=== PATIENT | male | born 1950 | race Caucasian/White ===

== ENCOUNTER → 2016-09-19 | Outpatient (CLI) | payer OTHER ==
[~2016-09-19] MED LIST: AMLO2.5T PO; CEPH500C PO; CRAN1CAP15 PO; DOCU-94 PO; TYLOTC500 PO
[2016-09-19 13:16] LABS: BASO % 0.7 %; BASO ABS # 0.07 K/uL (0-0.2); COMPLETE YES; EOS % 6.1 %; HEMATOCRIT 42.1 % (42-52); IG% 0.2 %; LYMPH % 17.1 %; LYMPH ABS # 1.73 K/uL (1.2-3.4); MEAN CELL VOLUME 88.4 fL (80-100); MEAN CORPUSCULAR HEMOGLOBIN 29.4 pg (25-34); MEAN CORPUSCULAR HGB CONC 33.3 g/dl (32-36); MEAN PLATELET VOLUME 11.2 fL (7.4-10.4); MONO % 6.5 %; NEUT % 69.4 %; PLATELET COUNT 221 K/uL (130-400); RED BLOOD COUNT 4.76 M/uL (4.7-6.1)
[2016-09-19 13:36] LABS: ALT/SGPT 27 U/L (12-78); AST/SGOT 18 U/L (15-37); BLOOD UREA NITROGEN 19 mg/dl (7-18); BUN/CREATININE RATIO 20.8 (10-20); CALCIUM 8.1 mg/dl (8.5-10.1); CARBON DIOXIDE 25 mmol/L (21-32); CHLORIDE 109 mmol/L (98-107); CREATININE 0.92 mg/dl (0.60-1.40); GLUCOSE 96 mg/dl (70-99); SODIUM 142 mmol/L (136-145)
[2016-09-19 13:39] LABS: ALKALINE PHOSPHATASE 84 U/L (45-117); CHOLESTEROL 152 mg/dl (0-200); CHOLESTEROL/HDL RATIO 4.3; HDL CHOLESTEROL 35 mg/dl; TRIGLYCERIDES 107 mg/dl (0-150); VERY LOW DENSITY LIPOPROT CALC 21 mg/dl
== END | disposition home or self-care (01) ==
LOC: C.LABSPEC 12:31
PROVIDERS: ATTEND Internal Medicine
DX: I10 Essential (primary) hypertension (principal); E78.5 Hyperlipidemia, unspecified; N39.0 Urinary tract infection, site not specified

== ENCOUNTER → 2017-09-29 | Outpatient (CLI) | payer OTHER ==
[~2017-09-29] MED LIST changes: -CEPH500C PO
== END | disposition home or self-care (01) ==
LOC: C.LABSPEC 12:36
PROVIDERS: ATTEND Internal Medicine
DX: R35.0 Frequency of micturition (principal)

== ENCOUNTER → 2017-10-08 | Outpatient (CLI) | payer OTHER ==
[2017-10-08 15:25] LABS: BASO % 0.5 %; BASO ABS # 0.06 K/uL (0-0.2); EOS % 3.4 %; EOS ABS # 0.39 K/uL (0-0.5); HEMATOCRIT 42.8 % (42-52); IG# 0.04 K/uL (0.00-0.02); LYMPH % 14.7 %; MEAN CELL VOLUME 89.4 fL (80-100); MEAN CORPUSCULAR HEMOGLOBIN 29.2 pg (25-34); MEAN CORPUSCULAR HGB CONC 32.7 g/dl (32-36); MEAN PLATELET VOLUME 10.5 fL (7.4-10.4); MONO % 5.5 %; MONO ABS # 0.64 K/uL (0.11-0.59); NEUT % 75.6 %; NEUT ABS # 8.76 K/uL (1.4-6.5); PLATELET COUNT 257 K/uL (130-400); RED CELL DISTRIBUTION WIDTH CV 13.7 % (11.5-14.5); RED CELL DISTRIBUTION WIDTH SD 44.8 fL (36.4-46.3); WHITE BLOOD COUNT 11.59 K/uL (4.8-10.8)
[2017-10-08 15:34] LABS: ALBUMIN 3.2 gm/dl (3.4-5.0); ALT/SGPT 36 U/L (12-78); AST/SGOT 26 U/L (15-37); BLOOD UREA NITROGEN 16 mg/dl (7-18); CALCIUM 8.5 mg/dl (8.5-10.1); CARBON DIOXIDE 23 mmol/L (21-32); CREATININE 0.85 mg/dl (0.60-1.40); GLUCOSE 131 mg/dl (70-99); POTASSIUM 3.7 mmol/L (3.5-5.1); SODIUM 138 mmol/L (136-145)
[2017-10-08 15:36] LABS: ALKALINE PHOSPHATASE 93 U/L (45-117); TOTAL PROTEIN 7.1 gm/dl (6.4-8.2)
== END | disposition home or self-care (01) ==
LOC: C.LABSPEC 14:47
PROVIDERS: ATTEND Internal Medicine
DX: I10 Essential (primary) hypertension (principal); G82.50 Quadriplegia, unspecified; Z87.440 Personal history of urinary (tract) infections

== ENCOUNTER 2017-10-14 12:18 | Emergency (ER) | payer OTHER ==
[~2017-10-14] VITALS: Ht 177.8 cm; Wt 86.0 kg
[2017-10-14 12:40] VITALS: TEMP 36.7; Ht 177.8 cm; Wt 86.0 kg
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
[2017-10-14] MEDS ORDERED: SODIUM CHLORIDE 0.9% 1000ML 1,000 ML IV STA ×2 (13:03→16:39)
[2017-10-14] MEDS ORDERED: LRS10 PO (13:05)
[2017-10-14] MEDS ORDERED: OPTIRAY 320 IV PRN (13:30)
[2017-10-14 14:04] LABS: BASO ABS # 0.12 K/uL (0-0.2); EOS % 5.1 %; EOS ABS # 0.63 K/uL (0-0.5); HEMATOCRIT 41.8 % (42-52); HEMOGLOBIN 13.6 g/dL (14.0-18.0); IG# 0.03 K/uL (0.00-0.02); LYMPH % 9.7 %; MEAN CELL VOLUME 89.7 fL (80-100); MEAN CORPUSCULAR HEMOGLOBIN 29.2 pg (25-34); MEAN CORPUSCULAR HGB CONC 32.5 g/dl (32-36); MEAN PLATELET VOLUME 10.6 fL (7.4-10.4); MONO % 5.6 %; MONO ABS # 0.69 K/uL (0.11-0.59); NEUT % 78.4 %; NEUT ABS # 9.73 K/uL (1.4-6.5); PLATELET COUNT 251 K/uL (130-400); RED CELL DISTRIBUTION WIDTH CV 14.1 % (11.5-14.5); RED CELL DISTRIBUTION WIDTH SD 46.4 fL (36.4-46.3)
[2017-10-14 14:15] LABS: INR 0.9 (0.9-1.1); PTT PATIENT 36.6 SECONDS (21.0-31.0)
[2017-10-14 14:26] LABS: ALBUMIN 3.2 gm/dl (3.4-5.0); CALCIUM 8.5 mg/dl (8.5-10.1); CREATININE 0.83 mg/dl (0.60-1.40); POTASSIUM 3.9 mmol/L (3.5-5.1)
[2017-10-14 14:28] LABS: TOTAL PROTEIN 7.6 gm/dl (6.4-8.2)
--- NOTE | 2017-10-14 15:25 | DIAGNOSTIC IMAGING REPORT ---
CT ABD/PELVIS IV CONTRAST ONLY CLINICAL HISTORY: hematuria after fall COMPARISON STUDY: Noncontrast study dated 01/19/2011 TECHNIQUE: Following the IV administration of 120 mL of Optiray-320, CT scan of the abdomen and pelvis was performed from the lung bases to the proximal femurs. Images are reviewed in the axial, sagittal, and coronal planes. IV contrast was administered without complication. A dose lowering technique was utilized adhering to the principles of ALARA. CT DOSE: 951.15 mGycm FINDINGS: Lower chest: The heart is mildly enlarged. Atheromatous changes are present within the descending thoracic aorta with a possible penetrating ulcer. Liver: There is a subtle 17 millimeter hypodensity with thin the right hepatic lobe inferiorly Gallbladder: Contracted Spleen: Normal in size and attenuation. Pancreas: Unremarkable. Adrenal glands: Unremarkable. Kidneys: Both kidneys enhance on a normal fashion. There are right renal cysts. An upper pole 12 mm cyst demonstrates a single septation. There is a 15 mm lower pole renal cyst. There is an 11 mm lower pole right renal cyst. There are multiple left renal parapelvic cysts. Bowel: There are no transition zones to indicate bowel obstruction. There is no evidence of acute diverticulitis. There are no extraluminal gas collections. Peritoneum: There is no intraperitoneal free air or abdominal ascites. There is subtle hazy increased density of the central mesentery, unchanged the preceding study. Vasculature: There is a 4.5 cm suprarenal abdominal aortic aneurysm. There is a 3.5 cm infrarenal abdominal aortic aneurysm. Adenopathy: There are borderline enlarged iliac and inguinal lymph nodes similar to the preceding study. Pelvic viscera: There are prostatic calcifications present. There is an indwelling Amos catheter. There is marked bladder wall thickening with persistent perivesical stranding. Skeletal structures: There is an old sacral deformity. No acute fractures are evident. IMPRESSION: 1. No evidence of acute intra-abdominal or pelvic injury. 2. Extensive atheromatous changes within the abdominal aorta. There is a suprarenal and infrarenal abdominal aortic aneurysm. In addition there is a possible penetrating ulcer involving the distal thoracic aorta 3. Marked bladder wall thickening with persistent perivesical stranding 4. Stable borderline enlarged iliac and inguinal lymph nodes Electronically signed by: Damion David M.D. 10/14/2017 3:24 PM Dictated Date/Time: 10/14/2017 3:14 PM
[2017-10-14 18:09] VITALS: BP 147/95; PULSE 96; O2SAT 95
[2017-10-14 18:25] LABS: INFLUENZA B ANTIGEN Neg for Influ B (NEG)
--- NOTE | 2017-10-16 13:57 | Pharmacy Progress Note ---
ED Pharmacist Culture FollowUp Date of Service: Oct 16, 2017. Preliminary urine culture (drawn from cath specimen) is growing ps aeruginosa 50 ,000 CFU and a second gram negative viktoria yet to be ID'd Of note, the patient presented with hematuria following a fall The first urine specimen was collected from his guido that was present on arrival and had > 30 epis, and was likely contaminated. This urine cx is from that same specimen. A repeat urine sample was obtained for UA after the guido was changed. This second UA was negative (no LE, no nitrates, no bacteria, 1-5 WBC). Reviewed case with Dr Simon who saw this patient when he initially presented. He felt the first specimen was contaminated due to a colonized catheter. Hematuria was explainable secondary to fall. He felt no abx therapy required.
== END 2017-10-14 18:35 | disposition home or self-care (01) ==
LOC: C.EDB 12:19
DX: R31.9 Hematuria, unspecified (principal); I71.4 Abdominal aortic aneurysm, without rupture; T83.098A Other mechanical complication of other urinary catheter, initial encounter; Y84.6 Urinary catheterization as the cause of abnormal reaction of the patient, or of later complication, without mention of misadventure at the time of the procedure; G82.20 Paraplegia, unspecified; I10 Essential (primary) hypertension; F17.200 Nicotine dependence, unspecified, uncomplicated; Z91.81 History of falling; Z83.3 Family history of diabetes mellitus; Z82.49 Family history of ischemic heart disease and other diseases of the circulatory system; Z84.1 Family history of disorders of kidney and ureter; Z82.0 Family history of epilepsy and other diseases of the nervous system; Z79.899 Other long term (current) drug therapy

== ENCOUNTER 2019-10-22 14:10 | Inpatient (IN) ==
[2019-10-22] MEDS ORDERED: AZITHROMYCIN 250 MG TAB PO STA (14:29)
[2019-10-22] MEDS ORDERED: cefTRIAXone SODIUM 1,000 MG/50 ML BAG IV STA (14:29)
[2019-10-22] MEDS ORDERED: ALBUT/IPRATROP 3MG/0.5MG NEB 3 ML VIAL NEB STA (14:29)
[2019-10-22] MEDS ORDERED: SODIUM CHLORIDE 0.9% 500 ML IV SCH (14:30)
[2019-10-22] MEDS ORDERED: ONDANSETRON INJ 2 MG/ML 2 ML VIAL IV STA ×2 (14:39→17:21)
--- NOTE | 2019-10-22 14:56 | XRay Report ---
XR chest 1V portable CLINICAL HISTORY: weakness COMPARISON STUDY: Chest radiograph July 22, 2018. FINDINGS: Anterior cervical spine fusion is incidentally noted. Cardiomegaly and mediastinal fullness is unchanged. There is no evidence for pulmonary edema or pneumonia. No pneumothorax or pleural effu tete is present. IMPRESSION: 1. No acute findings. 2. No change in appearance of the chest. Stable cardiomegaly. ACT 112: Negative or not required by law. Electronically signed by: Shailesh Medellin M.D. 10/22/2019 2:55 PM
[2019-10-22 15:00] LABS: Basophils # (auto) 0.03 K/uL (0-0.2); Basophils % (auto) 0.3 %; Eosinophils # (auto) 0.02 K/uL (0-0.5); Eosinophils % (auto) 0.2 %; Hematocrit (blood only) 41.8 % (42-52); Hemoglobin 13.6 g/dL (14.0-18.0); Immature Granulocytes # (auto) 0.03 K/uL (0.00-0.02); Immature Granulocytes % (auto) 0.3 %; Lymphocytes # (auto) 0.36 K/uL (1.2-3.4); Lymphocytes % (auto) 3.2 %; Mean Corpuscular Hemoglobin 29.4 pg (25-34); Mean Corpuscular Hgb Conc 32.5 g/dL (32-36); Mean Corpuscular Volume 90.3 fL (80-100); Mean Platelet Volume 10.9 fL (7.4-10.4); Monocytes # (auto) 0.85 K/uL (0.11-0.59); Monocytes % (auto) 7.5 %; Neutrophils # (auto) 10.02 K/uL (1.4-6.5); Neutrophils % (auto) 88.5 %; Platelet Count 148 K/uL (130-400); RDW Coefficient of Variation 14.5 % (11.5-14.5); RDW Standard Deviation 47.7 fL (36.4-46.3); Red Blood Count 4.63 M/uL (4.7-6.1); White Blood Count 11.31 K/uL (4.8-10.8)
[2019-10-22 15:19] LABS: Albumin Level 3.5 gm/dl (3.4-5.0); BUN Creatinine Ratio 21.9 (10-20); Calcium 8.4 mg/dl (8.5-10.1); Creatinine Clr Calc Pharmacy 70.3 ml/min; Est GFR (Non-African American) 66.5; Potassium 4.1 mmol/L (3.5-5.1)
[2019-10-22 15:33] LABS: Influenza B virus by PCR Neg for Influ B (Neg)
[2019-10-22 15:36] LABS: Albumin Globulin Ratio 0.9 (0.9-2); Bilirubin,Total 1.3 mg/dl (0.2-1); Globulin 4.1 gm/dl (2.5-4.0); Total Protein 7.6 gm/dl (6.4-8.2); Troponin I 0.373 ng/ml (0-0.045)
[2019-10-22] MEDS ORDERED: OSELTAMIVIR PHOSPHATE 75 MG CAP PO STA (15:53)
--- NOTE | 2019-10-22 16:53 | Electrocardiogram Report ---
Test Reason : Blood Pressure : / mmHG Vent. Rate : 087 BPM Atrial Rate : 087 BPM P-R Int : 208 ms QRS Dur : 088 ms QT Int : 376 ms P-R-T Axes : 054 -52 062 degrees QTc Int : 452 ms Poor data quality, interpretation may be adversely affected Sinus rhythm with Premature atrial complexes Left axis deviation Inferior infarct (cited on or before 16-JUN-2015) Possible Anterior infarct , age undetermined Abnormal ECG When compared with ECG of 22-JUL-2018 10:08, Premature atrial complexes are now Present Confirmed by Noble Ceballos ([id number]) on 10/22/2019 4:53:12 PM Referred By: Shashi Henao Confirmed By:Noble Ceballos
--- NOTE | 2019-10-22 17:19 | History & Physical Report ---
Date of Service October 22, 2019 Assessment & Plan (1) Influenza: Tamiflu 75mg BID total 10 doses Droplet precautions Not septic however given quadriplegia, COPD, significant dehydration, troponin elevation we will admit him to PCU. (2) COPD exacerbation: Suspected COPD given wheezing with tobacco history Dumarco, Solu-medrol 125mg IV now. 40mg IV BID, then prednisone order after that. Recommend PFTs in 6 weeks once well. Consider at least a rescue inhaler on discharge. (3) Pneumonia: Possible. Although procalcitonin/CXR negative he has positive right sided crackles on auscultation. He is a high risk of bacterial pneumonia regardless with COPD and quadriplegia and will trend procalcitonin which may guide stopping antibiotics if felt not to be necessary (although also using to cover possible cellulitis in addition). Certainly influenza is the primary cause of his acute deterioration. (4) Cellulitis of leg, right: Possible diagnosis although may just be venous insufficiency. Either was will be covered by ceftriaxone as above. Continue to monitor. Discussed with his sister over the phone who feels his legs are usually the same as each other and his right is certainly more erythematous currently. (5) Elevated troponin: Suspected demand-ischemia related to tachycardia. However given significant elevation and chest pain yesterday will give ASA 324mg likely some underlying CAD and not on ASA at home. (6) Quadriplegia: (7) Indwelling Guido catheter present: Change guido cath. He reports this is due for a change. (8) Psoriasis: Betamethasone cream BID PRN (9) Hypertension: Continue amlodipine 5mg PO daily (10) DVT prophylaxis: Lovenox 40mg SQ daily (11) Discharge planning issues: Wheelchair bound. PT/OT discharge planning. Previous rehab at [facility]. History of Present Illness Chief Complaint: Fever, chills, shortness of breath Primary Care Provider: Shashi Henao MD Stephen Moon is an 79 year old male with longstanding quadriplegia (since 1963) who presents to the ER with 2 day history of fever, chills, nasal congestion, productive cough, diarrhea (started yesterday), chest pain (tightness, lasted for few minutes, last night, associated with shortness of breath and coughing). He went to his PCP office today and was advised to go to the ER. He had his flu vaccination this year. No recent antibiotics and or travel. He has a longstanding smoking history but it is intermittent. Last cigarette was 2 weeks ago. He denies history inhaler use, COPD or asthma. Allergies Allergy/AdvReac Type Severity Reaction Status Date / Time adhesive Allergy Mild Irritated Verified 10/22/19 15:40 skin Cipro Allergy Unknown affected Verified 10/14/17 13:04 blood counts (THROMBOCYTOPENIA) ciprofloxacin Allergy Unknown affected Verified 10/22/19 15:40 blood counts (THROMBOCYTOPENIA) heparin AdvReac Intermediate POSSIBLE Verified 10/22/19 15:40 CAUSE OF THROMBOCYTOPENIIA 04/22, LABS PENDING Home Medications Home Medications Medication Instructions Recorded Confirmed Type amlodipine 5 mg PO QAM 07/20/18 10/22/19 History cranberry 400 mg PO QAM 07/20/18 10/22/19 History docusate sodium 100 mg PO QAM 07/20/18 10/22/19 History acetaminophen [Tylenol Extra 500 mg PO Q6H PRN 10/22/19 10/22/19 History Strength] Past Med/Surg History Medical History (Updated 10/23/19 @ 01:18 by Anand England MD) Cholecystitis, chronic Hiatal hernia History of quadriplegia WHEELCHAIR BOUND-S/P TRAUMA 1963 Hx of abdominal aortic aneurysm There is a 4.5 cm suprarenal abdominal aortic aneurysm. There is a 3.5 cm infrarenal abdominal aortic aneurysm. (09/2017 CT of abdomen) Hx of gann 2007-LOWER EXTREMITIES Hx of decubitus ulcer SURGERY TO DEBRIDE-1963 Hypertension Indwelling Guido catheter present Kidney stones Osteoarthritis Paralysis LEVEL C 5-UNABLE TO MOVE FINGERS Spinal stenosis (Acute) Surgical History H/O cervical spine surgery (Acute) H/O skin graft 1963 - decubitus 2010 - gann History of back surgery CERVICAL BONE FUSION-2010 (ACDF 04/07/2012 - Glidescope #4 EZ intubation) S/P debridement DECUBITUS 1963 Family History Grandmother Family history of diabetes mellitus Mother Family history of diabetes mellitus Brother Family history of diabetes mellitus Social History Preferred Language: Malay Communication Ability: Effective Speech Writer Required: No Beliefs That Will Affect Care: None Current Living Situation: Alone Other Information That Helps Us Care for You: No Feels Safe at Home: Yes Safety Concerns: Feels Safe At This Time Smoking Status: Current every day smoker Tobacco Type: cigarettes ; Cigarettes Per Day: 2 ; Second Hand Exposure: No ; Hx Alcohol Use: Yes Alcohol type: beer and wine Hx Substance Use: No Review of Systems Review of Systems: All systems reviewed & are unremarkable except as noted in HPI & below Physical Exam Constitutional: well developed and + acute distress (respiratory); + not well nourished Eyes: PERRL, conjunctivae normal, anicteric sclerae ENMT: Ears: no external ear abnormality Nose: no external nose abnormality Mouth: + dry oral mucous membranes Neck: trachea midline, no thyromegaly Respiratory: + respiratory distress, + labored breathing, + retractions, + uses accessory muscles and + cough (wet sounding) Auscultation: + crackles (right base), + rhonchi and + wheezes (expiratory throughout) Cardiovascular: Rate/Rhythm: regular rate and regular rhythm Heart Sounds: no murmur Vessels: no JVD Extremities: normal capillary refill and + pedal edema (2+ to knees b/l); no calf tenderness Gastrointestinal (Abdomen): Inspection/Auscultation: abdomen normal to inspection and normal bowel sounds; abdomen not distended Percussion/Palpation: abdomen soft; abdomen nontender, no guarding and abdomen not rigid Musculoskeletal: Quadriplegia with no movement of lower extremities and very limit movement of upper extremities Skin: Bilateral lower extremity edema with small wound on right lower extremity. Mild erythema on right lower cali approximately 20x5cm concerning for cellulitis vs. venous insufficiency Neurologic: awake; + does not move all extremities (limited movement of RUE only) and not confused Psychiatric: A+Ox3, euthymic affect Genitourinary: no CVA tenderness Results & Data Vital Signs (Past 12 Hours) Vital Signs Temp Pulse Pulse Resp BP BP Pulse Ox 10/22/19 17:02 37.5 C 103 H 22 114/69 94 10/22/19 16:02 115 H 18 103/69 97 10/22/19 16:00 123 H 20 97 10/22/19 15:46 95 10/22/19 15:45 113 H 19 114/72 88 L 10/22/19 15:31 108 H 22 120/69 93 10/22/19 15:30 119 H 21 93 10/22/19 15:18 109 H 29 H 139/65 93 10/22/19 15:05 101 H 98 10/22/19 15:03 37.4 C 88 30 H 94 10/22/19 15:01 87 20 130/95 99 10/22/19 14:59 85 18 92 10/22/19 14:58 88 36 H 148/99 H 99 10/22/19 14:55 91 10/22/19 14:15 37.2 C 90 20 130/77 91 Diagnostic Findings XR chest 1V portable IMPRESSION: 1. No acute findings. 2. No change in appearance of the chest. Stable cardiomegaly. ECG Indication: chest pain Rate (beats per minute): 87 Rhythm: normal sinus Findings: + PAC; no acute ischemic change Comparison ECG Date: from (07/22/2018) Change: no significant change Code Status & VTE Plan Code Status Full VTE Prophylaxis Plan VTE Prophylaxis will be ordered: Yes PG Care Time/CCT Total # of Minutes Spent Total Time Spent with Patient: Total time spent is greater than 50% in coordination of care (as documented) at patient's floor/unit and/or counseling patient: Coding Level of Care Code 45827 Initial Inpt Care Lvl 3 Diagnoses Influenza J11.1 COPD exacerbation J44.1 Pneumonia J18.9 Laterality: unspecified laterality Lung location: unspecified part of lung Pneumonia type: due to unspecified organism Cellulitis of leg, right L03.115 Elevated troponin R79.89 Quadriplegia G82.50 Indwelling Guido catheter present Z96.0 Psoriasis L40.9 Hypertension I10 Hypertension type: essential hypertension DVT prophylaxis Z29.9 Discharge planning issues Z02.9 (1) Pneumonia Laterality: unspecified laterality Lung location: unspecified part of lung Pneumonia type: due to unspecified organism Qualified Code(s): J18.9 - Pneumonia, unspecified organism (2) Hypertension Hypertension type: essential hypertension Qualified Code(s): I10 - Essential (primary) hypertension
[2019-10-22] MEDS ORDERED: ACETAMINOPHEN 325 MG TAB PO STA (17:21)
[2019-10-22] MEDS ORDERED: LACTATED RINGER'S 1,000 ML IV ONE ×3 (17:33→22:38)
[2019-10-22] MEDS ORDERED: ASPIRIN CHEW 324 MG PO STA (17:37)
[2019-10-22] MEDS ORDERED: methylPREDNISolone 125 MG/2 ML VIAL IV STA (17:44)
--- NOTE | 2019-10-22 19:33 | Emergency Department Note ---
Entered by Brandy Hernandez acting as a scribe for Shaquille Martins MD History of Present Illness General Chief complaint: Congestion Stated complaint: CHEST CONGESTION Time Seen by Provider: 10/22/19 14:20 Source: patient History of Present Illness Onset (ago): day(s) 1 Location: chest Pain Consistency: + constant Maximum Pain Intensity: 5 Current Pain Intensity: 5 Relieved By: + none Exacerbated By: + none Associated symptoms: + chest pain, + cough, + shortness of breath and + other (congestion) Treatments prior to arrival: none The patient is a 69 year old white male who presents to the ED w/ CC of congestion beginning yesterday. The patient was referred from Dr. Ellis office. He complains of cough with dark sputum and congestion. The patient denies recent antibiotic use and travel. The patient notes that he smokes cigarettes intermittently. The patient feels short of breath, and complains of chest pain when coughing. He had diarrhea yesterday. The patient took Mucinex l ast night, which did not help his symptoms. He states that nothing seems to make his symptoms better or worse. He denies history of COPD or emphysema. Home Medications Home Medications Medication Instructions Recorded Confirmed Type amlodipine 5 mg PO QAM 07/20/18 10/22/19 History cranberry 400 mg PO QAM 07/20/18 10/22/19 History docusate sodium 100 mg PO QAM 07/20/18 10/22/19 History acetaminophen [Tylenol Extra 500 mg PO Q6H PRN 10/22/19 10/22/19 History Strength] Allergies Allergy/AdvReac Type Severity Reaction Status Date / Time adhesive Allergy Mild Irritated Verified 10/22/19 15:40 skin Cipro Allergy Unknown affected Verified 10/14/17 13:04 blood counts (THROMBOCYTOPENIA) ciprofloxacin Allergy Unknown affected Verified 10/22/19 15:40 blood counts (THROMBOCYTOPENIA) heparin AdvReac Intermediate POSSIBLE Verified 10/22/19 15:40 CAUSE OF THROMBOCYTOPENIIA 04/22, LABS PENDING Past Med/Surg History Medical History Hiatal hernia History of quadriplegia WHEELCHAIR BOUND-S/P TRAUMA 1964 Hx of abdominal aortic aneurysm There is a 4.5 cm suprarenal abdominal aortic aneurysm. There is a 3.5 cm infrarenal abdominal aortic aneurysm. (09/2017 CT of abdomen) Hx of gann 2007-LOWER EXTREMITIES Hx of decubitus ulcer SURGERY TO DEBRIDE-1963 Hypertension Indwelling Amos catheter present Kidney stones Osteoarthritis Paralysis LEVEL C 5-UNABLE TO MOVE FINGERS Spinal stenosis (Acute) Surgical History H/O cervical spine surgery (Acute) H/O skin graft 1963 - decubitus 2010 - gann History of back surgery CERVICAL BONE FUSION-2010 (ACDF 04/07/2012 - Glidescope #4 EZ intubation) S/P debridement DECUBITUS 1963 Family History Grandmother Family history of diabetes mellitus Mother Family history of diabetes mellitus Brother Family history of diabetes mellitus Social History Preferred Language: Palestinian Communication Ability: Effective 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 and A total of 10 systems reviewed and were otherwise negative Physical Exam Vital Signs Vital Signs - 24 hr 10/22/19 14:15 10/22/19 14:55 10/22/19 14:58 Temperature 37.2 C Temperature Source Oral Pulse Rate 90 88 Pulse Rate [Apical] Pulse Rate from SpO2 Sensor 86 Pulse Rhythm Respiratory Rate 20 36 H Respiratory Effort / Characteristics Non-Labored Spontaneous Respiratory Depth Normal Blood Pressure 130/77 148/99 H Blood Pressure [Left Arm] Blood Pressure Mean 94 122 Blood Pressure Mean [Left Arm] Blood Pressure Position Sitting Pulse Oximetry 91 91 99 Oxygen Delivery Method Room Air Room Air Nebulizer Oxygen Flow Rate 6 Sepsis Recent Fever Within 48 Hours No Sepsis Action Taken by Nursing No Action Required 10/22/19 14:59 10/22/19 15:01 10/22/19 15:03 Temperature 37.4 C Temperature Source Pulse Rate 87 88 Pulse Rate [Apical] 85 Pulse Rate from SpO2 Sensor 87 98 H Pulse Rhythm Respiratory Rate 18 20 30 H Respiratory Effort / Characteristics Spontaneous Short of Breath Respiratory Depth Blood Pressure 130/95 Blood Pressure [Left Arm] Blood Pressure Mean 104 Blood Pressure Mean [Left Arm] Blood Pressure Position Pulse Oximetry 92 99 94 Oxygen Delivery Method Room Air Nebulizer Room Air Oxygen Flow Rate 6 Sepsis Recent Fever Within 48 Hours Sepsis Action Taken by Nursing 10/22/19 15:05 10/22/19 15:18 10/22/19 15:30 Temperature Temperature Source Pulse Rate 101 H 109 H 119 H Pulse Rate [Apical] Pulse Rate from SpO2 Sensor 120 H 101 H Pulse Rhythm Regular Respiratory Rate 29 H 21 Respiratory Effort / Characteristics Respiratory Depth Blood Pressure 139/65 Blood Pressure [Left Arm] Blood Pressure Mean 91 Blood Pressure Mean [Left Arm] Blood Pressure Position Pulse Oximetry 98 93 93 Oxygen Delivery Method Nebulizer Room Air Room Air Oxygen Flow Rate 6 Sepsis Recent Fever Within 48 Hours Sepsis Action Taken by Nursing 10/22/19 15:31 10/22/19 15:45 10/22/19 15:46 Temperature Temperature Source Pulse Rate 108 H 113 H Pulse Rate [Apical] Pulse Rate from SpO2 Sensor 109 H 111 H Pulse Rhythm Respiratory Rate 22 19 Respiratory Effort / Characteristics Respiratory Depth Blood Pressure 120/69 114/72 Blood Pressure [Left Arm] Blood Pressure Mean 72 88 Blood Pressure Mean [Left Arm] Blood Pressure Position Pulse Oximetry 93 88 L 95 Oxygen Delivery Method Room Air Room Air Nasal Cannula Oxygen Flow Rate 2 Sepsis Recent Fever Within 48 Hours Sepsis Action Taken by Nursing 10/22/19 16:00 10/22/19 16:02 10/22/19 17:02 Temperature 37.5 C Temperature Source Oral Pulse Rate 123 H 115 H Pulse Rate [Apical] 103 H Pulse Rate from SpO2 Sensor 101 H 80 Pulse Rhythm Respiratory Rate 20 18 22 Respiratory Effort / Characteristics Respiratory Depth Blood Pressure 103/69 Blood Pressure [Left Arm] 114/69 Blood Pressure Mean 78 Blood Pressure Mean [Left Arm] 84 Blood Pressure Position Pulse Oximetry 97 97 94 Oxygen Delivery Method Nasal Cannula Nasal Cannula Nasal Cannula Oxygen Flow Rate 2 2 2 Sepsis Recent Fever Within 48 Hours Sepsis Action Taken by Nursing GENERAL: Appears older than stated age. Mildly ill in appearance. EYE EXAM: Normal conjunctiva. PERRL, no anisocoria and EOM's grossly intact w/o pain. OROPHARYNX: Dry mucous membranes. Grossly normal dentition. NECK: Supple, no nuchal rigidity, no adenopathy, non-tender. No signs of meningismus. LUNGS: Coarse breath sounds right chest. Scant wheezes throughout. Normal chest wall mechanics. HEART: NSR, no MRG. ABDOMEN: Abdomen soft, non-tender, no masses, no rebound or guarding. SKIN: No rashes and no bruising. UPPER EXTREMITIES: Upper extremities are grossly normal. LOWER EXTREMITIES: Amos bag in place, draining yellow urine. No pitting edema. No calf pain. NEURO EXAM: A&O x3, cranial nerves II-XII grossly intact, normal speech, moves all 4 extremities on command w/o issue. Course Course 1427: Past medical records reviewed. The patient was evaluated in room A12B. A complete history and physical exam was performed. Continuous Cardiac Monitoring: An order was placed for continuous cardiac monitoring. The monitor shows a rate of 87 with normal sinus rhythm. 1550: The patient had a positive Troponin and was positive for the flu. I discussed the possibility of staying in the hospital for further treatment. The patient was agreeable to this. He will be further evaluated by Dr. England. 1605: I rechecked on the patient updated him on further treatment. 1618: I spoke to Dr. England, who agreed to take over care of the patient. The patient is agreeable and will be further evaluated. Administered Medications Discontinued Medications Acetaminophen (Tylenol) 650 mg PO NOW STA Stop: 10/22/19 17:22 Last Admin: 10/22/19 17:35 Dose: 650 mg Documented by: [id number] Albuterol (Duoneb) 6 ml NEB NOW STA Stop: 10/22/19 14:30 Last Admin: 10/22/19 14:56 Dose: 6 ml Documented by: [id number] Aspirin (Aspirin) 324 mg PO NOW STA Stop: 10/22/19 17:38 Last Admin: 10/22/19 17:51 Dose: 324 mg Documented by: [id number] Azithromycin (Zithromax) 500 mg PO NOW STA Stop: 10/22/19 14:30 Last Admin: 10/22/19 15:17 Dose: 500 mg Documented by: [id number] Sodium Chloride (Nss) 500 mls @ 999 mls/hr IV .Q31M RAMÓN Stop: 10/22/19 15:00 Last Infusion: 10/22/19 15:47 Dose: 0 mls/hr Documented by: [id number] Admin: 10/22/19 15:16 Dose: 999 mls/hr Documented by: [id number] Ceftriaxone Sodium (Rocephin) 1,000 mg in 50 mls @ 100 mls/hr IV NOW STA Stop: 10/22/19 14:58 Last Infusion: 10/22/19 15:46 Dose: 0 mls/hr Documented by: [id number] Admin: 10/22/19 15:16 Dose: 100 mls/hr Documented by: [id number] Lactated Ringer's (Lr) 1,000 mls @ 999 mls/hr IV .Q1H1M ONE Stop: 10/22/19 18:33 Last Admin: 10/22/19 17:51 Dose: 999 mls/hr Documented by: [id number] Methylprednisolone (Solumedrol) 125 mg IV NOW STA Stop: 10/22/19 17:45 Last Admin: 10/22/19 17:52 Dose: 125 mg Documented by: [id number] Ondansetron HCl (Zofran) 4 mg IV NOW STA Stop: 10/22/19 14:40 Last Admin: 10/22/19 15:17 Dose: 4 mg Documented by: [id number] Ondansetron HCl (Zofran) 4 mg IV NOW STA Stop: 10/22/19 17:22 Last Admin: 10/22/19 17:35 Dose: 4 mg Documented by: [id number] Oseltamivir Phosphate (Tamiflu) 75 mg PO NOW STA; Protocol Stop: 10/22/19 15:54 Last Admin: 10/22/19 16:09 Dose: 75 mg Documented by: [id number] Medical Decision Making Differential Diagnosis Differential diagnosis includes: infections, reactive airway disease, pneumonia, pneumothorax, COPD, CHF, cardiac ischemia, pulmonary embolism, musculoskeletal, gastrointestinal, as well as others were entertained. Medical Records Attestation: I reviewed the patient's medical records. Home Medications Current Medication List: was personally reviewed by me Laboratory Data Attestation: I reviewed the patient's lab results. Result diagrams: 10/22/19 14:39 10/22/19 14:39 Lab Results 10/22/19 10/22/19 10/22/19 Range/Units 14:39 14:39 14:39 WBC 11.31 H (4.8-10.8) K/uL RBC 4.63 L (4.7-6.1) M/uL Hgb 13.6 L (14.0-18.0) g/dL Hct 41.8 L (42-52) % MCV 90.3 (80-100) fL MCH 29.4 (25-34) pg MCHC 32.5 (32-36) g/dL RDW Std Deviation 47.7 H (36.4-46.3) fL RDW Coeff of Refugio 14.5 (11.5-14.5) % Plt Count 148 (130-400) K/uL MPV 10.9 H (7.4-10.4) fL Immature Gran % (Auto) 0.3 % Neut % (Auto) 88.5 % Lymph % (Auto) 3.2 % Bartholomew % (Auto) 7.5 % Eos % (Auto) 0.2 % Baso % (Auto) 0.3 % Immature Gran # (Auto) 0.03 H (0.00-0.02) K/uL Neut # (Auto) 10.02 H (1.4-6.5) K/uL Lymph # (Auto) 0.36 L (1.2-3.4) K/uL Bartholomew # (Auto) 0.85 H (0.11-0.59) K/uL Eos # (Auto) 0.02 (0-0.5) K/uL Baso # (Auto) 0.03 (0-0.2) K/uL Sodium 136 (136-145) mmol/L Potassium 4.1 (3.5-5.1) mmol/L Chloride 106 (98-107) mmol/L Carbon Dioxide 23 (21-32) mmol/L Anion Gap 7.0 (3-11) BUN 24 H (7-18) mg/dl Creatinine 1.11 (0.6-1.4) mg/dl Est Cr Clr Drug Dosing 70.3 ml/min Est GFR ( Amer) 77.0 Est GFR (Non-Af Amer) 66.5 BUN/Creatinine Ratio 21.9 H (10-20) Glucose 133 H (70-99) mg/dl Lactate 1.6 (0.4-2.0) mmol/L Calcium 8.4 L (8.5-10.1) mg/dl Magnesium 2.0 (1.8-2.4) mg/dl Total Bilirubin 1.3 H (0.2-1) mg/dl AST 23 (15-37) U/L ALT 26 (12-78) U/L Alkaline Phosphatase 84 (45-117) U/L Troponin I 0.373 H* (0-0.045) ng/ml Total Protein 7.6 (6.4-8.2) gm/dl Albumin 3.5 (3.4-5.0) gm/dl Globulin 4.1 H (2.5-4.0) gm/dl Albumin/Globulin Ratio 0.9 (0.9-2) Influenza Type A (PCR) (Neg) Influenza Type B (PCR) (Neg) 10/22/19 Range/Units 14:56 WBC (4.8-10.8) K/uL RBC (4.7-6.1) M/uL Hgb (14.0-18.0) g/dL Hct (42-52) % MCV (80-100) fL MCH (25-34) pg MCHC (32-36) g/dL RDW Std Deviation (36.4-46.3) fL RDW Coeff of Refugio (11.5-14.5) % Plt Count (130-400) K/uL MPV (7.4-10.4) fL Immature Gran % (Auto) % Neut % (Auto) % Lymph % (Auto) % Bartholomew % (Auto) % Eos % (Auto) % Baso % (Auto) % Immature Gran # (Auto) (0.00-0.02) K/uL Neut # (Auto) (1.4-6.5) K/uL Lymph # (Auto) (1.2-3.4) K/uL Bartholomew # (Auto) (0.11-0.59) K/uL Eos # (Auto) (0-0.5) K/uL Baso # (Auto) (0-0.2) K/uL Sodium (136-145) mmol/L Potassium (3.5-5.1) mmol/L Chloride (98-107) mmol/L Carbon Dioxide (21-32) mmol/L Anion Gap (3-11) BUN (7-18) mg/dl Creatinine (0.6-1.4) mg/dl Est Cr Clr Drug Dosing ml/min Est GFR ( Amer) Est GFR (Non-Af Amer) BUN/Creatinine Ratio (10-20) Glucose (70-99) mg/dl Lactate (0.4-2.0) mmol/L Calcium (8.5-10.1) mg/dl Magnesium (1.8-2.4) mg/dl Total Bilirubin (0.2-1) mg/dl AST (15-37) U/L ALT (12-78) U/L Alkaline Phosphatase (45-117) U/L Troponin I (0-0.045) ng/ml Total Protein (6.4-8.2) gm/dl Albumin (3.4-5.0) gm/dl Globulin (2.5-4.0) gm/dl Albumin/Globulin Ratio (0.9-2) Influenza Type A (PCR) Pos for Influ A A* (Neg) Influenza Type B (PCR) Neg for Influ B (Neg) Imaging Data Radiologist's Impression: Radiology results as stated below per my review and the radiologist's interpretation: XR chest 1V portable CLINICAL HISTORY: weakness COMPARISON STUDY: Chest radiograph July 22, 2018. FINDINGS: Anterior cervical spine fusion is incidentally noted. Cardiomegaly and mediastinal fullness is unchanged. There is no evidence for pulmonary edema or pneumonia. No pneumothorax or pleural effusion is present. IMPRESSION: 1. No acute findings. 2. No change in appearance of the chest. Stable cardiomegaly. ACT 112: Negative or not required by law. Electronically signed by: Shailesh Medellin M.D. 10/22/2019 2:55 PM ECG Data Attestation: I personally reviewed and interpreted this ECG as follows: Indication: + chest pain Rate (beats per minute): 87 Rhythm: + sinus rhythm ECG Intervals/blocks: + Normal QRS ECG Roxton: + Left axis deviation ECG Findings: + Q waves (Anteriorly and inferiorly) Comparison ECG Date: from (07/24/18) Change: no significant change Blood Pressure Blood Pressure Findings: Normal blood pressure Blood Pressure Disposition: did not require urgent referral MDM Narrative The patient is a 69 year old white male who presents to the ED w/ CC of congestion beginning yesterday Patient was seen and evaluated the bedside. The patient was referred from his primary care doctor Earlene. The patient is complaining of some shortness of breath mild chest pain with coughing productive cough. The patient is a smoker. Patient denies any prior history of COPD or emphysema. Patient does have some coarse breath sounds greater in the right chest and does have some associated scant wheezes. Patient did have blood work completed along with blood cultures lactic chest x-ray and the patient was given duo nebs along with empiric antibiotics. I counseled patient on smoking cessation for 3 minutes. Treatment options discussed and resources provided. Patient was not receptive. The patient's does have positive flu and elevated troponin. The patient's EKG does not appear very change. I believe given the patient's shortness of breath infectious symptoms and flu are likely driving this as a demand ischemia. This will continue to be trended in house. The patient did have some very mild hypoxia and was started on nasal cannula. I did speak the on-call hospitalist agreed to further evaluate treat the patient. Patient was admitted to the medicine service. Impression & Plan Pneumonia, Influenza, Shortness of breath, Cough, Elevated troponin Discharge Plan Visit Data *Final* Discharge Date/Time: 10/22/19 18:02 Chief Complaint: Congestion Stated Complaint: CHEST CONGESTION ED Provider: Shaquille Martins Discharge Problem: Pneumonia, Influenza, Shortness of breath, Cough, Elevated troponin Patient Disposition: Admitted As Inpatient Discharge Instructions Interventions: ED Discharge Assessment Last Done: 10/22/19 18:02 Discharge Problem: Pneumonia Qualifiers: Pneumonia type: due to unspecified organism Laterality: unspecified laterality Lung location: unspecified part of lung Qualified Code(s): J18.9 - Pneumonia, unspecified organism The scribe's documentation has been prepared under my direction and personally reviewed by me in its entirety. I confirm that the note above accurately reflects all work, treatment, procedures, and medical decision making performed by me.
[2019-10-22] MEDS: ALBUT/IPRATROP 3MG/0.5MG NEB 3 ML VIAL NEB SCH ×2 (19:47→23:08)
[2019-10-22] MEDS: OSELTAMIVIR PHOSPHATE 75 MG CAP PO SCH (20:53)
[2019-10-22] MEDS ORDERED: METOPROLOL TARTRATE 1 MG/ML VIAL IV STA ×2 (21:38→23:26)
[2019-10-22] MEDS ORDERED: cefTRIAXone SODIUM 1,000 MG in DEXTROSE 5% 50 ML IV ONE (21:51)
[2019-10-22] MEDS ORDERED: ENOXAPARIN 100 MG/1ML SYR SQ SCH (22:00)
[2019-10-22] MEDS ORDERED: ENOXAPARIN 1 MG/KG SQ SCH (22:00)
--- NOTE | 2019-10-22 22:14 | XRay Report ---
SINGLE VIEW CHEST CLINICAL HISTORY: Dyspnea. FINDINGS: An AP, portable, upright chest radiograph is compared to study performed earlier the same d ay 10/22/2019. The examination is degraded by portable technique and patient rotation. The heart is enl arged noting atherosclerotic calcification of the thoracic aorta. The pulmonary vasculature is noncon gested. There is bibasilar scarring/atelectasis. No airspace consolidation or large pleural effusion is identified. No pneumothorax is seen. The skeletal structures are osteopenic. The bony thorax is gr ossly intact. Fusion hardware is noted in the lower cervical spine. IMPRESSION: Cardiomegaly with no active disease in the chest. ACT 112: Negative or not required by law. Electronically signed by: Wiliam Irizarry M.D. 10/22/2019 10:13 PM
[2019-10-22 22:46] LABS: Hematocrit (blood only) 39.8 % (42-52); Mean Corpuscular Hemoglobin 29.5 pg (25-34); Mean Corpuscular Volume 90.2 fL (80-100); Platelet Count 129 K/uL (130-400); RDW Coefficient of Variation 14.4 % (11.5-14.5); RDW Standard Deviation 47.7 fL (36.4-46.3); Red Blood Count 4.41 M/uL (4.7-6.1); White Blood Count 10.39 K/uL (4.8-10.8)
[2019-10-22 22:52] LABS: Mean Corpuscular Hgb Conc 32.7 g/dL (32-36)
[2019-10-22 23:04] LABS: BUN Creatinine Ratio 19.2 (10-20); Calcium 8.5 mg/dl (8.5-10.1); Creatinine Clr Calc Pharmacy 69.1 ml/min; Est GFR (African American) 75.4
[2019-10-22 23:07] LABS: Basophils # (auto) 0.01 K/uL (0-0.2); Basophils % (auto) 0.1 %; Immature Granulocytes # (auto) 0.03 K/uL (0.00-0.02); Immature Granulocytes % (auto) 0.3 %; Lymphocytes % (auto) 1.9 %; Neutrophils # (auto) 10.05 K/uL (1.4-6.5); Neutrophils % (auto) 96.7 %
[2019-10-22 23:15] LABS: Troponin I 0.452 ng/ml (0-0.045)
[2019-10-22] MEDS ORDERED: METOPROLOL TARTRATE 50 MG TAB PO STA (23:26)
[2019-10-23] MEDS ORDERED: PHARMACY GLYCEMIC MGMT CONSULT PRN (01:17)
[2019-10-23] MEDS ORDERED: BETAMETHASONE DIP AUG (DIPROLENE) 0.05% CR 15 GM TUBE EXT PRN (01:20)
[2019-10-23] MEDS ORDERED: ACETAMINOPHEN 325 MG TAB PO PRN (01:27)
[2019-10-23] MEDS ORDERED: DEXTROSE 50% 50 ML SYRINGE IV PRN (01:45)
[2019-10-23] MEDS ORDERED: GLUCOSE 10 TABS/TUBE PO PRN (01:45)
[2019-10-23] MEDS ORDERED: CARBOHYDRATES FOR HYPOGLYCEMIA PO PRN (01:45)
[2019-10-23] MEDS ORDERED: GLUCOSE 40% GEL 15 GM TUBE PO PRN (01:45)
[2019-10-23] MEDS ORDERED: GLUCAGON FOR INJ 1 MG VIAL SQ PRN (01:45)
[2019-10-23] MEDS ORDERED: LACTATED RINGER'S 1,000 ML IV SCH (02:00)
[2019-10-23] MEDS: INSULIN ASPART 100 UNITS/ML 3 ML PEN SC SCH ×5 (02:14→21:00)
[2019-10-23] MEDS: ALBUT/IPRATROP 3MG/0.5MG NEB 3 ML VIAL NEB SCH ×6 (02:30→23:06)
[2019-10-23] MEDS ORDERED: FUROSEMIDE 40 MG in SYRINGE 0 ML IV ONE (06:47)
--- NOTE | 2019-10-23 06:50 | Communication Note ---
Date of Service: October 23, 2019 Was called to patient's room around 6:30 am to check on worsening hypoxemic respiratory failure and worsening respiratory exam per nursing. Patient had already received two boluses of LR and was receiving LR @150 mls/hour. On exam patient has diffuse rales and is having orthopnea. We will hold fluid and give one time dose of 40 mg IV lasix.
[2019-10-23 07:05] LABS: Hematocrit (blood only) 40.2 % (42-52); Hemoglobin 13.5 g/dL (14.0-18.0); Immature Granulocytes # (auto) 0.02 K/uL (0.00-0.02); Immature Granulocytes % (auto) 0.2 %; Lymphocytes # (auto) 0.43 K/uL (1.2-3.4); Lymphocytes % (auto) 4.2 %; Mean Corpuscular Hgb Conc 33.6 g/dL (32-36); Mean Corpuscular Volume 89.3 fL (80-100); Mean Platelet Volume 10.4 fL (7.4-10.4); Monocytes # (auto) 0.25 K/uL (0.11-0.59); Monocytes % (auto) 2.4 %; Neutrophils # (auto) 9.59 K/uL (1.4-6.5); Neutrophils % (auto) 93.2 %; Platelet Count 142 K/uL (130-400); RDW Coefficient of Variation 14.4 % (11.5-14.5); RDW Standard Deviation 47.1 fL (36.4-46.3); White Blood Count 10.29 K/uL (4.8-10.8)
[2019-10-23 07:17] LABS: Estimated Average Glucose 105 mg/dl; Hemoglobin A1C 5.3 % (4.5-5.6)
[2019-10-23 07:35] LABS: BUN Creatinine Ratio 18.6 (10-20); Calcium 8.6 mg/dl (8.5-10.1); Creatinine Clr Calc Pharmacy 78.1 ml/min; Est GFR (African American) 89.5; Est GFR (Non-African American) 77.3; Potassium 4.2 mmol/L (3.5-5.1)
[2019-10-23 07:46] LABS: Thyroid Stimulating Hormone 0.422 uIu/ml (0.300-4.500)
[2019-10-23] MEDS ORDERED: METOPROLOL TARTRATE 1 MG/ML VIAL IV PRN (08:24)
[2019-10-23] MEDS ORDERED: NON-FORMULARY MEDICATION (Cranberry 400 MG) PO SCH (09:00)
[2019-10-23] MEDS ORDERED: methylPREDNISolone 40 MG in SYRINGE 0 ML IV SCH (09:00)
[2019-10-23] MEDS ORDERED: AMLODIPINE BESYLATE 5 MG TAB PO SCH (09:00)
[2019-10-23] MEDS ORDERED: AZITHROMYCIN 250 MG TAB PO SCH (09:00)
[2019-10-23] MEDS: LACTOBACILLUS ACIDOPHILUS (FLORANEX) TAB PO SCH ×3 (09:12→17:59)
[2019-10-23] MEDS: METOPROLOL TARTRATE 50 MG TAB PO SCH ×2 (09:12→19:37)
[2019-10-23] MEDS: OSELTAMIVIR PHOSPHATE 75 MG CAP PO SCH ×2 (09:15→19:40)
[2019-10-23] MEDS: guaiFENesin 600 MG TABCR PO SCH ×2 (09:15→19:36)
[2019-10-23] MEDS: DOCUSATE SODIUM 100 MG CAP PO SCH (09:16)
--- NOTE | 2019-10-23 10:12 | Electrocardiogram Report ---
Test Reason : Blood Pressure : / mmHG Vent. 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 lead placement vs. LVH Abnormal ECG When compared with ECG of 22-OCT-2019 14:52, Atrial fibrillation has replaced Sinus rhythm HR has increased 22 bpm Confirmed by Edenilson Valencia ([id number]) on 10/23/2019 10:12:39 AM Referred By: Shashi Henao Confirmed By:Edenilson Valencia
--- NOTE | 2019-10-23 11:01 | Pharmacy Report ---
Pharmacy Glycemic Short Note 2 - Date of Service October 23, 2019 - Glycemic Short BSG Results (Last 24 hours): 10/22/19 10/22/19 10/23/19 14:39 22:13 01:34 Glucose 133 H 226 H POC Glucose 216 H 10/23/19 10/23/19 06:36 07:17 Glucose 153 H POC Glucose 152 H OUTPATIENT ANTIDIABETIC REGIMEN: * n/a * A1c = 5.3% 10/23/19 ASSESSMENT: * Stephen is a 69 yr old who presented to the ED with fever, chills, and shortness of breath. He has been started on ceftriaxone, azithromycin, and tamiflu for influenza, COPD exacerbation, and possible pneumonia. * No known history of DM. Patient is likely hyperglycemic due to high dose IV steroids. He is currently ordered solu medrol 40 mg IV q12h. This will be transitioned to prednisone 40 mg daily on 10/24. * Fasting BSG = 152 mg/dL. Patients BSG improved from 216 mg/dL to 152 mg/dL with just 4 units of SQ Novolog. I will hold off on scheduling basal insulin. If fasting BSG trends upward, will start once daily NPH. * Continue Novolog CF/CR based on weight and stress of 2. PLAN FOR INPATIENT GLYCEMIC CONTROL: * Basal insulin * none * Bolus insulin * NovoLog per scale ACHS or Q6hrs while NPO * Goal Range: Low 110 mg/dL - High 140 mg/dL * Correction Factor: 20 mg/dL/unit * Nutritional / Prandial insulin per carb ratio of 1 unit per 8 grams CHO consumed PLAN FOR DISCHARGE: * A1c = 5.3% * No history of DM. A1c does not indicate prediabetes/diabetes. Anti-diabetic regimen not needed.
--- NOTE | 2019-10-23 11:17 | Hospitalist Progress Note ---
Date of Service October 23, 2019 Assessment & Plan (1) Atrial fibrillation with RVR: In the evening of 10/23, he went into afib with RVR, confirmed on EKG. No chest pain. Chads-Vasc of 2, making urgent anticoagulation not needed. - Echo pending - Rates controlled with his home oral metop along with some IV pushes at times. - Will discuss pros/cons of anticoagulation with him prior to starting any inpatient. (2) Influenza: Flu swab positive. - Tamiflu 75mg BID total 10 doses - Droplet precautions (3) COPD exacerbation: Suspected COPD given wheezing with tobacco history. - Continue DuoNebs - Taper steroids to oral today - Stop abx for lack of evidence of bacterial pneumonia. - Recommend PFTs in 6 weeks once well. Consider at least a rescue inhaler on discharge. (4) Cellulitis of leg, right: Possible diagnosis although may just be venous insufficiency. Either was will be covered by ceftriaxone as above. Continue to monitor. Discussed with his sister over the phone who feels his legs are usually the same as each other and his right is certainly more erythematous currently. (5) Hypertension: BP 160/110 today. - Continue beta-frederick - Restart home amlodipine 5mg PO daily - Monitor (6) Elevated troponin: Demand-ischemia related to tachycardia. No major jump to indicate acute coronary event. - Troponin stable at 0.45. - Will get one more, then stop trending. (7) Quadriplegia: Long-standing. Unknown cause. - PT/OT (8) Indwelling Amos catheter present: Amos cath ordered on admission. - No other inpatient needs (9) Psoriasis: Appears at baseline. - Betamethasone cream BID PRN (10) DVT prophylaxis: Lovenox 40mg SQ daily (11) Discharge planning issues: Wheelchair bound. PT/OT discharge planning. Previous rehab at [facility]. Subjective Feels well overall. Still coughing. Still somewhat shortness of breath. Reports no fevers/chills, chest pain, abdominal pain, nausea, or vomiting. Physical Exam Constitutional: WD/WN, vitals as above Eyes: EOM intact bilaterally; no conjunctival abnormality ENMT: external ear and nose normal, oropharynx normal Neck: trachea midline, no thyromegaly normal visual inspection Respiratory: normal respiratory effort, lungs clear to auscultation no respiratory distress Cardiovascular: Rate/Rhythm: + tachycardic and + irregularly irregular Heart Sounds: normal S1 and normal S2; no murmur Vessels: no JVD Gastrointestinal (Abdomen): Inspection/Auscultation: abdomen normal to inspection; abdomen not distended Musculoskeletal: no cyanosis or clubbing, extremities motor strength 5/5 Skin: no rashes, warm and dry Neurologic: moves all extremities and awake Psychiatric: Orientation: alert, oriented to person and cooperative Results & Data ([facility] [place]) Vital Signs (Past 12 Hours) Vital Signs Temp Pulse Pulse Resp BP BP BP 10/23/19 08:30 128 H 158/107 H 10/23/19 07:39 95 H 10/23/19 07:21 36.8 C 102 H 29 H 158/107 H 10/23/19 07:13 88 24 10/23/19 02:30 87 18 10/23/19 02:24 36.8 C 84 18 145/108 H 10/23/19 00:52 106 H 122/68 10/22/19 23:17 36.6 C 97 H 24 127/85 Pulse Ox 10/23/19 08:30 10/23/19 07:39 10/23/19 07:21 98 10/23/19 07:13 96 10/23/19 02:30 93 10/23/19 02:24 93 10/23/19 00:52 10/22/19 23:17 94 PG Care Time/CCT Total # of Minutes Spent Total Time Spent with Patient: Total time spent is greater than 50% in coordination of care (as documented) at patient's floor/unit and/or counseling patient: Coding Level of Care Code 98393 Subseq Hosp Care Lvl 3 Diagnoses Atrial fibrillation with RVR I48.91 Influenza J11.1 COPD exacerbation J44.1 Cellulitis of leg, right L03.115 Hypertension I10 Hypertension type: essential hypertension Elevated troponin R79.89 Quadriplegia G82.50 Indwelling Amos catheter present Z96.0 Psoriasis L40.9 DVT prophylaxis Z29.9 Discharge planning issues Z02.9 (1) Hypertension Hypertension type: essential hypertension Qualified Code(s): I10 - Essential (primary) hypertension
--- NOTE | 2019-10-23 11:20 | XCELERA ---
[id number] [id number]
[2019-10-23] MEDS ORDERED: cefTRIAXone SODIUM 2,000 MG in DEXTROSE 5% 50 ML IV SCH (15:00)
[2019-10-23] MEDS: ASPIRIN 81 MG ECTAB PO SCH (15:55)
--- NOTE | 2019-10-23 19:02 | Cardiology Consultation ---
Date of Consultation October 23, 2019 Assessment & Plan (1) Atrial fibrillation with RVR: (2) Elevated troponin: (3) Influenza: (4) Quadriplegia: Patient admitted with influenza, course complicated by chest discomfort last evening with development of atrial fibrillation and rising troponin. Since the duration of his wall motion abnormalities on echocardiogram are uncertain, it is possible that he had cardiac event last evening. However, in the absence of ST changes or any further chest discomfort, more likely explanation is that his infarcts/wall motion abnormalities are old (evidence on prior ECGs) and that supply/demand mismatch due to his acute influenza as well as new onset atrial fibrillation with rapid ventricular response are the cause of his enzyme rise. He is anticoagulated with full dose enoxaparin and his rate is reasonably controlled with oral and IV metoprolol (ventricular rate near 100 bpm is probably physiologically appropriate given his respiratory compromise). Recommend further ECGs and serial enzymes while remaining on telemetry. Will monitor his clinical course overnight and re-evaluate further in the morning, including recommendations for long-term anticoagulation & rate control. History of Present Illness Reason for Consultation: Elevated troponin Requesting Physician: Cassius Yu MD Attending Physician: Cassius Yu MD History of Present Illness 79-year-old man with longstanding quadriplegia (1965) who was admitted yesterday with fever, chills, productive cough, and dyspnea, nasal swab returned positive for influenza. He also noted some chest heaviness last evening which lasted several hours. Last evening he developed atrial fibrillation with mildly elevated ventricular response (109 bpm). Otherwise uneventful night, he has had no further chest pressure. He does note mild dyspnea and a persistent cough. No further fever or chills. Serial ECGs showed no new ST abnormalities but the troponin increased from initial 0.3 up to 1.0 overnight. Echocardiogram showed mildly reduced systolic function with wall motion abnormalities of uncertain duration (severe inferior hypokinesis, moderate septal hypokinesis, mild global hypokinesis). 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 Currently, monitor shows atrial fibrillation with ventricular rate just above 100 bpm. At the time of my evaluation, he was eating dinner and was comfortable at rest. Allergies Allergy/AdvReac Type Severity Reaction Status Date / Time adhesive Allergy Mild Irritated Verified 10/22/19 15:40 skin Cipro Allergy Unknown affected Verified 10/14/17 13:04 blood counts (THROMBOCYTOPENIA) ciprofloxacin Allergy Unknown affected Verified 10/22/19 15:40 blood counts (THROMBOCYTOPENIA) heparin AdvReac Intermediate POSSIBLE Verified 10/22/19 15:40 CAUSE OF THROMBOCYTOPENIIA 04/22, LABS PENDING Home Medications Home Medications Medication Instructions Recorded Confirmed Type amlodipine 5 mg PO QAM 07/20/18 10/22/19 History cranberry 400 mg PO QAM 07/20/18 10/22/19 History docusate sodium 100 mg PO QAM 07/20/18 10/22/19 History acetaminophen [Tylenol Extra 500 mg PO Q6H PRN 10/22/19 10/22/19 History Strength] Patient History Medical History Cholecystitis, chronic Hiatal hernia Hiccups (Resolved) History of quadriplegia WHEELCHAIR BOUND-S/P TRAUMA 1965 Hx of abdominal aortic aneurysm There is a 4.5 cm suprarenal abdominal aortic aneurysm. There is a 3.5 cm infrarenal abdominal aortic aneurysm. (09/2017 CT of abdomen) Hx of gann 2007-LOWER EXTREMITIES Hx of decubitus ulcer SURGERY TO DEBRIDE-1963 Hypertension Indwelling Amos catheter present Kidney stones Osteoarthritis Paralysis LEVEL C 5-UNABLE TO MOVE FINGERS Psoriasis (Inactive) Seborrheic keratosis (Inactive) Spinal stenosis (Acute) Surgical History H/O cervical spine surgery (Acute) H/O skin graft 1963 - decubitus 2010 - gann History of back surgery CERVICAL BONE FUSION-2010 (ACDF 04/07/2012 - Glidescope #4 EZ intubation) S/P debridement DECUBITUS 1963 Family History Family history of diabetes mellitus Grandmother Mother Brother Social History Preferred Language: Albanian Communication Ability: Effective Supervisor [employer] Required: No Beliefs That Will Affect Care: None Current Living Situation: Alone Other Information That Helps Us Care for You: No Feels Safe at Home: Yes Safety Concerns: Feels Safe At This Time Smoking Status: Current every day smoker Tobacco Type: cigarettes ; Cigarettes Per Day: 2 ; Second Hand Exposure: No ; Hx Alcohol Use: Yes Alcohol type: beer and wine Hx Substance Use: No Review of Systems Constitutional: + fever, + chills and + fatigue; no weight loss and no weight gain Eyes: no problem reported Ear, Nose, Mouth, Throat: + nasal discharge; no problem reported Respiratory: + cough and + dyspnea Cardiovascular: as per Subjective / HPI Gastrointestinal: + diarrhea/loose stools; no abdominal pain Musculoskeletal: no myalgia Integumentary: no rash and no new lesions Neurologic: no falls and no syncope Psychiatric: no problem reported Hematologic / Lymphatic: no easy bleeding and no easy bruising Physical Exam Physical Exam: Elderly white male in no acute distress. Skin: No unusual lesions or ecchymosis. HEENT: Unremarkable. Neck: Jugular venous pulse just above the clavicle at 90, no carotid bruits. Lungs: Coarse breath sounds with diffuse rhonchi and wheezing. No accessory muscle use, intercostal retraction, or abdominal paradox. Cardiac: Heart tones masked by lung sounds, irregular rhythm without obvious murmur or gallop. Abdomen: Benign. Extremities: Nontender without edema. Intact peripheral pulses. Neurologic: Near quadriplegic, has no significant hand function but can move both upper extremities and can slightly move his left lower extremity. Normal conversation and affect. Results & Data Laboratory Results 10/23/19 06:36 Creatinine 0.98 10/23/19 06:36 Plt Count 142 10/22/19 10/22/19 10/23/19 14:39 22:13 06:36 Hgb 13.5 L Troponin I 0.373 H* 0.452 H* 10/23/19 11:44 Hgb Troponin I 1.010 H* Diagnostic Findings ECG on admission showed sinus rhythm at 87 be p.m. with PVCs, and old inferior infarct, and poor R-wave progression. Compared with 07/22/2018 study, PACs now present, otherwise no significant change. Repeat ECG last evening showed atrial fibrillation with rapid ventricular response of 109 be p.m., no new ST segment changes. Echocardiogram today showed EF 45-50% with moderate septal hypokinesis, severe inferior wall hypokinesis, mild global hypokinesis. No significant valvular disease on technically limited Doppler. Chest x-ray showed cardiomegaly with no active disease in the chest. PG Care Time/CCT Total # of Minutes Spent Total Time Spent with Patient: Total time spent is greater than 50% in coordination of care (as documented) at patient's floor/unit and/or counseling patient: Coding Level of Care Code 86828 Inpt Consult Level 4 Diagnoses Atrial fibrillation with RVR I48.91 Elevated troponin R79.89 Influenza J11.1 Quadriplegia G82.50
[2019-10-23] MEDS: APIXABAN 5 MG TABLET PO SCH (19:38)
[2019-10-23] MEDS: ATORVASTATIN 40 MG TAB PO SCH (19:38)
[2019-10-24] MEDS: ALBUT/IPRATROP 3MG/0.5MG NEB 3 ML VIAL NEB SCH ×6 (03:04→22:24)
[2019-10-24 06:39] LABS: Hematocrit (blood only) 39.3 % (42-52); Hemoglobin 12.7 g/dL (14.0-18.0); Mean Corpuscular Hemoglobin 29.3 pg (25-34); Mean Corpuscular Hgb Conc 32.3 g/dL (32-36); Mean Corpuscular Volume 90.8 fL (80-100); Platelet Count 146 K/uL (130-400); RDW Coefficient of Variation 14.2 % (11.5-14.5); RDW Standard Deviation 47.3 fL (36.4-46.3); Red Blood Count 4.33 M/uL (4.7-6.1); White Blood Count 14.02 K/uL (4.8-10.8)
[2019-10-24 07:26] LABS: BUN Creatinine Ratio 28.5 (10-20); Calcium 8.4 mg/dl (8.5-10.1); Creatinine Clr Calc Pharmacy 76.7 ml/min; Est GFR (African American) 88.4; Est GFR (Non-African American) 76.3; Magnesium 2.1 mg/dl (1.8-2.4); Potassium 3.8 mmol/L (3.5-5.1)
[2019-10-24 07:38] LABS: Phosphorus 2.7 mg/dl (2.5-4.9); Troponin I 0.625 ng/ml (0-0.045)
[2019-10-24] MEDS: ASPIRIN 81 MG ECTAB PO SCH (08:17)
[2019-10-24] MEDS: guaiFENesin 600 MG TABCR PO SCH ×2 (08:18→20:33)
[2019-10-24] MEDS: DOCUSATE SODIUM 100 MG CAP PO SCH (08:18)
[2019-10-24] MEDS: APIXABAN 5 MG TABLET PO SCH (08:19)
[2019-10-24] MEDS: LACTOBACILLUS ACIDOPHILUS (FLORANEX) TAB PO SCH ×3 (08:19→16:13)
[2019-10-24] MEDS: METOPROLOL TARTRATE 50 MG TAB PO SCH ×2 (08:20→20:33)
[2019-10-24] MEDS: AMLODIPINE BESYLATE 5 MG TAB PO SCH (08:20)
[2019-10-24] MEDS: predniSONE 20 MG TAB PO SCH (08:20)
[2019-10-24] MEDS: OSELTAMIVIR PHOSPHATE 75 MG CAP PO SCH ×2 (08:21→20:34)
[2019-10-24] MEDS: INSULIN ASPART 100 UNITS/ML 3 ML PEN SC SCH ×4 (08:24→20:34)
--- NOTE | 2019-10-24 12:32 | Cardiology Progress Note ---
Date of Service October 24, 2019 Assessment & Plan (1) Atrial fibrillation with RVR: (2) Elevated troponin: (3) Influenza: (4) Quadriplegia: Patient admitted with influenza, course complicated by chest discomfort 2 days ago with development of atrial fibrillation and transient troponin el evation. Since the duration of his wall motion abnormalities on echocardiogram are uncertain, it is impossible to exclude a recent cardiac event. However, in the absence of ST changes or any further chest discomfort, more likely explanation is that his infarcts/wall motion abnormalities are old (evidence on prior ECGs) and that supply/demand mismatch due to his acute influenza as well as new onset atrial fibrillation with rapid ventricular response are the cause of his enzyme rise. In regards to his recent onset atrial fibrillation, he is anticoagulated with apixaban and his rate is now well controlled with oral and IV metoprolol (ventricular rate 90s range is physiologically appropriate given his respiratory compromise). At this point, would favor conservative management of his presumed coronary artery disease while his influenza is being treated. Agree with adding aspirin back to his regimen and continuing atorvastatin. Since his functional status is quite limited due to his quadriplegia, once his influenza is treated would assess for any anginal type symptoms that prevent him from performing transfers or other activities which represent his maximal physical exertion. In the absence of lifestyle limiting symptoms, continued conservative management of his presumed coronary artery disease seems warranted. Subjective Uneventful night, patient slept well. No PND. No ankle edema. No chest pain overnight. No dyspnea at rest. Troponins trending downward. Monitor showed sinus rhythm with no dysrhythmia. Physical Exam Physical Exam: No acute distress. Skin: No unusual lesions or ecchymosis. HEENT: Unremarkable. Neck: Jugular venous pulse just above the clavicle at 90, no carotid bruits. Lungs: Coarse breath sounds with diffuse rhonchi and wheezing. No accessory muscle use, intercostal retraction, or abdominal paradox. Cardiac: Heart tones masked by lung sounds, irregular rhythm without obvious murmur or gallop. Abdomen: Benign. Extremities: Nontender without edema. Intact peripheral pulses. Neurologic: Near quadriplegic, has no significant hand function but can move both upper extremities and can slightly move his left lower extremity. Normal conversation and affect. Results & Data Vital Signs (Past 12 Hours) Vital Signs Temp Pulse Resp BP Pulse Ox 10/24/19 11:58 93 10/24/19 11:29 98.1 F 93 H 19 124/91 95 10/24/19 11:01 83 22 93 10/24/19 07:23 97.9 F 87 21 135/90 98 10/24/19 07:07 86 22 95 10/24/19 03:36 98.1 F 91 H 20 149/105 H 95 10/24/19 03:05 85 18 94 Laboratory Results 10/23/19 10/23/19 10/24/19 11:44 19:59 06:10 Hgb 12.7 L Plt Count 146 Creatinine Troponin I 1.010 H* 0.742 H* 10/24/19 06:10 Hgb Plt Count Creatinine 0.99 Troponin I 0.625 H* PG Care Time/CCT Total # of Minutes Spent Total Time Spent with Patient: Total time spent is greater than 50% in coordination of care (as documented) at patient's floor/unit and/or counseling patient: Coding Level of Care Code 41713 Subseq Hosp Care Lvl 3 Diagnoses Atrial fibrillation with RVR I48.91 Elevated troponin R79.89 Influenza J11.1 Quadriplegia G82.50
--- NOTE | 2019-10-24 12:56 | Hospitalist Progress Note ---
Date of Service October 24, 2019 Assessment & Plan (1) Atrial fibrillation with RVR: In the evening of 10/23, he went into afib with RVR, confirmed on EKG. No chest pain. Chads-Vasc of 2, making urgent anticoagulation not needed. - Echo on 10/23 showed mildly reduced EF 45-50% with some regional wall motion issues. Likely had a prior silent WI. - Rates controlled with oral metop along with some IV pushes at times. - Will switch to metoprolol XL for his heart failure. - Started apixaban. Patient has some hemorrhoidal bleeding, but no other contraindication to anticoagulation. (2) Influenza: Flu swab positive. - Tamiflu 75mg BID total 10 doses - Droplet precautions (3) COPD exacerbation: Suspected COPD given wheezing with tobacco history. Very mild as he is breathing well now. - Continue DuoNebs - Continue steroids x 5 days. - Stop abx for lack of evidence of bacterial pneumonia. - Recommend PFTs in 6 weeks once well. Consider at least a rescue inhaler on discharge. (4) Cellulitis of leg, right: Possible diagnosis although may just be venous insufficiency. Admitting provider discussed with his sister over the phone who feels his legs are usually the same as each other and his right is certainly more erythematous currently. - For benefit of the doubt, will continue 7-day course of abx. It is substantially better today, so may be mild infection. (5) Hypertension: BP 125/90 today. - Continue beta-frederick & home amlodipine - Monitor (6) Elevated troponin: Demand-ischemia related to tachycardia. No major jump to indicate acute coronary event. - Troponin peaked at 1, then down - Cardiology consulted (7) Quadriplegia: Long-standing. Unknown cause. - PT/OT (8) Indwelling Amos catheter present: Aoms cath exchanged on admission. - No other inpatient needs (9) Psoriasis: Appears at baseline. - Betamethasone cream BID PRN (10) DVT prophylaxis: Lovenox 40mg SQ daily (11) Discharge planning issues: Would like to go home tomorrow if able. Subjective Doing well today. No major complaints. Still coughing, but less shortness of breath. Reports no fevers/chills, chest pain, shortness of breath, abdominal pain, nausea, or vomiting. Physical Exam Constitutional: WD/WN, vitals as above Eyes: EOM intact bilaterally; no conjunctival abnormality ENMT: external ear and nose normal, oropharynx normal Neck: trachea midline, no thyromegaly normal visual inspection Respiratory: normal respiratory effort, lungs clear to auscultation no respiratory distress Cardiovascular: Rate/Rhythm: + tachycardic and + irregularly irregular Heart Sounds: normal S1 and normal S2; no murmur Vessels: no JVD Gastrointestinal (Abdomen): Inspection/Auscultation: abdomen normal to inspection; abdomen not distended Musculoskeletal: no cyanosis or clubbing, extremities motor strength 5/5 Skin: no rashes, warm and dry Neurologic: moves all extremities and awake Psychiatric: Orientation: alert, oriented to person and cooperative Results & Data ([facility]) Vital Signs (Past 12 Hours) Vital Signs Temp Pulse Resp BP Pulse Ox 10/24/19 11:58 93 10/24/19 11:29 36.7 C 93 H 19 124/91 95 10/24/19 11:01 83 22 93 10/24/19 07:23 36.6 C 87 21 135/90 98 10/24/19 07:07 86 22 95 10/24/19 03:36 36.7 C 91 H 20 149/105 H 95 10/24/19 03:05 85 18 94 PG Care Time/CCT Total # of Minutes Spent Total Time Spent with Patient: Total time spent is greater than 50% in coordination of care (as documented) at patient's floor/unit and/or counseling patient: Coding Level of Care Code 09191 Subseq Hosp Care Lvl 3 Diagnoses Atrial fibrillation with RVR I48.91 Influenza J11.1 COPD exacerbation J44.1 Cellulitis of leg, right L03.115 Hypertension I10 Hypertension type: essential hypertension Elevated troponin R79.89 Quadriplegia G82.50 Indwelling Amos catheter present Z96.0 Psoriasis L40.9 DVT prophylaxis Z29.9 Discharge planning issues Z02.9 (1) Hypertension Hypertension type: essential hypertension Qualified Code(s): I10 - Essential (primary) hypertension
[2019-10-24] MEDS: cephALEXin 500 MG CAP PO SCH ×2 (16:12→20:33)
[2019-10-24] MEDS ORDERED: RIVAROXABAN 15 MG TAB PO SCH (18:00)
[2019-10-24] MEDS: ATORVASTATIN 40 MG TAB PO SCH (20:33)
[2019-10-25] MEDS: ALBUT/IPRATROP 3MG/0.5MG NEB 3 ML VIAL NEB SCH ×6 (03:04→22:59)
[2019-10-25 06:34] LABS: Hematocrit (blood only) 39.2 % (42-52); Hemoglobin 12.7 g/dL (14.0-18.0); Mean Corpuscular Hemoglobin 29.1 pg (25-34); Mean Corpuscular Hgb Conc 32.4 g/dL (32-36); Mean Corpuscular Volume 89.9 fL (80-100); Mean Platelet Volume 10.3 fL (7.4-10.4); Platelet Count 143 K/uL (130-400); RDW Standard Deviation 46.3 fL (36.4-46.3); Red Blood Count 4.36 M/uL (4.7-6.1); White Blood Count 10.36 K/uL (4.8-10.8)
[2019-10-25 07:05] LABS: BUN Creatinine Ratio 28.4 (10-20); Calcium 8.3 mg/dl (8.5-10.1); Creatinine Clr Calc Pharmacy 97.4 ml/min; Est GFR (African American) 105.3; Est GFR (Non-African American) 90.8; Magnesium 2.1 mg/dl (1.8-2.4); Potassium 3.8 mmol/L (3.5-5.1)
[2019-10-25] MEDS: OSELTAMIVIR PHOSPHATE 75 MG CAP PO SCH ×2 (08:06→20:07)
[2019-10-25] MEDS: predniSONE 20 MG TAB PO SCH (08:07)
[2019-10-25] MEDS: guaiFENesin 600 MG TABCR PO SCH ×2 (08:07→20:07)
[2019-10-25] MEDS: DOCUSATE SODIUM 100 MG CAP PO SCH ×2 (08:07→20:07)
[2019-10-25] MEDS: METOPROLOL SUCC 50MG EXT REL TAB PO SCH (08:08)
[2019-10-25] MEDS: LACTOBACILLUS ACIDOPHILUS (FLORANEX) TAB PO SCH ×3 (08:08→17:05)
[2019-10-25] MEDS: ASPIRIN 81 MG ECTAB PO SCH (08:08)
[2019-10-25] MEDS: AMLODIPINE BESYLATE 5 MG TAB PO SCH (08:08)
[2019-10-25] MEDS: cephALEXin 500 MG CAP PO SCH ×4 (08:09→20:07)
[2019-10-25] MEDS: INSULIN ASPART 100 UNITS/ML 3 ML PEN SC SCH ×4 (08:10→20:16)
[2019-10-25] MEDS: POLYETHYLENE (MIRALAX) 17 GM PACK PO SCH (12:38)
--- NOTE | 2019-10-25 16:23 | Cardiology Progress Note ---
Date of Service October 25, 2019 Assessment & Plan (1) Atrial fibrillation with RVR: (2) Elevated troponin: (3) Influenza: (4) Quadriplegia: Patient admitted on 10/22/2019 with influenza, course complicated by chest discomfort with first night of admission with development of atrial fibrillation and transient troponin elevation (troponin continued to drop as of yesterday). Since the duration of his wall motion abnormalities on echocardiogram are uncertain, it is impossible to exclude a recent cardiac event. However, in the absence of ST changes or any further chest discomfort, more likely explanation is that his infarcts/wall motion abnormalities are old (evidence on prior ECGs) and that supply/demand mismatch due to his acute influenza as well as new onset atrial fibrillation with rapid ventricular response are the cause of his enzyme rise. In regards to his recent onset atrial fibrillation, he is anticoagulated with apixaban and his rate is now well controlled with oral and IV metoprolol (ventricular rate 90s range is physiologically appropriate given his respiratory compromise). As previously noted, would favor conservative management of his presumed coronary artery disease while his influenza is being treated. Agree with adding aspirin back to his regimen and continuing atorvastatin. Since his functional status is quite limited due to his quadriplegia, once his influenza is treated would assess for any anginal type symptoms that prevent him from performing transfers or other activities which represent his maximal physical exertion. In the absence of lifestyle limiting symptoms, continued conservative management of his presumed coronary artery disease seems warranted. No new recommendations. Admission and Anticipated Discharge Date Admission Date: October 22, 2019 Subjective Uneventful night, patient slept well. His dyspnea is decreasing. No chest pain. Monitor shows atrial fibrillation with controlled ventricular response (90 bpm). Physical Exam Physical Exam: No acute distress. Skin: No unusual lesions or ecchymosis. HEENT: Unremarkable. Neck: Jugular venous pulse just above the clavicle at 90, no carotid bruits. Lungs: Coarse breath sounds with diffuse rhonchi and wheezing. No accessory muscle use, intercostal retraction, or abdominal paradox. Cardiac: Heart tones masked by lung sounds, irregular rhythm without obvious murmur or gallop. Abdomen: Benign. Extremities: Nontender without edema. Intact peripheral pulses. Neurologic: Near quadriplegic, has no significant hand function but can move both upper extremities and can slightly move his left lower extremity. Normal conversation and affect. Results & Data ([facility]) Vital Signs (Past 12 Hours) Vital Signs Temp Pulse Resp BP BP Pulse Ox 10/25/19 15:33 97.7 F 91 H 23 128/82 95 10/25/19 15:07 80 18 98 10/25/19 11:27 97.5 F L 89 18 135/88 94 10/25/19 11:12 86 20 94 10/25/19 07:20 79 20 94 10/25/19 07:07 97.9 F 85 20 151/109 H 94 Laboratory Results 10/23/19 10/24/19 19:59 06:10 Troponin I 0.742 H* 0.625 H* PG Care Time/CCT Total # of Minutes Spent Total Time Spent with Patient: Total time spent is greater than 50% in coordination of care (as documented) at patient's floor/unit and/or counseling patient: Coding Level of Care Code 85838 Subseq Hosp Care Lvl 3 Diagnoses Atrial fibrillation with RVR I48.91 Elevated troponin R79.89 Influenza J11.1 Quadriplegia G82.50
[2019-10-25] MEDS ORDERED: bisacodyL 10 MG SUPP PR PRN (17:06)
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
[2019-10-25] MEDS ORDERED: RIVAROXABAN 20 MG TAB PO SCH (18:00)
[2019-10-25] MEDS ORDERED: METOPROLOL TARTRATE 1 MG/ML VIAL IV PRN (18:08)
[2019-10-25] MEDS: ATORVASTATIN 40 MG TAB PO SCH (20:07)
[2019-10-26] MEDS: ALBUT/IPRATROP 3MG/0.5MG NEB 3 ML VIAL NEB SCH ×4 (02:17→15:18)
[2019-10-26 07:05] LABS: BUN Creatinine Ratio 23.2 (10-20); Calcium 8.4 mg/dl (8.5-10.1); Est GFR (African American) 101.1; Est GFR (Non-African American) 87.2; Magnesium 2.2 mg/dl (1.8-2.4); Potassium 4.1 mmol/L (3.5-5.1)
[2019-10-26] MEDS: ASPIRIN 81 MG ECTAB PO SCH (07:52)
[2019-10-26] MEDS: LACTOBACILLUS ACIDOPHILUS (FLORANEX) TAB PO SCH ×2 (07:52→12:08)
[2019-10-26] MEDS: cephALEXin 500 MG CAP PO SCH ×2 (07:52→12:08)
[2019-10-26] MEDS: DOCUSATE SODIUM 100 MG CAP PO SCH (07:52)
[2019-10-26] MEDS: POLYETHYLENE (MIRALAX) 17 GM PACK PO SCH (07:53)
[2019-10-26] MEDS: guaiFENesin 600 MG TABCR PO SCH (07:53)
[2019-10-26] MEDS: AMLODIPINE BESYLATE 5 MG TAB PO SCH (07:54)
[2019-10-26] MEDS: OSELTAMIVIR PHOSPHATE 75 MG CAP PO SCH (07:54)
[2019-10-26] MEDS: predniSONE 20 MG TAB PO SCH (07:54)
[2019-10-26] MEDS: METOPROLOL SUCC 50MG EXT REL TAB PO SCH (07:54)
[2019-10-26] MEDS: INSULIN ASPART 100 UNITS/ML 3 ML PEN SC SCH ×2 (07:56→12:09)
--- NOTE | 2019-10-26 10:14 | Cardiology Progress Note ---
Date of Service October 26, 2019 Assessment & Plan (1) Atrial fibrillation with RVR: (2) Bleeding hemorrhoids: (3) Elevated troponin: (4) Influenza: (5) Quadriplegia: Patient admitted on 10/22/2019 with influenza, course complicated by chest discomfort with first night of admission with development of atrial fibrillation and transient troponin elevation. He is clinically improving from a pulmonary standpoint and has no symptoms to suggest ongoing myocardial ischemia. Conservative management of his presumed coronary artery disease is warranted. Atrial fibrillation with good rate control on current dose of metoprolol. Anticoagulation will be an issue with his hemorrhoidal bleeding. Although aspirin is appropriate given his recent evidence of myocardial ischemia, may need to discontinue this for now (while continuing rivaroxaban for his atrial fibrillation). If he has further rectal bleeding, would consider initiating amiodarone 200 mg daily (with concurrent reduction and his metoprolol dose), with the intent of regaining rhythm control and the future and thereby allowing him to forego anticoagulation. Admission and Anticipated Discharge Date Admission Date: October 22, 2019 Anticipated date of discharge: 10/27/19 Subjective Patient feeling better each day. Less wheezing, no dyspnea at rest. No subjective palpitations, lightheadedness, presyncope, or syncope. He did have some hemorrhoidal bleeding this morning, he is concerned about anticoagulation with his history of recurrent hemorrhoidal bleeding. Monitor shows atrial fibrillation with ventricular rate 70-90 bpm. Physical Exam Physical Exam: No acute distress. Skin: No unusual lesions or ecchymosis. HEENT: Unremarkable. Neck: Jugular venous pulse just above the clavicle at 90, no carotid bruits. Lungs: Mildly decreased breath sounds with only occasional wheezing, good air flow. No accessory muscle use, intercostal retraction, or abdominal paradox. Cardiac: irregular rhythm without obvious murmur or gallop. Abdomen: Benign. Extremities: Nontender without edema. Intact peripheral pulses. Neurologic: Near quadriplegic. Normal conversation and affect. Results & Data ([facility]) Laboratory Results 10/25/19 06:18 Hgb 12.7 L PG Care Time/CCT Total # of Minutes Spent Total Time Spent with Patient: Total time spent is greater than 50% in coordination of care (as documented) at patient's floor/unit and/or counseling patient: Coding Level of Care Code 91534 Subseq Hosp Care Lvl 3 Diagnoses Atrial fibrillation with RVR I48.91 Bleeding hemorrhoids K64.9 Elevated troponin R79.89 Influenza J11.1 Quadriplegia G82.50
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
== END 2019-10-26 15:48 | disposition home or self-care (01) | DRG 193 ==
LOC: ED 14:10 → 2E 17:33 → SUATTDRO 17:33 → 2E 18:02

== ENCOUNTER 2021-11-26 09:40 | Inpatient (IN) ==
[2021-11-26] MEDS ORDERED: SODIUM CHLORIDE 0.9% 1000ML 1,000 ML IV SCH (10:15)
--- NOTE | 2021-11-26 10:25 | Emergency Department Note ---
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 Patient states that he has actually had this pain somewhat chronically for the past several months. States that it has acutely worsened over the past 2 days and he is also had some irritation from his hemorrhoids. He denies any diarrhea, denies any vomiting, denies any nausea. States the pain has been somewhat worse over the past 2 days in his lower abdomen. On arrival here to the ED the patient is noted to be hypotensive at 88/58, he is slightly tachycardic at 110, despite this on my initial assessment he is nontoxic-appearing, he is conversational and he is saturating well on room air on my initial assessment. He tells me that typically he does have a normal running blood pressure despite his quadriplegia. ROS: -GI: Lower abdominal pain, rectal bleeding *10 point review systems was conducted and is otherwise negative unless stated above *Outpatient medications and allergy history reviewed PE: General: Alert, NAD HEENT: Normocephalic, atraumatic Eyes: Extraocular eye movement is intact, no scleral erythema Pulmonary: Clear to auscultation bilaterally, no wheezing Cardio: Regular rate and rhythm GI: Abdomen is soft, nontender, rectal examination does not show any evidence of gross bleeding in the rectal vault, there are external hemorrhoids without any evidence of active bleeding : No suprapubic tenderness, Amos catheter in place with appropriate drainage MSK: No evidence of trauma or malformation of the extremities, no edema Skin: No evidence of rash Neuro: Alert, baseline quadriplegia Psychiatric: 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 On arrival here to the ED the patient is in no acute distress although his vital signs were concerning with hypotension at 88 systolic in addition to mild tachycardia. IV was established, lab work ob tained, patient is noted to have a hemoglobin of 5.7, no critical electrolyte abnormalities are noted, troponin is negative x1, EKG does not show any acute ischemic changes. CT imaging of the abdomen pelvis does not show any obvious evidence of any acute surgical abnormality, does show some increase in size of the patient's known abdominal aortic aneurysm. Patient was given IV fluids here in the ED, his blood pressure did immediately improved to greater than 100 systolic, tachycardia down trended within normal limits. He is noted to be on a factor X inhibitor for anticoagulation for history of A. fib, I did hold off on any reversal agents at this time as the patient does not have any gross bleeding per rectum here in the ED, he is hemodynamically stable following fluid resuscitation. He is noted to have occult positive stool without any evidence of gross bleeding on rectal exam. Pat ient was consented for packed red blood cell transfusion, 2 units were ordered, I discussed the above findings with the hospitalist service midlevel provider for [facility] Inderjit and the patient was admitted in stable condition for further care. COVID-19 testing is negative. Patient was in agreement to the above plan and he was admitted in stable condition. * CRITICAL CARE TIME: (50 ) minutes -Stabilization of lower GI bleed with hemoglobin less than 7.0 requiring packed red blood cell transfusion for stabilization of hypotension, time spent at the bedside, interpretation of diagnostic studies, discussion with other medical providers and arrangement of admission Diagnosis: 1. Anemia with hemoglobin less than 7.0 requiring packed red blood cell transfusion 2. Lower GI bleed 3. Hypotension 4. Abdominal pain Disposition: Admission Selvin Mahoney DO Emergency Medicine Past Med/Surg History Medical History (Updated 11/26/21 @ 14:52 by Selvin Mahoney DO) AAA (abdominal aortic aneurysm) Atrial fibrillation with RVR Cardiomyopathy Mild, EF 45 to 50% on October 2019 echocardiogram. Cholecystitis, chronic Elevated troponin Hiatal hernia Hiccups History of quadriplegia WHEELCHAIR BOUND-S/P TRAUMA 1963 Hx of gann 2007-LOWER EXTREMITIES Hx of decubitus ulcer SURGERY TO DEBRIDE-1963 Hypertension Indwelling Amos catheter present Kidney stones Osteoarthritis Paralysis LEVEL C 5-UNABLE TO MOVE FINGERS Psoriasis Seborrheic keratosis Spinal stenosis Surgical History H/O cervical spine surgery H/O skin graft 1963 - decubitus 2010 - gann History of back surgery CERVICAL BONE FUSION-2010 (ACDF 04/07/2012 - Glidescope #4 EZ intubation) S/P debridement DECUBITUS 1964 Family History Grandmother Family history of diabetes mellitus Mother Family history of diabetes mellitus Brother Family history of diabetes mellitus Social History Smoking Status: Never smoker Cigarettes Per Day: 2; Second Hand Exposure: No; Hx Alcohol Use: Yes Alcohol type: beer and wine Hx Substance Use: No Preferred Language: Turkish Communication Ability: Effective 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 Beliefs That Will Affect Care: None Current Living Situation: Alone Feels Safe at Home: Yes Assistive Devices: Glasses and Wheelchair Allergies Allergies Allergy/AdvReac Type Severity Reaction Status Date / Time adhesive Allergy Mild Irritated Verified 11/26/21 10:50 skin ciprofloxacin Allergy Unknown affected Verified 11/26/21 10:50 blood counts (THROMBOCYTOPENIA) heparin AdvReac Intermediate POSSIBLE Verified 11/26/21 10:50 CAUSE OF THROMBOCYTOPENIIA 04/22, LABS PENDING Home Meds Home Medications Medication Instructions Recorded Confirmed amlodipine 5 mg tablet 5 mg PO QAM 07/20/18 11/26/21 cranberry 400 mg capsule 400 mg PO QAM 07/20/18 11/26/21 acetaminophen 500 mg tablet 500 mg PO Q6H PRN 10/22/19 11/26/21 (Tylenol Extra Strength) furosemide 40 mg tablet 40 mg PO DAILY 03/07/20 11/26/21 Previous Rx's Medication Instructions Recorded rivaroxaban 15 mg tablet 15 mg PO DAILY #30 tab 03/13/21 Results & Data (ED) Vital Signs Vital Signs - 24 hr 11/26/21 09:50 11/26/21 10:46 11/26/21 11:00 Temperature 36.5 C Temperature Source Temporal Artery Scan Pulse Rate 110 H Pulse Rate [Right Finger] 86 Pulse Rhythm [Right Finger] Regular Pulse Strength [Right Finger] Normal Respiratory Rate 20 18 Respiratory Effort / Characteristics Non-Labored Spontaneous Non-Labored Respiratory Depth Normal Normal Respiratory Pattern Regular Blood Pressure 88/58 L Blood Pressure [Right Arm] 110/65 Blood Pressure Mean 68 Blood Pressure Mean [Right Arm] 80 Blood Pressure Position Sitting Blood Pressure Position [Right Arm] Lying Pulse Oximetry 99 94 99 Oxygen Delivery Method Room Air Room Air Room Air Sepsis Recent Fever Within 48 Hours No Sepsis New/Unexplained Change in Mental Status No Sepsis Action Taken by Nursing No Action Required 11/26/21 13:00 11/26/21 14:31 Temperature 36.8 C Temperature Source Oral Pulse Rate 98 H Pulse Rate [Right Finger] 96 H Pulse Rhythm [Right Finger] Pulse Strength [Right Finger] Normal Respiratory Rate 18 22 Respiratory Effort / Characteristics Non-Labored Respiratory Depth Normal Respiratory Pattern Regular Blood Pressure 112/74 Blood Pressure [Right Arm] 98/69 L Blood Pressure Mean Blood Pressure Mean [Right Arm] 78 Blood Pressure Position Blood Pressure Position [Right Arm] Lying Pulse Oximetry 96 99 Oxygen Delivery Method Room Air Room Air Sepsis Recent Fever Within 48 Hours Sepsis New/Unexplained Change in Mental Status Sepsis Action Taken by Nursing Laboratory Data Result diagrams: 11/26/21 10:30 11/26/21 10:30 Lab Results 11/26/21 11/26/21 11/26/21 Range/Units 10:30 10:30 10:30 WBC 10.67 (4.8-10.8) K/uL RBC 3.34 L (4.7-6.1) M/uL Hgb 5.7 L* (14.0-18.0) g/dL Hct 21.6 L (42-52) % MCV 64.7 L (80-100) fL MCH 17.1 L (25-34) pg MCHC 26.4 L (32-36) g/dL RDW Std Deviation 48.4 H (36.4-46.3) fL RDW Coeff of Refugio 20.5 H (11.5-14.5) % Plt Count 291 (130-400) K/uL Immature Gran % (Auto) 0.2 % Neut % (Auto) 82.4 % Lymph % (Auto) 6.7 % Meriwether % (Auto) 5.2 % Eos % (Auto) 4.8 % Baso % (Auto) 0.7 % Neut # (Auto) 8.79 H (1.4-6.5) K/uL Lymph # (Auto) 0.72 L (1.2-3.4) K/uL Meriwether # (Auto) 0.55 (0.11-0.59) K/uL Eos # (Auto) 0.51 H (0-0.5) K/uL Baso # (Auto) 0.08 (0-0.2) K/uL Immature Gran # (Auto) 0.02 (0.00-0.02) K/uL Polychromasia 1+ Hypochromasia Present Anisocytosis Present Microcytosis Present Ovalocytes 2+ PT 17.1 H (9.0-12.0) Seconds INR 1.6 H (0.9-1.1) APTT 58.6 H* (21.0-31.0) Seconds PTT Ratio 2.1 Sodium 144 (136-145) mmol/L Potassium 4.0 (3.5-5.1) mmol/L Chloride 112 H (98-107) mmol/L Carbon Dioxide 26 (21-32) mmol/L Anion Gap 6 (3-11) BUN 15 (6-23) mg/dl Creatinine 1.03 (0.6-1.4) mg/dl Est Cr Clr Drug Dosing Not Reportable Est GFR ( Amer) 83.1 ml/min Est GFR (Non-Af Amer) 71.7 ml/min BUN/Creatinine Ratio 14.6 (10-20) Glucose 114 H (70-99(Fasting)) mg/dl Lactate (0.4-2.0) mmol/L Calcium 8.5 (8.5-10.1) mg/dl Magnesium 2.1 (1.7-2.4) mg/dl Total Bilirubin 0.6 (0.2-1.0) mg/dl AST 13 (13-39) U/L ALT 9 (7-52) U/L Alkaline Phosphatase 83 (34-104) U/L Troponin I < 0.03 (0-0.04) ng/ml Total Protein 6.4 (6.0-8.3) gm/dl Albumin 3.5 (3.4-5.0) gm/dl Globulin 2.9 (2.5-4.0) gm/dl Albumin/Globulin Ratio 1.2 (0.9-2) Procalcitonin (0-0.5) ng/ml SARS-CoV-2, RNA, NAAT (NEGATIVE) Blood Type Antibody Screen Crossmatch 11/26/21 11/26/21 11/26/21 Range/Units 10:30 10:49 10:55 WBC (4.8-10.8) K/uL RBC (4.7-6.1) M/uL Hgb (14.0-18.0) g/dL Hct (42-52) % MCV (80-100) fL MCH (25-34) pg MCHC (32-36) g/dL RDW Std Deviation (36.4-46.3) fL RDW Coeff of Refugio (11.5-14.5) % Plt Count (130-400) K/uL Immature Gran % (Auto) % Neut % (Auto) % Lymph % (Auto) % Meriwether % (Auto) % Eos % (Auto) % Baso % (Auto) % Neut # (Auto) (1.4-6.5) K/uL Lymph # (Auto) (1.2-3.4) K/uL Meriwether # (Auto) (0.11-0.59) K/uL Eos # (Auto) (0-0.5) K/uL Baso # (Auto) (0-0.2) K/uL Immature Gran # (Auto) (0.00-0.02) K/uL Polychromasia Hypochromasia Anisocytosis Microcytosis Ovalocytes PT (9.0-12.0) Seconds INR (0.9-1.1) APTT (21.0-31.0) Seconds PTT Ratio Sodium (136-145) mmol/L Potassium (3.5-5.1) mmol/L Chloride (98-107) mmol/L Carbon Dioxide (21-32) mmol/L Anion Gap (3-11) BUN (6-23) mg/dl Creatinine (0.6-1.4) mg/dl Est Cr Clr Drug Dosing Est GFR ( Amer) ml/min Est GFR (Non-Af Amer) ml/min BUN/Creatinine Ratio (10-20) Glucose (70-99(Fasting)) mg/dl Lactate 0.9 (0.4-2.0) mmol/L Calcium (8.5-10.1) mg/dl Magnesium (1.7-2.4) mg/dl Total Bilirubin (0.2-1.0) mg/dl AST (13-39) U/L ALT (7-52) U/L Alkaline Phosphatase (34-104) U/L Troponin I (0-0.04) ng/ml Total Protein (6.0-8.3) gm/dl Albumin (3.4-5.0) gm/dl Globulin (2.5-4.0) gm/dl Albumin/Globulin Ratio (0.9-2) Procalcitonin < 0.05 (0-0.5) ng/ml SARS-CoV-2, RNA, NAAT (NEGATIVE) Blood Type A Positive Antibody Screen NEGATIVE Crossmatch See Detail 11/26/21 Range/Units 11:56 WBC (4.8-10.8) K/uL RBC (4.7-6.1) M/uL Hgb (14.0-18.0) g/dL Hct (42-52) % MCV (80-100) fL MCH (25-34) pg MCHC (32-36) g/dL RDW Std Deviation (36.4-46.3) fL RDW Coeff of Refugio (11.5-14.5) % Plt Count (130-400) K/uL Immature Gran % (Auto) % Neut % (Auto) % Lymph % (Auto) % Meriwether % (Auto) % Eos % (Auto) % Baso % (Auto) % Neut # (Auto) (1.4-6.5) K/uL Lymph # (Auto) (1.2-3.4) K/uL Meriwether # (Auto) (0.11-0.59) K/uL Eos # (Auto) (0-0.5) K/uL Baso # (Auto) (0-0.2) K/uL Immature Gran # (Auto) (0.00-0.02) K/uL Polychromasia Hypochromasia Anisocytosis Microcytosis Ovalocytes PT (9.0-12.0) Seconds INR (0.9-1.1) APTT (21.0-31.0) Seconds PTT Ratio Sodium (136-145) mmol/L Potassium (3.5-5.1) mmol/L Chloride (98-107) mmol/L Carbon Dioxide (21-32) mmol/L Anion Gap (3-11) BUN (6-23) mg/dl Creatinine (0.6-1.4) mg/dl Est Cr Clr Drug Dosing Est GFR ( Amer) ml/min Est GFR (Non-Af Amer) ml/min BUN/Creatinine Ratio (10-20) Glucose (70-99(Fasting)) mg/dl Lactate (0.4-2.0) mmol/L Calcium (8.5-10.1) mg/dl Magnesium (1.7-2.4) mg/dl Total Bilirubin (0.2-1.0) mg/dl AST (13-39) U/L ALT (7-52) U/L Alkaline Phosphatase (34-104) U/L Troponin I (0-0.04) ng/ml Total Protein (6.0-8.3) gm/dl Albumin (3.4-5.0) gm/dl Globulin (2.5-4.0) gm/dl Albumin/Globulin Ratio (0.9-2) Procalcitonin (0-0.5) ng/ml SARS-CoV-2, RNA, NAAT NEGATIVE (NEGATIVE) Blood Type Antibody Screen Crossmatch Administered Medications Discontinued Medications Sodium Chloride (Nss 1000ml) 1,000 mls @ 999 mls/hr IV .Q1H1M RAMÓN Stop: 11/26/21 11:15 Last Infusion: 11/26/21 11:42 Dose: 0 mls/hr Documented by: [id number] Admin: 11/26/21 10:38 Dose: 999 mls/hr Documented by: [id number] Ioversol (Optiray 320 100ml) 93 ml IV ONCE ONE Stop: 11/26/21 12:07 Last Admin: 11/26/21 12:08 Dose: 93 ml Documented by: [id number] Morphine Sulfate (Morphine Sulfate 2 Mg/Ml Carp) 2 mg IV NOW STA Stop: 11/26/21 12:46 Last Admin: 11/26/21 14:30 Dose: 2 mg Documented by: [id number] Ondansetron HCl (Ondansetron Inj 2 Mg/Ml 2 Ml Vial) 4 mg IV NOW STA Stop: 11/26/21 12:46 Last Admin: 11/26/21 14:30 Dose: 4 mg Documented by: [id number] Imaging Data Radiologist's Impression: Chest X-Ray 11/26/21 10:13 XR chest 1V portable HISTORY: 71 years-old Male SEPSIS acute sepsis COMPARISON: Chest radiograph 10/22/2019 TECHNIQUE: Portable AP view of the chest FINDINGS: Cardiac silhouette is enlarged. No pneumothorax, large pleural effusion or overt pulmonary edema. Mild subsegmental bibasilar densities redemonstrated. Small hiatal hernia suggested. Descending thoracic aortic tortuosity. Degenerative changes of the shoulders and spine. Cervical spinal fusion hardware. Probable enchondroma of the proximal right humerus is partially imaged. IMPRESSION: 1. Cardiomegaly without pulmonary edema. 2. Subsegmental bibasilar opacities suggest atelectasis. ACT 112: Negative or not required by law. The above report was generated using voice recognition software. It may contain grammatical, syntax or spelling errors. Electronically signed by: Sampson Medina M.D. 11/26/2021 10:34 AM Abdomen/Pelvis CT 11/26/21 10:23 CT OF THE ABDOMEN AND PELVIS WITH CONTRAST CLINICAL HISTORY: Lower abdominal pain. COMPARISON STUDY: CTA of the abdomen and pelvis June 08, 2020. TECHNIQUE: Following IV administration of 93 mL of Optiray, axial images of the abdomen and pelvis were obtained from the lung bases to the proximal femurs. Images were reviewed in the axial, sagittal, and coronal planes. IV contrast was administered without complication. Automated exposure control was utilized for the study. A dose lowering technique was utilized adhering to the principles of ALARA. CT DOSE: 617.25 mGy.cm FINDINGS: A few small solid noncalcified nodules within the lower lungs are unchanged since abdominal CT of June 08, 2020. These are likely benign. Cardiomegaly is noted. Dilatation of the distal descending thoracic aorta, measuring 4.1 cm, is similar to CTA of June 08, 2020. Note is again made of an abdominal aortic aneurysm which contains eccentric mural thrombus at the level of the renal arteries. This measures 5.9 x 5.8 cm and has increased in caliber since prior CTA of June 08, 2021 measures 5.5 x 5.2 cm. No evidence for rupture. Infrarenal abdominal aortic aneurysm measures 4.2 x 4 cm. This has slightly increased in caliber since prior exam when it measured 4 x 3.7 cm. There is extensive plaque. Amos balloon within the bladder is noted. Bladder wall thickening with adjacent stranding is unchanged. There is no hydronephrosis. Water attenuation bilateral renal lesions reflect cysts. Mild biliary ductal dilatation is likely related to cholecystectomy. There are no hepatic lesions. The spleen, adrenal glands and pancreas are unremarkable. No peripancreatic infiltration is present. 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 This favors sclerosing mesenteritis. There is no evidence for a bowel obstruction. The appendix is normal. Caliber and wall thickness of small and large bowel are normal. There are calcifications within the prostate. No acute fracture or suspicious lesion within visualized skeletal structures is noted. There is atrophy of the bilateral adductor musculature. Evidence for old avulsion injuries within the adductor muscles is again noted. This is unchanged. IMPRESSION: 1. No acute process within the abdomen or pelvis. 2. Moderate increase in caliber of the abdominal aortic aneurysm at the level of the renal arteries since CTA of June 08, 2020, now measuring 5.9 x 5.8 cm. No evidence for rupture. Nonemergent Vascular surgery consultation is recommended. Mild increase in caliber of the infrarenal abdominal aortic aneurys m. 3. No bowel obstruction. No bowel wall thickening. Normal appendix. 4. No change in bladder wall thickening with adjacent infiltration which is l ikely chronic. ACT 112: Negative or not required by law. Electronically signed by: Shailesh Medellin M.D. 11/26/2021 12:22 PM Discharge Plan Visit Data Chief Complaint: Abdominal Pain Stated Complaint: ABDOMINAL PAIN ED Provider: Selvin Mahoney Discharge Problem: Anemia Discharge Instructions Interventions: ED Discharge Assessment Last Done: 11/26/21 14:31 Forms Stand Alone Forms: [employer] Prescriptions Prescriptions: No Action rivaroxaban 15 mg tablet 15 mg PO DAILY Qty: 30 RF: 5 furosemide 40 mg tablet 40 mg PO DAILY RF: 0 acetaminophen [Tylenol Extra Strength] 500 mg Tablet 500 mg PO Q6H PRN (Reason: Pain) RF: 0 amlodipine 5 mg Tablet 5 mg PO QAM RF: 0 cranberry 400 mg Capsule 400 mg PO QAM RF: 0 Referrals Referrals: Shashi Henao MD [Primary Care Provider] - Discharge Problem: Anemia Qualifiers: Anemia type: unspecified type Qualified Code(s): D64.9 - Anemia, unspecified
[2021-11-26 10:46] LABS: Hematocrit (blood only) 21.6 % (42-52); Hemoglobin 5.7 g/dL (14.0-18.0); Mean Corpuscular Hemoglobin 17.1 pg (25-34); Mean Corpuscular Hgb Conc 26.4 g/dL (32-36); Mean Corpuscular Volume 64.7 fL (80-100); Platelet Count 291 K/uL (130-400); RDW Coefficient of Variation 20.5 % (11.5-14.5); RDW Standard Deviation 48.4 fL (36.4-46.3); Red Blood Count 3.34 M/uL (4.7-6.1); White Blood Count 10.67 K/uL (4.8-10.8)
[2021-11-26] MEDS ORDERED: SODIUM CHLORIDE 0.9% 250 ML IV PRN (10:47)
[2021-11-26 11:08] LABS: Troponin I < 0.03 ng/ml (0-0.04)
[2021-11-26 11:09] LABS: Anisocytosis Present; Basophils # (auto) 0.08 K/uL (0-0.2); Basophils % (auto) 0.7 %; Eosinophils # (auto) 0.51 K/uL (0-0.5); Eosinophils % (auto) 4.8 %; Hypochromasia Present; Immature Granulocytes # (auto) 0.02 K/uL (0.00-0.02); Immature Granulocytes % (auto) 0.2 %; Lymphocytes # (auto) 0.72 K/uL (1.2-3.4); Lymphocytes % (auto) 6.7 %; Microcytosis Present; Monocytes # (auto) 0.55 K/uL (0.11-0.59); Monocytes % (auto) 5.2 %; Neutrophils # (auto) 8.79 K/uL (1.4-6.5); Neutrophils % (auto) 82.4 %; Ovalocytes 2+; Polychromasia 1+
[2021-11-26 11:12] LABS: Alanine Aminotransferase 9 U/L (7-52); Albumin Globulin Ratio 1.2 (0.9-2); Albumin Level 3.5 gm/dl (3.4-5.0); Alkaline Phosphatase 83 U/L (34-104); Anion Gap 6 (3-11); Aspartate Aminotransferase 13 U/L (13-39); BUN Creatinine Ratio 14.6 (10-20); Bilirubin,Total 0.6 mg/dl (0.2-1.0); Blood Urea Nitrogen 15 mg/dl (6-23); Calcium 8.5 mg/dl (8.5-10.1); Carbon Dioxide 26 mmol/L (21-32); Chloride 112 mmol/L (98-107); Est GFR (African American) 83.1 ml/min; Est GFR (Non-African American) 71.7 ml/min; Globulin 2.9 gm/dl (2.5-4.0); Glucose 114 mg/dl (70-99(Fasting)); Magnesium 2.1 mg/dl (1.7-2.4); Sodium 144 mmol/L (136-145); Total Protein 6.4 gm/dl (6.0-8.3)
[2021-11-26 11:17] LABS: INR 1.6 (0.9-1.1); Partial Thromboplastin Ratio 2.1; Prothrombin Time 17.1 Seconds (9.0-12.0)
[2021-11-26 11:19] LABS: Partial Thromboplastin Time 58.6 Seconds (21.0-31.0)
--- NOTE | 2021-11-26 11:25 | Electrocardiogram Report ---
Test Reason : Blood Pressure : / mmHG Vent. Rate : 091 BPM Atrial Rate : 100 BPM P-R Int : 000 ms QRS Dur : 070 ms QT Int : 380 ms P-R-T Axes : 000 -28 009 degrees QTc Int : 468 ms Poor data quality, interpretation may be adversely affected Atrial fibrillation Inferior infarct (cited on or before 16-JUN-2015) Poor R wave progression, consider anterior OH vs. lead placement vs. LVH Abnormal ECG When compared with ECG of 22-OCT-2019 21:24, Criteria for Inferior infarct now present Confirmed by Vignesh Stratton ([id number]) on 11/26/2021 11:24:24 AM Referred By: Shashi Henao Confirmed By:Vignesh Stratton
--- NOTE | 2021-11-26 11:26 | XRay Report ---
XR chest 1V portable HISTORY: 71 years-old Male SEPSIS acute sepsis COMPARISON: Chest radiograph 10/22/2019 TECHNIQUE: Portable AP view of the chest FINDINGS: Cardiac silhouette is enlarged. No pneumothorax, large pleural effusion or overt pulmonary edema. Mil d subsegmental bibasilar densities redemonstrated. Small hiatal hernia suggested. Descending thoracic aortic tortuosity. Degenerative changes of the shoulders and spine. Cervical spinal fusion hardware. Probable enchondroma of the proximal right humerus is partially imaged. IMPRESSION: 1. Cardiomegaly without pulmonary edema. 2. Subsegmental bibasilar opacities suggest atelectasis. ACT 112: Negative or not required by law. The above report was generated using voice recognition software. It may contain grammatical, syntax o r spelling errors. Electronically signed by: Sampson Medina M.D. 11/26/2021 10:34 AM
[2021-11-26] MEDS ORDERED: OPTIRAY 320 100ml IV ONE (12:06)
--- NOTE | 2021-11-26 12:23 | CT Scan Report ---
CT OF THE ABDOMEN AND PELVIS WITH CONTRAST CLINICAL HISTORY: Lower abdominal pain. COMPARISON STUDY: CTA of the abdomen and pelvis June 08, 2020. TECHNIQUE: Following IV administration of 93 mL of Optiray, axial images of the abdomen and pelvis we re obtained from the lung bases to the proximal femurs. Images were reviewed in the axial, sagittal, and coronal planes. IV contrast was administered without complication. Automated exposure control wa s utilized for the study. A dose lowering technique was utilized adhering to the principles of ALARA . CT DOSE: 617.25 mGy.cm FINDINGS: A few small solid noncalcified nodules within the lower lungs are unchanged since abdominal CT of June 08, 2020. These are likely benign. Cardiomegaly is noted. Dilatation of the distal d escending thoracic aorta, measuring 4.1 cm, is similar to CTA of June 08, 2020. Note is again ma de of an abdominal aortic aneurysm which contains eccentric mural thrombus at the level of the renal arteries. This measures 5.9 x 5.8 cm and has increased in caliber since prior CTA of June 08 21 measures 5.5 x 5.2 cm. No evidence for rupture. Infrarenal abdominal aortic aneurysm measures 4.2 x 4 cm. This has slightly increased in caliber since prior exam when it measured 4 x 3.7 cm. There is extensive plaque. Amos balloon within the bladder is noted. Bladder wall thickening with adjacent s tranding is unchanged. There is no hydronephrosis. Water attenuation bilateral renal lesions reflect cysts. Mild biliary ductal dilatation is likely related to cholecystectomy. There are no hepatic lesi ons. The spleen, adrenal glands and pancreas are unremarkable. No peripancreatic infiltration is pres ent. 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 This favors sclerosing mesenteritis. There is no evidence for a bowel obstruction. The appendix is normal. Caliber and wall thickness of small and large bowel are normal. There are calcifications within the prostate. No acute fracture or suspicious lesion with in visualized skeletal structures is noted. There is atrophy of the bilateral adductor musculature. E vidence for old avulsion injuries within the adductor muscles is again noted. This is unchanged. IMPRESSION: 1. No acute process within the abdomen or pelvis. 2. Moderate increase in caliber of the abdominal aortic aneurysm at the level of the renal arteries s fausto CTA of June 08, 2020, now measuring 5.9 x 5.8 cm. No evidence for rupture. Nonemergent Vasc ular surgery consultation is recommended. Mild increase in caliber of the infrarenal abdominal aortic aneurysm. 3. No bowel obstruction. No bowel wall thickening. Normal appendix. 4. No change in bladder wall thickening with adjacent infiltration which is likely chronic. ACT 112: Negative or not required by law. Electronically signed by: Shailesh Medellin M.D. 11/26/2021 12:22 PM
[2021-11-26] MEDS ORDERED: ONDANSETRON INJ 2 MG/ML 2 ML VIAL IV STA (12:45)
[2021-11-26] MEDS ORDERED: MoRPHine SULFATE 2 MG/ML CARP IV STA (12:45)
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
[2021-11-26] MEDS ORDERED: PANTOprazole 40 MG in SYRINGE 0 ML IV ONE ×2 (13:30→17:00)
[2021-11-26] MEDS ORDERED: POLYETHYLENE (MIRALAX) 17 GM PACK PO PRN (14:59)
[2021-11-26] MEDS ORDERED: MoRPHine SULFATE 2 MG/ML CARP IV PRN (14:59)
[2021-11-26] MEDS ORDERED: ONDANSETRON INJ 2 MG/ML 2 ML VIAL IV PRN (14:59)
[2021-11-26] MEDS: PANTOprazole 40 MG in DEXTROSE 5% 100 ML IV SCH ×2 (17:06→21:15)
[2021-11-26] MEDS ORDERED: bisacodyL 5 MG TABEC PO ONE (17:08)
--- NOTE | 2021-11-26 17:22 | Billing Data ---
Date of Service November 26, 2021 Coding Level of Care Code 41102 Initial Inpt Care Lvl 3
[2021-11-26] MEDS: POLYETHYLENE (MIRALAX) 17 GM PACK PO SCH (18:20)
[2021-11-26 21:50] LABS: Hematocrit (blood only) 24.5 % (42-52); Hemoglobin 6.9 g/dL (14.0-18.0)
--- NOTE | 2021-11-26 22:34 | Consultation Report ---
GASTROENTEROLOGY CONSULTATION DATE OF SERVICE: 11/26/2021 RACE: . ATTENDING PHYSICIAN: Dr. Anand England. CONSULTING PHYSICIAN: Washington Castano DO. REASON FOR CONSULTATION: Lower GI bleed. HISTORY OF PRESENT ILLNESS: Stephen Moon is a 71-year-old male who presented to the Depa rtment of Emergency Medicine today with complaints of lower GI bleeding. He states that he has had o n and off bleeding per rectum for the past few months, which he attributes to hemorrhoids, though did state that he has had abdominal pain more frequently over the last few months as well. He states th at over the past 2 days, it acutely worsened and he noted more bright red blood per rectum, which pro mpted him to come to the Department of Emergency Medicine. Upon arrival, he was slightly hypotensive with a systolic blood pressure of 88 and slight tachycardia at 110. He did undergo laboratory studi es in the ER, was noted to have an H and H of 5.7 and 21.6. He did also have a CT scan of the abdome n and pelvis performed, which showed no acute process within the abdomen or pelvis. No evidence of b owel obstruction. There was a moderate increase in the caliber of an abdominal aortic aneurysm at th e level of the renal arteries and a nonemergent vascular surgery consult was recommended. The patien t was discussed with Lolly Reyes and the patient was subsequently admitted. The patient was receiv ing the first of 2 units of packed red blood cells upon my evaluation of the patient. He states that he is continuing to have lower abdominal pain in the mid abdomen. He does note bright red blood per rectum. He states that he has not had any reflux symptoms, hematemesis or melena. He states that nicole guevara is not on any NSAIDs. He does take Xarelto therapy for atrial fibrillation, but denies any NSAID u se. He denies any fevers, chills, nausea, or vomiting. He further denies any jaundice, acholic stoo ls, dark urine, or pruritus and has no further complaints. PAST MEDICAL HISTORY: Significant for chronic anemia, atrial fibrillation, abdominal aortic aneurysm , history of bleeding hemorrhoids, constipation, cardiomyopathy, COPD, quadriplegia, indwelling Amos catheter, osteoarthritis, history of decubitus ulcer, hiatal hernia. PAST SURGICAL HISTORY: Includes cervical spine surgery, skin graft, back surgery. ALLERGIES: ADHESIVES, CIPROFLOXACIN, HEPARIN. MEDICATIONS: At present, Norvasc 5 mg p.o. q.a.m., Lasix 40 mg p.o. daily, morphine 2 mg IV q.3 p.r. n., Zofran 4 mg IV q.6 p.r.n., MiraLax 17 g p.o. daily, Protonix drip at 8 mg per hour. SOCIAL HISTORY: He lives alone. Smokes occasional tobacco use. No alcohol or illicit drug use. FAMILY HISTORY: Negative for GI malignancy or inflammatory bowel disease. REVIEW OF SYSTEMS: Negative x12 systems review other than pertinent positives as in the HPI. PHYSICAL EXAMINATION: VITAL SIGNS: Temperature 36.5, pulse 97, respirations 14, blood pressure 111/66, pulse ox 96% on suellen m air. GENERAL: He is awake, cooperative, pleasant, in no acute distress. HEENT: Normocephalic, atraumatic. CHEST: Clear to auscultation bilaterally. CARDIOVASCULAR: Irregularly irregular. ABDOMEN: Soft, tender in the mid lower abdomen, nondistended. There are positive bowel sounds. The re is no appreciable hepatosplenomegaly. LABORATORY STUDIES AND RADIOGRAPHIC STUDIES: Reviewed in the HPI. IMPRESSION: A 71-year-old male with lower mid abdominal pain and acute blood loss anemia s econdary to hematochezia. PLAN: At the present time, I would recommend that the patient be on a clear liquid diet. I will giv e him a bowel prep tonight. I will continue on Protonix 40 mg IV b.i.d., though I do not believe the re is any need for a Protonix drip at this point. I would recommend that he undergo both an EGD and a colonoscopy tomorrow for further evaluation of the GI bleeding, although I do believe it is most li jacob lower GI in nature. I will follow his clinical course and make further recommendations as kelsey grossman. I would recommend that the patient be transfused as needed as per the primary team. Once again, thanks for allowing me to participate in the care of this patient. If you have any furth er questions, please do not hesitate in contacting me. Total time spent during the chart review, evaluation of the patient, medical decision making was 35 m inutes. Job ID: [id number]
[2021-11-27] MEDS: POLYETHYLENE (MIRALAX) 17 GM PACK PO SCH ×2 (00:06→14:06)
[2021-11-27 01:09] LABS: Hematocrit (blood only) 23.7 % (42-52); Hemoglobin 6.8 g/dL (14.0-18.0)
[2021-11-27] MEDS ORDERED: SODIUM CHLORIDE 0.9% 250 ML IV PRN (01:11)
[2021-11-27] MEDS: PANTOprazole 40 MG in DEXTROSE 5% 100 ML IV SCH ×2 (02:09→10:08)
--- NOTE | 2021-11-27 06:21 | Communication Note ---
Date of Service: November 27, 2021 Patient on admission with hemoglobin of 5.7. Had 2 units PRBCs ordered at that time. H&H 4 hours after infusion of 2 units resulted at 6.8. At this point 2 additional units PRBCs ordered. As of 5:03 AM second unit still infusing. Recommend rechecking H&H 4 hours after second unit completed.
[2021-11-27 09:52] LABS: Hematocrit (blood only) 32.3 % (42-52); Hemoglobin 9.6 g/dL (14.0-18.0); Mean Corpuscular Hemoglobin 21.6 pg (25-34); Mean Corpuscular Hgb Conc 29.7 g/dL (32-36); Mean Corpuscular Volume 72.7 fL (80-100); Mean Platelet Volume 9.7 fL (7.4-10.4); Platelet Count 246 K/uL (130-400); RDW Coefficient of Variation 25.7 % (11.5-14.5); RDW Standard Deviation 67.7 fL (36.4-46.3); Red Blood Count 4.44 M/uL (4.7-6.1); White Blood Count 9.24 K/uL (4.8-10.8)
--- NOTE | 2021-11-27 10:00 | History & Physical Bridge Note ---
Date of Service November 27, 2021 History & Physical Bridge Note I have examined the patient, reviewed the History & Physical and in the interval since the performance of the History & Physical I have noted the following changes of clinical significance: Patient reports no major events overnight. Did receive 4 units of PRBCs. I had ordered a stat H&H which returned with a hemoglobin of 9.6 and hematocrit of 32.3%. He denies any bleeding overnight but nursing is reporting current bright red rectal bleeding. Remains on a PPI ggt. Blood pressure and pulse rates are normal. PE: A&Ox3. Irregulary irregular. Lungs CTA bilaterally. Abdomen soft, normal bowel sounds. Tender LLQ and RLQ. A/P: Patient is a 71 y.o. male with a history of AAA, permanent A Fib and cardiomyopathy on chronic anticoagulation admitted with lower GIB and acute blood loss anemia. * NPO for now. * Proceed with EGD and colonoscopy by Dr. Castano. * Continue PPI ggt at 8 mg/hr. * Further recommendations will be made pending results of testing. Supervising Physician Co-Signing Physician Notes Agree with MEGAN Pollock as above Abd: Soft, NT, ND, +BS Continue current therapy Proceed with EGD and colonoscopy now
[2021-11-27 10:09] LABS: BUN Creatinine Ratio 12.6 (10-20); Calcium 8.2 mg/dl (8.5-10.1); Creatinine Clr Calc Pharmacy 78.1 ml/min; Est GFR (African American) 99.2 ml/min; Est GFR (Non-African American) 85.6 ml/min; Potassium 4.1 mmol/L (3.5-5.1)
[2021-11-27 10:22] LABS: Anisocytosis Present; Basophils # (auto) 0.08 K/uL (0-0.2); Basophils % (auto) 0.9 %; Eosinophils # (auto) 0.46 K/uL (0-0.5); Immature Granulocytes # (auto) 0.02 K/uL (0.00-0.02); Immature Granulocytes % (auto) 0.2 %; Lymphocytes # (auto) 0.61 K/uL (1.2-3.4); Lymphocytes % (auto) 6.6 %; Monocytes # (auto) 0.56 K/uL (0.11-0.59); Monocytes % (auto) 6.1 %; Neutrophils # (auto) 7.51 K/uL (1.4-6.5); Neutrophils % (auto) 81.2 %; Ovalocytes 1+; Schistocytes 1+
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
[2021-11-27] MEDS ORDERED: LIDOCAINE 2% 2 ML VIAL/AMP(20MG/ML) INFIL ONE (13:23)
[2021-11-27] MEDS ORDERED: PROPOFOL IV EMULSION 10 MG/ML 20 ML VIAL IV ONE ×2 (13:23→20:45)
--- NOTE | 2021-11-27 13:26 | GI REPORT ---
Patient Name: Stephen Moon Procedure Date: 11/27/2021 12:49 PM Date of : 1950 Admit Type: Inpatient Age: 71 Gender: Male Attending MD: Washington Castano DO Procedure: Upper GI endoscopy Providers: Washington Castano DO Referring MD: Shashi Sanchez, Cassius Yu Md Indications: Recent gastrointestinal bleeding Medicines: Monitored Anesthesia Care Complications: No immediate complications. Estimated Blood Loss: Estimated blood loss: none. Procedure: Pre-Anesthesia Assessment: - Prior to the procedure, a History and Physical was performed, and patient medications and allergies were reviewed. The patient's tolerance of previous anesthesia was also reviewed. The risks and benefits of the procedure and the sedation options and risks were discussed with the patient. All questions were answered, and informed consent was obtained. Prior Anticoagulants: The patient has taken Xarelto (rivaroxaban), last dose was 1 day prior to procedure. ASA Grade Assessment: III - A patient with severe systemic disease. After reviewing the risks and benefits, the patient was deemed in satisfactory condition to undergo the procedure. After obtaining informed consent, the endoscope was passed under direct vision. Throughout the procedure, the patient's blood pressure, pulse, and oxygen saturations were monitored continuously. The Endoscope was introduced through the mouth, and advanced to the second part of duodenum. The upper GI endoscopy was accomplished without difficulty. The patient tolerated the procedure well. Findings: The esophagus was normal. The stomach was normal. The examined duodenum was normal. Impression: - Normal esophagus. - Normal stomach. - Normal examined duodenum. - No specimens collected. Recommendation: - [facility] patient [facility] care. - Advance diet as tolerated. - Perform a colonoscopy today. Washington Castano DO 11/27/2021 1:26:08 PM This report has been signed electronically. Note Initiated On: 11/27/2021 12:49 PM Number of Addenda: 0 I attest to the content of the Intraoperative Record and orders documented therein, exceptions below {[id number]}
--- NOTE | 2021-11-27 13:29 | GI REPORT ---
Patient Name: Stephen Moon Procedure Date: 11/27/2021 12:51 PM Date of : 1950 Admit Type: Inpatient Age: 71 Gender: Male Attending MD: Washington Castano DO Procedure: Colonoscopy Providers: Washington Castano DO Referring MD: Shashi Sanchez, Cassius Yu Md Indications: Gastrointestinal bleeding Medicines: Monitored Anesthesia Care Complications: No immediate complications. Estimated Blood Loss: Estimated blood loss: none. Procedure: Pre-Anesthesia Assessment: - Prior to the procedure, a History and Physical was performed, and patient medications and allergies were reviewed. The patient's tolerance of previous anesthesia was also reviewed. The risks and benefits of the procedure and the sedation options and risks were discussed with the patient. All questions were answered, and informed consent was obtained. Prior Anticoagulants: The patient has taken Xarelto (rivaroxaban), last dose was 1 day prior to procedure. ASA Grade Assessment: III - A patient with severe systemic disease. After reviewing the risks and benefits, the patient was deemed in satisfactory condition to undergo the procedure. After I obtained informed consent, the scope was passed under direct vision. Throughout the procedure, the patient's blood pressure, pulse, and oxygen saturations were monitored continuously. The Colonoscope was introduced through the anus and advanced to the cecum, identified by appendiceal orifice and ileocecal valve. The colonoscopy was performed without difficulty. The patient tolerated the procedure well. The quality of the bowel preparation was good. The terminal ileum, ileocecal valve, appendiceal orifice, and rectum were photographed. Findings: Multiple small-mouthed diverticula were found in the sigmoid colon. Bleeding external and internal hemorrhoids were found during retroflexion and during perianal exam. The hemorrhoids were large. Impression: - Diverticulosis in the sigmoid colon. - Bleeding external and internal hemorrhoids. - No specimens collected. Recommendation: - Return patient to [facility] for [facility] care. - Refer to a surgeon today. - Advance diet as tolerated. Washington Castano DO 11/27/2021 1:28:46 PM This report has been signed electronically. Note Initiated On: 11/27/2021 12:51 PM Number of Addenda: 0 I attest to the content of the Intraoperative Record and orders documented therein, exceptions below {[id number]}
--- NOTE | 2021-11-27 13:37 | Anesthesiology Progress Note ---
Date of Service November 27, 2021 Anesthesia Post Procedure Vital Signs Vital Signs: Temp Pulse Pulse Resp BP BP Pulse Ox 11/27/21 13:27 94 H 12 96/62 L 95 11/27/21 11:57 98.1 F 91 H 18 128/75 94 11/27/21 09:52 77 11/27/21 06:57 97.7 F 83 24 139/90 90 11/27/21 06:27 97.7 F 89 21 120/79 96 11/27/21 05:57 97.7 F 83 19 112/65 97 11/27/21 05:27 97.9 F 84 18 119/77 93 11/27/21 05:16 98.1 F 100 H 17 125/86 92 11/27/21 05:00 98.1 F 93 H 16 136/81 95 11/27/21 04:56 97.7 F 86 19 129/83 95 11/27/21 04:38 97.8 F 85 17 117/71 92 11/27/21 03:52 97.8 F 85 17 117/71 92 11/27/21 03:35 97.3 F L 87 20 115/83 97 11/27/21 03:05 97.9 F 87 20 118/81 94 11/27/21 02:35 97.7 F 93 H 20 136/92 95 11/27/21 02:20 97.7 F 87 20 120/88 95 11/27/21 02:14 84 11/27/21 02:07 97.5 F L 81 20 116/90 95 11/27/21 01:48 97.5 F L 82 20 132/92 95 11/26/21 23:07 98.2 F 93 H 19 128/81 93 11/26/21 20:07 97.9 F 86 20 124/84 95 11/26/21 19:37 97.9 F 86 20 130/91 94 11/26/21 19:07 97.9 F 83 20 131/86 96 11/26/21 18:37 97.5 F L 86 20 109/73 95 11/26/21 18:22 97.7 F 88 19 128/79 96 11/26/21 18:19 97.9 F 87 20 129/70 97 11/26/21 18:06 98.1 F 85 19 109/74 96 11/26/21 17:58 98.1 F 88 19 115/78 96 11/26/21 17:28 109 H 11/26/21 16:55 97 H 14 111/66 96 11/26/21 16:25 85 14 97/66 L 96 11/26/21 16:10 109 H 14 100/42 L 96 11/26/21 16:09 97.7 F 87 14 93/61 L 96 11/26/21 15:46 98.2 F 100 H 14 117/72 96 11/26/21 15:00 97.9 F 93 H 19 124/80 96 11/26/21 14:31 98.2 F 98 H 22 112/74 99 Pain Intensity Bilateral Lower Abdomen: Pain Intensity: 8 Transfer of Care Handoff Completed per policy Notes Mental Status: alert / awake / arousable and participated in evaluation Patient Amnestic to Procedure: Yes Nausea / Vomiting: adequately controlled Pain: adequately controlled Airway Patency, RR, SpO2: stable & adequate BP & HR: stable & adequate Hydration State: stable & adequate Anesthetic Complications: no major complications apparent and Pt Satisfied with anesthetic care
[2021-11-27] MEDS: FUROSEMIDE 40 MG TAB PO SCH (14:16)
[2021-11-27] MEDS: amLODIPine BESYLATE 5 MG TAB PO SCH (14:16)
[2021-11-27] MEDS ORDERED: Nursing to Pharmacy Communication SCH (15:00)
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
[2021-11-27] MEDS ORDERED: ePHEDrine sulfate 50 MG/ML AMP IV PRN (17:08)
[2021-11-27] MEDS ORDERED: ATROPINE SULFATE 0.1 MG/ML 10ML SYR IV PRN (17:08)
[2021-11-27] MEDS ORDERED: fentaNYL citrate 100 MCG/2 ML VIAL IV PRN (17:08)
[2021-11-27] MEDS ORDERED: ONDANSETRON INJ 2 MG/ML 2 ML VIAL IV PRN (17:08)
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
[2021-11-27] MEDS ORDERED: MIDAZOLAM HCL 1 MG/ML 2ML VIAL ONE (20:45)
[2021-11-27] MEDS ORDERED: fentaNYL citrate 100 MCG/2 ML VIAL ONE (20:45)
[2021-11-27] MEDS ORDERED: LIDOCAINE 2% JELLY 5 ML TUBE ONE (20:50)
[2021-11-27] MEDS ORDERED: BUPIVACAINE 0.5 % 5 MG/1 ML MPF 30ML VIAL ONE (20:51)
[2021-11-27] MEDS ORDERED: EPINEPHrine INJ 1 MG/ML AMP ONE (20:51)
[2021-11-27] MEDS ORDERED: GELATIN SPONGE SZ 100 ONE (20:51)
[2021-11-27] MEDS ORDERED: BUPIVACAINE LIPOSOME 1.3% 266 MG/20 ML VIAL ONE (20:53)
[2021-11-27] MEDS ORDERED: ceFAZolin 330 MG/ML 1 GM VIAL ONE (21:13)
--- NOTE | 2021-11-27 21:56 | Operative Report ---
[facility] Post Operative Report Pre & Post Diagnosis Operation Date: 11/27/21 15:40 Pre-Op Diagnosis: (1) Bleeding hemorrhoids: Post-Op Diagnosis: (1) Bleeding hemorrhoids: Operation Date: 11/27/21 16:15 Pre-Op Diagnosis: ABDOMINAL PAIN, HGB 5.7 Post-Op Diagnosis: EGD Normal Hemorrhoids I identified the patient and participated in the time-out.: Yes Procedure Operation Date: 11/27/21 15:40 Actual Procedures p Hemorrhoidectomy(Not Applicable) - Chandrakant Alamo DO Operation Date: 11/27/21 16:15 Actual Procedures p Esophagogastroduodenoscopy - Washington Castano DO s Colonoscopy - Washington Castano, DO Surgeon Chandrakant Alamo DO Computer Meteorologist dung Kate Estimated Blood Loss 10 Findings Consistent with Post-Op Diagnosis Specimens hemorrhoid tissue Description of Procedure After informed consent was obtained the patient was taken to the operating room and placed in supine position. IV sedation was administered by anesthesia and titrated to effect. The patient was then placed in a high lithotomy position. Rectal exam was performed. There were multiple internal and external prolapsed hemorrhoids. The 3 largest were at 12:00 5:00 and 7:00. The one at 5:00 was actively bleeding. I began by using Exparel under the pedicle of the bleeding hemorrhoid. I then incised the anoderm and then used the LigaSure device to take down the pedicle. Once the hemorrhoid was removed it was sent to pathology. 2-0 chromic catgut was used in a running locked fashion to oversew the hemorrhoid pedicle. The second largest hemorrhoid was at the 12 o'clock position. Using similar technique I placed Exparel into the pedicle and then divided the endoderm using a Metzenbaum scissor. LigaSure device was used to take down the pedicle of the hemorrhoid again it was passed off to be sent to pathology. 2-0 chromic catgut was again used in a running locked fashion. There were no other active bleeding hemorrhoids. The hemorrhoid at 7 o'clock position was too close to the one at the 5 o'clock position to excise for risk of anal stricture. No other gross abnormalities were seen. The rectum was irrigated. The remainder of the Exparel was placed along the area of the excised hemorrhoids. Gelfoam with lidocaine jelly was advanced into the rectum. The patient was placed back into a supine position and awakened and transferred recovery in stable condition. My physician registered sales assistant was present for the entire case and was instrumental in exposure throughout my procedure. I attest to the content of the Intraoperative Record and any orders documented therein. Any exceptions are noted below.
--- NOTE | 2021-11-27 22:00 | Anesthesiology Progress Note ---
Date of Service November 27, 2021 Anesthesia Post Procedure Vital Signs Vital Signs: Temp Pulse Pulse Resp BP BP Pulse Ox 11/27/21 19:45 98.2 F 99 H 20 107/72 94 11/27/21 16:48 97.7 F 80 18 118/57 L 93 11/27/21 15:04 86 11/27/21 14:14 97.3 F L 92 H 22 121/73 95 11/27/21 13:57 87 16 108/69 94 11/27/21 13:42 86 16 102/66 94 11/27/21 13:27 94 H 12 96/62 L 95 11/27/21 11:57 98.1 F 91 H 18 128/75 94 11/27/21 09:52 77 11/27/21 06:57 97.7 F 83 24 139/90 90 11/27/21 06:27 97.7 F 89 21 120/79 96 11/27/21 05:57 97.7 F 83 19 112/65 97 11/27/21 05:27 97.9 F 84 18 119/77 93 11/27/21 05:16 98.1 F 100 H 17 125/86 92 11/27/21 05:00 98.1 F 93 H 16 136/81 95 11/27/21 04:56 97.7 F 86 19 129/83 95 11/27/21 04:38 97.8 F 85 17 117/71 92 11/27/21 03:52 97.8 F 85 17 117/71 92 11/27/21 03:35 97.3 F L 87 20 115/83 97 11/27/21 03:05 97.9 F 87 20 118/81 94 11/27/21 02:35 97.7 F 93 H 20 136/92 95 11/27/21 02:20 97.7 F 87 20 120/88 95 11/27/21 02:14 84 11/27/21 02:07 97.5 F L 81 20 116/90 95 11/27/21 01:48 97.5 F L 82 20 132/92 95 11/26/21 23:07 98.2 F 93 H 19 128/81 93 Pain Intensity Bilateral Lower Abdomen: Pain Intensity: 8 Transfer of Care Handoff Completed per policy Notes Mental Status: alert / awake / arousable and participated in evaluation Patient Amnestic to Procedure: Yes Nausea / Vomiting: adequately controlled Pain: adequately controlled Airway Patency, RR, SpO2: stable & adequate BP & HR: stable & adequate Hydration State: stable & adequate Anesthetic Complications: no major complications apparent and Pt Satisfied with anesthetic care
[2021-11-28 08:17] LABS: Hematocrit (blood only) 31.4 % (42-52); Hemoglobin 9.5 g/dL (14.0-18.0); Mean Corpuscular Hemoglobin 21.6 pg (25-34); Mean Corpuscular Hgb Conc 30.3 g/dL (32-36); Mean Corpuscular Volume 71.4 fL (80-100); Platelet Count 242 K/uL (130-400); RDW Coefficient of Variation 25.8 % (11.5-14.5); RDW Standard Deviation 65.9 fL (36.4-46.3)
[2021-11-28 08:43] LABS: BUN Creatinine Ratio 10.2 (10-20); Calcium 8.2 mg/dl (8.5-10.1); Creatinine Clr Calc Pharmacy 77.2 ml/min; Est GFR (African American) 98.8 ml/min; Est GFR (Non-African American) 85.2 ml/min; Magnesium 1.8 mg/dl (1.7-2.4); Potassium 3.6 mmol/L (3.5-5.1)
[2021-11-28] MEDS: POLYETHYLENE (MIRALAX) 17 GM PACK PO SCH (09:26)
[2021-11-28] MEDS: FUROSEMIDE 40 MG TAB PO SCH (09:26)
[2021-11-28] MEDS: amLODIPine BESYLATE 5 MG TAB PO SCH (09:26)
--- NOTE | 2021-11-28 10:04 | Surgery Progress Note ---
Date of Service November 28, 2021 Assessment & Plan (1) Bleeding hemorrhoids: Plan: POD#1 hemorrhoidectomy Hbg stable at 9.5, at this time no further rectal bleeding Rectal packing may be removed today if it has not fallen out already. Dressing changes as needed to prevent leakage on clothing...may use 4x4's, ABD pads, and mesh underwear as needed May advance diet as tolerates Would continue to hold blood thinner for now Recommend adequate hydration, stool softeners, sitz baths if able, fiber diet, pain control He may be pending transfer to tertiary center for enlarging AAA F/u with Dr. Alamo as outpt within 2 weeks or dipso from hospital Admission and Anticipated Discharge Date Admission Date: November 26, 2021 Subjective Patient has some discomfort post surgically, but it is manageable. Says dressing stay on overnight. No bloody BM's since OR. Says he may be transferred for evaluation and repair of his AAA. Physical Exam Physical Exam: awake/alert, NAD Results & Data ([facility]) Vital Signs (Past 12 Hours) Vital Signs Temp Pulse Resp BP BP Pulse Ox 11/28/21 07:47 36.6 C 90 18 142/95 H 95 11/28/21 04:21 36.6 C 99 H 16 138/74 95 11/28/21 00:28 36.6 C 99 H 20 103/79 93 11/27/21 23:25 36.6 C 93 H 19 120/70 95 11/27/21 23:00 36.6 C 91 H 20 123/77 95 11/27/21 22:45 36.7 C 90 18 116/71 93 11/27/21 22:30 36.5 C 97 H 19 122/75 95 11/27/21 22:10 36.6 C 93 H 15 113/76 94 PG Care Time/CCT Total # of Minutes Spent Total Time Spent with Patient: Total time spent is greater than 50% in coordination of care (as documented) at patient's floor/unit and/or counseling patient: Coding Level of Care Code None Diagnoses Bleeding hemorrhoids K64.9
[2021-11-28 16:00] VITALS: BP 114/79; PULSE 93; TEMP 98.2; O2SAT 96
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
== END 2021-11-28 16:45 | disposition short-term general hospital (02) | DRG 347 ==
LOC: ED 09:40 → 2E 12:56 → SUATTDRO 12:56 → 2E 14:31

== ENCOUNTER 2021-12-07 04:28 | Inpatient (IN) ==
[2021-12-07] MEDS ORDERED: dilTIAZem HCl 5 MG/ML 5 ML VIAL IV STA (04:53)
[2021-12-07] MEDS ORDERED: SODIUM CHLORIDE 0.9% 1000ML 1,000 ML IV ONE ×2 (04:53→06:02)
--- NOTE | 2021-12-07 04:55 | Emergency Department Note ---
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 Patient states he has been passing large blood clots in his stool. Patient states that he did have a hemorrhoidectomy done on 11/[address] Alamo of general surgery. Patient states that he was told 2 days ago to hold his Xarelto because of his rectal bleeding and therefore is not taken in the past 2 days. Patient does tell me that in regards to his AAA, he was transported to [facility] on 11/28 over concern for possible impending rupture, he states that he was evaluated there by vascular surgery, he remained inpatient for several days and ultimately the decision was made that no surgical intervention would be performed acutely. Patient states he has a follow-up appointment on January 02 with vascular surgery through [facility] Surveillance. Patient does admit to some mild abdominal cramping but states in general his abdominal pain is been very mild and his presenting issue is that he has been passing large blood clots over the past 2 days Per rectum. On arrival here to the ED the patient is hemodynamically stable, he is in no acute distress on my initial assessment. ROS: - GI: Rectal bleeding *10 point review systems was conducted and is otherwise negative unless stated above *Outpatient medications and allergy history reviewed PE: General: Alert, NAD HEENT: Normocephalic, atraumatic Eyes: Extraocular eye movement is intact, no scleral erythema Pulmonary: Clear to auscultation bilaterally, no wheezing Cardio: Regular rate and rhythm GI: Abdomen is soft, nontender, Rectal exam performed with RN at the bedside shows evidence of mild skin irritation surrounding the rectal vault and around the existing hemorrhoidectomy sites without any active bleeding : No suprapubic tenderness MSK: No evidence of trauma or malformation of the extremities, no edema Skin: No evidence of rash Neuro: Alert, Baseline quadriplegia Psychiatric: Cooperative site monitor: - An order was placed for continuous cardiac monitoring - Patient was noted to be in a-fib rhythm with rate of 103 EKG: Rate: 105 Rhythm: Atrial fibrillation Intervals: Within normal limits ST changes: No ST elevation Time: 0501 Medical Decision Making: Patient presented to the emergency department with a chief complaint of blood per rectum. Patient states over the past 2 days he has been passing some large blood clots per rectum. Patient states that he did contact his general surgeon who recently Performed his hemorrhoidectomy, Dr. Alamo, he was advised to stop a Xarelto 2 days ago which he did. Patient states he had continued episodes and therefore presented to the emergency department today for further evaluation. Shortly after arrival IV was established, lab work obtained, patient was noted to have tachycardia after he was placed into this bed into the 150s, EKG shows atrial fibrillation although by the time the EKG was performed he had already come down to a rate of 105. I suspect this was transient in nature regarding his positional change. He does have a history of quadriplegia. Lab work shows evidence of anemia with a hemoglobin of 7.8, patient had an episode of blood per rectum here in the ED and did have a transient episode of hypotension down into the 60s systolic, patient was placed in Trendelenburg and IV fluid resuscitated with a liter of normal saline with good improvement on his blood pressure to 98/62. On my reassessment he is saturating well on room air and states that he feels well. I suspect this may have been a combination of fluid loss in addition to possibly a vagal event with his bowel movement. Given the patient's complaints of abdominal pain, although this was mild he does have a history of a AAA that he has recently been evaluated for at [facility] and determined at this time not to be a surgical candidate, CT imaging does not show any change in the size of the patient's AAA, no evidence of any dissection or rupture. I did order 2 units of packed red blood cells for the patient for eventual transfusion with 2 on hold, patient does have antibodies and therefore this is taking a longer amount of time than usual although it is ordered, patient was consented for blood transfusion.Patient appears well on my reassessment, he is in agreement for admission. Hospitalist service for [facility] Provider group was consulted and the patient was admitted in improved condition for further care. * CRITICAL CARE TIME: ( 45 ) minutes - Management of acute blood loss anemia/lower GI bleed with hemoglobin less than 8.0 requiring packed red blood cell transfusion for stabilization, time spent at the bedside, arrangement of admission Diagnosis: 1. Lower GI bleed 2. Anemia with hemoglobin less than 8.0 requiring packed red blood cell transfusion 3. Abdominal pain, acute Disposition: Admission Selvin Mahoney DO Emergency Medicine Past Med/Surg History Medical History (Updated 12/07/21 @ 07:04 by Selvin Mahoney DO) AAA (abdominal aortic aneurysm) Atrial fibrillation with RVR Cardiomyopathy Mild, EF 45 to 50% on October 2019 echocardiogram. Cholecystitis, chronic Elevated troponin Hiatal hernia Hiccups History of quadriplegia WHEELCHAIR BOUND-S/P TRAUMA 1963 Hx of gann 2007-LOWER EXTREMITIES Hx of decubitus ulcer SURGERY TO DEBRIDE-1963 Hypertension Indwelling Amos catheter present Kidney stones Osteoarthritis Paralysis LEVEL C 5-UNABLE TO MOVE FINGERS Psoriasis Seborrheic keratosis Spinal stenosis Surgical History (Updated 11/28/21 @ 08:35 by Hali Araya RN) H/O cervical spine surgery H/O hemorrhoidectomy (11/27/21) Hemorrhoidectomy Dr. Alamo 11/27/2021 H/O skin graft 1963 - decubitus 2010 - gann History of back surgery CERVICAL BONE FUSION-2010 (ACDF 04/07/2012 - Glidescope #4 EZ intubation) S/P debridement DECUBITUS 1963 Family History Grandmother Family history of diabetes mellitus Mother Family history of diabetes mellitus Brother Family history of diabetes mellitus Social History Smoking Status: Current some day smoker Cigarettes Per Day: 1 cigarette per day; Second Hand Exposure: No; Hx Alcohol Use: No Hx Substance Use: No Preferred Language: Arabic Communication Ability: Effective Horse Exerciser Required: No Beliefs That Will Affect Care: None marital status: Single Current Living Situation: Alone Feels Safe at Home: Yes Assistive Devices: Wheelchair Allergies Allergies Allergy/AdvReac Type Severity Reaction Status Date / Time adhesive Allergy Mild Irritated Verified 12/07/21 07:15 skin ciprofloxacin Allergy Unknown affected Verified 12/07/21 07:15 blood counts (THROMBOCYTOPENIA) heparin AdvReac Intermediate POSSIBLE Verified 12/07/21 07:15 CAUSE OF THROMBOCYTOPENIIA 04/22, LABS PENDING Home Meds Home Medications Medication Instructions Recorded Confirmed amlodipine 5 mg tablet 5 mg PO QAM 07/20/18 12/07/21 cranberry 400 mg capsule 400 mg PO QAM 07/20/18 12/07/21 acetaminophen 500 mg tablet 500 mg PO Q6H PRN 10/22/19 12/07/21 (Tylenol Extra Strength) furosemide 40 mg tablet 40 mg PO DAILY 03/07/20 12/07/21 atorvastatin 40 mg tablet 40 mg PO DAILY 12/07/21 12/07/21 rivaroxaban 15 mg tablet (Xarelto) 15 mg PO DAILY 12/07/21 12/07/21 Results & Data (ED) Vital Signs Vital Signs - 24 hr 12/07/21 04:35 12/07/21 05:05 12/07/21 06:51 Temperature 36.8 C 37 C Temperature Source Temporal Artery Scan Oral Pulse Rate 96 H 99 H Pulse Rate [Right] 126 H 96 H Pulse Rhythm Irregular Pulse Rhythm [Right] Irregular Pulse Strength [Right] Normal Respiratory Rate 20 18 16 Respiratory Effort / Characteristics Non-Labored Spontaneous Non-Labored Spontaneous Respiratory Depth Normal Normal Respiratory Pattern Regular Blood Pressure 129/92 Blood Pressure [Right Arm] 98/77 L 75/57 L Blood Pressure Mean 104 Blood Pressure Mean [Right Arm] 84 63 Blood Pressure Position Blood Pressure Position [Right Arm] Lying Pulse Oximetry 97 99 99 Oxygen Delivery Method Room Air Room Air Room Air Sepsis New/Unexplained Change in Mental Status N/A Sepsis Action Taken by Nursing No Action Required 12/07/21 07:00 12/07/21 07:11 12/07/21 07:39 Temperature 36.7 C Temperature Source Oral Pulse Rate 98 H Pulse Rate [Right] 93 H 105 H Pulse Rhythm Pulse Rhythm [Right] Pulse Strength [Right] Respiratory Rate 16 16 16 Respiratory Effort / Characteristics Non-Labored Non-Labored Respiratory Depth Normal Normal Respiratory Pattern Blood Pressure 85/64 L Blood Pressure [Right Arm] 98/62 L 95/59 L Blood Pressure Mean 71 Blood Pressure Mean [Right Arm] 74 71 Blood Pressure Position Lying Blood Pressure Position [Right Arm] Pulse Oximetry 98 96 99 Oxygen Delivery Method Room Air Room Air Sepsis New/Unexplained Change in Mental Status Sepsis Action Taken by Nursing Laboratory Data Result diagrams: 12/07/21 04:57 12/07/21 04:57 Lab Results 12/07/21 12/07/21 12/07/21 Range/Units 04:57 04:57 04:57 WBC 10.80 (4.8-10.8) K/uL RBC 3.74 L (4.7-6.1) M/uL Hgb 7.8 L (14.0-18.0) g/dL Hct 27.8 L (42-52) % MCV 74.3 L (80-100) fL MCH 20.9 L (25-34) pg MCHC 28.1 L (32-36) g/dL RDW Std Deviation 72.2 H (36.4-46.3) fL RDW Coeff of Refug[place] 27.4 H (11.5-14.5) % Plt Count 359 (130-400) K/uL Immature Gran % (Auto) 0.3 % Neut % (Auto) 66.4 % Lymph % (Auto) 16.9 % [place] % (Auto) 6.9 % Eos % (Auto) 8.0 % Baso % (Auto) 1.5 % Neut # (Auto) 7.18 H (1.4-6.5) K/uL Lymph # (Auto) 1.83 (1.2-3.4) K/uL [place] # (Auto) 0.74 H (0.11-0.59) K/uL Eos # (Auto) 0.86 H (0-0.5) K/uL Baso # (Auto) 0.16 (0-0.2) K/uL Immature Gran # (Auto) 0.03 H (0.00-0.02) K/uL Hypochromasia Present Anisocytosis Present Ovalocytes 1+ Sodium 139 (136-145) mmol/L Potassium 3.7 (3.5-5.1) mmol/L Chloride 109 H (98-107) mmol/L Carbon Dioxide 20 L (21-32) mmol/L Anion Gap 10 (3-11) BUN 19 (6-23) mg/dl Creatinine 1.04 (0.6-1.4) mg/dl Est Cr Clr Drug Dosing 64.8 ml/min Est GFR ( Amer) 82.2 ml/min Est GFR (Non-Af Amer) 70.9 ml/min BUN/Creatinine Ratio 18.3 (10-20) Glucose 145 H (70-99(Fasting)) mg/dl Calcium 8.2 L (8.5-10.1) mg/dl Total Bilirubin 0.7 (0.2-1.0) mg/dl AST 16 (13-39) U/L ALT 13 (7-52) U/L Alkaline Phosphatase 83 (34-104) U/L Troponin I < 0.03 (0-0.04) ng/ml Total Protein 6.5 (6.0-8.3) gm/dl Albumin 3.4 (3.4-5.0) gm/dl Globulin 3.1 (2.5-4.0) gm/dl Albumin/Globulin Ratio 1.1 (0.9-2) Lipase 18 (11-82) U/L SARS-CoV-2, RNA, NAAT (NEGATIVE) Blood Type A Positive Antibody Screen NEGATIVE Crossmatch See Detail 12/07/21 Range/Units 06:33 WBC (4.8-10.8) K/uL RBC (4.7-6.1) M/uL Hgb (14.0-18.0) g/dL Hct (42-52) % MCV (80-100) fL MCH (25-34) pg MCHC (32-36) g/dL RDW Std Deviation (36.4-46.3) fL RDW Coeff of Refugio (11.5-14.5) % Plt Count (130-400) K/uL Immature Gran % (Auto) % Neut % (Auto) % Lymph % (Auto) % [place] % (Auto) % Eos % (Auto) % Baso % (Auto) % Neut # (Auto) (1.4-6.5) K/uL Lymph # (Auto) (1.2-3.4) K/uL [place] # (Auto) (0.11-0.59) K/uL Eos # (Auto) (0-0.5) K/uL Baso # (Auto) (0-0.2) K/uL Immature Gran # (Auto) (0.00-0.02) K/uL Hypochromasia Anisocytosis Ovalocytes Sodium (136-145) mmol/L Potassium (3.5-5.1) mmol/L Chloride (98-107) mmol/L Carbon Dioxide (21-32) mmol/L Anion Gap (3-11) BUN (6-23) mg/dl Creatinine (0.6-1.4) mg/dl Est Cr Clr Drug Dosing ml/min Est GFR ( Amer) ml/min Est GFR (Non-Af Amer) ml/min BUN/Creatinine Ratio (10-20) Glucose (70-99(Fasting)) mg/dl Calcium (8.5-10.1) mg/dl Total Bilirubin (0.2-1.0) mg/dl AST (13-39) U/L ALT (7-52) U/L Alkaline Phosphatase (34-104) U/L Troponin I (0-0.04) ng/ml Total Protein (6.0-8.3) gm/dl Albumin (3.4-5.0) gm/dl Globulin (2.5-4.0) gm/dl Albumin/Globulin Ratio (0.9-2) Lipase (11-82) U/L SARS-CoV-2, RNA, NAAT NEGATIVE (NEGATIVE) Blood Type Antibody Screen Crossmatch Administered Medications Sodium Chloride (Nss 1000ml) 1,000 mls @ 150 mls/hr IV .Q6H40M ONE Stop: 12/07/21 12:41 Last Admin: 12/07/21 06:32 Dose: 150 mls/hr Documented by: [id number] Discontinued Medications Diltiazem HCl (Diltiazem Hcl 5 Mg/Ml 5 Ml Vial) 10 mg IV NOW STA Stop: 12/07/21 04:54 Last Admin: 12/07/21 06:32 Dose: Not Given Documented by: [id number] Sodium Chloride (Nss 1000ml) 1,000 mls @ 999 mls/hr IV .Q1H1M ONE Stop: 12/07/21 05:53 Last Infusion: 12/07/21 06:33 Dose: 0 mls/hr Documented by: [id number] Admin: 12/07/21 05:44 Dose: 999 mls/hr Documented by: [id number] Ioversol (Optiray 320 125ml) 120 ml IV ONCE ONE Stop: 12/07/21 06:22 Last Admin: 12/07/21 06:21 Dose: 1 ml Documented by: [id number] Imaging Data Radiologist's Impression: Abdomen/Pelvis CTA 12/07/21 04:59 CT ANGIOGRAPHY OF THE ABDOMEN AND PELVIS CLINICAL HISTORY: Abdominal pain, evaluate AAA for any increase in size. COMPARISON STUDY: CTA of the abdomen and pelvis June 08, 2020. CT of the abdomen and pelvis November 26, 2021. TECHNIQUE: Helical axial images of the abdomen and pelvis were obtained during arterial phase following intravenous injection of 120 cc Optiray 320 IV. Sagittal and coronal reconstructions were viewed as well as maximal intensity projections on an independent 3-D workstation. Automated exposure control was utilized for the study. A dose lowering technique was utilized adhering to the principles of ALARA. FINDINGS: A few nodules within the lower lungs are unchanged. These are likely benign. No pneumatosis, free air or portal venous gas is present. Cardiomegaly is partially imaged. Aneurysmal dilatation of the distal descending thoracic aorta, measuring 4.1 cm is similar to CT of June 08, 2020. Aneurysmal dilatation of the abdominal aorta at the level of the renal arteries is similar to CT of November 26, 2021. The aneurysm measures 6 x 5.8 cm and contains extensive eccentric mural thrombus, as before. There is no evidence for rupture. 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 There is moderate to severe stenosis at the origin of the left renal artery. There is moderate stenosis at the origin the right renal artery. There is no dissection. Infrarenal abdominal aortic aneurysm measured 4.1 x 4 cm. This is also unchanged and CT of November 26, 2021. Bilateral common iliac, external iliac and common femoral arteries are patent. Arterial phase images of the liver, spleen, adrenal glands and pancreas are unremarkable. Several bilateral renal cysts are present. There are bilateral par apelvic cysts. There is no hydronephrosis. Bladder wall thickening is unchanged. Amos balloon within the bladder is noted. There are prosthetic calcifications. There is no evidence for a bowel obstruction. Appendix is unremarkable. Caliber and wall thickness of small and large bowel are normal. No lymphadenopathy or ascites. No acute fracture or suspicious lesion is identified within the visualized skeletal structures. Mild mesenteric infiltration is unchanged from earlier exams and of doubtful significance. No significant biliary ductal dilatation status post cholecystectomy. IMPRESSION: 1. No significant change in caliber of the abdominal aortic aneurysmal at the level of the renal arteries since CT of November 26, 2021, now measuring 6 x 5.8 cm. No evidence for rupture. No change in caliber of the infrarenal abdominal aortic aneurysm. 2. No bowel obstruction. No bowel wall thickening. Normal appendix. 3. No change in bladder wall thickening with adjacent infiltration which is li jacob chronic. ACT 112: Negative or not required by law. Electronically signed by: Shailesh Medellin M.D. 12/07/2021 6:46 AM Discharge Plan Visit Data Chief Complaint: GI Bleed Stated Complaint: BLEEDING ED Provider: Selvin Mahoney Discharge Problem: Acute GI bleeding Forms Stand Alone Forms: [facility] Prescriptions Prescriptions: No Action furosemide 40 mg tablet 40 mg PO DAILY RF: 0 acetaminophen [Tylenol Extra Strength] 500 mg Tablet 500 mg PO Q6H PRN (Reason: Pain) RF: 0 amlodipine 5 mg Tablet 5 mg PO QAM RF: 0 cranberry 400 mg Capsule 400 mg PO QAM RF: 0 atorvastatin 40 mg tablet 40 mg PO DAILY RF: 0 Xarelto 15 mg tablet 15 mg PO DAILY RF: 0 Referrals Referrals: Shashi Henao MD [Primary Care Provider] -
[2021-12-07] MEDS ORDERED: SODIUM CHLORIDE 0.9% 250 ML IV PRN ×2 (05:34→07:10)
[2021-12-07 05:43] LABS: Troponin I < 0.03 ng/ml (0-0.04)
[2021-12-07 05:58] LABS: Hematocrit (blood only) 27.8 % (42-52); Hemoglobin 7.8 g/dL (14.0-18.0); Mean Corpuscular Hemoglobin 20.9 pg (25-34); Mean Corpuscular Hgb Conc 28.1 g/dL (32-36); Mean Corpuscular Volume 74.3 fL (80-100); Platelet Count 359 K/uL (130-400); RDW Coefficient of Variation 27.4 % (11.5-14.5); RDW Standard Deviation 72.2 fL (36.4-46.3); Red Blood Count 3.74 M/uL (4.7-6.1)
[2021-12-07 06:00] LABS: Anisocytosis Present; Basophils # (auto) 0.16 K/uL (0-0.2); Basophils % (auto) 1.5 %; Eosinophils # (auto) 0.86 K/uL (0-0.5); Hypochromasia Present; Immature Granulocytes # (auto) 0.03 K/uL (0.00-0.02); Immature Granulocytes % (auto) 0.3 %; Lymphocytes # (auto) 1.83 K/uL (1.2-3.4); Lymphocytes % (auto) 16.9 %; Monocytes # (auto) 0.74 K/uL (0.11-0.59); Monocytes % (auto) 6.9 %; Neutrophils # (auto) 7.18 K/uL (1.4-6.5); Neutrophils % (auto) 66.4 %; Ovalocytes 1+
[2021-12-07 06:11] LABS: Alanine Aminotransferase 13 U/L (7-52); Albumin Globulin Ratio 1.1 (0.9-2); Albumin Level 3.4 gm/dl (3.4-5.0); Alkaline Phosphatase 83 U/L (34-104); Anion Gap 10 (3-11); Aspartate Aminotransferase 16 U/L (13-39); BUN Creatinine Ratio 18.3 (10-20); Bilirubin,Total 0.7 mg/dl (0.2-1.0); Blood Urea Nitrogen 19 mg/dl (6-23); Calcium 8.2 mg/dl (8.5-10.1); Carbon Dioxide 20 mmol/L (21-32); Chloride 109 mmol/L (98-107); Creatinine Clr Calc Pharmacy 64.8 ml/min; Est GFR (African American) 82.2 ml/min; Est GFR (Non-African American) 70.9 ml/min; Globulin 3.1 gm/dl (2.5-4.0); Glucose 145 mg/dl (70-99(Fasting)); Lipase 18 U/L (11-82); Potassium 3.7 mmol/L (3.5-5.1); Sodium 139 mmol/L (136-145); Total Protein 6.5 gm/dl (6.0-8.3)
[2021-12-07] MEDS ORDERED: OPTIRAY 320 125ml IV ONE (06:21)
--- NOTE | 2021-12-07 06:48 | CT Scan Report ---
CT ANGIOGRAPHY OF THE ABDOMEN AND PELVIS CLINICAL HISTORY: Abdominal pain, evaluate AAA for any increase in size. COMPARISON STUDY: CTA of the abdomen and pelvis June 08, 2020. CT of the abdomen and pelvis Mar 2021. TECHNIQUE: Helical axial images of the abdomen and pelvis were obtained during arterial phase followi ng intravenous injection of 120 cc Optiray 320 IV. Sagittal and coronal reconstructions were viewed a s well as maximal intensity projections on an independent 3-D workstation. Automated exposure control was utilized for the study. A dose lowering technique was utilized adhering to the principles of AL ROSARIO. FINDINGS: A few nodules within the lower lungs are unchanged. These are likely benign. No pneumatosis , free air or portal venous gas is present. Cardiomegaly is partially imaged. Aneurysmal dilatation o f the distal descending thoracic aorta, measuring 4.1 cm is similar to CT of June 08, 2020. Aneu rysmal dilatation of the abdominal aorta at the level of the renal arteries is similar to CT of November 26, 2021. The aneurysm measures 6 x 5.8 cm and contains extensive eccentric mural thrombus, as befor e. There is no evidence for rupture. 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 There is mod erate to severe stenosis at the origin of the left renal artery. There is moderate stenosis at the or igin the right renal artery. There is no dissection. Infrarenal abdominal aortic aneurysm measured 4. 1 x 4 cm. This is also unchanged and CT of November 26, 2021. Bilateral common iliac, external iliac and common femoral arteries are patent. Arterial phase images of the liver, spleen, adrenal glands and p ancreas are unremarkable. Several bilateral renal cysts are present. There are bilateral parapelvic c ysts. There is no hydronephrosis. Bladder wall thickening is unchanged. Amos balloon within the blad medhat is noted. There are prosthetic calcifications. There is no evidence for a bowel obstruction. Appe ndix is unremarkable. Caliber and wall thickness of small and large bowel are normal. No lymphadenopa thy or ascites. No acute fracture or suspicious lesion is identified within the visualized skeletal s tructures. Mild mesenteric infiltration is unchanged from earlier exams and of doubtful significance. No significant biliary ductal dilatation status post cholecystectomy. IMPRESSION: 1. No significant change in caliber of the abdominal aortic aneurysmal at the level of the renal blas ana since CT of November 26, 2021, now measuring 6 x 5.8 cm. No evidence for rupture. No change in dre moi of the infrarenal abdominal aortic aneurysm. 2. No bowel obstruction. No bowel wall thickening. Normal appendix. 3. No change in bladder wall thickening with adjacent infiltration which is likely chronic. ACT 112: Negative or not required by law. Electronically signed by: Shailesh Medellin M.D. 12/07/2021 6:46 AM
--- NOTE | 2021-12-07 07:54 | Hospitalist Progress Note ---
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 Results & Data Results & Data ([facility]) Vital Signs (Past 12 Hours) Vital Signs Temp Pulse Pulse Resp BP BP Pulse Ox 12/07/21 07:39 98.1 F 98 H 16 85/64 L 99 12/07/21 07:11 105 H 16 95/59 L 96 12/07/21 07:00 93 H 16 98/62 L 98 12/07/21 06:51 96 H 16 75/57 L 99 12/07/21 05:05 98.6 F 99 H 126 H 18 98/77 L 99 12/07/21 04:35 98.2 F 96 H 20 129/92 97 PG Care Time/CCT Total # of Minutes Spent Total Time Spent with Patient: Total time spent is greater than 50% in coordination of care (as documented) at patient's floor/unit and/or counseling patient: Coding
--- NOTE | 2021-12-07 08:05 | History & Physical Report ---
Date of Service December 07, 2021 Assessment & Plan (1) Acute GI bleeding: Plan: Patient presents with anemia. Most recent 11/27/2021 herniorrhaphy due to persistent bleeding on anticoagulation of atrial fibrillation. This time continues to have rectal bleeding. We placed on Protonix bid bolus EGD 11/27/21, colonsocopy at that time shows diverticulosis, and internal and external bleeding hemorrhoids, . taken to the OR 11/28/21 for surgical attention to the hemorrhoids by Dr Alamo Of course holding anticoagulation at this time. Emergency room did evaluate his known 6 cm AAA and there is no acute leaking at this time. Hemodynamically the patient has lower blood pressure will be volume resuscitated in addition to blood (2) Permanent atrial fibrillation: Plan: Atrial fibrillation with rate control, blood pressure is low, was given diltiazem in the emergency department holding Xarelto. Traditionally not on any rate controlling agents. (3) AAA (abdominal aortic aneurysm): Plan: Abdominal aneurysm evaluated by CT angiography in the emergency department found to remain around 6 cm no signs of acute leaking (4) Quadriplegia: Plan: Patient is quadriplegic after he had a head injury many years ago (5) Cardiomyopathy: Plan: Patient with a history of HFrEF euvolemic at this time, ejection fraction 40/45% does not any signs of heart failure at this time but does take Lasix daily. Lasix is being held at this time due to his hypotension, additionally we will hold other antihypertensives which is amlodipine, however will need to eval after blood products infusion. 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 the pt has no nausea. this is painless rectal bleeding with brbpr and clots, pt was dizzy this am and came to ER found to have significant edema. Allergies Allergy/AdvReac Type Severity Reaction Status Date / Time adhesive Allergy Mild Irritated Verified 12/07/21 07:15 skin ciprofloxacin Allergy Unknown affected Verified 12/07/21 07:15 blood counts (THROMBOCYTOPENIA) heparin AdvReac Intermediate POSSIBLE Verified 12/07/21 07:15 CAUSE OF THROMBOCYTOPENIIA 04/22, LABS PENDING Home Medications Medication Instructions Recorded Confirmed Type amlodipine 5 mg tablet 5 mg PO QAM 07/20/18 12/07/21 History cranberry 400 mg capsule 400 mg PO QAM 07/20/18 12/07/21 History acetaminophen 500 mg tablet 500 mg PO Q6H PRN 10/22/19 12/07/21 History (Tylenol Extra Strength) furosemide 40 mg tablet 40 mg PO DAILY 03/07/20 12/07/21 History atorvastatin 40 mg tablet 40 mg PO DAILY 12/07/21 12/07/21 History rivaroxaban 15 mg tablet (Xarelto) 15 mg PO DAILY 12/07/21 12/07/21 History Past Med/Surg History Medical History AAA (abdominal aortic aneurysm) Atrial fibrillation with RVR Cardiomyopathy Mild, EF 45 to 50% on October 2019 echocardiogram. Cholecystitis, chronic Elevated troponin Hiatal hernia Hiccups History of quadriplegia WHEELCHAIR BOUND-S/P TRAUMA 1964 Hx of gann 2007-LOWER EXTREMITIES Hx of decubitus ulcer SURGERY TO DEBRIDE-1963 Hypertension Indwelling Amos catheter present Kidney stones Osteoarthritis Paralysis LEVEL C 5-UNABLE TO MOVE FINGERS Psoriasis Seborrheic keratosis Spinal stenosis Surgical History H/O cervical spine surgery H/O hemorrhoidectomy (11/27/21) Hemorrhoidectomy Dr. Alamo 11/27/2021 H/O skin graft 1963 - decubitus 2010 - gann History of back surgery CERVICAL BONE FUSION-2010 (ACDF 04/07/2012 - Glidescope #4 EZ intubation) S/P debridement DECUBITUS 1963 Family History Grandmother Family history of diabetes mellitus Mother Family history of diabetes mellitus Brother Family history of diabetes mellitus Social History Smoking Status: Never smoker Cigarettes Per Day: 1 cigarette per day; Second Hand Exposure: No; Do You Dip or Chew Tobacco: No; Tobacco Cessation Education Requested by Patient: No Hx Alcohol Use: No Hx Substance Use: No Preferred Language: Uruguayan Communication Ability: Effective Felled Seam Operator Required: No Beliefs That Will Affect Care: None marital status: Single Current Living Situation: Alone Other Information That Helps Us Care for You: No Feels Safe at Home: Yes Safety Concerns: Feels Safe At This Time Assistive Devices: Wheelchair Review of Systems Review of Systems: moderate distress and fatigue no headache, no visual changes no speech or swallowing issues no chest pain, pressure or palpitations no shortness of breath, cough or wheezes no abdominal pain, nausea or vomiting, brbpr, clots no dysuria, hematuria or frequency no focal joint pain or swelling no back pain, CVA tenderness or radicular pain no bruising, bleeding or rashes pt is a chronic paraplegic patient Physical Exam Physical Exam: The patient appeared chronically ill but well compensated Vital signs as documented. Head exam is normocephalic atraumatic Neck is without JVD, thyromegaly, or carotid bruits. Lungs are clear to auscultation, no focal loss of breath sounds Cardiac exam, Rhythm is regular.. No murmurs, rubs or gallops. Abdominal exam reveals normal bowel sounds, soft non tender, no masses Extremities are non movement with some spascity Neurologic exam is alert and oriented, only limb girdle movement of shoulders and hips Skin is without bruises or rashes Psychologically is without concerns for anxiety or depression.. Results & Data Results & Data ([facility]) Vital Signs (Past 12 Hours) Vital Signs Temp Pulse Pulse Resp BP BP Pulse Ox 12/07/21 07:39 98.1 F 98 H 16 85/64 L 99 12/07/21 07:11 105 H 16 95/59 L 96 12/07/21 07:00 93 H 16 98/62 L 98 12/07/21 06:51 96 H 16 75/57 L 99 12/07/21 05:05 98.6 F 99 H 126 H 18 98/77 L 99 12/07/21 04:35 98.2 F 96 H 20 129/92 97 PG Care Time/CCT Total # of Minutes Spent Total Time Spent with Patient: Total time spent is greater than 50% in coordination of care (as documented) at patient's floor/unit and/or counseling patient: Coding Level of Care Code 50447 Initial In Care Lvl 2 Diagnoses Acute GI bleeding K92.2 Permanent atrial fibrillation I48.21 AAA (abdominal aortic aneurysm) I71.4 Quadriplegia G82.50 Cardiomyopathy I42.9
[2021-12-07] MEDS ORDERED: PANTOPRAZOLE BOLUS/DRIP 1 EA IV STA (08:07)
[2021-12-07] MEDS ORDERED: PANTOprazole 80 MG in DEXTROSE 5% 100 ML IV STA (08:42)
[2021-12-07] MEDS ORDERED: PANTOprazole 40 MG in DEXTROSE 5% 100 ML IV SCH ×2 (09:00→11:45)
--- NOTE | 2021-12-07 09:21 | Surgery Consultation ---
Date of Consultation December 07, 2021 Assessment & Plan (1) Acute GI bleeding: Patient is a 71y M with a PMH of afib on xarelto, AAA, quadriplegia using wheelchair, who presents to the [facility] ED on 12/07/21 with rectal bleeding that started yesterday. Of significance the patient was recently admitted from 11/26- 11/28 with GI bleed and workup by c-scope at that time noted bleeding rectal hemorrhoids. Xarelto was held and we took him to the OR on 11/27 for hemorrhoidectomy. He resumed his xarelto it sounds like last weekend, but after reviewing his dispo instructions from us he ended up stopping it 2 days ago. He has been having loose non bloody stools up until yesterday when he passed a more formed BM. This BM was associated blood clots that continued throughout the day prompting him to come to ER. Today Hbg 7.8 and he was found to be hypotensive to the 70/50's. He passed a bloody BM while in the ER. He was started on IVF and has been ordered pRBC transfusion, currently infusing. On rectal exam there are no sites of active bleeding, with small amount of clot noted at rectal verge. For now we recommend holding patient's Xarelto and close monitoring of Hbg. He has been ordered 2 units of pRBC with improvement noted in BPs to the 120/80s. No plans to take patient urgently back to the OR...hope he can improve with holding anticoagulation and resuscitation. We will follow. as above. Xarelto likely contributing as he had not been having blood per rectum until 1-2 days ago. will d/w medicine regarding need for anticoagulation to continue . Currently no active bleeding. If recurs despite holding the anticoagulation we could always reexamine in the operating room however gene rally observation reversal of the anticoagulation will resolve the issue. We will continue to follow along. History of Present Illness History of Present Illness Patient is a 71y M with a PMH of afib on xarelto, AAA, quadriplegia using wheelchair, who presents to the [facility] ED on 12/07/21 with rectal bleeding. Of significance the patient was recently admitted from 11/26-11/28 with GI bleed and workup by c-scope at that time noted bleeding rectal hemorrhoids. Xarelto was held and we took him to the OR on 11/27 for hemorrhoidectomy. He was subsequently discharged the following day to [facility] for workup and potential surgery of his enlarging AAA. He was discharged without surgical intervention there with plans for close outpt followup. Patient reports since discharge from [facility] he resumed his Xarelto. After reviewing his [facility] discharge notes two days ago he realized it was recommended he hold his xarelto for 1-2 wks due to his recent hemorrhoid surgery therefore he ended up stopping it two days ago. He says his BM's have been loose and nonbloody since dispo up until yesterday he had a more formed BM and it was associated with blood clots. He said he passed at least 18 throughout the day and he decided to come into the ER this AM for evaluation. Patient says he otherwise has been doing fine. He reports mild abdominal discomfort. He did note some light headedness and dizziness in the ER this AM. No n/v, f/c. Allergies Allergy/AdvReac Type Severity Reaction Status Date / Time adhesive Allergy Mild Irritated Verified 12/07/21 07:15 skin ciprofloxacin Allergy Unknown affected Verified 12/07/21 07:15 blood counts (THROMBOCYTOPENIA) heparin AdvReac Intermediate POSSIBLE Verified 12/07/21 07:15 CAUSE OF THROMBOCYTOPENIIA 04/22, LABS PENDING Home Medications Medication Instructions Recorded Confirmed Type amlodipine 5 mg tablet 5 mg PO QAM 07/20/18 12/07/21 History cranberry 400 mg capsule 400 mg PO QAM 07/20/18 12/07/21 History acetaminophen 500 mg tablet 500 mg PO Q6H PRN 10/22/19 12/07/21 History (Tylenol Extra Strength) furosemide 40 mg tablet 40 mg PO DAILY 03/07/20 12/07/21 History atorvastatin 40 mg tablet 40 mg PO DAILY 12/07/21 12/07/21 History rivaroxaban 15 mg tablet (Xarelto) 15 mg PO DAILY 12/07/21 12/07/21 History Patient History Medical History AAA (abdominal aortic aneurysm) Atrial fibrillation with RVR Cardiomyopathy Mild, EF 45 to 50% on October 2019 echocardiogram. Cholecystitis, chronic Elevated troponin Hiatal hernia Hiccups History of quadriplegia WHEELCHAIR BOUND-S/P TRAUMA 1964 Hx of gann 2007-LOWER EXTREMITIES Hx of decubitus ulcer SURGERY TO DEBRIDE-1963 Hypertension Indwelling Amos catheter present Kidney stones Osteoarthritis Paralysis LEVEL C 5-UNABLE TO MOVE FINGERS Psoriasis Seborrheic keratosis Spinal stenosis Surgical History H/O cervical spine surgery H/O hemorrhoidectomy (11/27/21) Hemorrhoidectomy Dr. Alamo 11/27/2021 H/O skin graft 1964 - decubitus 2010 - gann History of back surgery CERVICAL BONE FUSION-2010 (ACDF 04/07/2012 - Glidescope #4 EZ intubation) S/P debridement DECUBITUS 1963 Family History Grandmother Family history of diabetes mellitus Mother Family history of diabetes mellitus Brother Family history of diabetes mellitus Social History Smoking Status: Current some day smoker Cigarettes Per Day: 1 cigarette per day; Second Hand Exposure: No; Hx Alcohol Use: No Hx Substance Use: No Preferred Language: Vietnamese Communication Ability: Effective Certified Addiction Counselor Required: No Beliefs That Will Affect Care: None marital status: Single Current Living Situation: Alone Feels Safe at Home: Yes Assistive Devices: Wheelchair Review of Systems Gastrointestinal: + abdominal pain (mild) and + blood in stools; no nausea and no vomiting Neurologic: + dizziness and + problem reported (lightheadedness) Physical Exam Physical Exam: awake/alert, NAD Gastrointestinal (Abdomen): Percussion/Palpation: abdomen soft on rectal exam pt with surrounding skin excoriation, no signs of active bleeding, small amount of blood clot at anal verge Results & Data ([facility]) Vital Signs (Past 12 Hours) Vital Signs Temp Pulse Pulse Resp BP BP Pulse Ox 12/07/21 08:45 36.5 C 102 H 24 120/85 98 12/07/21 08:15 37.1 C 100 H 12 104/78 98 12/07/21 08:00 36.8 C 98 H 16 94/69 L 100 12/07/21 07:39 36.7 C 98 H 16 85/64 L 99 12/07/21 07:11 105 H 16 95/59 L 96 12/07/21 07:00 93 H 16 98/62 L 98 12/07/21 06:51 96 H 16 75/57 L 99 12/07/21 05:05 37 C 99 H 126 H 18 98/77 L 99 12/07/21 04:35 36.8 C 96 H 20 129/92 97 PG Care Time/CCT Total # of Minutes Spent Total Time Spent with Patient: Total time spent is greater than 50% in coordination of care (as documented) at patient's floor/unit and/or counseling patient: Coding Level of Care Code None Diagnoses Acute GI bleeding K92.2
[2021-12-07] MEDS ORDERED: SODIUM CHLORIDE 0.9% 1000ML 1,000 ML IV SCH (11:45)
[2021-12-07] MEDS ORDERED: METOPROLOL TARTRATE 1 MG/ML VIAL IV PRN (11:45)
[2021-12-07] MEDS ORDERED: ONDANSETRON INJ 2 MG/ML 2 ML VIAL IV PRN (11:45)
[2021-12-07] MEDS ORDERED: PANTOprazole 80 MG in DEXTROSE 5% 100 ML IV ONE (11:45)
--- NOTE | 2021-12-07 13:34 | Electrocardiogram Report ---
Test Reason : Blood Pressure : / mmHG Vent. Rate : 105 BPM Atrial Rate : 119 BPM P-R Int : 000 ms QRS Dur : 082 ms QT Int : 378 ms P-R-T Axes : 000 -52 052 degrees QTc Int : 499 ms Atrial fibrillation with rapid ventricular response Left anterior fascicular block Abnormal ECG When compared with ECG of 26-NOV-2021 10:41, Nonspecific T wave abnormality no longer evident in Inferior leads Nonspecific T wave abnormality no longer evident in Lateral leads Confirmed by Dario Blake ([id number]) on 12/07/2021 1:34:05 PM Referred By: REFERRED SELF Confirmed By:Darien Blake
[2021-12-07] MEDS: PANTOprazole 40 MG in SYRINGE 0 ML IV SCH ×2 (13:42→20:31)
--- NOTE | 2021-12-08 06:11 | Surgery Progress Note ---
Date of Service December 08, 2021 Assessment & Plan (1) Acute GI bleeding: Plan: Patient is status post hemorrhoidectomy by Dr. Alamo on 11/27/2021 Since patient's hemorrhoidectomy his Xarelto had been resumed which may have been the cause of his acute GI bleeding recommend holding Xarelto for the present time No need for acute surgical intervention Admission and Anticipated Discharge Date Admission Date: December 07, 2021 Supervising Physician Co-Signing Physician Notes I personally saw and evaluated the patient with Cj Kate PA-C and agree with the assessment and plan. 71-year-old male status post recent hemorrhoidectomy now with GI bleed He has not had any more blood per rectum or bloody bowel movements Continue to hold his Xarelto We will start him on clear liquids today as his hemoglobin is stable status post transfusion Can advance his diet as tolerated later today or tomorrow If he remains stable for another 24 hours can likely be discharged home We will follow Subjective Patient is resting comfortably in bed. He denies any complaints this morning such as fevers, shakes, chills. He denies any worsening rectal pain. He denies any further bloody bowel movements. Discussed with shift leader nurse and there were no reported bloody bowel movements. Physical Exam Gastrointestinal (Abdomen): Abdomen is soft and nondistended. Results & Data ([facility]) Vital Signs (Past 12 Hours) Vital Signs Temp Pulse Pulse Resp BP Pulse Ox 12/08/21 03:45 36.5 C 102 H 18 122/74 98 12/07/21 23:37 36.8 C 101 H 18 113/74 97 12/07/21 22:20 101 H 12/07/21 19:30 36.8 C 94 H 18 118/71 95 PG Care Time/CCT Total # of Minutes Spent Total Time Spent with Patient: Total time spent is greater than 50% in coordination of care (as documented) at patient's floor/unit and/or counseling patient: Coding Level of Care Code 91877 Subseq Hosp Care Lvl 1 Diagnoses Acute GI bleeding K92.2
[2021-12-08 06:30] LABS: Hematocrit (blood only) 28.1 % (42-52); Hemoglobin 8.4 g/dL (14.0-18.0); Mean Corpuscular Hemoglobin 23.3 pg (25-34); Mean Corpuscular Hgb Conc 29.9 g/dL (32-36); Mean Corpuscular Volume 78.1 fL (80-100); Mean Platelet Volume 9.7 fL (7.4-10.4); Platelet Count 229 K/uL (130-400); RDW Standard Deviation 73.4 fL (36.4-46.3); White Blood Count 7.47 K/uL (4.8-10.8)
[2021-12-08 06:55] LABS: BUN Creatinine Ratio 14.5 (10-20); Calcium 7.8 mg/dl (8.5-10.1); Creatinine Clr Calc Pharmacy 89.4 ml/min; Est GFR (African American) 104.9 ml/min; Est GFR (Non-African American) 90.5 ml/min; Potassium 3.9 mmol/L (3.5-5.1)
[2021-12-08 07:48] LABS: Appearance Urine Clear (Clear); Bacteria Urine Automated 4+ (Negative); Bilirubin Urine Negative (Negative); Blood Urine Trace (Negative); Color Urine Orange; Epithelial Cell Urine Auto 0-5 /lpf (0-5); Glucose Urine UA Negative (Negative); Ketones Urine 1+ (Negative); Leukocyte Esterase Urine 2+ (Negative); Nitrite Urine Negative (Negative); Protein Urine Negative (Negative); RBC Urine Automated 0-4 /hpf (0-4); Specific Gravity Urine 1.015 (1.000-1.030); Urobilinogen Urine Negative (Negative)
[2021-12-08] MEDS: PANTOprazole 40 MG in SYRINGE 0 ML IV SCH ×2 (08:57→21:24)
--- NOTE | 2021-12-08 09:56 | Hospitalist Progress Note ---
Date of Service December 08, 2021 Assessment & Plan (1) Acute GI bleeding: Plan: 71 yo M with PMH permanent atrial fibrillation on Xarelto, AAA 6.0 cm, quadriplegia s/p trauma in 1963, CHF, admitted for ~20 episodes of loose stool + BRBPR after 11/28 rectal hemorrhoidectomy and being on Xarelto afterward. (1) Acute GI bleeding: Plan: -11/27 colonoscopy with evidence of internal/external bleeding hemorrhoids. 11/28 OR- rectal hemorrhoidectomy with general surgery -Suspect his acute blood loss is secondary to mistakenly continued Xarelto in postoperative period resulting in compounded bleeding risk, CTA did not locate other bleeding source -Hgb 7.8 on admission, corrected to 8.4 s/p 2u pRBCs. BPs 70s/50s on admission, stabilized after fluid resuscitation -Continue to hold Xarelto at this time -CHADSVASC score 3+, pt should continue Xarelto long-term but will hold on discharge. Close f/u with PCP scheduled on 12/10 and can evaluate when to restart Xarelto safely in setting of AAA -1 further episode of BRBPR today, recheck H+H in PM -Continue clear liquid diet today, advance to solids likely tomorrow (2) Permanent atrial fibrillation: Plan: -Atrial fibrillation, currently rate-controlled with HRs < 110. Does not take any rate control agents at home -Holding Xarelto in setting of acute GIB -Continue telemetry monitoring -Lopressor PRN for tachycardia (3) AAA (abdominal aortic aneurysm): Plan: -AAA with chronic enlargement, currently 6.0 cm -Received extensive workup in [facility] earlier this month, scheduled for outpatient f/u with vascular surgery on 01/02 -Concern for restarting Xarelto due to stroke risk reduction vs increasing risk of AAA rupture, will hold Xarelto at this time (4) Quadriplegia: Plan: -Sustained quadriplegia since 1963, wheelchair at baseline -No new mobility issues (5) Cardiomyopathy + HTN Plan: -PMH of HFrEF with EF 40-45% in October 2019 -Currently euvolemic, do not suspect acute CHF exacerbation -Will continue to hold Lasix given recent hypotension requiring resuscitation -Consider resuming home amlodipine and/or Lasix pending pt's BPs and volume status as GI bleed resolves 6) Questionable UA -UA demonstrating 4+ bacteria, positive leukocyte esterase, 10-30 WBCs but pt not reporting any urinary symptoms -Will monitor for urinary symptoms but deferring antibiotic treatment at this time Plan: FENGI: Clear liquids Code status: Full DVT ppx: SCDs, holding home Xarelto Isolation: None Dispo: Home pending stability (2) Permanent atrial fibrillation: (3) AAA (abdominal aortic aneurysm): Admission and Anticipated Discharge Date Admission Date: December 07, 2021 Supervising Physician Co-Signing Physician Notes I also saw the patient confirmed vargas portions of the history and physical examination. I agree with the impression and plan as noted in the resident documentation. Pleasant 71-year-old male admitted yesterday with bright red blood per rectum with clots. This was in the setting of a recent hemorrhoidectomy and resumption of his anticoagulation. Of note, the patient does have a history of abdominal aortic aneurysm, 6 x 5.8 cm, seen on CT upon admission, with no change compared to 11/26 2021. The patient was transferred to [facility] for inpatient evaluation of this; per the patient, the patient was discharged with outpatient follow-up to discuss elective repair in the future. At present he denies any abdominal pain. Just before our examination this morning, he had a bowel movement which per nursing contained blood clots and a small amount of blood. Exam 99/60, 79, 18, 36.9, 98% on room air Alert and oriented. Heart irregularly irregular Lungs clear with nonlabored respirations Abdomen soft and nontender Labs Hemoglobin 8.2 Sodium 140, potassium 3.9, BUN 11, creatinine 0.76 Assessment and Plan Acute hemorrhoidal bleeding Hold anticoagulation Monitor hemoglobin Chronic atrial fibrillation Rate controlled Discussed with patient current bleeding necessitates hold of anticoagulation Abdominal aortic aneurysm Has been transferred to tertiary care facility as an inpatient for evaluation Recently discharge for outpatient follow-up; ongoing discussions with regards to surgical intervention CT scan here upon admission shows no change in size or evidence of leakage Subjective No acute events overnight, pt doing well. Denying dyspnea, chest pain, fatigue. Did have one further bowel movement today, was reported by nurse to have similar bright red clots. Review of Systems Review of Systems: Per Subjective Physical Exam Physical Exam: General: Alert, oriented, no acute distress Cardiac: Irregularly irregular rhythm, normal rate, normal S1, S2. No murmurs appreciated. No JVD. Respiratory: Clear to auscultation b/l with good air flow entry, symmetric chest rise and fall. No wheezes or crackles. No increased work of breathing or accessory muscle use Abdomen: Soft, nondistended, nontender. Normal bowel sounds. Skin: No rashes or lesions Extremities: Warm, dry, well-perfused with capillary refill <2s b/l. No lower extremity edema, erythema or swelling Results & Data Results & Data ([facility]) Vital Signs (Past 12 Hours) Vital Signs Temp Pulse Pulse Resp BP Pulse Ox 12/08/21 08:00 36.7 C 86 18 110/67 96 12/08/21 03:45 36.5 C 102 H 18 122/74 98 12/07/21 23:37 36.8 C 101 H 18 113/74 97 12/07/21 22:20 101 H Resident Activity Tracking Resident Involvement: Resident Care Provided Care Provided: Adult Hospital Medicine
[2021-12-08 12:52] LABS: Hematocrit (blood only) 27.4 % (42-52); Hemoglobin 8.2 g/dL (14.0-18.0)
--- NOTE | 2021-12-09 06:01 | Surgery Progress Note ---
Date of Service December 09, 2021 Assessment & Plan (1) Acute GI bleeding: Plan: Patient is status post hemorrhoidectomy by Dr. Alamo on 11/27/2021 -Acute GI bleeding felt to be in part due to patient resuming Xarelto which is currently on hold. Continue to hold patient's Xarelto for the present time This admission patient has required 2 units of packed red blood cells No need for surgical intervention at this time DC home once stability of H&H has been ensured Continue to advance diet as tolerated Admission and Anticipated Discharge Date Admission Date: December 07, 2021 Supervising Physician Co-Signing Physician Notes I personally saw and evaluated the patient with Cj Kate PA-C and agree with the assessment and plan. 71-year-old male status post recent hemorrhoidectomy now with GI bleed He has not had any more blood per rectum or bloody bowel movements Continue to hold his Xarelto Advance diet as tolerated His hemoglobin is remained stable He can be discharged today from a surgical standpoint if he tolerates diet with continue to hold his Xarelto Subjective Patient is resting comfortably in bed. He denies any abdominal pain. He denies any rectal pain. He denies any further bloody bowel movements since admission. Discussed with mine shifter RN and patient did not have any bloody bowel movements overnight Physical Exam Gastrointestinal (Abdomen): Abdomen is soft and nontender Results & Data ([facility]) Vital Signs (Past 12 Hours) Vital Signs Temp Pulse Pulse Resp BP Pulse Ox 12/09/21 05:41 98 H 12/09/21 03:55 36.5 C 90 18 124/70 97 12/08/21 23:08 36.7 C 104 H 18 115/68 97 12/08/21 19:21 36.3 C L 74 16 93/59 L 93 PG Care Time/CCT Total # of Minutes Spent Total Time Spent with Patient: Total time spent is greater than 50% in coordination of care (as documented) at patient's floor/unit and/or counseling patient: Coding Level of Care Code None Diagnoses Acute GI bleeding K92.2
[2021-12-09 07:26] LABS: Hematocrit (blood only) 28.4 % (42-52); Hemoglobin 8.6 g/dL (14.0-18.0); Mean Corpuscular Hemoglobin 23.6 pg (25-34); Mean Corpuscular Hgb Conc 30.3 g/dL (32-36); Mean Corpuscular Volume 77.8 fL (80-100); Mean Platelet Volume 9.9 fL (7.4-10.4); Platelet Count 271 K/uL (130-400); RDW Coefficient of Variation 26.1 % (11.5-14.5); Red Blood Count 3.65 M/uL (4.7-6.1); White Blood Count 6.54 K/uL (4.8-10.8)
[2021-12-09 07:47] LABS: BUN Creatinine Ratio 9.1 (10-20); Calcium 7.7 mg/dl (8.5-10.1); Creatinine Clr Calc Pharmacy 88.2 ml/min; Est GFR (African American) 104.3 ml/min; Potassium 3.6 mmol/L (3.5-5.1)
[2021-12-09] MEDS: PANTOprazole 40 MG in SYRINGE 0 ML IV SCH (08:13)
--- NOTE | 2021-12-09 09:08 | Discharge Summary ---
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 the pt has no nausea. this is painless rectal bleeding with brbpr and clots, pt was dizzy this am and came to ER found to have significant edema. Admission Exam Per Admitting Provider The patient appeared chronically ill but well compensated Vital signs as documented. Head exam is normocephalic atraumatic Neck is without JVD, thyromegaly, or carotid bruits. Lungs are clear to auscultation, no focal loss of breath sounds Cardiac exam, Rhythm is regular.. No murmurs, rubs or gallops. Abdominal exam reveals normal bowel sounds, soft non tender, no masses Extremities are non movement with some spascity Neurologic exam is alert and oriented, only limb girdle movement of shoulders and hips Skin is without bruises or rashes Psychologically is without concerns for anxiety or depression.. Principal Diagnosis GI bleed due to Xarelto effect in postoperative period Discharge Exam General: Alert, oriented, no acute distress Cardiac: Irregularly irregular rhythm, normal rate, normal S1, S2. No murmurs appreciated. No JVD. Respiratory: Clear to auscultation b/l with good air flow entry, symmetric chest rise and fall. No wheezes or crackles. No increased work of breathing or accessory muscle use Abdomen: Soft, nondistended, nontender. Normal bowel sounds. Skin: No rashes or lesions, mild mucosal pallor but no central pallor Extremities: Warm, dry, well-perfused with capillary refill <2s b/l. No lower extremity edema, erythema or swelling Discharge Data Allergies Allergy/AdvReac Type Severity Reaction Status Date / Time adhesive Allergy Mild Irritated Verified 12/07/21 07:15 skin ciprofloxacin Allergy Unknown affected Verified 12/07/21 07:15 blood counts (THROMBOCYTOPENIA) heparin AdvReac Intermediate POSSIBLE Verified 12/07/21 07:15 CAUSE OF THROMBOCYTOPENIIA 04/22, LABS PENDING Consultations 12/07/21 07:28 ED Decision to Admit Stat 12/07/21 11:45 Consult General Surgery Routine Ordered Studies 12/07/21 04:59 CT angio abdomen pelvis w con Stat Hospital Course (1) Acute GI bleedin yo M with PMH permanent atrial fibrillation on Xarelto, AAA 6.0 cm, quadriplegia s/p trauma in 1963, CHF, admitted for ~20 episodes of loose stool + BRBPR after 11/28 rectal hemorrhoidectomy and being on Xarelto afterward. (1) Acute GI bleeding: Plan: -11/27 colonoscopy with evidence of internal/external bleeding hemorrhoids. 11/28 OR- rectal hemorrhoidectomy with general surgery -Suspect his acute blood loss is secondary to mistakenly continued Xarelto in postoperative period resulting in compounded bleeding risk, CTA did not locate other bleeding source -Hgb 7.8 on admission, corrected to 8.4 s/p 2u pRBCs. BPs 70s/50s on admission, stabilized after fluid resuscitation -Xarelto held during hospitalization, GI bleeding resolved -CHADSVASC score 3+, pt should continue Xarelto long-term but will hold on discharge. Close f/u with PCP scheduled on 12/10 and can evaluate when to restart Xarelto safely in setting of AAA -Tolerated solid breakfast well -Hgb 8.6 on day of discharge, denied symptoms of anemia. Baseline Hgb around 10. (2) Permanent atrial fibrillation: Plan: -Atrial fibrillation, remained rate-controlled with HRs < 110. Does not take any rate control agents at home -Held Xarelto in setting of acute GIB -Lopressor PRN for tachycardia, none required during stay (3) AAA (abdominal aortic aneurysm): Plan: -AAA with chronic enlargement, currently 6.0 cm -CTAP angiography 12/07- 6 x 5.8 cm AAA at level of renal arteries, no significant change since 11/26 CT -Received extensive workup in [facility] earlier this month, scheduled for outpatient f/u with vascular surgery on 01/02 -Concern for restarting Xarelto due to stroke risk reduction vs increasing risk of AAA rupture, will hold Xarelto on discharge with close PCP f/u (4) Quadriplegia: Plan: -Sustained quadriplegia since 1963, wheelchair at baseline -No new mobility issues (5) Cardiomyopathy + HTN Plan: -PMH of HFrEF with EF 40-45% in October 2019 -Currently euvolemic, do not suspect acute CHF exacerbation -Home Lasix and amlodipine held given recent hypotension requiring resuscitation -Amlodipine and Lasix resumed on discharge given stable BPs and resolved GI bleeding 6) Questionable UA -UA demonstrating 4+ bacteria, positive leukocyte esterase, 10-30 WBCs but pt not reporting any urinary symptoms -Outpatient- monitor for urinary symptoms, consider repeating UA (2) Permanent atrial fibrillation: (3) AAA (abdominal aortic aneurysm): Total Time Total Time Spent Total Time Spent (In Minutes): 30 Discharge Plan Discharge Items Patient Disposition: Home - Self-Care Reason For Visit: ACUTE BLOOD LOSS ANEMIA Discharge Diagnosis: Acute GI bleed due to Xarelto side effect Activity: Resume your previous activity Non-emergency contact: Primary Care Provider and Surgeon Call non-emergency contact if: you have any medication questions, your symptoms worsen, your pain is worsening and you have a fever Follow-up/Referrals: Chandrakant Alamo, [Surgeon] - (Please schedule pt for f/u with Dr. Alamo in clinic) Shashi Henao MD [Primary Care Provider] - Diet: Heart Healthy Addtl Attending Provider Instructions: You were admitted to the hospital for GI bleed, which was suspected to be caused by Xarelto use after your hemorrhoid surgery. You were treated with fluids to maintain your blood pressure, blood transfusion to increase your hemoglobin. Your Xarelto was temporarily held to avoid further increasing bleeding risk. Your blood pressure and hemoglobin stabilized by time of discharge and no significant bleeding was noted. A discharge summary will be sent to your primary care physician to ensure continuity of care. Please bring this discharge summary with you to your next office appointment so that your provider can review it at that time. Follow-up appointments: Make sure to attend your follow up with Dr. Henao tomorrow morning. Your appointment on 01/02 at [facility] is also important for management of your enlarging abdominal aortic aneurysm. We will also schedule a follow up with Dr. Alamo, the surgeon, in his clinic about 1-2 weeks from now. Keep all your follow-up appointments as already scheduled. If you cannot make an appointment, notify your provider. Medications: Your medication list has been reviewed and reconciled upon discharge to ensure accuracy and continuity of care. An updated list of all your medications is included with your hospital discharge paperwork. Please review this list closely, and make note of any changes. Do not take your Xarelto today or tomorrow morning. Tomorrow at your follow up with Dr. Henao, he will discuss when it will be safe to resume Xarelto. It is safe to resume your regular Norvasc and Lasix upon discharge. Take your medications as instructed; do not skip a dose of your medicines. Make sure all of your doctors know every medicine you are taking (including jvpv-wut-vkqhfaf medicines, vitamins, and supplements). Call your primary care provider before taking any new medicines (including chnw-tvr-ajhupmi medicines, vitamins, and supplements), because some of these may interact with your current medications, or may make your symptoms worse. Tell your primary care provider if you cannot afford your medications. CONTACT YOUR PRIMARY CARE PROVIDER if you experience any of the following: Bloody stool Fatigue Lightheadedness Palpitations Abdominal pain Nausea/vomiting Difficulty following your treatment plan, or difficulty taking medications CALL 911 OR GO TO THE EMERGENCY DEPARTMENT if you experience any of the following: Sudden, severe abdominal pain or nausea/vomiting Severe chest pain, or chest pain that radiates (moves) to your jaw or arm Sudden, severe shortness of breath or difficulty breathing Thank you for allowing us to participate in your care. Pending Studies at Discharge: No Stand-Alone Forms: My [facility] Medications and DC Order Prescriptions: Continued furosemide 40 mg tablet 40 mg PO DAILY RF: 0 acetaminophen [Tylenol Extra Strength] 500 mg Tablet 500 mg PO Q6H PRN (Reason: Pain) RF: 0 amlodipine 5 mg Tablet 5 mg PO QAM RF: 0 cranberry 400 mg Capsule 400 mg PO QAM RF: 0 atorvastatin 40 mg tablet 40 mg PO DAILY RF: 0 Xarelto 15 mg tablet 15 mg PO DAILY RF: 0 Discharge Orders: Discharge Order (Routine); Ordered 12/09/21 Ordered By: Chikis Wahl Admission Data Admit Date/Time: 12/07/21 10:06 Attending Provider: Norris Larsen Admit Provider: Hieu Matthew Primary Care Provider: Shashi Henao Other Providers: Hieu Matthew ; Chandrakant Alamo ; [place] Other Interventions: Discharge Summary Assessment (RN) Last Done: 12/09/21 10:09 Supervising Physician Co-Signing Physician Notes I also saw the patient confirmed vargas portions of the history and physical examination. I agree with the impression and plan as noted in the resident documentation. Patient without complaints today. Looking forward to discharge. He does have a previously scheduled appointment with his PCP tomorrow morning. Exam 99/65, 67, 18, 36.8, 90% room air Alert and oriented. Heart irregularly irregular; rate controlled Lungs clear with nonlabored respirations Abdomen soft and nontender Labs Hemoglobin 8.6, up slightly compared to yesterday. Sodium 139, potassium 3.6, BUN 7, creatinine 0.77. Assessment and Plan Acute hemorrhoidal bleeding, resolved Continue to hold anticoagulation Monitor hemoglobin as outpatient Decision on whether to resume anticoagulation given his recent rectal bleeding, abdominal aortic aneurysm, and atrial fibrillation -if and when to resume -we will discuss with his PCP tomorrow. Patient is aware of the risk and benefits of anticoagulation given his multiple diagnoses. Chronic atrial fibrillation Rate controlled Discussed with patient current bleeding necessitates hold of anticoagulation Abdominal aortic aneurysm Has been transferred to tertiary care facility as an inpatient for evaluation Recently discharge for outpatient follow-up; ongoing discussions with regards to surgical intervention CT scan here upon admission shows no change in size or evidence of leakage Resident Activity Tracking Resident Involvement: Resident Care Provided Care Provided: Adult Hospital Medicine
[2021-12-11 08:29] LABS: KPC Carbapenemase NOT DETECTED (NotDetected); NDM Carbapenemase NOT DETECTED (NotDetected)
== END 2021-12-09 12:19 | disposition home health service (06) | DRG 377 ==
LOC: ED 04:28 → 2S 10:06 → SUATTDRO 10:06 → 2S 11:01

== ENCOUNTER 2022-02-04 07:18 | Inpatient (IN) ==
--- NOTE | 2022-02-04 08:01 | Emergency Department Note ---
History of Present Illness General Chief complaint: Swelling/Edema to Extremity Stated complaint: SWELLING IN LFT CHEST,UNDER ARM GOING DOWN SIDE Time Seen by Provider: 02/04/22 07:49 History of Present Illness Maximum Pain Intensity: 1 71-year-old male presents to the ED with a chief complaint of bruising to the left anterior chest wall. The patient is chronically on Xarelto for history of A. fib. He states that he noticed the swelling and bruising this morning. Denies any other complaints at this time. No known trauma. Did not notice it yesterday. Pain is worse with movement Home Medications Medication Instructions Recorded Confirmed Type amlodipine 5 mg tablet 5 mg PO QAM 07/20/18 12/17/21 History cranberry 400 mg capsule 400 mg PO QAM 07/20/18 12/17/21 History acetaminophen 500 mg tablet 500 mg PO Q6H PRN 10/22/19 12/17/21 History (Tylenol Extra Strength) furosemide 40 mg tablet 40 mg PO DAILY 03/07/20 12/17/21 History atorvastatin 40 mg tablet 40 mg PO .Q 3 days tab 01/01/22 History docusate sodium 100 mg capsule 100 mg PO DAILY 01/01/22 History (Colace) collagenase clostridium histo. 250 1 applic TOPICAL .QOD PRN #30 g 01/22/22 01/22/22 Rx unit/gram topical ointment (Santyl) Allergies Allergy/AdvReac Type Severity Reaction Status Date / Time adhesive Allergy Mild Irritated Verified 01/29/22 07:42 skin ciprofloxacin Allergy Unknown affected Verified 01/29/22 07:42 blood counts (THROMBOCYTOPENIA) heparin AdvReac Intermediate POSSIBLE Verified 01/29/22 07:42 CAUSE OF THROMBOCYTOPENIIA 04/22, LABS PENDING Past Med/Surg History Medical History AAA (abdominal aortic aneurysm) Atrial fibrillation with RVR Cardiomyopathy Mild, EF 45 to 50% on October 2019 echocardiogram. Cholecystitis, chronic Elevated troponin Hiatal hernia Hiccups History of quadriplegia WHEELCHAIR BOUND-S/P TRAUMA 1963 Hx of gann 2007-LOWER EXTREMITIES Hx of decubitus ulcer SURGERY TO DEBRIDE-1963 Hypertension Indwelling Amos catheter present Kidney stones Osteoarthritis Paralysis LEVEL C 5-UNABLE TO MOVE FINGERS Psoriasis Seborrheic keratosis Spinal stenosis Surgical History H/O cervical spine surgery H/O hemorrhoidectomy (11/27/21) Hemorrhoidectomy Dr. Alamo 11/27/2021 H/O skin graft 1964 - decubitus 2010 - gann History of back surgery CERVICAL BONE FUSION-2010 (ACDF 04/07/2012 - Glidescope #4 EZ intubation) S/P debridement DECUBITUS 1963 Family History Grandmother Family history of diabetes mellitus Mother Family history of diabetes mellitus Brother Family history of diabetes mellitus Social History Smoking Status: Current some day smoker Tobacco Type: Cigarettes Age Started Using Tobacco: 12; Cigarettes Per Day: 1 cigarette per day every 3-4 days; Second Hand Exposure: No; Hx Alcohol Use: No Hx Substance Use: No Preferred Language: Kazakh Communication Ability: Effective Visual Impairment: No Limitations Hearing Ability: Normal Finish Mixer Required: No Beliefs That Will Affect Care: None marital status: Single Current Living Situation: Alone Current Living Situation Comment: has CG M-F and Family on weekends How many Children do You have: 0 Feels Safe at Home: Yes caffeine: Yes during the past year weight has: remained stable Assistive Devices: Wheelchair Review of Systems A total of 10 systems reviewed and were otherwise negative Physical Exam Vital Signs Vital Signs - 24 hr 02/04/22 07:21 02/04/22 08:16 02/04/22 08:30 Temperature 36.2 C L Temperature Source Temporal Artery Scan Pulse Rate 99 H 103 H 108 H Respiratory Rate 17 20 23 Respiratory Effort / Characteristics Non-Labored Spontaneous Respiratory Depth Normal Blood Pressure 84/58 L Blood Pressure Mean 66 Blood Pressure Position Sitting Pulse Oximetry 98 Oxygen Delivery Method Room Air Sepsis Recent Fever Within 48 Hours No Sepsis New/Unexplained Change in Mental Status No Sepsis Action Taken by Nursing No Action Required 02/04/22 09:00 02/04/22 09:16 Temperature Temperature Source Pulse Rate 94 H 84 Respiratory Rate 20 24 Respiratory Effort / Characteristics Respiratory Depth Blood Pressure 100/62 Blood Pressure Mean 74 Blood Pressure Position Pulse Oximetry 94 Oxygen Delivery Method Sepsis Recent Fever Within 48 Hours Sepsis New/Unexplained Change in Mental Status Sepsis Action Taken by Nursing CONSTITUTIONAL/VITAL SIGNS: Reviewed / noted above. GENERAL: Non-toxic in appearance. INTEGUMENTARY: Warm, dry, and [place]. HEAD: Normocephalic. EYES: without scleral icterus or trauma. ENT/OROPHARYNX: clear and moist. LYMPHADENOPATHY/NECK: Is supple without lymphadenopathy or meningismus. RESPIRATORY: Clear to auscultation bilaterally. No increased work of breathing. CARDIOVASCULAR: Regular rate and rhythm. CHEST: There is a large hematoma to the left pectoralis region with some superf icial ecchymosis extending from that area down to the left lateral chest wall and somewhat into the right chest wall GI/ABDOMEN: Soft and nontender. No organomegaly or pulsatile mass. EXTREMITIES: Warm and well perfused. BACK: No CVA tenderness. NEUROLOGICAL: Intact without focal deficits. PSYCHIATRIC: normal affect. MUSCULOSKELETAL: Normally developed with good muscle tone. TRIAGE NURSING DOCUMENTATION REVIEWED. Course Administered Medications Sodium Chloride (Nss 1000ml) 1,000 mls @ 999 mls/hr IV .Q1H1M ONE Stop: 02/04/22 10:42 Last Admin: 02/04/22 09:59 Dose: 999 mls/hr Documented by: [id number] Discontinued Medications Ioversol (Optiray 320 100ml) 94 ml IV ONCE ONE Stop: 02/04/22 09:15 Last Admin: 02/04/22 09:14 Dose: 94 ml Documented by: [id number] Critical Care Time Critical Care Time: Yes Total Critical Care Time: 30 I have personally spent 30 minutes of critical care time in the direct management of this patient. This includes bedside care, interpretation of diagnostic studies, and testing, discussion with consultants, patient, and family members, and other required patient management activities. This 30 minutes is in excess of all separately billable procedures. Medical Decision Making Differential Diagnosis Differential includes large hematoma, ongoing bleeding, muscular strain with bleeding, trauma, spontaneous bleeding Medical Records Attestation: I reviewed the patient's medical records. Home Medications Current Medication List: was personally reviewed by me Laboratory Data Attestation: I reviewed the patient's lab results. Result diagrams: 02/04/22 07:30 02/04/22 07:30 Lab Results 02/04/22 02/04/22 02/04/22 Range/Units 07:30 07:30 07:30 WBC 13.37 H (4.8-10.8) K/uL RBC 3.54 L (4.7-6.1) M/uL Hgb 7.3 L (14.0-18.0) g/dL Hct 25.5 L (42-52) % MCV 72.0 L (80-100) fL MCH 20.6 L (25-34) pg MCHC 28.6 L (32-36) g/dL RDW Std Deviation 54.8 H (36.4-46.3) fL RDW Coeff of Refugio 20.5 H (11.5-14.5) % Plt Count 388 (130-400) K/uL MPV 10.0 (7.4-10.4) fL Immature Gran % (Auto) 0.2 % Neut % (Auto) 76.6 % Lymph % (Auto) 10.2 % Calloway % (Auto) 7.3 % Eos % (Auto) 4.9 % Baso % (Auto) 0.8 % Neut # (Auto) 10.25 H (1.4-6.5) K/uL Lymph # (Auto) 1.36 (1.2-3.4) K/uL Calloway # (Auto) 0.97 H (0.11-0.59) K/uL Eos # (Auto) 0.65 H (0-0.5) K/uL Baso # (Auto) 0.11 (0-0.2) K/uL Immature Gran # (Auto) 0.03 H (0.00-0.02) K/uL Hypochromasia Present Anisocytosis Present Microcytosis Present Ovalocytes 1+ PT 12.5 H (9.0-12.0) Seconds INR 1.2 H (0.9-1.1) APTT 50.1 H* (21.0-31.0) Seconds PTT Ratio 1.8 Sodium 139 (136-145) mmol/L Potassium 3.9 (3.5-5.1) mmol/L Chloride 105 (98-107) mmol/L Carbon Dioxide 24 (21-32) mmol/L Anion Gap 10 (3-11) BUN 16 (6-23) mg/dl Creatinine 0.88 (0.6-1.4) mg/dl Est Cr Clr Drug Dosing Not Reportable Est GFR ( Amer) 98.8 ml/min Est GFR (Non-Af Amer) 85.2 ml/min BUN/Creatinine Ratio 18.2 (10-20) Glucose 145 H (70-99(Fasting)) mg/dl Calcium 8.5 (8.5-10.1) mg/dl Total Bilirubin 1.1 H (0.2-1.0) mg/dl AST 13 (13-39) U/L ALT 11 (7-52) U/L Alkaline Phosphatase 89 (34-104) U/L Total Protein 7.2 (6.0-8.3) gm/dl Albumin 3.5 (3.4-5.0) gm/dl Globulin 3.7 (2.5-4.0) gm/dl Albumin/Globulin Ratio 0.9 (0.9-2) Lipase 11 (11-82) U/L Crossmatch 02/04/22 Range/Units 09:50 WBC (4.8-10.8) K/uL RBC (4.7-6.1) M/uL Hgb (14.0-18.0) g/dL Hct (42-52) % MCV (80-100) fL MCH (25-34) pg MCHC (32-36) g/dL RDW Std Deviation (36.4-46.3) fL RDW Coeff of Refug[place] (11.5-14.5) % Plt Count (130-400) K/uL MPV (7.4-10.4) fL Immature Gran % (Auto) % Neut % (Auto) % Lymph % (Auto) % C[place]ay % (Auto) % Eos % (Auto) % Baso % (Auto) % Neut # (Auto) (1.4-6.5) K/uL Lymph # (Auto) (1.2-3.4) K/uL [place]ay # (Auto) (0.11-0.59) K/uL Eos # (Auto) (0-0.5) K/uL Baso # (Auto) (0-0.2) K/uL Immature Gran # (Auto) (0.00-0.02) K/uL Hypochromasia Anisocytosis Microcytosis Ovalocytes PT (9.0-12.0) Seconds INR (0.9-1.1) APTT (21.0-31.0) Seconds PTT Ratio Sodium (136-145) mmol/L Potassium (3.5-5.1) mmol/L Chloride (98-107) mmol/L Carbon Dioxide (21-32) mmol/L Anion Gap (3-11) BUN (6-23) mg/dl Creatinine (0.6-1.4) mg/dl Est Cr Clr Drug Dosing Est GFR ( Amer) ml/min Est GFR (Non-Af Amer) ml/min BUN/Creatinine Ratio (10-20) Glucose (70-99(Fasting)) mg/dl Calcium (8.5-10.1) mg/dl Total Bilirubin (0.2-1.0) mg/dl AST (13-39) U/L ALT (7-52) U/L Alkaline Phosphatase (34-104) U/L Total Protein (6.0-8.3) gm/dl Albumin (3.4-5.0) gm/dl Globulin (2.5-4.0) gm/dl Albumin/Globulin Ratio (0.9-2) Lipase (11-82) U/L Crossmatch See Detail Imaging Data Radiologist's Impression: Chest CT 02/04/22 07:58 CT chest diagnostic w con CLINICAL HISTORY: left anterior chest wall hematoma on Eliquis . Left-sided chest pain and tightness. COMPARISON STUDY: 05/15/2008 CT DOSE: 641.75 mGycm TECHNIQUE: Standard CT of the Chest was performed with IV contrast. A dose lo wering technique was utilized adhering to the principles of ALARA. Contrast Volume: Optiray 320, 94 ml FINDINGS: There is an anterior chest wall hematoma deep to the pectoris muscle measuring approximately 14.2 x 10.5 x 4.0 cm in craniocaudad, transverse and AP diameters respectively. Diffuse subcutaneous edema is seen within the chest wall as well. No definite evidence for active hemorrhage is identified. Airway: The airway is clear. No endobronchial lesion is identified. Lungs: The lungs are clear of acute alveolar opacities, air bronchograms or pulmonary nodules. Pleura: There is no evidence for pleural effusion. There is no evidence for pneumothorax. Mediastinum: There is no evidence for pathologic adenopathy. The heart size is within normal limits. Coronary artery calcifications present. The thoracic aorta is within normal limits. However, there is a saccular aneurysm present involving the upper abdominal aorta measuring approximately 6.5 x 6.2 cm. Calcified and noncalcified thrombus is present. There is no evidence for pericardial effusion. Upper abdomen: The adrenal glands are normal bilaterally. Osseous structures: There is no acute osseous pathology. Degenerative changes are seen within the spine. IMPRESSION: 1. Left anterior chest wall hematoma with no evidence for active hemorrhage. 2. Saccular aneurysm of the upper abdominal aorta measuring 6.5 x 6.2 cm. 3. No acute chest disease. ACT 112: Negative or not required by law. Electronically signed by: Star Suresh M.D. 02/04/2022 9:32 AM ECG Data Attestation: I personally reviewed and interpreted this ECG as follows: MDM Narrative Patient presents with what appears to be a rather sudden onset of a left pec toralis region hematoma in the setting of taking Eliquis for A. fib chronically. His blood pressure in triage was 85/58. I checked it when I saw him in the room and it was 107/73. No other abnormal exam findings. The patient's hemoglobin today is 7.3. White blood cell count is 13.3. Chemistry panel was unremarkable.CT scan shows a left anterior chest wall hematoma without active extravasation. The patient did have a hypotensive episode during his ED stay. The patient was given a liter of normal saline IV. He was given a blood transfusion. Because of the low hemoglobin and hypotension which I feel is likely related to the left anterior chest wall hematoma, the patient will be seen by the hospitalist for further evaluation and care. Impression & Plan Hematoma of left chest wall, Anemia, Acute hypotension Discharge Plan Visit Data Chief Complaint: Swelling/Edema to Extremity Stated Complaint: SWELLING IN LFT CHEST,UNDER ARM GOING DOWN SIDE ED Provider: Regan Reyes Discharge Problem: Hematoma of left chest wall, Anemia, Acute hypotension Patient Disposition: Being Evaluated by Hospitalist Prescriptions Prescriptions: No Action docusate sodium [Colace] 100 mg capsule 100 mg PO DAILY RF: 0 Santyl 250 unit/gram ointment 1 applic topical .QOD PRN (Reason: wound care) Qty: 30 RF: 3 furosemide 40 mg tablet 40 mg PO DAILY RF: 0 acetaminophen [Tylenol Extra Strength] 500 mg Tablet 500 mg PO Q6H PRN (Reason: Pain) RF: 0 amlodipine 5 mg Tablet 5 mg PO QAM RF: 0 cranberry 400 mg Capsule 400 mg PO QAM RF: 0 atorvastatin 40 mg tablet 40 mg PO .Q 3 days RF: 0 Referrals Referrals: Shashi Henao MD [Primary Care Provider] -
[2022-02-04 08:16] LABS: Alanine Aminotransferase 11 U/L (7-52); Albumin Globulin Ratio 0.9 (0.9-2); Albumin Level 3.5 gm/dl (3.4-5.0); Alkaline Phosphatase 89 U/L (34-104); Anion Gap 10 (3-11); Aspartate Aminotransferase 13 U/L (13-39); BUN Creatinine Ratio 18.2 (10-20); Bilirubin,Total 1.1 mg/dl (0.2-1.0); Blood Urea Nitrogen 16 mg/dl (6-23); Calcium 8.5 mg/dl (8.5-10.1); Carbon Dioxide 24 mmol/L (21-32); Chloride 105 mmol/L (98-107); Est GFR (African American) 98.8 ml/min; Est GFR (Non-African American) 85.2 ml/min; Globulin 3.7 gm/dl (2.5-4.0); Glucose 145 mg/dl (70-99(Fasting)); Lipase 11 U/L (11-82); Potassium 3.9 mmol/L (3.5-5.1); Sodium 139 mmol/L (136-145); Total Protein 7.2 gm/dl (6.0-8.3)
[2022-02-04 08:32] LABS: Hematocrit (blood only) 25.5 % (42-52); Hemoglobin 7.3 g/dL (14.0-18.0); Mean Corpuscular Hemoglobin 20.6 pg (25-34); Mean Corpuscular Hgb Conc 28.6 g/dL (32-36); Platelet Count 388 K/uL (130-400); RDW Coefficient of Variation 20.5 % (11.5-14.5); RDW Standard Deviation 54.8 fL (36.4-46.3); Red Blood Count 3.54 M/uL (4.7-6.1); White Blood Count 13.37 K/uL (4.8-10.8)
[2022-02-04 08:36] LABS: Anisocytosis Present; Basophils # (auto) 0.11 K/uL (0-0.2); Basophils % (auto) 0.8 %; Eosinophils # (auto) 0.65 K/uL (0-0.5); Eosinophils % (auto) 4.9 %; Hypochromasia Present; Immature Granulocytes # (auto) 0.03 K/uL (0.00-0.02); Immature Granulocytes % (auto) 0.2 %; Lymphocytes # (auto) 1.36 K/uL (1.2-3.4); Lymphocytes % (auto) 10.2 %; Microcytosis Present; Monocytes # (auto) 0.97 K/uL (0.11-0.59); Monocytes % (auto) 7.3 %; Neutrophils # (auto) 10.25 K/uL (1.4-6.5); Neutrophils % (auto) 76.6 %; Ovalocytes 1+
[2022-02-04 08:45] LABS: INR 1.2 (0.9-1.1); Partial Thromboplastin Ratio 1.8; Prothrombin Time 12.5 Seconds (9.0-12.0)
[2022-02-04 08:47] LABS: Partial Thromboplastin Time 50.1 Seconds (21.0-31.0)
[2022-02-04] MEDS ORDERED: OPTIRAY 320 100ml IV ONE (09:14)
--- NOTE | 2022-02-04 09:34 | CT Scan Report ---
CT chest diagnostic w con CLINICAL HISTORY: left anterior chest wall hematoma on Eliquis . Left-sided chest pain and tightness. COMPARISON STUDY: 05/15/2008 CT DOSE: 641.75 mGycm TECHNIQUE: Standard CT of the Chest was performed with IV contrast. A dose lowering technique was u tilized adhering to the principles of ALARA. Contrast Volume: Optiray 320, 94 ml FINDINGS: There is an anterior chest wall hematoma deep to the pectoris muscle measuring approximatel y 14.2 x 10.5 x 4.0 cm in craniocaudad, transverse and AP diameters respectively. Diffuse subcutaneou s edema is seen within the chest wall as well. No definite evidence for active hemorrhage is identifi ed. Airway: The airway is clear. No endobronchial lesion is identified. Lungs: The lungs are clear of acute alveolar opacities, air bronchograms or pulmonary nodules. Pleura: There is no evidence for pleural effusion. There is no evidence for pneumothorax. Mediastinum: There is no evidence for pathologic adenopathy. The heart size is within normal limits. Coronary artery calcifications present. The thoracic aorta is within normal limits. However, there is a saccular aneurysm present involving the upper abdominal aorta measuring approximately 6.5 x 6.2 cm . Calcified and noncalcified thrombus is present. There is no evidence for pericardial effusion. Upper abdomen: The adrenal glands are normal bilaterally. Osseous structures: There is no acute osseous pathology. Degenerative changes are seen within the spi ne. IMPRESSION: 1. Left anterior chest wall hematoma with no evidence for active hemorrhage. 2. Saccular aneurysm of the upper abdominal aorta measuring 6.5 x 6.2 cm. 3. No acute chest disease. ACT 112: Negative or not required by law. Electronically signed by: Star Suresh M.D. 02/04/2022 9:32 AM
[2022-02-04] MEDS ORDERED: SODIUM CHLORIDE 0.9% 250 ML IV PRN ×2 (09:37→14:29)
[2022-02-04] MEDS ORDERED: SODIUM CHLORIDE 0.9% 1000ML 1,000 ML IV ONE (09:42)
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
[2022-02-04] MEDS ORDERED: LACTATED RINGER'S 1,000 ML IV ONE (10:55)
--- NOTE | 2022-02-04 11:49 | CT Scan Report ---
CT abdomen wo con HISTORY: anemia, r/o ? retroperitoneal bleed TECHNIQUE: Multiaxial CT images of the abdomen were performed without contrast. COMPARISON STUDY: Chest CT 02/04/2022. Abdomen and pelvis CTA 12/07/2021. FINDINGS: There is a tortuous and mildly aneurysmal dilatation of the descending thoracic aorta measu ring up to 4.3 cm in diameter. There is again noted a bilobed abdominal aortic aneurysm. The dominant area of aneurysmal dilatation is seen at the level of the renal arteries and measures 6.0 x 5.6 cm. This is similar to the prior study. A second smaller infrarenal abdominal aortic aneurysm measures 4. 1 x 4.1 cm. No retroperitoneal hematoma identified. There is contrast within the kidneys from the abraham or CT examination. Bilateral renal hypodense lesions remain stable and favor cysts. The unenhanced li velvet, spleen, adrenal glands, and pancreas are unremarkable. Prior cholecystectomy. The visualized loo ps of bowel show no wall thickening or obstruction. No acute fractures within the visualized osseous structures. There is again noted a partially visualized left anterior chest wall/intramuscular hemato ma. This is better appreciated on the same day chest CT. There is subcutaneous edema/contusion seen w ithin the lower chest/upper abdomen. There are few subcentimeter pulmonary nodules measure up to 4 mm . IMPRESSION: 1. Redemonstration of the partially visualized left anterior chest wall/intramuscular hematoma. This is better appreciated on the same day chest CT. 2. Subcutaneous trace edema/contusion within the lower chest/upper abdomen. 3. No significant change in the bilateral abdominal aortic aneurysms as described above. 4. No evidence for retroperitoneal hematoma. ACT 112: Negative or not required by law. Electronically signed by: Sai Newman M.D. 02/04/2022 11:47 AM
[2022-02-04] MEDS ORDERED: POLYETHYLENE (MIRALAX) 17 GM PACK PO PRN (14:29)
[2022-02-04] MEDS ORDERED: ATORVASTATIN 40 MG TAB PO SCH ×2 (14:29)
[2022-02-04] MEDS ORDERED: ONDANSETRON INJ 2 MG/ML 2 ML VIAL IV PRN (14:29)
[2022-02-04] MEDS ORDERED: COLLAGENASE OINT 30 GM TUBE TOP PRN (14:29)
--- NOTE | 2022-02-04 15:20 | Electrocardiogram Report ---
Test Reason : Blood Pressure : / mmHG Vent. Rate : 110 BPM Atrial Rate : 110 BPM P-R Int : 000 ms QRS Dur : 070 ms QT Int : 370 ms P-R-T Axes : 000 -19 -31 degrees QTc Int : 500 ms Poor data quality, interpretation may be adversely affected Atrial fibrillation with rapid ventricular response Low voltage QRS Cannot rule out Anterior infarct (cited on or before 04-FEB-2022) Abnormal ECG When compared with ECG of 07-DEC-2021 05:01, QRS axis Shifted right Confirmed by Noble Ceballos ([id number]) on 02/04/2022 3:20:11 PM Referred By: REFERRED SELF Confirmed By:Noble Ceballos
[2022-02-04 21:06] LABS: Hematocrit (blood only) 26.6 % (42-52); Hemoglobin 8.1 g/dL (14.0-18.0)
[2022-02-05 06:31] LABS: Basophils # (auto) 0.07 K/uL (0-0.2); Basophils % (auto) 0.6 %; Eosinophils # (auto) 0.36 K/uL (0-0.5); Eosinophils % (auto) 3.2 %; Hematocrit (blood only) 25.7 % (42-52); Hemoglobin 7.7 g/dL (14.0-18.0); Immature Granulocytes # (auto) 0.03 K/uL (0.00-0.02); Immature Granulocytes % (auto) 0.3 %; Lymphocytes # (auto) 0.95 K/uL (1.2-3.4); Lymphocytes % (auto) 8.6 %; Mean Corpuscular Hemoglobin 22.3 pg (25-34); Mean Corpuscular Volume 74.3 fL (80-100); Mean Platelet Volume 9.7 fL (7.4-10.4); Monocytes # (auto) 1.04 K/uL (0.11-0.59); Monocytes % (auto) 9.4 %; Neutrophils # (auto) 8.65 K/uL (1.4-6.5); Neutrophils % (auto) 77.9 %; Platelet Count 294 K/uL (130-400); RDW Standard Deviation 57.8 fL (36.4-46.3); Red Blood Count 3.46 M/uL (4.7-6.1)
[2022-02-05 06:55] LABS: BUN Creatinine Ratio 18.3 (10-20); Calcium 7.9 mg/dl (8.5-10.1); Creatinine Clr Calc Pharmacy 81.6 ml/min; Est GFR (Non-African American) 87.1 ml/min; Potassium 3.8 mmol/L (3.5-5.1)
[2022-02-05 06:57] LABS: Anisocytosis Present; Microcytosis Present; Polychromasia 1+
[2022-02-05] MEDS: ATORVASTATIN 10 MG TAB PO SCH (08:33)
[2022-02-05] MEDS: ACETAMINOPHEN 500 MG TAB PO PRN ×2 (08:33→20:10)
[2022-02-05] MEDS: DOCUSATE SODIUM 100 MG CAP PO SCH (08:33)
[2022-02-05] MEDS ORDERED: SODIUM CHLORIDE 0.9% 250 ML IV PRN ×2 (10:03→14:48)
--- NOTE | 2022-02-05 13:39 | Cardiology Consultation ---
Date of Consultation February 05, 2022 Assessment & Plan (1) Hematoma of left chest wall: (2) Permanent atrial fibrillation: (3) AAA (abdominal aortic aneurysm): (4) Cardiomyopathy: 72-year-old man with recurrent bleeding issues exacerbated by chronic anticoagulation for permanent atrial fibrillation. Agree with holding anticoagulant short-term (over the next several weeks) to allow his chest wall hematoma to resolve. Since his bleeding problems are not a recurrence of the same pathology, but rather various unrelated phenomena (hemorrhoids, chest wall hematoma, postoperative bleeding), would be reluctant to decide at this juncture to withhold anticoagulation permanently. Will discuss risks/benefits of various options at the time of the follow-up visit in my office in 2 weeks. Could consider attempt to return to sinus rhythm (ablation or amiodarone with cardioversion) but he has likely been in atrial fibrillation for several years now so the success rate would be low. Could consider atrial occlusion device (watchman), but only after period of resumed anticoagulation. Fortunately, his CHADS2-Vasc score is only 2 (age/hypertension), but will soon be 3 (additional age), so at this point his risk of thromboembolic phenomenon is not excessive in the near term. He is undergoing extensive work-up of his AAA by [facility] vascular service, certainly this may impact the timing/reasoning regarding resuming anticoagulation as well. He has a mild cardiomyopathy which is well compensated, no need for diuretics and no evidence of ongoing myocardial ischemia (troponin and ECG negative in the face of physiologic stress of anemia). I will be out of the hospital tomorrow, please contact Dr. Ceballos if additional cardiac issues or concerns arise. Thank you for allowing me to participate in the care of this patient. History of Present Illness Reason for Consultation: ? d/c Anticoagulation Requesting Physician: Leeroy Matthew MD Attending Physician: Gentry Marie DO History of Present Illness 72-year-old man with longstanding quadriplegia (1965), permanent atrial fibrillation (rivaroxaban/no need for rate control), significant AAA (6.5 cm range) and presumed CAD (chronic wall motion abnormalities suggesting old inferior/septal infarct) who was admitted 02/04/2022 with hematoma of the left chest wall felt exacerbated by his chronic anticoagulation with rivaroxaban. He has had prior bleeding issues, in particular he had chronic hemorrhoidal blee ding and underwent hemorrhoidectomy November 2021, he was readmitted several days after the surgery due to recurrent bleeding after restarting rivaroxaban and did receive a blood transfusion. He had not noted further hemorrhoidal bleeding after he resumed anticoagulation with rivaroxaban, however he noted a large left chest wall hematoma of uncertain etiology (he denies trauma). His hemoglobin was 7.3 and he received a transfusion. He has not required rate control for his atrial fibrillation as an outpatient, his heart rate as an inpatient has been in the 90-110 bpm range. He felt well this morning, noting no chest pain, dyspnea, or other complaints. His chest wall ecchymoses have not changed in size. He had no specific complaints at the time of my evaluation this morning. Allergies Allergy/AdvReac Type Severity Reaction Status Date / Time adhesive Allergy Mild Irritated Verified 01/29/22 07:42 skin ciprofloxacin Allergy Unknown affected Verified 01/29/22 07:42 blood counts (THROMBOCYTOPENIA) heparin AdvReac Intermediate POSSIBLE Verified 01/29/22 07:42 CAUSE OF THROMBOCYTOPENIIA 04/22, LABS PENDING Home Medications Medication Instructions Recorded Confirmed Type amlodipine 5 mg tablet 5 mg PO QAM 07/20/18 12/17/21 History cranberry 400 mg capsule 400 mg PO QAM 07/20/18 12/17/21 History acetaminophen 500 mg tablet 500 mg PO Q6H PRN 10/22/19 12/17/21 History (Tylenol Extra Strength) furosemide 40 mg tablet 40 mg PO DAILY 03/07/20 12/17/21 History atorvastatin 40 mg tablet 40 mg PO .Q 3 days tab 01/01/22 History docusate sodium 100 mg capsule 100 mg PO DAILY 01/01/22 History (Colace) collagenase clostridium histo. 250 1 applic TOPICAL .QOD PRN #30 g 01/22/22 01/22/22 Rx unit/gram topical ointment (Santyl) Patient History Medical History AAA (abdominal aortic aneurysm) Atrial fibrillation with RVR Cardiomyopathy Mild, EF 45 to 50% on October 2019 echocardiogram. Cholecystitis, chronic Elevated troponin Hiatal hernia Hiccups History of quadriplegia WHEELCHAIR BOUND-S/P TRAUMA 1963 Hx of gann 2007-LOWER EXTREMITIES Hx of decubitus ulcer SURGERY TO DEBRIDE-1963 Hypertension Indwelling Amos catheter present Kidney stones Osteoarthritis Paralysis LEVEL C 5-UNABLE TO MOVE FINGERS Psoriasis Seborrheic keratosis Spinal stenosis Surgical History H/O cervical spine surgery H/O hemorrhoidectomy (11/27/21) Hemorrhoidectomy Dr. Alamo 11/27/2021 H/O skin graft 1964 - decubitus 2010 - gann History of back surgery CERVICAL BONE FUSION-2010 (ACDF 04/07/2012 - Glidescope #4 EZ intubation) S/P debridement DECUBITUS 1963 Family History Grandmother Family history of diabetes mellitus Mother Family history of diabetes mellitus Brother Family history of diabetes mellitus Social History Smoking Status: Current some day smoker Tobacco Type: Cigarettes Age Started Using Tobacco: 12; Cigarettes Per Day: 1 cigarette per day every 3-4 days; Second Hand Exposure: No; Hx Alcohol Use: No Hx Substance Use: No Preferred Language: Latvian Communication Ability: Effective Visual Impairment: No Limitations Hearing Ability: Normal 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 BP normotensive. Pulse 104 bpm and irregular. Skin: Extensive ecchymoses anterior and lateral left chest wall. HEENT: unremarkable. Neck: Jugular venous pulse normal, no carotid bruits. Lungs: clear bilaterally. Cardiac: irregular rhythm, no murmur or gallop. Abdomen: benign. Extremities: no edema, pulses intact. Neurologic: normal affect, partial quadriplegia (longstanding). Results & Data ([facility]) Laboratory Results Troponin negative. Normal electrolytes, BUN 15, creatinine 0.82. Hemoglobin 7.3 on admission, 7.7 this morning. WBC 11.1, normal platelet count. Diagnostic Findings Abdomen/chest CT with left anterior chest wall hematoma and no evidence for active hemorrhage. Saccular aneurysm of the upper abdominal aorta measuring 6.5 x 6.2 cm. Serial ECG showed atrial fibrillation with rates between 91-110 bpm. Poor R wave progression, otherwise unremarkable. Echocardiogram October 2021 showed EF 45 to 50% with moderate septal and severe inferior hypokinesis. PG Care Time/CCT Total # of Minutes Spent Total Time Spent with Patient: Total time spent is greater than 50% in coordination of care (as documented) at patient's floor/unit and/or counseling patient: Coding Level of Care Code 92717 Initial Inpt Care Lvl 3 Diagnoses Hematoma of left chest wall S20.212A Permanent atrial fibrillation I48.21 AAA (abdominal aortic aneurysm) I71.4 Cardiomyopathy I42.9
--- NOTE | 2022-02-05 13:56 | Hospitalist Progress Note ---
Date of Service February 05, 2022 Assessment & Plan (1) Hematoma of left chest wall: Plan: 72-year-old man with history of AAA, incomplete quadriplegia (since 1967), permanent atrial fibrillation (since 1999, on Xarelto), and anemia secondary to multiple episodes of GI bleeding in the setting of chronic Xarelto anticoagulation. Hematoma of left chest wall -New onset, atraumatic. Extends posterolaterally to posterior axilla -CT chest confirms hematoma without active bleeding. CT abdomen shows no retroperitoneal or other abdominal bleeding. 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 * Trending daily PT/INR Anemia -likely secondary to hematoma. Hgb 7.3 on admission. Currently 7.7 after 2 bags of pRBCs. * 1 bag pRBC, for total of 3 bags total. Reassess after post-transfusion H&H * AM CBC. * 2 bags packed red blood cells ordered, to be held should hemoglobin continue to drop. Acute hypotension -pt's pressures in the 110s/60s-70s. However, pt appears to have occasional hypotensive episodes to the 80s/50s. So far pt has been mostly asymptomatic, with occasional lightheadedness. He remains afebrile. -suspect this is positional, plus combination of fatigue vs sepsis onset or other etiology. Patient is not on antihypertensive medication, nor is he outpatient. * elevated legs above heart. continue to monitor AAA -s/p transfer to [place] for urgent surgical management that was ultimately decided against in favor of watchful waiting (December 2021) -saccular aneurysm in upper abdominal aorta (6.0 x5.6 cm), infrarenal AAA (4.1 x 4.1 cm). No significant change from previous imaging. Stage 3 pressure ulcer of left buttock -Patient follows with wound care outpatient. Was seen by wound care today. * Collagenase to be applied daily, per wound care recs. Code: Full Dispo: Med-Surg telemetry FEN/GI: Regular diet DVT Prophylaxis: None. Holding home Xarelto. PT/OT: none Consults: Cardiology (2) Anemia: (3) Acute hypotension: (4) Stage III pressure ulcer of left buttock: (5) AAA (abdominal aortic aneurysm): Admission and Anticipated Discharge Date Admission Date: February 04, 2022 Supervising Physician Co-Signing Physician Notes I personally examined the patient and verified all vargas points of history and exam, discussed case, and agree with decision making with Dr Iglesias feeling OK overall. dw dr parra input appreciated vitals noted nad heent nc at mmm breathing unlabored no accessory muscles good effort large area of bruising noted on anterior chest wall L chest wall hematoma with acute blood loss anemia due to anticoagulant therapy - more stable now. transfused 3 units PRBC and anticoagulation held. appearing more stable - follow. home once blood loss has clearly stopped (?as soon as tomorrow) and then f/u PCP and cardiology regarding afib/anticoagulation/stroke risks otherwise as above Subjective Patient was seated upright in bed this morning, awake and alert. He reports that he last took Xarelto on Friday, after he noticed the bruising on his chest. Following his last discharge for bleeding, he reports he was not aware his Xarelto was supposed to be held, per his d/c instructions. He reports some fatigue, as well as some residual but improving tightness of his left arm and shoulder. He denies headache, dizziness, SOB, chest pain, fevers, or chills. Review of Systems Review of Systems: All systems reviewed & are unremarkable except as noted in HPI & below Physical Exam Physical Exam: General: Patient is a pleasant man, calm-appearing man in no acute distress. HEENT: Non-erythematous oropharynx; no lymphadenopathy; normal dentition. CV: Regular rate and rhythm. Normal S1 and S2. No murmurs gallops or rubs. No pedal edema. Pulmonary: Lungs are clear to auscultation bilaterally. No crackles, rhonchi, or wheezes. Abdomen: Soft, nondistended abdomen. No bruits heard on auscultation. No tenderness to deep palpation. No guarding or rebound. MSK: Incomplete quadriplegia, with bilateral distal motor weakness of the upper and lower extremities. Greater strength of proximal limbs, albeit with partial range of motion (3+/5 bilaterally) Psych: Alert and oriented x3. Congruent mood and affect. Results & Data Results & Data ([facility]) Vital Signs (Past 12 Hours) Vital Signs Temp Pulse Pulse Pulse Resp BP BP 02/05/22 13:32 98/63 L 02/05/22 13:28 37.2 C 101 H 18 81/52 L 02/05/22 13:27 37.2 C 107 H 18 92/61 L 02/05/22 13:11 37.3 C 113 H 18 110/75 02/05/22 12:11 37.3 C 110 H 18 110/75 02/05/22 11:41 37.2 C 109 H 18 80/56 L 02/05/22 11:26 37.2 C 110 H 18 109/79 02/05/22 11:06 37.1 C 79 18 121/87 02/05/22 07:41 37.2 C 98 H 18 111/71 02/05/22 03:39 36.9 C 111 H 15 87/66 L Pulse Ox 02/05/22 13:32 02/05/22 13:28 95 02/05/22 13:27 98 02/05/22 13:11 96 02/05/22 12:11 96 02/05/22 11:41 97 02/05/22 11:26 98 02/05/22 11:06 98 02/05/22 07:41 98 02/05/22 03:39 97 Resident Activity Tracking Resident Involvement: Resident Care Provided Care Provided: Adult Hospital Medicine
[2022-02-05 15:00] LABS: Hematocrit (blood only) 28.6 % (42-52); Hemoglobin 8.8 g/dL (14.0-18.0)
--- NOTE | 2022-02-05 15:16 | Billing Data ---
Date of Service February 05, 2022 Coding Level of Care Code 64506 Initial Inpt Care Lvl 3
[2022-02-06 06:41] LABS: Basophils # (auto) 0.06 K/uL (0-0.2); Basophils % (auto) 0.5 %; Eosinophils # (auto) 0.46 K/uL (0-0.5); Eosinophils % (auto) 3.9 %; Hematocrit (blood only) 28.1 % (42-52); Hemoglobin 8.5 g/dL (14.0-18.0); Immature Granulocytes # (auto) 0.04 K/uL (0.00-0.02); Immature Granulocytes % (auto) 0.3 %; Lymphocytes % (auto) 6.8 %; Mean Corpuscular Hemoglobin 22.8 pg (25-34); Mean Corpuscular Hgb Conc 30.2 g/dL (32-36); Mean Corpuscular Volume 75.5 fL (80-100); Mean Platelet Volume 9.8 fL (7.4-10.4); Monocytes % (auto) 8.6 %; Neutrophils # (auto) 9.33 K/uL (1.4-6.5); Neutrophils % (auto) 79.9 %; Platelet Count 273 K/uL (130-400); RDW Coefficient of Variation 21.6 % (11.5-14.5); RDW Standard Deviation 60.5 fL (36.4-46.3); Red Blood Count 3.72 M/uL (4.7-6.1); White Blood Count 11.69 K/uL (4.8-10.8)
[2022-02-06 07:00] LABS: INR 1.1 (0.9-1.1); Partial Thromboplastin Ratio 1.4; Prothrombin Time 11.5 Seconds (9.0-12.0)
[2022-02-06 07:14] LABS: BUN Creatinine Ratio 20.3 (10-20); Calcium 7.7 mg/dl (8.5-10.1); Creatinine Clr Calc Pharmacy 84.7 ml/min; Est GFR (African American) 102.5 ml/min; Est GFR (Non-African American) 88.5 ml/min; Potassium 3.8 mmol/L (3.5-5.1)
[2022-02-06 07:20] LABS: Anisocytosis Present; Polychromasia 1+
[2022-02-06] MEDS: DOCUSATE SODIUM 100 MG CAP PO SCH (08:40)
[2022-02-06] MEDS: ATORVASTATIN 10 MG TAB PO SCH (08:43)
[2022-02-06] MEDS: ACETAMINOPHEN 500 MG TAB PO PRN (08:43)
[2022-02-06] MEDS ORDERED: COLLAGENASE OINT 30 GM TUBE EXT SCH (09:00)
--- NOTE | 2022-02-06 13:59 | Electrocardiogram Report ---
Test Reason : Blood Pressure : / mmHG Vent. Rate : 116 BPM Atrial Rate : 131 BPM P-R Int : 000 ms QRS Dur : 066 ms QT Int : 284 ms P-R-T Axes : 000 -49 021 degrees QTc Int : 394 ms Atrial fibrillation with rapid ventricular response Left axis deviation Low voltage QRS Inferior infarct , age undetermined Cannot rule out Anterior infarct (cited on or before 04-FEB-2022) Abnormal ECG When compared with ECG of 04-FEB-2022 08:06, Inferior infarct is now Present Nonspecific T wave abnormality, worse in Lateral leads Confirmed by Noble Ceballos ([id number]) on 02/06/2022 1:58:41 PM Referred By: REFERRED SELF Confirmed By:Noble Ceballos
--- NOTE | 2022-02-06 15:53 | Discharge Summary ---
Date of Service February 06, 2022 Admission HPI Per Admitting Provider Mr. Benitez is a 71-year-old male with past medical history of incomplete quadriplegia, AAA, cardiomyopathy with EF 40-45%, and A. fib on Xarelto who presents today with left chest wall bruising and tightness. Patient states he went to bed last evening in his normal state of health, however this morning upon getting dressed noticed a large bruise on his left pec which was not present last evening. He notes that it spread a cross his anterior chest and down his left lateral chest wall within an hour of him noticing it around 6AM, and he has some chest tightness when he moves his right arm due to swelling that has developed at the site. He denies any trauma or recent falls. He has been taking his Xarelto, which he last took this AM. He has some lightheadedness, but is otherwise without complaints, no fever/chills, increased fatigue or weakness, chest pain, palpitations, abdominal pain, nausea, vomiting, diarrhea, constipation, hematuria, melena, or hematochezia. In ED, he is hypotensive on presentation with SBP 80s, HR 90s, otherwise VS wnl. Labs significant for WBC 13.37, Hgb 7.3, MCV 72, MCHC 28.6. PT 12.5, INR 1.2, aPTT 50.1. 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 Admission Exam Per Admitting Provider General: awake, alert, no apparent distress Head: Normocephalic, atraumatic ENT: PERRL, EOMI, no pharyngeal exudate, mucous membranes moist Chest: Clear to auscultation, on room air, no adventitious breath sounds Cardiac: Regular rate, irregular rhythm, no murmur, no JVD, normal peripheral pulses, good capillary refill Abdominal: NABS x 4 quadrants, soft, nontender to palpation, no rebound, guarding or tenderness Extremities: Normal inspection, no peripheral edema or erythema, calfs nontender to palpation Psych: Normal mood and affect Neuro: AAO x 3, with quadriplegia from chest down; no new strength intact bilaterally and rated 5/5, no motor deficits, speech is clear, no peripheral sensory deficits Skin: Left anterior chest wall hematoma with extension into left lateral chest wall as well as under left and right breast. with tenderness to palpation Principal Diagnosis Left chest wall hematoma Discharge Exam General: Patient is a pleasant man, calm-appearing man in no acute distress. HEENT: Non-erythematous oropharynx; no lymphadenopathy; normal dentition. CV: Regular rate and rhythm. Normal S1 and S2. No murmurs gallops or rubs. No pedal edema. Pulmonary: Lungs are clear to auscultation bilaterally. No crackles, rhonchi, or wheezes. Abdomen: Soft, nondistended abdomen. No bruits heard on auscultation. No tenderness to deep palpation. No guarding or rebound. Skin: Area of improving erythema and bruising consistent with hematoma bruising on the left anterior chest extending posterolaterally, just past the posterior axillary line. Appears improved compared to yesterday. MSK: Incomplete quadriplegia, with bilateral distal motor weakness of the upper and lower extremities. Greater strength of proximal limbs, albeit with partial range of motion (3+/5 bilaterally) Psych: Alert and oriented x3. Congruent mood and affect. Discharge Data Allergies Allergy/AdvReac Type Severity Reaction Status Date / Time adhesive Allergy Mild Irritated Verified 01/29/22 07:42 skin ciprofloxacin Allergy Unknown affected Verified 01/29/22 07:42 blood counts (THROMBOCYTOPENIA) heparin AdvReac Intermediate POSSIBLE Verified 01/29/22 07:42 CAUSE OF THROMBOCYTOPENIIA 04/22, LABS PENDING Consultations 02/04/22 10:16 ED Decision to Admit Stat 02/04/22 14:29 Consult Cardiology Routine Ordered Studies 02/04/22 07:58 CT chest diagnostic w con Stat 02/04/22 10:55 CT abdomen wo con Stat Hospital Course (1) Hematoma of left chest wall: 72-year-old man with history of AAA, incomplete quadriplegia (since 1967), permanent atrial fibrillation (since 1999, on Xarelto), and anemia secondary to multiple episodes of GI bleeding in the setting of chronic Xarelto anticoagulation. Hematoma of left chest wall -New onset, atraumatic. Extended posterolaterally to posterior axilla -CT chest confirmed hematoma without active bleeding. CT abdomen shows no r etroperitoneal or other abdominal bleeding. * Holding Xarelto until outpatient follow-up with roofing tile sorter. Anemia -likely secondary to hematoma. Hgb 7.3 on admission. Patient's hemoglobin was 7.7 after 2 bags of pRBCs, so another bag was given * Patient's a.m. CBC at time of discharge was 8.8, patient was otherwise stable. * CT imaging confirmed no further hemorrhaging or bleeding. Acute hypotension -pt's pressures in the 110s/60s-70s on admission -Patient's pressures were intermittently 80s systolic/50s diastolic. Pressure subsequently stabilized to the 110s following patient's third packed red blood cell transfusion, plus elevation of legs above the bed. Pressures remained stable for the rest of patient's hospital course. -suspect this was positional, plus combination of fatigue vs sepsis onset or other etiology. Atrial Fibrillation -patient has chronic atrial fibrillation, chronically managed on Xarelto, without rate-controlled medication. -Sent home on conditional course of metoprolol succinate 12.5 mg twice daily, should patient feel symptomatic prior to follow-up with outpatient roofing tile sorter. Specifically instructed patient not to take if asymptomatic. AAA -s/p transfer to [place] for urgent surgical management that was ultimately decided against in favor of watchful waiting (December 2021) -saccular aneurysm in upper abdominal aorta (6.0 x5.6 cm), infrarenal AAA (4.1 x 4.1 cm). No significant change from previous imaging. Stage 3 pressure ulcer of left buttock -Patient follows with wound care outpatient. Was seen by wound care today. * Collagenase to be applied daily, per wound care recs. Code: Full Dispo: Med-Surg telemetry FEN/GI: Regular diet DVT Prophylaxis: None. Holding home Xarelto. PT/OT: none Consults: Cardiology Total Time Total Time Spent Total Time Spent (In Minutes): <30 Discharge Plan Discharge Items Patient Disposition: Home - Self-Care Reason For Visit: SYMPTOMATIC ANEMIA, CHEST WALL HEMATOMA Discharge Diagnosis: Chest wall hematoma Activity: Per Instructions section Non-emergency contact: Primary Care Provider Call non-emergency contact if: your symptoms worsen, your pain is not controlled and you have a fever Follow-up/Referrals: Edenilson Valencia MD [Physician] - 02/07/22 9:00 am Shashi Henao MD [Primary Care Provider] - 02/12/22 (KEEP PREVIOUS SCHEDULED APPT FOR 02/12) Diet: Regular Addtl Attending Provider Instructions: You were admitted to the hospital for a chest wall hematoma, which is a collection of blood in your chest wall. We suspect this was because of your blood thinner, Xarelto, which you take for permanent atrial fibrillation. We stopped your Xarelto and checked you with imaging to ensure you were not spontaneously bleeding elsewhere. We also spoke to your roofing tile sorter, Dr. Valencia, who agreed with the decision to stop your Xarelto until you see him in the office in a few weeks. We feel that you are safe enough to be discharged home. We also gave you some packed red blood cells, since we found you were anemic on your admission, to replace the blood you lost as a result of your hematoma. We retested your blood level this morning and your hemoglobin levels are increased and stable, which suggests to us that your bleeding has stopped. With regard to your permanent atrial fibrillation, we did not give you any medicines to lower your rate during your stay because of your low blood pressures. Now that your pressures are stable, we feel that you can go home. However, if you suddenly feel faint, dizzy or lightheaded, or if you feel your heart racing, please call your roofing tile sorter, Dr. Valencia, so that you can be seen sooner. In the event that you are unable to see Dr. Valencia sooner, we are also sending you a short prescription of a medication called metoprolol succinate. This is a heart medicine that is used to help with your atrial fibrillation. You do not have to take it. ONLY TAKE IT IF YOU YOU ARE HAVING SYMPTOMS. However, if you do experience: palpitations (pounding heartbeat), chest pain, dizziness, fatigue, lightheadedness, sudden shortness of breath or weakness, please take metoprolol succinate 12.5 mg, twice daily, until you are able to be seen by Dr. Valencia. If you are not sure of your symptoms, please have your pharmacist apprentice check your pulse. If your pulse is greater than 100 beats per minute, you can take the metoprolol succinate as instructed. A discharge summary will be sent to your primary care physician to ensure continuity of care. Please bring this discharge summary with you to your next office appointment so that your provider can review it at that time. Follow-up appointments: * Make a follow-up appointment with your PCP within the next week. It is very important that you follow up with them shortly after discharge from the hospital. * Keep all your follow-up appointments as already scheduled. If you cannot make an appointment, notify your provider. Take your medications as instructed; do not skip a dose of your medicines. Make sure all of your doctors know every medicine you are taking (including [id number] medicines, vitamins, and supplements). Call your primary care provider before taking any new medicines (including [id number] medicines, vitamins, and supplements), because some of these may interact with your current medications, or may make your symptoms worse. Tell your primary care provider if you cannot afford your medications. CONTACT YOUR PRIMARY CARE PROVIDER if you experience any of the following: * Difficulty following your treatment plan, or difficulty taking medications * Fever, chills, or sudden fatigue * Sudden abdominal pain. * Worsening of your bruising, or sudden bruising elsewhere on your body * Facial droop, slurring of your speech, or an inability to speak or understand speech at your usual level CALL 911 OR GO TO THE EMERGENCY DEPARTMENT if you experience any of the following: * Sudden, severe abdominal pain or nausea/vomiting * Severe chest pain, or chest pain that radiates (moves) to your jaw or arm * Sudden, severe shortness of breath or difficulty breathing Thank you for allowing us to participate in your care. Pending Studies at Discharge: No Stand-Alone Forms: [facility], Smoking Cessation Medications and DC Order Prescriptions: New metoprolol succinate [Toprol XL] 25 mg tablet extended release 24 hr 12.5 mg PO BID 21 Days Qty: 21 RF: 0 Continued docusate sodium [Colace] 100 mg capsule 100 mg PO DAILY RF: 0 Santyl 250 unit/gram ointment 1 applic topical .QOD PRN (Reason: wound care) Qty: 30 RF: 3 furosemide 40 mg tablet 40 mg PO DAILY RF: 0 acetaminophen [Tylenol Extra Strength] 500 mg Tablet 500 mg PO Q6H PRN (Reason: Pain) RF: 0 amlodipine 5 mg Tablet 5 mg PO QAM RF: 0 cranberry 400 mg Capsule 400 mg PO QAM RF: 0 atorvastatin 40 mg tablet 40 mg PO .Q 3 days RF: 0 Discharge Orders: Discharge Order (Routine); Ordered 02/06/22 Ordered By: Kylee Iglesias Admission Data Admit Date/Time: 02/04/22 10:54 Attending Provider: Gentry Marie Admit Provider: Hieu Matthew Primary Care Provider: Shashi Henao Other Providers: [place] ; Hieu Matthew ; Noble Ceballos Other Interventions: Discharge Summary Assessment (RN) Last Done: 02/06/22 15:53 Supervising Physician Co-Signing Physician Notes I personally examined the patient and verified all vargas points of history and exam, discussed case, and agree with decision making with Dr Iglesias feeling OK overall. chest aboutthe same maybe slightly better vitals noted nad heent nc at mmm breathing unlabored no accessory muscles good effort large area of bruising noted on anterior chest wall L evolving appropriately and does not appear bigger chest wall hematoma with acute blood loss anemia due to anticoagulant therapy - more stable now. transfused 3 units PRBC and anticoagulation held. appearing stable - safe for home, outpt f/u. ongoing discussions w PCP and cardiology re afib stroke proph otherwise as above Resident Activity Tracking Resident Involvement: Resident Care Provided Care Provided: Adult Hospital Medicine
--- NOTE | 2022-02-06 16:25 | Billing Data ---
Date of Service February 06, 2022 Coding Level of Care Code D/C DAY MANAGEMENT <30 MINS
== END 2022-02-06 16:37 | disposition home health service (06) | DRG 813 ==
LOC: ED 07:18 → 2E 10:54 → SUATTDRO 10:54 → 2E 14:48

== ENCOUNTER 2022-07-19 13:11 | Inpatient (IN) ==
[2022-07-19] MEDS ORDERED: VANCOMYCIN CONSULT ACTIVE PRN (14:37)
[2022-07-19] MEDS ORDERED: VANCOMYCIN HCL 1,500 MG in SODIUM CHLORIDE 0.9% 500 ML IV STA (14:37)
[2022-07-19] MEDS ORDERED: ACETAMINOPHEN 1,000 MG/100 ML VIAL IV STA (14:37)
[2022-07-19] MEDS ORDERED: SODIUM CHLORIDE 0.9% 1000ML 500 ML IV ONE ×2 (14:37→15:36)
[2022-07-19] MEDS ORDERED: PIPERACILLIN/TAZOBACTAM 4.5 GM/120 ML BAG IV STA (14:37)
[2022-07-19 14:43] LABS: Hematocrit (blood only) 34.6 % (40.1-51.0); Hemoglobin 10.7 g/dl (14.0-18.0); Mean Corpuscular Hemoglobin 24.3 pg (25.0-34.0); Mean Corpuscular Hgb Conc 30.9 g/dL (32.0-36.0); Mean Corpuscular Volume 78.6 fL (80.0-100.0); Mean Platelet Volume 9.6 fL (9.4-12.4); Platelet Count 432 K/uL (130-400); RDW Coefficient of Variation 17.6 % (11.5-14.5); RDW Standard Deviation 50.4 fL (36.4-46.3); White Blood Count 20.12 K/ul (4.8-10.8)
[2022-07-19] MEDS ORDERED: SODIUM CHLORIDE 0.9% 1000ML 500 ML IV SCH (14:45)
[2022-07-19] MEDS ORDERED: SODIUM CHLORIDE 0.9% 1000ML 1,000 ML IV SCH (14:45)
[2022-07-19 14:47] LABS: iSTAT Creatinine 1.4 mg/dl (0.6-1.3); iSTAT Hemoglobin 12.2 g/dl (14.0-18.0); iSTAT Ionized Calcium 1.08 mmol/l (1.12-1.32); iSTAT Potassium 5.1 mmol/L (3.3-5.0)
--- NOTE | 2022-07-19 14:54 | Emergency Department Note ---
Impression & Plan Hypotension, History of quadriplegia, Sepsis, Sacral wound, Acute UTI, Osteomyelitis, Leukocytosis ED Provider Note NAME: JOSÉ ANTONIO MOODY AGE: 72 SEX: M : 1950 ARRIVES VIA: Walk-In INFORMANT: [Patient][nursing] ED PROVIDER(S): [Wiliam Cuello MD] CHIEF COMPLAINT: Illness, chest pain HISTORY OF PRESENT ILLNESS: The patient is a 72-year-old male who is quadriplegic at around C5. He has movement of his biceps but not triceps. Patient has a known sacral ulcer that is being followed. He is on Bactrim currently and just about to finish this up. The patient states that for 1-1/2 weeks, he has had blood pressures that have been high and low, he has been tachycardic with chills. He has had some chest pain. Things have been worsening just about every day and he presents today for evaluation. I was called emergently by the nursing staff to see the patient as his pressure was 60 systolic in the room. The patient has not had cough or congestion or respiratory complaints. The chest pain is severe when it is present. He denies any abdominal pain. He has a chronic Amos catheter that is due to be changed early next week. He has a rash in his groin although, this is more of a chronic issue. No lower extremity erythema. No vomiting, no diarrhea. REVIEW OF SYSTEMS: See HPI for pertinent positives and negatives. A total of ten systems were reviewed and were otherwise negative. PMHx/PSHx: See Below SOCIAL HISTORY: See Below. PHYSICAL EXAM: GENERAL: Patient is in no acute distress. HEENT: No acute trauma, normocephalic atraumatic, mucous membranes moist, no nasal congestion, no scleral icterus. NECK: No stridor, no adenopathy, no meningismus, trachea is midline. LUNGS: Clear to auscultation bilaterally, no wheeze, no rhonchi, breath sounds equal. HEART: Tachycardic with an irregular rhythm, no murmurs. ABDOMEN: Soft, mildly tender in the left lower quadrant, no peritonitis EXTREMITIES: No cyanosis or edema. No extremity deformities. NEUROLOGIC: Oriented x 3. He has movement of his biceps bilaterally, no other movement of the upper extremities. He can move his left foot slightly. SKIN: There is a red scaly yeast appearing rash in the groin. No warmth to suggest cellulitis. Groin: There is a Amos catheter in place. Back: The patient has a large very deep sacral ulcer that has discharge and surrounding erythema. A culture was obtained. DIFFERENTIAL DIAGNOSIS: Sepsis, UTI, pneumonia, sacral ulcer, sacral cellulitis, osteomyelitis, COVID-19 or influenza, metabolic abnormality, electrolyte abnormalities, cardiac sources, cellulitis, bacteremia, intracerebral event, toxicologic etiology, neurologic event, as well as other pathologies. EMERGENCY DEPARTMENT COURSE/PROCEDURES: ECG: Indication was sepsis. The ECG shows atrial fibrillation with a rate of 116. No PVCs. No ST elevation. There is some baseline artifact. There is a potential old anterior lateral infarct noted. QTC is 455. Continuous Cardiac Monitoring: An order was placed for continuous cardiac monitoring. The monitor shows a rate of 119 with atrial fibrillation. Critical Care Note: I have personally spent 53 minutes of critical care time in the direct management of this patient. This includes bedside care, interpreta tion of diagnostic studies, and testing, discussion with consultants, patient, and family members, and other required patient management activities. This 53 minutes is in excess of all separately billable procedures. MEDICAL DECISION MAKING: There is a significant leukocytosis, this is consistent with infection/sepsis. The patient is anemic with a hemoglobin of 10.7 however, the anemia appears baseline. Platelet count mildly high at 432. No concerning coagulopathy. Sodium was a bit low at 133. No renal failure. Lactic acid level was not not elevated making severe sepsis less likely. Alk phos mildly elevated, the remaining liver enzymes were unremarkable. ECG shows atrial fibrillation, no acute ischemic change. Cardiac enzyme testing x1 is not not elevated. Procalcitonin level is not elevated. Urinalysis is consistent with infection. COVID test returned negative. Chest x-ray did not show pneumonia or CHF. Abdominal and pelvis CT showed a significant infection to the sacral ulcer/wound with osteomyelitis. A culture of this wound was obtained and sent. On my initial exam, the patient was hypotensive and tachycardic. He was mentating we ll. I was called emergently to see the patient given the hypotension. The patient was aggressively managed. He received 2.5 L of IV saline. He was given a 500 cc bolus of lactated Ringer's. He received IV vancomycin and IV Zosyn as empiric antibiotic coverage. He received IV Tylenol. The patient's blood pressure has improved. He has responded well to the above treatment. I spoke with the patient as well as case management. I did speak with our on- call hospitalist. Admission is warranted. Our hospitalist service was somewhat uncomfortable with the extent of the sacral infection. I discussed things with spinal surgery, Dr. Suarez. No emergent surgical intervention was felt warranted. IV antibiotic therapy, general surgical wound debridement was felt warranted. I was asked by the hospitalist service to contact a tertiary center about potential transfer. I did speak with a Dr. Robledo at [facility] in [place]. We discussed the case. There is no need for emergent transfer to their facility. They felt the patient could stay here with IV antibiotic therapy, a general surgery consult. There was no need for any acute neurosurgical intervention. If the patient were to worsen, transfer to their facility at that point may be warranted. I spoke again with our on-call hospitalist service. They accepted the patient onto their service. In short, the patient presents septic. The source is likely the sacral wound. UTI is also a consideration. Past Med/Surg History Medical History AAA (abdominal aortic aneurysm) Acute GI bleeding (11/2021) Atrial fibrillation with RVR Bleeding hemorrhoids (11/2021) Cardiomyopathy Mild, EF 45 to 50% on October 2019 echocardiogram. Cellulitis of leg, right Cholecystitis, chronic COPD exacerbation Elevated troponin Fall from motorized wheelchair (2017) Hiatal hernia Hiccups History of quadriplegia WHEELCHAIR BOUND-S/P TRAUMA 1963 Hx of gann 2007-LOWER EXTREMITIES Hx of decubitus ulcer SURGERY TO DEBRIDE-1963 Hypertension Indwelling Amos catheter present Kidney stones Osteoarthritis Paralysis LEVEL C 5-UNABLE TO MOVE FINGERS Psoriasis Seborrheic keratosis Spinal stenosis Surgical History H/O cervical spine surgery H/O hemorrhoidectomy (11/27/21) Hemorrhoidectomy Dr. Alamo 11/27/2021 H/O skin graft 1963 - decubitus 2010 - gann History of back surgery CERVICAL BONE FUSION-2010 (ACDF 04/07/2012 - Glidescope #4 EZ intubation) S/P debridement DECUBITUS 1964 Family History Grandmother Family history of diabetes mellitus Mother Family history of diabetes mellitus Brother Family history of diabetes mellitus Social History Smoking Status: Unknown if ever smoked Tobacco Type: Cigarettes Age Started Using Tobacco: 12; Cigarettes Per Day: 1 cigarette per day; Second Hand Exposure: No; Hx Alcohol Use: No Hx Substance Use: No Preferred Language: Croatian Communication Ability: Effective Visual Impairment: No Limitations Hearing Ability: Normal Tank Car Inspector Required: No Beliefs That Will Affect Care: None marital status: Single Current Living Situation: Alone Current Living Situation Comment: Homehealth nursing How many Children do You have: 0 Feels Safe at Home: Yes caffeine: Yes during the past year weight has: remained stable Assistive Devices: Mechanical Lift and Wheelchair Allergies Allergies Allergy/AdvReac Type Severity Reaction Status Date / Time adhesive Allergy Mild Irritated Verified 07/19/22 17:28 skin ciprofloxacin Allergy Unknown affected Verified 07/19/22 17:28 blood counts (THROMBOCYTOPENIA) apixaban [From Eliquis] Allergy Unknown Verified 07/19/22 17:28 rivaroxaban [From Xarelto] Allergy Unknown Verified 07/19/22 17:28 heparin AdvReac Intermediate POSSIBLE Verified 07/19/22 17:28 CAUSE OF THROMBOCYTOPENIIA 04/22, LABS PENDING Home Meds Home Medications Medication Instructions Recorded Confirmed amlodipine 5 mg tablet 5 mg PO QAM 07/20/18 07/19/22 cranberry 400 mg capsule 400 mg PO QAM 07/20/18 07/19/22 acetaminophen 500 mg tablet 1,000 mg PO Q6H PRN Pain 10/22/19 07/19/22 (Tylenol Extra Strength) furosemide 40 mg tablet 40 mg PO DAILY 03/07/20 07/19/22 docusate sodium 100 mg capsule 100 mg PO DAILY 01/01/22 07/19/22 (Colace) metoprolol succinate 25 mg 12.5 mg PO BID PRN .elavated hr 02/07/22 07/19/22 tablet,extended release 24 hr (Toprol XL) aspirin 81 mg tablet,delayed 81 mg PO DAILY 07/09/22 07/19/22 release sulfamethoxazole 800 1 tab PO BID 07/19/22 07/19/22 mg-trimethoprim 160 mg tablet Results & Data (ED) Vital Signs Vital Signs - 24 hr 07/19/22 13:20 07/19/22 14:57 07/19/22 14:06 Temperature 37.7 C H 38.1 C H Temperature Source Oral Oral Pulse Rate 119 H Pulse Rate from SpO2 Sensor Respiratory Rate 20 Respiratory Effort / Characteristics Non-Labored Respiratory Depth Normal Blood Pressure 145/120 H 69/49 L Blood Pressure Mean 128 55 Pulse Oximetry 96 Oxygen Delivery Method Room Air Sepsis Recent Fever Within 48 Hours Yes Sepsis New/Unexplained Change in Mental Status No Sepsis Action Taken by Nursing No Action Required 07/19/22 14:06 07/19/22 14:15 07/19/22 14:23 Temperature Temperature Source Pulse Rate 115 H 98 H 96 H Pulse Rate from SpO2 Sensor 84 105 H 95 H Respiratory Rate 32 H 21 22 Respiratory Effort / Characteristics Respiratory Depth Blood Pressure Blood Pressure Mean Pulse Oximetry 96 97 96 Oxygen Delivery Method Sepsis Recent Fever Within 48 Hours Sepsis New/Unexplained Change in Mental Status Sepsis Action Taken by Nursing 07/19/22 14:23 07/19/22 14:30 07/19/22 14:30 Temperature Temperature Source Pulse Rate 113 H Pulse Rate from SpO2 Sensor 105 H Respiratory Rate 17 Respiratory Effort / Characteristics Respiratory Depth Blood Pressure 67/56 L 91/69 L Blood Pressure Mean 59 76 Pulse Oximetry 98 Oxygen Delivery Method Sepsis Recent Fever Within 48 Hours Sepsis New/Unexplained Change in Mental Status Sepsis Action Taken by Nursing 07/19/22 14:45 07/19/22 14:45 07/19/22 15:00 Temperature Temperature Source Pulse Rate 73 Pulse Rate from SpO2 Sensor 113 H 99 H Respiratory Rate 12 Respiratory Effort / Characteristics Respiratory Depth Blood Pressure 112/80 Blood Pressure Mean 90 Pulse Oximetry 96 97 Oxygen Delivery Method Sepsis Recent Fever Within 48 Hours Sepsis New/Unexplained Change in Mental Status Sepsis Action Taken by Nursing 07/19/22 15:01 07/19/22 15:01 07/19/22 15:15 Temperature Temperature Source Pulse Rate 72 Pulse Rate from SpO2 Sensor 104 H Respiratory Rate 16 Respiratory Effort / Characteristics Respiratory Depth Blood Pressure 89/58 L 102/57 L Blood Pressure Mean 68 72 Pulse Oximetry 97 Oxygen Delivery Method Sepsis Recent Fever Within 48 Hours Sepsis New/Unexplained Change in Mental Status Sepsis Action Taken by Nursing 07/19/22 15:15 07/19/22 15:30 07/19/22 15:31 Temperature Temperature Source Pulse Rate 103 H 106 H Pulse Rate from SpO2 Sensor 110 H 111 H Respiratory Rate 14 28 H Respiratory Effort / Characteristics Respiratory Depth Blood Pressure 135/97 Blood Pressure Mean 109 Pulse Oximetry 97 97 Oxygen Delivery Method Sepsis Recent Fever Within 48 Hours Sepsis New/Unexplained Change in Mental Status Sepsis Action Taken by Nursing 07/19/22 15:31 07/19/22 15:00 07/19/22 15:45 Temperature 37.7 C H Temperature Source Oral Pulse Rate 110 H Pulse Rate from SpO2 Sensor 109 H Respiratory Rate 26 H Respiratory Effort / Characteristics Respiratory Depth Blood Pressure 93/61 L Blood Pressure Mean 71 Pulse Oximetry 98 Oxygen Delivery Method Sepsis Recent Fever Within 48 Hours Sepsis New/Unexplained Change in Mental Status Sepsis Action Taken by Nursing 07/19/22 15:45 07/19/22 16:00 07/19/22 16:00 Temperature Temperature Source Pulse Rate 90 91 H Pulse Rate from SpO2 Sensor 98 H 94 H Respiratory Rate 23 26 H Respiratory Effort / Characteristics Respiratory Depth Blood Pressure 93/63 L Blood Pressure Mean 73 Pulse Oximetry 95 96 Oxygen Delivery Method Sepsis Recent Fever Within 48 Hours Sepsis New/Unexplained Change in Mental Status Sepsis Action Taken by Nursing 07/19/22 16:59 07/19/22 16:59 07/19/22 17:00 Temperature Temperature Source Pulse Rate Pulse Rate from SpO2 Sensor Respiratory Rate 23 Respiratory Effort / Characteristics Respiratory Depth Blood Pressure 101/71 102/68 Blood Pressure Mean 81 79 Pulse Oximetry Oxygen Delivery Method Sepsis Recent Fever Within 48 Hours Sepsis New/Unexplained Change in Mental Status Sepsis Action Taken by Nursing 07/19/22 17:00 07/19/22 17:15 07/19/22 17:15 Temperature Temperature Source Pulse Rate 100 H 99 H Pulse Rate from SpO2 Sensor 90 100 H Respiratory Rate 30 H 22 Respiratory Effort / Characteristics Respiratory Depth Blood Pressure 112/79 Blood Pressure Mean 90 Pulse Oximetry 98 97 Oxygen Delivery Method Sepsis Recent Fever Within 48 Hours Sepsis New/Unexplained Change in Mental Status Sepsis Action Taken by Nursing 07/19/22 17:30 07/19/22 17:30 07/19/22 18:00 Temperature Temperature Source Pulse Rate 95 H 94 H Pulse Rate from SpO2 Sensor 95 H 96 H Respiratory Rate 22 23 Respiratory Effort / Characteristics Respiratory Depth Blood Pressure 100/68 Blood Pressure Mean 78 Pulse Oximetry 98 96 Oxygen Delivery Method Sepsis Recent Fever Within 48 Hours Sepsis New/Unexplained Change in Mental Status Sepsis Action Taken by Nursing 07/19/22 18:15 07/19/22 18:15 07/19/22 18:30 Temperature Temperature Source Pulse Rate 100 H Pulse Rate from SpO2 Sensor 98 H Respiratory Rate 23 Respiratory Effort / Characteristics Respiratory Depth Blood Pressure 106/60 107/75 Blood Pressure Mean 75 85 Pulse Oximetry 97 Oxygen Delivery Method Sepsis Recent Fever Within 48 Hours Sepsis New/Unexplained Change in Mental Status Sepsis Action Taken by Nursing 07/19/22 18:30 07/19/22 18:40 07/19/22 18:50 Temperature Temperature Source Pulse Rate 91 H 99 H 94 H Pulse Rate from SpO2 Sensor 94 H 96 H 96 H Respiratory Rate 23 22 24 Respiratory Effort / Characteristics Respiratory Depth Blood Pressure Blood Pressure Mean Pulse Oximetry 97 96 96 Oxygen Delivery Method Sepsis Recent Fever Within 48 Hours Sepsis New/Unexplained Change in Mental Status Sepsis Action Taken by Nursing 07/19/22 19:00 07/19/22 19:00 07/19/22 19:10 Temperature Temperature Source Pulse Rate 96 H 82 Pulse Rate from SpO2 Sensor 91 H 84 Respiratory Rate 22 21 Respiratory Effort / Characteristics Respiratory Depth Blood Pressure 98/62 L Blood Pressure Mean 74 Pulse Oximetry 97 97 Oxygen Delivery Method Sepsis Recent Fever Within 48 Hours Sepsis New/Unexplained Change in Mental Status Sepsis Action Taken by Nursing 07/19/22 19:15 07/19/22 19:15 Temperature Temperature Source Pulse Rate 83 Pulse Rate from SpO2 Sensor 88 Respiratory Rate 25 H Respiratory Effort / Characteristics Respiratory Depth Blood Pressure 95/66 L Blood Pressure Mean 75 Pulse Oximetry 99 Oxygen Delivery Method Sepsis Recent Fever Within 48 Hours Sepsis New/Unexplained Change in Mental Status Sepsis Action Taken by Skilled Nursing Medications Current Medication List: was personally reviewed by me Laboratory Data Attestation: I reviewed the patient's lab results. Result diagrams: 07/19/22 14:15 07/19/22 14:15 Lab Results 07/19/22 07/19/22 07/19/22 Range/Units 14:13 14:15 14:15 WBC 20.12 H (4.8-10.8) K/ul RBC 4.40 L (4.63-6.08) M/uL Hgb 10.7 L (14.0-18.0) g/dl POC Hgb (14.0-18.0) g/dl Hct 34.6 L (40.1-51.0) % POC Hct (42-52) % MCV 78.6 L (80.0-100.0) fL MCH 24.3 L (25.0-34.0) pg MCHC 30.9 L (32.0-36.0) g/dL RDW Std Deviation 50.4 H (36.4-46.3) fL RDW Coeff of Refugio 17.6 H (11.5-14.5) % Plt Count 432 H (130-400) K/uL MPV 9.6 (9.4-12.4) fL Immature Gran % (Auto) 0.7 % Neut % (Auto) 91.8 % Lymph % (Auto) 1.3 % Isabela % (Auto) 5.4 % Eos % (Auto) 0.2 % Baso % (Auto) 0.6 % Neut # (Auto) 18.46 H (1.4-6.5) K/uL Lymph # (Auto) 0.26 L (1.2-3.4) K/uL Isabela # (Auto) 1.08 H (0.24-0.82) K/uL Eos # (Auto) 0.05 (0-0.50) K/uL Baso # (Auto) 0.12 (0-0.2) K/uL Immature Gran # (Auto) 0.15 H (0.00-0.02) K/uL PT 11.3 (9.0-12.0) Seconds INR 1.1 (0.9-1.1) APTT 45.0 H (21.0-31.0) Seconds PTT Ratio 1.6 POC Sodium (135-144) mmol/L Sodium (136-145) mmol/L POC Potassium (3.3-5.0) mmol/L Potassium (3.5-5.1) mmol/L POC Chloride (101-112) mmol/L Chloride (98-107) mmol/L Carbon Dioxide (21-32) mmol/L POC Total CO2 (24-31) mmol/L Anion Gap (3-11) POC Anion Gap (16-25) mmol/L POC BUN (7-18) mg/dl BUN (6-23) mg/dl Creatinine (0.6-1.4) mg/dl POC Creatinine (0.6-1.3) mg/dl Est Cr Clr Drug Dosing Est GFR ( Amer) ml/min Est GFR (Non-Af Amer) ml/min BUN/Creatinine Ratio (10-20) Glucose (70-99(Fasting)) mg/dl POC Glucose (other) (70-99) mg/dl Lactate (0.4-2.0) mmol/L Calcium (8.5-10.1) mg/dl POC Ioniz Calcium Rita (1.12-1.32) mmol/l Magnesium (1.7-2.4) mg/dl Total Bilirubin (0.2-1.0) mg/dl AST (13-39) U/L ALT (7-52) U/L Alkaline Phosphatase (34-104) U/L Troponin I High Sens (0-20) pg/ml Total Protein (6.0-8.3) gm/dl Albumin (3.4-5.0) gm/dl Globulin (2.5-4.0) gm/dl Albumin/Globulin Ratio (0.9-2) Procalcitonin 0.29 (0-0.5) ng/ml Urine Color Urine Appearance (Clear) Urine pH (4.5-7.5) Ur Specific [place] (1.000-1.030) Urine Protein (Negative) Urine Glucose (UA) (Negative) Urine Ketones (Negative) Urine Blood (Negative) Urine Nitrite (Negative) Urine Bilirubin (Negative) Urine Urobilinogen (Negative) Ur Leukocyte Esterase (Negative) Urine RBC (0-4) /hpf Urine WBC (0-5) /hpf Ur Epithelial Cells (0-5) /lpf Ur Renal Epithelial Cell (0-5) /lpf Urine Bacteria (Negative) SARS-CoV-2 (PCR) (Negative) 07/19/22 07/19/22 07/19/22 Range/Units 14:15 14:15 14:24 WBC (4.8-10.8) K/ul RBC (4.63-6.08) M/uL Hgb (14.0-18.0) g/dl POC Hgb (14.0-18.0) g/dl Hct (40.1-51.0) % POC Hct (42-52) % MCV (80.0-100.0) fL MCH (25.0-34.0) pg MCHC (32.0-36.0) g/dL RDW Std Deviation (36.4-46.3) fL RDW Coeff of Refugio (11.5-14.5) % Plt Count (130-400) K/uL MPV (9.4-12.4) fL Immature Gran % (Auto) % Neut % (Auto) % Lymph % (Auto) % Isabela % (Auto) % Eos % (Auto) % Baso % (Auto) % Neut # (Auto) (1.4-6.5) K/uL Lymph # (Auto) (1.2-3.4) K/uL Isabela # (Auto) (0.24-0.82) K/uL Eos # (Auto) (0-0.50) K/uL Baso # (Auto) (0-0.2) K/uL Immature Gran # (Auto) (0.00-0.02) K/uL PT (9.0-12.0) Seconds INR (0.9-1.1) APTT (21.0-31.0) Seconds PTT Ratio POC Sodium (135-144) mmol/L Sodium 133 L (136-145) mmol/L POC Potassium (3.3-5.0) mmol/L Potassium 5.1 (3.5-5.1) mmol/L POC Chloride (101-112) mmol/L Chloride 100 (98-107) mmol/L Carbon Dioxide 23 (21-32) mmol/L POC Total CO2 (24-31) mmol/L Anion Gap 10 (3-11) POC Anion Gap (16-25) mmol/L POC BUN (7-18) mg/dl BUN 26 H (6-23) mg/dl Creatinine 1.37 (0.6-1.4) mg/dl POC Creatinine (0.6-1.3) mg/dl Est Cr Clr Drug Dosing Not Reportable Est GFR ( Amer) 58.5 ml/min Est GFR (Non-Af Amer) 50.4 ml/min BUN/Creatinine Ratio 19.0 (10-20) Glucose 143 H (70-99(Fasting)) mg/dl POC Glucose (other) (70-99) mg/dl Lactate 2.0 (0.4-2.0) mmol/L Calcium 8.8 (8.5-10.1) mg/dl POC Ioniz Calcium Rita (1.12-1.32) mmol/l Magnesium 2.0 (1.7-2.4) mg/dl Total Bilirubin 0.5 (0.2-1.0) mg/dl AST 18 (13-39) U/L ALT 18 (7-52) U/L Alkaline Phosphatase 134 H (34-104) U/L Troponin I High Sens 8.7 (0-20) pg/ml Total Protein 8.0 (6.0-8.3) gm/dl Albumin 3.3 L (3.4-5.0) gm/dl Globulin 4.7 H (2.5-4.0) gm/dl Albumin/Globulin Ratio 0.7 L (0.9-2) Procalcitonin (0-0.5) ng/ml Urine Color Urine Appearance (Clear) Urine pH (4.5-7.5) Ur Specific [place] (1.000-1.030) Urine Protein (Negative) Urine Glucose (UA) (Negative) Urine Ketones (Negative) Urine Blood (Negative) Urine Nitrite (Negative) Urine Bilirubin (Negative) Urine Urobilinogen (Negative) Ur Leukocyte Esterase (Negative) Urine RBC (0-4) /hpf Urine WBC (0-5) /hpf Ur Epithelial Cells (0-5) /lpf Ur Renal Epithelial Cell (0-5) /lpf Urine Bacteria (Negative) SARS-CoV-2 (PCR) (Negative) 07/19/22 07/19/22 07/19/22 Range/Units 14:33 15:30 15:45 WBC (4.8-10.8) K/ul RBC (4.63-6.08) M/uL Hgb (14.0-18.0) g/dl POC Hgb 12.2 L (14.0-18.0) g/dl Hct (40.1-51.0) % POC Hct 36 L (42-52) % MCV (80.0-100.0) fL MCH (25.0-34.0) pg MCHC (32.0-36.0) g/dL RDW Std Deviation (36.4-46.3) fL RDW Coeff of Refugio (11.5-14.5) % Plt Count (130-400) K/uL MPV (9.4-12.4) fL Immature Gran % (Auto) % Neut % (Auto) % Lymph % (Auto) % Isabela % (Auto) % Eos % (Auto) % Baso % (Auto) % Neut # (Auto) (1.4-6.5) K/uL Lymph # (Auto) (1.2-3.4) K/uL Isabela # (Auto) (0.24-0.82) K/uL Eos # (Auto) (0-0.50) K/uL Baso # (Auto) (0-0.2) K/uL Immature Gran # (Auto) (0.00-0.02) K/uL PT (9.0-12.0) Seconds INR (0.9-1.1) APTT (21.0-31.0) Seconds PTT Ratio POC Sodium 134 L (135-144) mmol/L Sodium (136-145) mmol/L POC Potassium 5.1 H (3.3-5.0) mmol/L Potassium (3.5-5.1) mmol/L POC Chloride 102 (101-112) mmol/L Chloride (98-107) mmol/L Carbon Dioxide (21-32) mmol/L POC Total CO2 22 L (24-31) mmol/L Anion Gap (3-11) POC Anion Gap 16.0 (16-25) mmol/L POC BUN 24 H (7-18) mg/dl BUN (6-23) mg/dl Creatinine (0.6-1.4) mg/dl POC Creatinine 1.4 H (0.6-1.3) mg/dl Est Cr Clr Drug Dosing Est GFR ( Amer) ml/min Est GFR (Non-Af Amer) ml/min BUN/Creatinine Ratio (10-20) Glucose (70-99(Fasting)) mg/dl POC Glucose (other) 142 H (70-99) mg/dl Lactate (0.4-2.0) mmol/L Calcium (8.5-10.1) mg/dl POC Ioniz Calcium Rita 1.08 L (1.12-1.32) mmol/l Magnesium (1.7-2.4) mg/dl Total Bilirubin (0.2-1.0) mg/dl AST (13-39) U/L ALT (7-52) U/L Alkaline Phosphatase (34-104) U/L Troponin I High Sens (0-20) pg/ml Total Protein (6.0-8.3) gm/dl Albumin (3.4-5.0) gm/dl Globulin (2.5-4.0) gm/dl Albumin/Globulin Ratio (0.9-2) Procalcitonin (0-0.5) ng/ml Urine Color Yellow Urine Appearance Clear (Clear) Urine pH 6.0 (4.5-7.5) Ur Specific [place] 1.020 (1.000-1.030) Urine Protein 1+ H (Negative) Urine Glucose (UA) Negative (Negative) Urine Ketones Negative (Negative) Urine Blood 2+ H (Negative) Urine Nitrite Negative (Negative) Urine Bilirubin Negative (Negative) Urine Urobilinogen Positive H (Negative) Ur Leukocyte Esterase 3+ H (Negative) Urine RBC 5-10 H (0-4) /hpf Urine WBC >30 H (0-5) /hpf Ur Epithelial Cells 10-20 H (0-5) /lpf Ur Renal Epithelial Cell 5-10 H (0-5) /lpf Urine Bacteria Negative (Negative) SARS-CoV-2 (PCR) NEGATIVE (Negative) Administered Medications Discontinued Medications Sodium Chloride (Nss 1000ml) 500 mls @ 999 mls/hr IV .Q31M RAMÓN Stop: 07/19/22 15:15 Last Infusion: 07/19/22 19:00 Dose: 0 mls/hr Documented By: Admin: 07/19/22 15:30 Dose: 999 mls/hr Documented By: JOSE Sodium Chloride (Nss 1000ml) 1,000 mls @ 999 mls/hr IV .Q1H1M RAMÓN Stop: 07/19/22 15:45 Last Infusion: 07/19/22 19:00 Dose: 0 mls/hr Documented By: Admin: 07/19/22 15:00 Dose: 999 mls/hr Documented By: JOSE Vancomycin HCl 1,500 mg/ (Sodium Chloride) 530 mls @ 200 mls/hr IV NOW STA Stop: 07/19/22 17:06 Last Infusion: 07/19/22 20:32 Dose: 0 mls/hr Documented By: Admin: 07/19/22 17:02 Dose: 200 mls/hr Documented By: JOSE Piperacillin Sod/Tazobactam Sod (Zosyn) 4.5 gm in 120 mls @ 240 mls/hr IV NOW STA Stop: 07/19/22 15:06 Last Infusion: 07/19/22 17:21 Dose: 0 mls/hr Documented By: Admin: 07/19/22 15:33 Dose: 240 mls/hr Documented By: REGGIE Acetaminophen (Ofirmev) 1,000 mg in 100 mls @ 400 mls/hr IV NOW STA Stop: 07/19/22 14:51 Last Infusion: 07/19/22 17:21 Dose: 0 mls/hr Documented By: Admin: 07/19/22 15:24 Dose: 400 mls/hr Documented By: REGGIE Sodium Chloride (Nss 1000ml) 500 mls @ 999 mls/hr IV .Q31M ONE Stop: 07/19/22 15:07 Last Infusion: 07/19/22 16:00 Dose: 0 mls/hr Documented By: Admin: 07/19/22 15:35 Dose: 999 mls/hr Documented By: REGGIE Sodium Chloride (Nss 1000ml) 500 mls @ 999 mls/hr IV .Q31M ONE Stop: 07/19/22 16:06 Last Infusion: 07/19/22 17:22 Dose: 0 mls/hr Documented By: Admin: 07/19/22 15:25 Dose: 999 mls/hr Documented By: JOSE Ioversol (Optiray 350 100ml) 89 ml IV ONCE ONE Stop: 07/19/22 16:17 Last Admin: 07/19/22 16:17 Dose: 89 ml Documented By: [facility] Imaging Data Radiologist's Impression: Abdomen/Pelvis CT 07/19/22 14:37 CT OF THE ABDOMEN AND PELVIS WITH CONTRAST CLINICAL HISTORY: Fever, sepsis, large sacral ulcer. COMPARISON STUDY: CT of the abdomen pelvis March 28, 2022. TECHNIQUE: Following IV administration of 89 mL of Optiray, axial images of the abdomen and pelvis were obtained from the lung bases to the proximal femurs. Images were reviewed in the axial, sagittal, and coronal planes. IV contrast was administered without complication. Automated exposure control was utilized for the study. A dose lowering technique was utilized adhering to the principles of ALARA. CT DOSE: 686.57 mGy.cm FINDINGS: Cardiomegaly is noted. Multiple aortic aneurysms are noted. Aneurysmal dilatation of the distal descending thoracic aorta is partially imaged on this exam. This measures at least 4.3 cm in caliber and is similar to CT of March 28, 2022. 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 There is a stable 4.2 cm infrarenal abdominal aortic aneurysm. These aneurysms have moderately increased in size since CT of October 14, 2017. No evidence for rupture. There are hepatic lesions. Pancreas are unremarkable. Several renal cysts are present. There is no hydronephrosis. Moderate amount of stool within the rectum is noted. A Amos balloon within the bladder is noted. Bladder wall thickening with adjacent infiltration is similar to prior exams. Prostatic calcifications are noted. There are also bladder calculi. No pn eumatosis, free air or portal venous gas is present. There are prominent retroperitoneal lymph nodes. Index left iliac 249 of 446 measures 1.1 cm in short axis diameter. These nodes have slightly increased in size since prior exam. A large sacral decubitus ulcer is noted. Interval bony erosion of the inferior sacrum and coccyx is noted since CT of March 28, 2022. Bony erosion involves S4 and S5 as well as the coccyx. There is adjacent inflammation which extends into the sacral canal. No abscess is present. IMPRESSION: 1. Large sacral decubitus ulcer with erosion of the inferior sacrum and coccyx consistent with acute osteomyelitis. Adjacent inflammation extending into the sacral canal. No abscess by CT however spinal canal involvement suboptimally assessed by CT. 2. Multiple lower thoracic and abdominal aortic aneurysms, similar to CT of March 28, 2022. These measure up to 6.5 cm. No evidence for rupture. These have moderately increased in size since CT of October 14, 2017. 3. Prominent retroperitoneal lymph nodes which are likely reactive but can be assessed on subsequent exams. 4. Moderate amount stool within the rectum. No evidence for a bowel obstruction. 5. Bladder wall thickening, likely chronic. ACT 112: Negative or not required by law. Electronically signed by: Shailesh Medellin M.D. 07/19/2022 5:01 PM Chest X-Ray 07/19/22 14:37 XR chest 1V portable CLINICAL HISTORY: Sepsis TECHNIQUE: Single frontal radiograph of the chest was obtained. Comparison: Comparison is made to chest radiograph 04/04/2022 FINDINGS: No lines and tubes are seen. Cardiomegaly is noted. The lungs are clear. No evidence of pleural effusion or pneumothorax. IMPRESSION: No acute abnormalities and in particular no evidence of pneumonia. ACT 112: Negative or not required by law. Electronically signed by: Néstor Linares M.D. 07/19/2022 3:48 PM Discharge Plan Visit Data Chief Complaint: Chest Pain Stated Complaint: SHORTNESS OF BREATH, CHEST PAIN ED Provider: Wiliam Cuello Discharge Problem: Hypotension, History of quadriplegia, Sepsis, Sacral wound, Acute UTI, Osteomyelitis, Leukocytosis Patient Disposition: Admitted As Inpatient Condition: Serious Forms Stand Alone Forms: [facility] [place] [employer] Prescriptions Prescriptions: No Action docusate sodium [Colace] 100 mg capsule 100 mg PO DAILY aspirin 81 mg tablet,delayed release (DR/EC) 81 mg PO DAILY furosemide 40 mg tablet 40 mg PO DAILY metoprolol succinate [Toprol XL] 25 mg tablet extended release 24 hr 12.5 mg PO BID PRN (Reason: .elavated hr) acetaminophen [Tylenol Extra Strength] 500 mg Tablet 1,000 mg PO Q6H PRN (Reason: Pain) amlodipine 5 mg Tablet 5 mg PO QAM cranberry 400 mg Capsule 400 mg PO QAM sulfamethoxazole-trimethoprim 800-160 mg tablet 1 tab PO BID Referrals Referrals: Angel Luis Hills [Primary Care Provider] -
[2022-07-19 15:04] LABS: Alanine Aminotransferase 18 U/L (7-52); Albumin Globulin Ratio 0.7 (0.9-2); Albumin Level 3.3 gm/dl (3.4-5.0); Alkaline Phosphatase 134 U/L (34-104); Anion Gap 10 (3-11); Aspartate Aminotransferase 18 U/L (13-39); Bilirubin,Total 0.5 mg/dl (0.2-1.0); Blood Urea Nitrogen 26 mg/dl (6-23); Calcium 8.8 mg/dl (8.5-10.1); Carbon Dioxide 23 mmol/L (21-32); Chloride 100 mmol/L (98-107); Est GFR (African American) 58.5 ml/min; Est GFR (Non-African American) 50.4 ml/min; Globulin 4.7 gm/dl (2.5-4.0); Glucose 143 mg/dl (70-99(Fasting)); Potassium 5.1 mmol/L (3.5-5.1); Sodium 133 mmol/L (136-145)
[2022-07-19 15:07] LABS: Troponin I High Sensitivity 8.7 pg/ml (0-20)
[2022-07-19 15:08] LABS: Basophils # (auto) 0.12 K/uL (0-0.2); Basophils % (auto) 0.6 %; Eosinophils # (auto) 0.05 K/uL (0-0.50); Eosinophils % (auto) 0.2 %; Immature Granulocytes # (auto) 0.15 K/uL (0.00-0.02); Immature Granulocytes % (auto) 0.7 %; Lymphocytes # (auto) 0.26 K/uL (1.2-3.4); Lymphocytes % (auto) 1.3 %; Monocytes # (auto) 1.08 K/uL (0.24-0.82); Monocytes % (auto) 5.4 %; Neutrophils # (auto) 18.46 K/uL (1.4-6.5); Neutrophils % (auto) 91.8 %
[2022-07-19 15:09] LABS: INR 1.1 (0.9-1.1); Partial Thromboplastin Ratio 1.6; Prothrombin Time 11.3 Seconds (9.0-12.0)
--- NOTE | 2022-07-19 15:13 | Electrocardiogram Report ---
Test Reason : Blood Pressure : / mmHG Vent. Rate : 116 BPM Atrial Rate : 100 BPM P-R Int : 000 ms QRS Dur : 072 ms QT Int : 328 ms P-R-T Axes : 000 -64 077 degrees QTc Int : 455 ms Poor data quality, interpretation may be adversely affected Atrial fibrillation with rapid ventricular response Low voltage QRS Left anterior fascicular block Possible Anterolateral infarct (cited on or before 04-FEB-2022) Abnormal ECG When compared with ECG of 04-APR-2022 08:57, Criteria for Inferior infarct are no longer Present Confirmed by Dario Blake ([id number]) on 07/19/2022 3:13:25 PM Referred By: Confirmed By:Darien Blake
--- NOTE | 2022-07-19 15:49 | XRay Report ---
XR chest 1V portable CLINICAL HISTORY: Sepsis TECHNIQUE: Single frontal radiograph of the chest was obtained. Comparison: Comparison is made to chest radiograph 04/04/2022 FINDINGS: No lines and tubes are seen. Cardiomegaly is noted. The lungs are clear. No evidence of pleural effus ion or pneumothorax. IMPRESSION: No acute abnormalities and in particular no evidence of pneumonia. ACT 112: Negative or not required by law. Electronically signed by: Néstor Linares M.D. 07/19/2022 3:48 PM
[2022-07-19] MEDS ORDERED: OPTIRAY 350 100ml IV ONE (16:16)
[2022-07-19 16:26] LABS: Appearance Urine Clear (Clear); Bilirubin Urine Negative (Negative); Blood Urine 2+ (Negative); Color Urine Yellow; Glucose Urine UA Negative (Negative); Ketones Urine Negative (Negative); Leukocyte Esterase Urine 3+ (Negative); Nitrite Urine Negative (Negative); Protein Urine 1+ (Negative); Urobilinogen Urine Positive (Negative)
[2022-07-19 16:45] LABS: Bacteria Urine Negative (Negative); WBC Urine >30 /hpf (0-5)
--- NOTE | 2022-07-19 17:04 | CT Scan Report ---
CT OF THE ABDOMEN AND PELVIS WITH CONTRAST CLINICAL HISTORY: Fever, sepsis, large sacral ulcer. COMPARISON STUDY: CT of the abdomen pelvis March 28, 2022. TECHNIQUE: Following IV administration of 89 mL of Optiray, axial images of the abdomen and pelvis we re obtained from the lung bases to the proximal femurs. Images were reviewed in the axial, sagittal, and coronal planes. IV contrast was administered without complication. Automated exposure control wa s utilized for the study. A dose lowering technique was utilized adhering to the principles of ALARA . CT DOSE: 686.57 mGy.cm FINDINGS: Cardiomegaly is noted. Multiple aortic aneurysms are noted. Aneurysmal dilatation of the di stal descending thoracic aorta is partially imaged on this exam. This measures at least 4.3 cm in josh iber and is similar to CT of March 28, 2022. A 6.5 cm aneurysm at the level of the renal arteries is s imilar to prior CT as well. There is a stable 4.2 cm infrarenal abdominal aortic aneurysm. These aneu rysms have moderately increased in size since CT of October 14, 2017. No evidence for rupture. There are hepatic lesions. Pancreas are unremarkable. Several renal cysts are present. There is no hydronep hrosis. Moderate amount of stool within the rectum is noted. A Amos balloon within the bladder is no jeanette. Bladder wall thickening with adjacent infiltration is similar to prior exams. Prostatic calcific ations are noted. There are also bladder calculi. No pneumatosis, free air or portal venous gas is pr esent. There are prominent retroperitoneal lymph nodes. Index left iliac 249 of 446 measures 1.1 cm i n short axis diameter. These nodes have slightly increased in size since prior exam. A large sacral d ecubitus ulcer is noted. Interval bony erosion of the inferior sacrum and coccyx is noted since CT of March 28, 2022. Bony erosion involves S4 and S5 as well as the coccyx. There is adjacent inflammation which extends into the sacral canal. No abscess is present. IMPRESSION: 1. Large sacral decubitus ulcer with erosion of the inferior sacrum and coccyx consistent with acute osteomyelitis. Adjacent inflammation extending into the sacral canal. No abscess by CT however spinal canal involvement suboptimally assessed by CT. 2. Multiple lower thoracic and abdominal aortic aneurysms, similar to CT of March 28, 2022. These shin ure up to 6.5 cm. No evidence for rupture. These have moderately increased in size since CT of Sepuar y 2017. 3. Prominent retroperitoneal lymph nodes which are likely reactive but can be assessed on subsequent exams. 4. Moderate amount stool within the rectum. No evidence for a bowel obstruction. 5. Bladder wall thickening, likely chronic. ACT 112: Negative or not required by law. Electronically signed by: Shailesh Medellin M.D. 07/19/2022 5:01 PM
[2022-07-19] MEDS ORDERED: LACTATED RINGER'S 500 ML IV ONE (19:50)
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
[2022-07-19] MEDS ORDERED: Patient's HEIGHT &/or WEIGHT Needed SCH (22:00)
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
--- NOTE | 2022-07-19 23:44 | Communication Note ---
Date of Service: July 19, 2022 Messaged by pharmacy about patient's documented allergy of "heparin: possible cause of thrombocytopenia 04/22, labs pending." Will not provide heparin or Lovenox for dvt prophylaxis. He also has unknown allergy to Eliquis and Xarelto. Ordering scds. Will not use fondaparinux for dvt prophylaxis at this time given that patient may need possible debridement of sacral wound.
[2022-07-19] MEDS: CEFEPIME 2,000 MG in SYRINGE 0 ML IV SCH (23:55)
[2022-07-20 03:47] LABS: Basophils % (auto) 0.8 %; Eosinophils # (auto) 0.22 K/uL (0-0.50); Eosinophils % (auto) 1.7 %; Hematocrit (blood only) 29.5 % (40.1-51.0); Immature Granulocytes # (auto) 0.05 K/uL (0.00-0.02); Immature Granulocytes % (auto) 0.4 %; Lymphocytes # (auto) 0.98 K/uL (1.2-3.4); Lymphocytes % (auto) 7.6 %; Mean Corpuscular Hemoglobin 24.1 pg (25.0-34.0); Mean Corpuscular Hgb Conc 30.5 g/dL (32.0-36.0); Mean Corpuscular Volume 78.9 fL (80.0-100.0); Mean Platelet Volume 9.4 fL (9.4-12.4); Monocytes # (auto) 0.79 K/uL (0.24-0.82); Monocytes % (auto) 6.1 %; Neutrophils # (auto) 10.73 K/uL (1.4-6.5); Neutrophils % (auto) 83.4 %; Platelet Count 330 K/uL (130-400); RDW Coefficient of Variation 17.7 % (11.5-14.5); RDW Standard Deviation 50.8 fL (36.4-46.3); Red Blood Count 3.74 M/uL (4.63-6.08); White Blood Count 12.87 K/ul (4.8-10.8)
[2022-07-20 04:35] LABS: Albumin Globulin Ratio 0.7 (0.9-2); Albumin Level 2.7 gm/dl (3.4-5.0); BUN Creatinine Ratio 19.2 (10-20); Bilirubin,Total 0.4 mg/dl (0.2-1.0); Calcium 8.3 mg/dl (8.5-10.1); Creatinine Clr Calc Pharmacy 67.6 ml/min; Est GFR (African American) 86.6 ml/min; Est GFR (Non-African American) 74.7 ml/min; Globulin 3.9 gm/dl (2.5-4.0); Potassium 4.8 mmol/L (3.5-5.1); Total Protein 6.6 gm/dl (6.0-8.3)
[2022-07-20] MEDS: VANCOMYCIN HCL 1,250 MG in SODIUM CHLORIDE 0.9% 250 ML IV SCH (05:18)
--- NOTE | 2022-07-20 07:01 | Surgery Progress Note ---
Date of Service July 20, 2022 Assessment & Plan (1) Sacral wound: Plan: Plan will be for operative debridement-no plan for operation today We will add diet Continue IV antibiotics We will ask anesthesia to see the patient Surgery will be somewhat of a risk to the patient as it will create a relatively large wound This would likely require wound VAC We will need the assistance of the wound nurses and the wound clinic Admission and Anticipated Discharge Date Admission Date: July 19, 2022 Subjective Patient awake and alert in no distress Review of Systems Constitutional: + fever and + chills Eyes: + corrective lenses Ear, Nose, Mouth, Throat: no ear pain Respiratory: + dyspnea Cardiovascular: + chest pain Gastrointestinal: no abdominal pain, no nausea and no vomiting Genitourinary: no dysuria Musculoskeletal: no back pain Integumentary: no rash Neurologic: + problem reported (Pre-existing neurologic deficits from known quadriplegia) Physical Exam Physical Exam: Patient is noted to have a sacral decubitus ulcer measuring approximately 6 cm x 3 cm. The area appears to extend down into the muscle layer. There is no crepitus noted in the soft tissue. There is surrounding erythema of the skin. There is a small amount of purulent drainage. Constitutional: well developed and well nourished; no acute distress Eyes: Wears glasses ENMT: Ears: no hearing impairment Mouth: no oropharynx abnormality Neck: trachea midline Respiratory: normal respiratory effort; no respiratory distress and no labored breathing Cardiovascular: Rate/Rhythm: regular rate and regular rhythm Gastrointestinal (Abdomen): Soft, nondistended, nonrigid and nontender to palpation Musculoskeletal: Noted atrophy of lower extremity musculature secondary to quadriplegia Skin: no rashes Neurologic: Patient only able to dorsi and plantarflex left foot. He is unable to move the right leg. He has limited motion of the right lower extremities which is a pre-existing deficit Psychiatric: A+Ox3, euthymic affect Results & Data ([facility]) Vital Signs (Past 12 Hours) Vital Signs Temp Pulse Pulse Resp BP BP Pulse Ox 07/20/22 02:54 36.6 C 84 18 94/64 L 95 07/19/22 22:45 36.6 C 92 H 16 99/64 L 07/19/22 22:15 108/75 07/19/22 22:15 94 H 21 99 07/19/22 22:10 96 H 27 H 99 07/19/22 22:00 91 H 25 H 98 07/19/22 22:00 112/83 07/19/22 21:50 87 18 07/19/22 21:45 86 28 H 98 07/19/22 21:45 105/69 07/19/22 21:40 83 25 H 99 07/19/22 21:30 96 H 24 98 07/19/22 21:30 102/70 07/19/22 21:20 90 21 93 07/19/22 21:10 88 28 H 94 07/19/22 21:00 89 26 H 96 07/19/22 21:00 100/64 07/19/22 20:50 92 H 21 97 07/19/22 20:45 87 22 98 07/19/22 20:45 112/67 07/19/22 20:40 99 H 23 98 07/19/22 20:30 93 H 22 97 07/19/22 20:30 113/73 07/19/22 20:20 89 25 H 96 07/19/22 20:15 84 26 H 96 07/19/22 20:15 101/66 07/19/22 20:10 97 H 29 H 97 07/19/22 20:00 85 22 98 07/19/22 20:00 92/66 L 07/19/22 19:50 94 H 35 H 97 07/19/22 19:45 100/75 07/19/22 19:45 88 22 97 07/19/22 19:40 89 26 H 97 07/19/22 19:30 86 21 97 07/19/22 19:30 120/60 07/19/22 19:20 88 20 98 07/19/22 22:26 07/19/22 19:15 83 25 H 99 07/19/22 19:15 95/66 L 07/19/22 19:10 82 21 97 07/19/22 19:00 96 H 22 97 07/19/22 19:00 98/62 L O2 Del Method 07/20/22 02:54 07/19/22 22:45 Room Air 07/19/22 22:15 07/19/22 22:15 07/19/22 22:10 07/19/22 22:00 07/19/22 22:00 07/19/22 21:50 07/19/22 21:45 07/19/22 21:45 07/19/22 21:40 07/19/22 21:30 07/19/22 21:30 07/19/22 21:20 07/19/22 21:10 07/19/22 21:00 07/19/22 21:00 07/19/22 20:50 07/19/22 20:45 07/19/22 20:45 07/19/22 20:40 07/19/22 20:30 07/19/22 20:30 07/19/22 20:20 07/19/22 20:15 07/19/22 20:15 07/19/22 20:10 07/19/22 20:00 07/19/22 20:00 07/19/22 19:50 07/19/22 19:45 07/19/22 19:45 07/19/22 19:40 07/19/22 19:30 07/19/22 19:30 07/19/22 19:20 07/19/22 22:26 Room Air 07/19/22 19:15 07/19/22 19:15 07/19/22 19:10 07/19/22 19:00 07/19/22 19:00 PG Care Time/CCT Total # of Minutes Spent Total Time Spent with Patient: Total time spent is greater than 50% in coordination of care (as documented) at patient's floor/unit and/or counseling patient: Coding Level of Care Code 83117 Inpt Consult Level 3 Diagnoses Sacral wound S31.000A Encounter type: initial encounter (1) Sacral wound Encounter type: initial encounter Qualified Code(s): S31.000A - Unspecified open wound of lower back and pelvis without penetration into retroperitoneum, initial encounter
[2022-07-20 08:32] LABS: A calco-baum cmplx NotReported Not Detected (NotDetected); Bact fragilis Not Reported Not Detected (NotDetected); C auris Not Reported Not Detected (NotDetected); Calbicans Not Reported Not Detected (NotDetected); Candida glabrata Not Reported Not Detected (NotDetected); Candida krusei Not Reported Not Detected (NotDetected); Cneoformans/gatti Not Reported Not Detected (NotDetected); Cparapsilosis Not Reported Not Detected (NotDetected); Ctropicalis Not Reported Not Detected (NotDetected); E cloacae compx Not Reported Not Detected (NotDetected); Efaecalis Not Reported Not Detected (NotDetected); Efaecium Not Reported Not Detected (NotDetected); Enterobacterales Not Reported Not Detected (NotDetected); Escherichia coli Not Reported Not Detected (NotDetected); H influenzae Not Reported Not Detected (NotDetected); K aerogenes Not Reported Not Detected (NotDetected); Koxytoca Not Reported Not Detected (NotDetected); Kpneumoniae grp Not Reported Not Detected (NotDetected); Lmonocyt Not Reported Not Detected (NotDetected); N meningitidis Not Reported Not Detected (NotDetected); P aeruginosa Not Reported Not Detected (NotDetected); Proteus spp Not Reported Not Detected (NotDetected); Salmonella spp Not Reported Not Detected (NotDetected); Smarcescens Not Reported Not Detected (NotDetected); Staph lugdunensis Not Reported Not Detected (NotDetected); Staph spp. Not Reported DETECTED (NotDetected); Staphaureus Not Reported DETECTED (NotDetected); Staphepi Not Reported Not Detected (NotDetected); Staphylococcus spp. DETECTED (NotDetected); Stenmaltophilia Not Reported Not Detected (NotDetected); Strep agal(GrpB) Not Reported Not Detected (NotDetected); Strep pneum Not Reported Not Detected (NotDetected); Strep pyog (GrpA) Not Reported Not Detected (NotDetected); Strep spp Not Reported Not Detected (NotDetected)
[2022-07-20 08:54] LABS: mecAC+MREJ Resistant Gene MRSA DETECTED (NotDetected)
[2022-07-20] MEDS ORDERED: HEPARIN SOD 5,000 UNIT/0.5 ML VIAL SQ SCH (09:00)
[2022-07-20] MEDS ORDERED: MICONAZOLE NITRATE POWDER 43 GM EXT PRN (09:08)
[2022-07-20] MEDS: ASPIRIN 81 MG ECTAB PO SCH (09:57)
--- NOTE | 2022-07-20 11:12 | Pharmacy Report ---
Pharmacy Vanc AUC Short Note - Date of Service July 20, 2022 - Assessment & Plan Assessment 72 year old M receiving vancomycin for treatment of sepsis and sacral wound. Pertinent microbiologic data includes: Blood culture growing gpcs 4/4 with biofire indicating MRSA. Urine and sacrum culture also growing staph species. Current regimen predicted to achieve goal AUC range as quickly as the second dose. Will monitor need for dose increase while also considering any differences in PK due to quadriplegia. Past cultures have grown MRSA with an NICK of 2. If organism results with an NICK of 2 again would recommend confirming this with lab vial alternate method. Day # 2 of antimicrobial therapy. Plan Vancomycin * AUC/NICK is the preferred PK/PD target for vancomycin * AUC guided dosing is effective and associated with decreased risk of nephrotoxicity compared to traditional trough targets * Random level of 11.5 mcg/mL is predicted to achieve target AUC/NICK of 400-600 mg/L.hr and may be associated with a 8 % risk of nephrotoxicity * Continue dose of 1250 mg IV every 24 hours * Trough or random level ordered for: 07/22/22 with AM labs Pharmacy will continue to follow and will adjust dose/frequency as necessary. Thank you.
--- NOTE | 2022-07-20 11:58 | Surgery Progress Note ---
Date of Service July 20, 2022 Assessment & Plan (1) Pressure injury of sacral region, stage 4: Plan: There is a relatively large opening in the sacral skin And then there is significant undermining of the skin creating a large deep defect Patient will require debridement of the overlying skin and surrounding tissue That he will need a wound VAC His sister was in the room and I did discuss this with her(Dorothy) Admission and Anticipated Discharge Date Admission Date: July 19, 2022 Results & Data ([facility]) Vital Signs (Past 12 Hours) Vital Signs Temp Pulse Pulse Resp BP BP Pulse Ox 07/20/22 11:27 36.3 C L 101 H 19 130/81 97 07/20/22 08:00 105 H 07/20/22 07:14 36.6 C 91 H 18 102/64 98 07/20/22 02:54 36.6 C 84 18 94/64 L 95 O2 Del Method 07/20/22 11:27 Room Air 07/20/22 08:00 07/20/22 07:14 Room Air 07/20/22 02:54 PG Care Time/CCT Total # of Minutes Spent Total Time Spent with Patient: Total time spent is greater than 50% in coordination of care (as documented) at patient's floor/unit and/or counseling patient: Coding Level of Care Code None Diagnoses Pressure injury of sacral region, stage 4 L89.154
[2022-07-20] MEDS: CEFEPIME 2,000 MG in SYRINGE 0 ML IV SCH ×2 (12:54→23:28)
--- NOTE | 2022-07-20 14:56 | Hospitalist Progress Note ---
Date of Service July 20, 2022 Assessment & Plan (1) Sepsis: Plan: This is a 72 yo male who is a C5 incomplete quadriplegic admitted on account of fever, chills Found to have sepsis WBC is elevated, elevated temp, elevated HR. 3/4 for sepsis, likley source is sacral wound and osteomyelitis Patient has signs of osteomyelitis of sacrum on CT scan. Recommended transfer to tertiary center, however, ER called [email or web address] and transfer denied. General surgery on consult, plan for wound debridement and later wound vac ID also on consult Continue IV vancomycin and Cefepime Blood cultures positive for gram positive cocci Obtain 2 D ECHO (2) Pressure injury of sacral region, stage 4: Plan: as noted above, consulted General Surgery (3) Hypotension: Plan: Blood pressure responded to IVF. lactic acid is 2. will hold BP meds (4) History of quadriplegia: Plan: since age of 14. able to move biceps. (5) Anemia: Plan: will continue to monitor, does not require transfusion (6) Permanent atrial fibrillation: Plan: not on anticoagulation (7) Paralysis: Plan: as noted above (8) Hypertension: Plan: holding BP meds (9) AAA (abdominal aortic aneurysm): Plan: appears stable. Currently, does not require emergent intervention Admission and Anticipated Discharge Date Admission Date: July 19, 2022 Subjective patient seen and examined, lying quietly in bed Review of Systems Review of Systems: All systems reviewed are negative, apart from the ones contained in the history. Physical Exam Physical Exam: The patient is awake, alert and oriented 3, well developed and well nourished, normocephalic and atraumatic, lying in bed and in no acute distress. HEENT--PERRL, EOMI, mucous membranes and oropharynx mildly dry Neck--supple. No JVD. No bruits. Thyroid normal, trachea midline, no adenopathy. Heart--normal S1 and S2. No murmurs, rubs or gallops. Lungs--clear bilaterally, no respiratory distress, no accessory muscle use. Abdomen--normal bowel sounds and soft. Mild epigastric and left sided abdominal pain Extremities--no cyanosis or clubbing. No edema. Dermatologic--Sacral decubitus ulcer Neurologic--Quadriplegic Rheumatologic--normal range of motion. Psychiatric--normal affect. Results & Data Results & Data ([facility]) Vital Signs (Past 12 Hours) Vital Signs Temp Pulse Pulse Resp BP BP Pulse Ox 07/20/22 11:27 97.3 F L 101 H 19 130/81 97 07/20/22 08:00 105 H 07/20/22 07:14 97.9 F 91 H 18 102/64 98 07/20/22 02:54 97.9 F 84 18 94/64 L 95 O2 Del Method 07/20/22 11:27 Room Air 07/20/22 08:00 07/20/22 07:14 Room Air 07/20/22 02:54 PG Care Time/CCT Total # of Minutes Spent Total Time Spent with Patient: Total time spent is greater than 50% in coordination of care (as documented) at patient's floor/unit and/or counseling patient: Coding Level of Care Code 39172 Subseq Hosp Care Lvl 2 Diagnoses Sepsis A41.9 Sepsis acute organ dysfunction status: without acute organ dysfunction Sepsis type: sepsis due to unspecified organism Pressure injury of sacral region, stage 4 L89.154 Hypotension I95.9 Hypotension type: unspecified hypotension type History of quadriplegia Z86.69 Anemia D64.9 Permanent atrial fibrillation I48.21 Paralysis G83.9 Hypertension I10 Hypertension type: essential hypertension AAA (abdominal aortic aneurysm) I71.4 Time Spent (min) 35 (1) Sepsis Sepsis acute organ dysfunction status: without acute organ dysfunction Sepsis type: sepsis due to unspecified organism Qualified Code(s): A41.9 - Sepsis, unspecified organism (2) Hypotension Hypotension type: unspecified hypotension type Qualified Code(s): I95.9 - Hypotension, unspecified (3) Hypertension Hypertension type: essential hypertension Qualified Code(s): I10 - Essential (primary) hypertension
[2022-07-20] MEDS: ACETAMINOPHEN 325 MG TAB PO PRN (20:52)
[2022-07-21] MEDS: VANCOMYCIN HCL 1,250 MG in SODIUM CHLORIDE 0.9% 250 ML IV SCH (05:02)
[2022-07-21 05:05] LABS: Hematocrit (blood only) 30.2 % (40.1-51.0); Hemoglobin 9.2 g/dl (14.0-18.0); Mean Corpuscular Hemoglobin 24.2 pg (25.0-34.0); Mean Corpuscular Hgb Conc 30.5 g/dL (32.0-36.0); Mean Corpuscular Volume 79.5 fL (80.0-100.0); Mean Platelet Volume 9.4 fL (9.4-12.4); Platelet Count 333 K/uL (130-400); RDW Coefficient of Variation 17.7 % (11.5-14.5); RDW Standard Deviation 51.1 fL (36.4-46.3)
[2022-07-21 05:59] LABS: BUN Creatinine Ratio 23.5 (10-20); Calcium 8.5 mg/dl (8.5-10.1); Creatinine Clr Calc Pharmacy 63.4 ml/min; Est GFR (African American) 83.5 ml/min; Est GFR (Non-African American) 72.1 ml/min; Potassium 4.4 mmol/L (3.5-5.1)
[2022-07-21] MEDS: ASPIRIN 81 MG ECTAB PO SCH (09:37)
[2022-07-21] MEDS: CEFEPIME 2,000 MG in SYRINGE 0 ML IV SCH (13:41)
--- NOTE | 2022-07-21 14:18 | Hospitalist Progress Note ---
Date of Service July 21, 2022 Assessment & Plan (1) Sepsis: Plan: This is a 72 yo male who is a C5 incomplete quadriplegic admitted on account of fever, chills Found to have sepsis WBC is elevated, elevated temp, elevated HR. 3/4 for sepsis, vashtiley source is sacral wound and osteomyelitis Patient has signs of osteomyelitis of sacrum on CT scan. Recommended transfer to tertiary center, however, ER called [facility] and transfer denied. General surgery on consult, plan for wound debridement and later wound vac ID also on consult Continue IV vancomycin and Cefepime Blood cultures positive for gram positive cocci 2 D ECHO done, official report pending (2) Positive blood culture: Plan: 4 bottles growing gram positive cocci Source is likely stage 4 sacral ulcer and/osteomyelitis of sacrum 2 D ECHO done, official report pending Continue IV vancomycin and Cefepime ID on consult (3) Sacral osteomyelitis: Plan: CT showed evidence of Large sacral decubitus ulcer with erosion of the inferior sacrum and coccyx consistent with acute osteomyelitis. Adjacent inflammation extending into the sacral canal Continue IV Vancomycin and IV Cefepime Will need [facility] ID on consult (4) Pressure injury of sacral region, stage 4: Plan: as noted above, consulted General Surgery (5) Hypotension: Plan: Blood pressure responded to IVF. lactic acid is 2. will hold BP meds (6) History of quadriplegia: Plan: since age of 14. able to move biceps. (7) Anemia: Plan: will continue to monitor, does not require transfusion (8) Permanent atrial fibrillation: Plan: not on anticoagulation (9) Paralysis: Plan: as noted above (10) Hypertension: Plan: holding BP meds (11) AAA (abdominal aortic aneurysm): Plan: appears stable. Currently, does not require emergent intervention Plan continue hospitalization Admission and Anticipated Discharge Date Admission Date: July 19, 2022 Subjective patient seen and examined, lying quietly in bed Review of Systems Review of Systems: All systems reviewed are negative, apart from the ones contained in the history. Physical Exam Physical Exam: The patient is awake, alert and oriented 3, well developed and well nourished, normocephalic and atraumatic, lying in bed and in no acute distress. HEENT--PERRL, EOMI, mucous membranes and oropharynx mildly dry Neck--supple. No JVD. No bruits. Thyroid normal, trachea midline, no adenopathy. Heart--normal S1 and S2. No murmurs, rubs or gallops. Lungs--clear bilaterally, no respiratory distress, no accessory muscle use. Abdomen--normal bowel sounds and soft. Mild epigastric and left sided abdominal pain Extremities--no cyanosis or clubbing. No edema. Dermatologic--Sacral decubitus ulcer Neurologic--Quadriplegic Rheumatologic--normal range of motion. Psychiatric--normal affect. Results & Data Results & Data ([facility]) Vital Signs (Past 12 Hours) Vital Signs Temp Pulse Pulse Resp BP Pulse Ox O2 Del Method 07/21/22 11:35 97.9 F 90 18 92/60 L 96 Room Air 07/21/22 08:00 106 H 07/21/22 07:40 97.9 F 97 H 19 127/88 95 Room Air 07/21/22 02:41 98.6 F 116 H 18 104/67 97 Room Air PG Care Time/CCT Total # of Minutes Spent Total Time Spent with Patient: Total time spent is greater than 50% in coordination of care (as documented) at patient's floor/unit and/or counseling patient: Coding Level of Care Code 69318 Subseq Hosp Care Lvl 2 Diagnoses Sepsis A41.9 Sepsis acute organ dysfunction status: without acute organ dysfunction Sepsis type: sepsis due to unspecified organism Positive blood culture R78.81 Sacral osteomyelitis M46.28 Pressure injury of sacral region, stage 4 L89.154 Hypotension I95.9 Hypotension type: unspecified hypotension type History of quadriplegia Z86.69 Anemia D64.9 Permanent atrial fibrillation I48.21 Paralysis G83.9 Hypertension I10 Hypertension type: essential hypertension AAA (abdominal aortic aneurysm) I71.4 Time Spent (min) 35 (1) Sepsis Sepsis acute organ dysfunction status: without acute organ dysfunction Sepsis type: sepsis due to unspecified organism Qualified Code(s): A41.9 - Sepsis, unspecified organism (2) Hypotension Hypotension type: unspecified hypotension type Qualified Code(s): I95.9 - Hypotension, unspecified (3) Hypertension Hypertension type: essential hypertension Qualified Code(s): I10 - Essential (primary) hypertension
[2022-07-22] MEDS: CEFEPIME 2,000 MG in SYRINGE 0 ML IV SCH ×3 (00:08→23:19)
[2022-07-22] MEDS: ACETAMINOPHEN 325 MG TAB PO PRN ×2 (00:08→08:24)
[2022-07-22] MEDS: VANCOMYCIN HCL 1,250 MG in SODIUM CHLORIDE 0.9% 250 ML IV SCH (05:14)
[2022-07-22 06:00] LABS: Hematocrit (blood only) 30.8 % (40.1-51.0); Hemoglobin 9.4 g/dl (14.0-18.0); Mean Corpuscular Hemoglobin 24.1 pg (25.0-34.0); Mean Corpuscular Hgb Conc 30.5 g/dL (32.0-36.0); Mean Platelet Volume 8.9 fL (9.4-12.4); Platelet Count 322 K/uL (130-400); RDW Coefficient of Variation 17.6 % (11.5-14.5); RDW Standard Deviation 50.4 fL (36.4-46.3); White Blood Count 8.63 K/ul (4.8-10.8)
[2022-07-22 06:27] LABS: BUN Creatinine Ratio 22.5 (10-20); Calcium 8.6 mg/dl (8.5-10.1); Creatinine Clr Calc Pharmacy 71.9 ml/min; Est GFR (African American) 97.6 ml/min; Est GFR (Non-African American) 84.2 ml/min; Potassium 4.2 mmol/L (3.5-5.1)
[2022-07-22] MEDS: ASPIRIN 81 MG ECTAB PO SCH (08:24)
--- NOTE | 2022-07-22 08:58 | Surgery Progress Note ---
Date of Service July 22, 2022 Assessment & Plan (1) Pressure injury of sacral region, stage 4: Plan: Patient tentatively scheduled for OR debridement tomorrowTuesday a.m. If all services agree Plan will be for wound VAC postoperatively Admission and Anticipated Discharge Date Admission Date: July 19, 2022 Results & Data ([facility]) Vital Signs (Past 12 Hours) Vital Signs Temp Pulse Pulse Resp BP BP Pulse Ox 07/22/22 08:10 101 H 07/22/22 07:02 36.6 C 99 H 16 131/76 97 07/22/22 02:49 37 C 106 H 18 89/57 L 97 07/21/22 22:38 37 C 115 H 18 105/57 L 95 O2 Del Method 07/22/22 08:10 07/22/22 07:02 Room Air 07/22/22 02:49 Room Air 07/21/22 22:38 PG Care Time/CCT Total # of Minutes Spent Total Time Spent with Patient: Total time spent is greater than 50% in coordination of care (as documented) at patient's floor/unit and/or counseling patient: Coding Level of Care Code None Diagnoses Pressure injury of sacral region, stage 4 L89.154
--- NOTE | 2022-07-22 09:51 | Infectious Disease Consult ---
Date of Consultation July 22, 2022 Assessment & Plan (1) Sacral osteomyelitis: (2) MRSA bacteremia: Plan 72 yo M with a history of incomplete C5 quadriplegia after trauma in 1963, decubitus ulcer with prior debridement and muscle flap in the , AAA, afib, cardiomyopathy, HTN who presented on 07/19 with fevers, hypotension, found on CT to have sacral decubitus ulcer with SSTI and underlying sacral and coccygeal osteomyelitis. Wound, blood, and urine cultures are all growing MRSA. He has improved clinically on vanc and cefepime (afebrile, resolution of leukocytosis), and is awaiting debridement on 07/23, after which he is anticipated to need a wound vac. TTE on 07/21 was technically difficult, but no vegetations noted. The MRSA bacteremia is likely secondary to his infected sacral wound, and the bacteremia likely seeded his urinary tract. No signs of MRSA seeding of other sites at this time. For sacral osteomyelitis, cure would only be achieved through flap coverage in conjunction with 6 weeks of targeted IV antibiotics. However, if the patient is not a candidate for flap and wound closure, the wound will remain continuously open to the environment, and a prolonged course of IV antibiotics will not be effective and will lead to colonization with resistant organisms. Generally in these cases, would advocate for a short course of antibiotics to treat for a soft tissue infection, in conjunction with ongoing close wound care follow-up, and debridements as needed to help decrease the risk for systemic infection. However, his case is complicated by MRSA bacteremia, which will require a longer duration of IV antibiotics. It is unknown how long he has been bacteremic--he was feeling unwell for ~10 days prior to presentation, which raises concern for multiple days of bacteremia. No repeat blood cultures have been collected since the positive blood cultures on admission 07/19. A TTE did not show vegetations, but was a technically difficult study. Of note, the vancomycin NICK is 2. He does have a wound culture from 07/03 that grew ESBL E coli, for which he was treated with TMP/SMX as an outpatient. Antimicrobial course: Vanc 07/19- Cefepime 07/19- Zosyn 07/19 Problems: #Decubitus SSTI with sacral and coccygeal osteomyelitis: wound culture +MRSA. Prior culture from 07/03/22 with ESBL E coli #MRSA bacteremia #UCx with MRSA #Cipro allergy: thrombocytopenia Recommendations: -Repeat blood cultures ordered for today -Obtain two sets of blood cultures daily until blood cultures are NG x 48 hours from two consecutive days -Would exchange guido, if it has not already been exchanged (UCx +MRSA on admission) -Please send tissue from OR debridement for culture. Would also send bone biopsy for path and micro if feasible -Given the borderline vancomycin NICK of 2, will stop vancomycin and instead start daptomycin 8-10 mg/kg IV q24h for MRSA bacteremia -Will check baseline CK with labs tomorrow -Check at least weekly CK while on daptomycin -Pt's recent wound culture 07/03 grew ESBL E coli--unclear whether this organism is contributing to his current infection, but since he is clinically stable, will hold off on broadening from cefepime for now, in anticipation of cultures being collected in the OR tomorrow. If he clinically worsens in the interim, would stop cefepime and start ertapenem 1 g IV q24h -Will continue to follow Consultation Information Consultation was provided via telemedicine using two-way real-time interactive telecommunication between the patient and the telemedicine provider. For the duration of the visit, the provider was performing the assessment from a different facility than the patient. This includesuse of bluetooth stethoscope forauscultationperformed by the telepresenter that the telemedicine provider can hear if described in the physical exam. Mottler Operator contact information: Please call [facility] . (Phone Number For Physician Use Only) After establishing a telemedicine visit, patient was: Patient was verified with two unique identifiers, Patient/authorized rep acknowledged consent and understanding and Gave permission to continue telehealth session Time Spent w Inpatient: 20 minutes History of Present Illness Reason for Consultation: Sacral osteomyelitis Attending Physician: Aj Malone History of Present Illness 72 yo M with a history of incomplete C5 quadriplegia after trauma in 1963, decubitus ulcer, AAA, afib, cardiomyopathy, HTN who presented on 07/19 with subjective fevers, chills, and hypotension. He states he was feeling unwell for ~10 days prior to presenting to the hospital. On presentation, his Tmax was 38.1, and his BP was as low as 60s/40s, HR 110s. Labs showed WBC 20.12, Cr 1.37. CXR showed no acute abnormalities. CT A/P with contrast showed a large sacral decubitus ulcer with erosion of the inferior sacrum and coccyx consistent with acute osteomyelitis, adjacent inflammation extending into the sacral canal. Blood and wound cultures were collected, and the patient was placed on vanc and cefepime. General surgery was consulted, who recommended debridement of the sacral ulcer. They think he will need a wound vac as the surgery will create a relatively large wound. Plan is for debridement on 07/23. Blood cultures returned as positive for MRSA. Wound cultures are growing MRSA. UCx is also growing MRSA. TTE on 07/21: "very difficult study as the patient was supine" and was in afib with RVR. No vegetations noted. Today, the pt reports feeling much improved. He reports chronic intermittent R elbow pain for 2-3 years that is unchanged from baseline. He has no sensation below the mid chest. He is afebrile and WBC has downtrended to 8.6. On review of the patient's micro data, he had a sacral wound culture obtained 07/03 which grew ESBL E coli, for which he was treated with TMP/SMX. He has had multiple sacral wound cultures this year which have grown MRSA. He was treated with a course of linezolid in March 2022. Was also treated with a course of doxycycline in December 2021. Allergies Allergy/AdvReac Type Severity Reaction Status Date / Time adhesive Allergy Mild Irritated Verified 07/19/22 17:28 skin ciprofloxacin Allergy Unknown affected Verified 07/19/22 17:28 blood counts (THROMBOCYTOPENIA) apixaban [From Eliquis] Allergy Unknown Verified 07/19/22 17:28 rivaroxaban [From Xarelto] Allergy Unknown Verified 07/19/22 17:28 heparin AdvReac Intermediate POSSIBLE Verified 07/19/22 17:28 CAUSE OF THROMBOCYTOPENIIA 04/22, LABS PENDING Home Medications Medication Instructions Recorded Confirmed Type amlodipine 5 mg tablet 5 mg PO QAM 07/20/18 07/19/22 History cranberry 400 mg capsule 400 mg PO QAM 07/20/18 07/19/22 History acetaminophen 500 mg tablet 1,000 mg PO Q6H PRN Pain 10/22/19 07/19/22 History (Tylenol Extra Strength) furosemide 40 mg tablet 40 mg PO DAILY 03/07/20 07/19/22 History docusate sodium 100 mg capsule 100 mg PO DAILY 01/01/22 07/19/22 History (Colace) metoprolol succinate 25 mg 12.5 mg PO BID PRN .elavated hr 02/07/22 07/19/22 History tablet,extended release 24 hr (Toprol XL) aspirin 81 mg tablet,delayed 81 mg PO DAILY 07/09/22 07/19/22 History release sulfamethoxazole 800 1 tab PO BID 07/19/22 07/19/22 History mg-trimethoprim 160 mg tablet Patient History Medical History AAA (abdominal aortic aneurysm) Acute GI bleeding (11/2021) Atrial fibrillation with RVR Bleeding hemorrhoids (11/2021) Cardiomyopathy Mild, EF 45 to 50% on October 2019 echocardiogram. Cellulitis of leg, right Cholecystitis, chronic COPD exacerbation Elevated troponin Fall from motorized wheelchair (2017) Hiatal hernia Hiccups History of quadriplegia WHEELCHAIR BOUND-S/P TRAUMA 1963 Hx of gann 2007-LOWER EXTREMITIES Hx of decubitus ulcer SURGERY TO DEBRIDE-1963 Hypertension Indwelling Guido catheter present Kidney stones Osteoarthritis Paralysis LEVEL C 5-UNABLE TO MOVE FINGERS Psoriasis Seborrheic keratosis Spinal stenosis Surgical History H/O cervical spine surgery H/O hemorrhoidectomy (11/27/21) Hemorrhoidectomy Dr. Alamo 11/27/2021 H/O skin graft 1963 - decubitus 2010 - gann History of back surgery CERVICAL BONE FUSION-2010 (ACDF 04/07/2012 - Glidescope #4 EZ intubation) S/P debridement DECUBITUS 1963 Family History Grandmother Family history of diabetes mellitus Mother Family history of diabetes mellitus Brother Family history of diabetes mellitus Social History Smoking Status: Light tobacco smoker Tobacco Type: Cigarettes Age Started Using Tobacco: 12; Cigarettes Per Day: 1 cigarette per day; Second Hand Exposure: No; Do You Dip or Chew Tobacco: No; Hx Alcohol Use: No Hx Substance Use: No Preferred Language: Danish Communication Ability: Effective Visual Impairment: No Limitations Hearing Ability: Normal Malt Roaster Required: No Beliefs That Will Affect Care: None marital status: Single Current Living Situation: Alone and Other Current Living Situation Comment: Homehealth nursing How many Children do You have: 0 Feels Safe at Home: Yes caffeine: Yes during the past year weight has: remained stable Assistive Devices: Mechanical Lift and Scooter/Electric Scooter Review of System A complete ROS was performed and is negative except as mentioned in the HPI. Physical Exam Physical Exam: GEN: pleasant, laying in bed in NAD HEENT: Normocephalic, atraumatic. RESP: No increased work of breathing ABD: Soft, non-distended. Non-tender to palpation. EXT: no Janeway lesions or Oslers nodes. R elbow with some tenderness with ROM. No joint erythema or swelling seen. SKIN: Decubitus ulcer with deep tunneling NEURO: Alert and oriented. Answers all questions appropriately. Speech not slurred. PSYCH: Normal mood, affect appropriate. Results & Data ([facility]) Vital Signs (Past 12 Hours) Vital Signs Temp Pulse Pulse Resp BP BP Pulse Ox 07/22/22 08:10 101 H 07/22/22 07:02 36.6 C 99 H 16 131/76 97 07/22/22 02:49 37 C 106 H 18 89/57 L 97 07/21/22 22:38 37 C 115 H 18 105/57 L 95 O2 Del Method 07/22/22 08:10 07/22/22 07:02 Room Air 07/22/22 02:49 Room Air 07/21/22 22:38 Laboratory Results Laboratory Results - last 48 hr 07/21/22 07/21/22 07/22/22 04:38 04:38 05:43 WBC 9.00 RBC 3.80 L Hgb 9.2 L Hct 30.2 L MCV 79.5 L MCH 24.2 L MCHC 30.5 L RDW Std Deviation 51.1 H RDW Coeff of Refugio 17.7 H Plt Count 333 MPV 9.4 Sodium 136 Potassium 4.4 Chloride 106 Carbon Dioxide 24 Anion Gap 6 BUN 24 H Creatinine 1.02 Est Cr Clr Drug Dosing 63.4 Est GFR ( Amer) 83.5 Est GFR (Non-Af Amer) 72.1 BUN/Creatinine Ratio 23.5 H Glucose 97 Calcium 8.5 Random Vancomycin 25.4 H* 07/22/22 07/22/22 05:43 05:43 WBC 8.63 RBC 3.90 L Hgb 9.4 L Hct 30.8 L MCV 79.0 L MCH 24.1 L MCHC 30.5 L RDW Std Deviation 50.4 H RDW Coeff of Refugio 17.6 H Plt Count 322 MPV 8.9 L Sodium 138 Potassium 4.2 Chloride 109 H Carbon Dioxide 23 Anion Gap 6 BUN 20 Creatinine 0.89 Est Cr Clr Drug Dosing 71.9 Est GFR ( Amer) 97.6 Est GFR (Non-Af Amer) 84.2 BUN/Creatinine Ratio 22.5 H Glucose 115 H Calcium 8.6 Random Vancomycin Diagnostic Findings RADIOLOGY Abdomen/Pelvis CT 07/19/22 14:37 CT OF THE ABDOMEN AND PELVIS WITH CONTRAST FINDINGS: Cardiomegaly is noted. Multiple aortic aneurysms are noted. Aneurysmal dilatation of the distal descending thoracic aorta is partially imaged on this exam. This measures at least 4.3 cm in caliber and is similar to CT of March 28, 2022. 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 There is a stable 4.2 cm infrarenal abdominal aortic aneurysm. These aneurysms have moderately increased in size since CT of October 14, 2017. No evidence for rupture. There are hepatic lesions. Pancreas are unremarkable. Several renal cysts are present. There is no hydronephrosis. Moderate amount of stool within the rectum is noted. A Guido balloon within the bladder is noted. Bladder wall thickening with adjacent infiltration is similar to prior exams. Prostatic calcifications are noted. There are also bladder calculi. No pneumatosis, free air or portal venous gas is present. There are prominent retroperitoneal lymph nodes. Index left iliac 249 of 446 measures 1.1 cm in short axis diameter. These nodes have slightly increased in size since prior exam. A large sacral decubitus ulcer is noted. Interval bony erosion of the inferior sacrum and coccyx is noted since CT of March 28, 2022. Bony erosion involves S4 and S5 as well as the coccyx. There is adjacent inflammation which extends into the sacral canal. No abscess is present. IMPRESSION: 1. Large sacral decubitus ulcer with erosion of the inferior sacrum and coccyx consistent with acute osteomyelitis. Adjacent inflammation extending into the sacral canal. No abscess by CT however spinal canal involvement suboptimally assessed by CT. 2. Multiple lower thoracic and abdominal aortic aneurysms, similar to CT of March 28, 2022. These measure up to 6.5 cm. No evidence for rupture. These have moderately increased in size since CT of October 14, 2017. 3. Prominent retroperitoneal lymph nodes which are likely reactive but can be assessed on subsequent exams. 4. Moderate amount stool within the rectum. No evidence for a bowel obstruction. 5. Bladder wall thickening, likely chronic. Chest X-Ray 07/19/22 14:37 FINDINGS: No lines and tubes are seen. Cardiomegaly is noted. The lungs are clear. No evidence of pleural effusion or pneumothorax. IMPRESSION: No acute abnormalities and in particular no evidence of pneumonia. Micro: 07/22 BCx x2: pending 07/19 UCx: MRSA 07/19 Sacral wound cx: MRSA RX M.I.C. --- --------- Clindamycin S <=0.5 Daptomycin S <=0.5 Erythromycin S <=0.5 Oxacillin R >2 Rifampin S <=1 Tetracycline S <=4 Trimeth/Sulfa R > Vancomycin S 2 07/19 BCx x2: MRSA in / vials RX M.I.C. --- --------- Clindamycin S <=0.5 Daptomycin S <=0.5 Erythromycin S <=0.5 Oxacillin R >2 Rifampin S <=1 Tetracycline S <=4 Trimeth/Sulfa R > Vancomycin S 2 07/03 Sacral wound cx: ESBL E coli RX M.I.C. --- --------- Amox/Clav S <=/ Ampicillin R >16 Amp/Sul I 30/04 Cefazolin R >16 Cefepime R >16 Cefotaxime R >16 Ceftriaxone R >2 Ciprofloxacin S <=0.25 Ertapenem S <=0.5 Gentamicin S <=4 Levofloxacin S <=0.5 Meropenem S <=1 Tobramycin S <=4 Trimeth/Sulfa S <=2/38 Pip/Tazo S <=16 05/16 Coccyx wound cx: MRSA (2 types) MRSA MRSA#2 RX M.I.C. RX M.I.C. --- --------- --- --------- Clindamycin R >4 S <=0.5 Daptomycin S <=0.5 S <=0.5 Erythromycin R >4 S <=0.5 Oxacillin R >2 R >2 Rifampin I 2 S <=1 Tetracycline R >8 S <=4 Trimeth/Sulfa R > R > Vancomycin S 2 S 2 03/15 Coccyx wound cx: MRSA 01/01 Coccyx wound cx: MRSA 12/08 Urine cx: Enterobacter cloacae, Pseudomonas Medications Administered Current Inpatient Medications Acetaminophen (Acetaminophen 325 Mg Tab) 650 mg PO Q4H PRN PRN Reason: Pain or Fever Stop: 08/18/22 21:06 Last Admin: 07/22/22 08:24 Dose: 650 mg Aspirin (Aspirin 81 Mg Ectab) 81 mg PO DAILY RAMÓN Stop: 08/19/22 08:59 Last Admin: 07/22/22 08:24 Dose: 81 mg Cefepime HCl 2,000 mg/ Syringe 20 mls @ 5 mls/min IV Q12H RAMÓN; Protocol Stop: 08/31/22 00:00 Last Admin: 07/22/22 00:08 Dose: 5 mls/min Vancomycin HCl 1,250 mg/ (Sodium Chloride) 275 mls @ 200 mls/hr IV Q24H RAMÓN; Protocol Stop: 08/31/22 05:59 Last Infusion: 07/22/22 06:52 Dose: Infused Miconazole Nitrate (Miconazole Nitrate Powder 43 Gm) 1 appln EXT PRN PRN PRN Reason: Affected Skin Folds Stop: 08/19/22 09:07 Last Admin: 07/20/22 09:59 Dose: 1 appln Miscellaneous Information (Vancomycin Consult Active) 1 each N/A UD PRN PRN Reason: Consult Stop: 08/18/22 14:36
--- NOTE | 2022-07-22 10:15 | Pharmacy Report ---
Pharmacy Vanc AUC Short Note - Date of Service July 22, 2022 - Assessment & Plan Assessment 72 year old M receiving vancomycin for treatment of bacteremia and sacral osteomyelitis. Pertinent microbiologic data includes: positive nasal MRSA swab and the urine, sacrum and blood cultures are growing MRSA. Day # 4 of antimicrobial therapy. Plan Vancomycin * Loading dose: vancomycin 1500 mg IV x 1 * Maintenance dose: vancomycin 1250 mg IV q24h * AUC/NICK is the preferred PK/PD target for vancomycin * AUC guided dosing is effective and associated with decreased risk of nephrotoxicity compared to traditional trough targets * Trough level of 13.4 mcg/mL is predicted to achieve target AUC/NICK of 486 mg/L.hr and may be associated with a 9% risk of nephrotoxicity * Continue dose of 1250 mg IV every 24 hours * Random level ordered for: 07/22/22 Cefepime * cefepime 2000 mg IV q12h dose adjusted to the current renal function status (CrCl 48.7 mL/min) Thank you for the consult, pharmacy will continue to follow and will adjust dose/frequency as necessary. Thank you.
--- NOTE | 2022-07-22 12:59 | Anesthesiology Consultation ---
Date of Service July 22, 2022 Assessment & Plan Chart Review Chart Review: Acceptable Risk for Surgery History Surgery Operation Date: 07/23/22 09:30 Proposed Procedures p Incision and Drainage Sacral Decubitus Ulcer - Gregorio Awad MD, FACS Height/Weight Height: 5 ft 10 in Weight: 69.8 kg Allergies Allergy/AdvReac Type Severity Reaction Status Date / Time adhesive Allergy Mild Irritated Verified 07/19/22 17:28 skin ciprofloxacin Allergy Unknown affected Verified 07/19/22 17:28 blood counts (THROMBOCYTOPENIA) apixaban [From Eliquis] Allergy Unknown Verified 07/19/22 17:28 rivaroxaban [From Xarelto] Allergy Unknown Verified 07/19/22 17:28 heparin AdvReac Intermediate POSSIBLE Verified 07/19/22 17:28 CAUSE OF THROMBOCYTOPENIIA 04/22, LABS PENDING Medications Home Medications Medication Instructions Recorded Confirmed Last Taken amlodipine 5 mg tablet 5 mg PO QAM 07/20/18 07/19/22 07/19/22 06:00 cranberry 400 mg capsule 400 mg PO QAM 07/20/18 07/19/22 12/06/21 acetaminophen 500 mg tablet 1,000 mg PO Q6H PRN Pain 10/22/19 07/19/22 12/06/21 17:00 (Tylenol Extra Strength) furosemide 40 mg tablet 40 mg PO DAILY 03/07/20 07/19/22 07/19/22 06:00 docusate sodium 100 mg capsule 100 mg PO DAILY 01/01/22 07/19/22 07/19/22 (Colace) metoprolol succinate 25 mg 12.5 mg PO BID PRN .elavated hr 02/07/22 07/19/22 07/19/22 06:00 tablet,extended release 24 hr (Toprol XL) aspirin 81 mg tablet,delayed 81 mg PO DAILY 07/09/22 07/19/22 07/19/22 06:00 release sulfamethoxazole 800 1 tab PO BID 07/19/22 07/19/22 07/19/22 06:00 mg-trimethoprim 160 mg tablet Active Medications Generic Name Dose Route Start Last Admin Trade Name Freq PRN Reason Stop Dose Admin Acetaminophen 650 mg 07/19/22 21:07 07/22/22 08:24 Acetaminophen 325 Mg Tab PO 08/18/22 21:06 650 mg Q4H PRN Administration Pain or Fever Aspirin 81 mg 07/20/22 09:00 07/22/22 08:24 Aspirin 81 Mg Ectab PO 08/19/22 08:59 81 mg DAILY RAMÓN Administration Cefepime HCl 2,000 mg/ Syringe 20 mls @ 5 mls/min 07/20/22 00:00 07/22/22 12:22 IV 08/31/22 00:00 5 mls/min Q12H RAMÓN Administration Protocol Miconazole Nitrate 1 appln 07/20/22 09:08 07/20/22 09:59 Miconazole Nitrate Powder 43 Gm EXT 08/19/22 09:07 1 appln PRN PRN Administration Affected Skin Folds Past Medical History Medical History AAA (abdominal aortic aneurysm) Acute GI bleeding (11/2021) Atrial fibrillation with RVR Bleeding hemorrhoids (11/2021) Cardiomyopathy Mild, EF 45 to 50% on October 2019 echocardiogram. Cellulitis of leg, right Cholecystitis, chronic COPD exacerbation Elevated troponin Fall from motorized wheelchair (2017) Hiatal hernia Hiccups History of quadriplegia WHEELCHAIR BOUND-S/P TRAUMA 1964 Hx of gann 2007-LOWER EXTREMITIES Hx of decubitus ulcer SURGERY TO DEBRIDE-1963 Hypertension Indwelling Amos catheter present Kidney stones Osteoarthritis Paralysis LEVEL C 5-UNABLE TO MOVE FINGERS Psoriasis Seborrheic keratosis Spinal stenosis Past Family History Family History Grandmother Family history of diabetes mellitus Mother Family history of diabetes mellitus Brother Family history of diabetes mellitus Past Surgical History Surgical History H/O cervical spine surgery H/O hemorrhoidectomy (11/27/21) Hemorrhoidectomy Dr. Alamo 11/27/2021 H/O skin graft 1964 - decubitus 2010 - gann History of back surgery CERVICAL BONE FUSION-2010 (ACDF 04/07/2012 - Glidescope #4 EZ intubation) S/P debridement DECUBITUS 1964 Social History Smoking Status: Light tobacco smoker tobacco type: cigarettes Smoking cigarettes per day: 1 cigarette per day Do You Dip or Chew Tobacco: No Hx Alcohol Use: No Alcohol type: beer and wine alcohol intake frequency: holidays/special occasions only Hx Substance Use: No Physical Exam Vital Signs Last Vital Signs Temp 36.6 C 07/22/22 12:19 Pulse 99 H 07/22/22 12:19 Resp 17 07/22/22 12:19 BP 131/76 07/22/22 12:19 Pulse Ox 97 07/22/22 12:19 O2 Del Method 07/22/22 12:19 Testing Laboratory Results 07/22/22 05:43 07/22/22 05:43 PT 11.3 Seconds (9.0-12.0) 07/19/22 14:15 INR 1.1 (0.9-1.1) 07/19/22 14:15 APTT 45.0 Seconds (21.0-31.0) H 07/19/22 14:15 Urine Color Yellow 07/19/22 15:30 Urine Appearance Clear (Clear) 07/19/22 15:30 Urine pH 6.0 (4.5-7.5) 07/19/22 15:30 Ur Specific [place] 1.020 (1.000-1.030) 07/19/22 15:30 Urine Protein 1+ (Negative) H 07/19/22 15:30 Urine Glucose (UA) Negative (Negative) 07/19/22 15:30 Urine Ketones Negative (Negative) 07/19/22 15:30 Urine Nitrite Negative (Negative) 07/19/22 15:30 Ur Leukocyte Esterase 3+ (Negative) H 07/19/22 15:30 Urine RBC 5-10 /hpf (0-4) H 07/19/22 15:30 Urine WBC >30 /hpf (0-5) H 07/19/22 15:30 Ur Epithelial Cells 10-20 /lpf (0-5) H 07/19/22 15:30 07/19/22 14:34 Gram Stain - Final Sacrum Aerobic and Anaerobic Culture - Preliminary Staph aureus MRSA Staph aureus MRSA#2 07/19/22 14:15 Aerobic Blood Culture - Final Blood Staph aureus MRSA Anaerobic Blood Culture - Final Staph aureus MRSA 07/19/22 14:15 Aerobic Blood Culture - Preliminary Blood Staph aureus MRSA Staphylococcus species Anaerobic Blood Culture - Preliminary Staph aureus MRSA 07/19/22 15:30 Urine Culture - Final Urine,Straight Cath Staph aureus MRSA Electrocardiogram Date: 07/19/22 Findings: + AFIB @ (116) possible anterolateral infarct noted previously Chest X-Ray Date: 07/19/22 Findings: + NAD and + cardiomegaly Echocardiogram Date: 07/21/22 EF: 50-55% Valvular Disease: + no significant valvular disease
[2022-07-22] MEDS: DAPTOmycin 600 MG in SYRINGE 0 ML IV SCH (15:08)
--- NOTE | 2022-07-22 21:10 | Hospitalist Progress Note ---
Date of Service July 22, 2022 Assessment & Plan (1) Sepsis: Plan: This is a 72 yo male who is a C5 incomplete quadriplegic admitted on account of fever, chills Found to have sepsis WBC is elevated, elevated temp, elevated HR. 3/4 for sepsis, chris source is sacral wound and osteomyelitis Patient has signs of osteomyelitis of sacrum on CT scan. Recommended transfer to tertiary center, however, ER called [facility] and transfer denied. General surgery on consult, plan for wound debridement and later wound vac on 07/23 Patient appears improved on 07/22 ID also on consult Continue IV vancomycin and Cefepime Blood cultures positive for gram positive cocci 2 D ECHO done, official report pending (2) Positive blood culture: Plan: 4 bottles growing gram positive cocci Source is likely stage 4 sacral ulcer and/osteomyelitis of sacrum 2 D ECHO done, official report pending Continue IV vancomycin and Cefepime ID on consult (3) Sacral osteomyelitis: Plan: CT showed evidence of Large sacral decubitus ulcer with erosion of the inferior sacrum and coccyx consistent with acute osteomyelitis. Adjacent inflammation extending into the sacral canal Continue IV Vancomycin and IV Cefepime Will need group home antibiotics ID on consult (4) Pressure injury of sacral region, stage 4: Plan: as noted above, consulted General Surgery (5) Hypotension: Plan: Blood pressure responded to IVF. lactic acid is 2. will hold BP meds (6) History of quadriplegia: Plan: since age of 14. able to move biceps. (7) Anemia: Plan: will continue to monitor, does not require transfusion (8) Permanent atrial fibrillation: Plan: not on anticoagulation (9) Paralysis: Plan: as noted above (10) Hypertension: Plan: holding BP meds (11) AAA (abdominal aortic aneurysm): Plan: appears stable. Currently, does not require emergent intervention Plan continue hospitalization Admission and Anticipated Discharge Date Admission Date: July 19, 2022 Subjective 72 yo male reports feeling well. Patient has no new complaints. Review of Systems Review of Systems: All systems reviewed & are unremarkable except as noted in HPI & below Physical Exam Physical Exam: General: awake, alert, no apparent distress Head: Normocephalic, atraumatic ENT: PERRL, EOMI, no pharyngeal exudate, mucous membranes moist Chest: Clear to auscultation, on room air, no adventitious breath sounds Cardiac: Regular rate, irregular rhythm, no murmur, no JVD, normal peripheral pulses, good capillary refill Abdominal: NABS x 4 quadrants, soft, pain when removing gown from abdomen, however nontender to palpation, no rebound, guarding or tenderness Extremities: Normal inspection, no peripheral edema or erythema, calfs nontender to palpation Psych: Normal mood and affect Neuro: AAO x 3, with quadriplegia from chest down; no new strength intact bilaterally and rated 5/5, no motor deficits, speech is clear, no peripheral sensory deficits Results & Data Results & [facility] ([facility]) Vital Signs (Past 12 Hours) Vital Signs Temp Pulse Pulse Pulse Resp BP BP 07/22/22 21:03 07/22/22 19:29 36.6 C 95 H 20 110/73 07/22/22 16:10 36.5 C 70 16 110/68 07/22/22 15:29 100 H 07/22/22 12:19 36.6 C 99 H 17 131/76 Pulse Ox Pulse Ox O2 Del Method O2 Del Method 07/22/22 21:03 95 Room Air 07/22/22 19:29 96 Room Air 07/22/22 16:10 97 Room Air 07/22/22 15:29 07/22/22 12:19 97 Room Air PG Care Time/CCT Total # of Minutes Spent Total Time Spent with Patient: Total time spent is greater than 50% in coordination of care (as documented) at patient's floor/unit and/or counseling patient: Coding Level of Care Code 41210 Subseq Hosp Care Lvl 2 Diagnoses Sepsis A41.9 Sepsis acute organ dysfunction status: without acute organ dysfunction Sepsis type: sepsis due to unspecified organism Positive blood culture R78.81 Sacral osteomyelitis M46.28 Pressure injury of sacral region, stage 4 L89.154 Hypotension I95.9 Hypotension type: unspecified hypotension type History of quadriplegia Z86.69 Anemia D64.9 Permanent atrial fibrillation I48.21 Paralysis G83.9 Hypertension I10 Hypertension type: essential hypertension AAA (abdominal aortic aneurysm) I71.4 Time Spent (min) 25 (1) Sepsis Sepsis acute organ dysfunction status: without acute organ dysfunction Sepsis type: sepsis due to unspecified organism Qualified Code(s): A41.9 - Sepsis, unspecified organism (2) Hypertension Hypertension type: essential hypertension Qualified Code(s): I10 - Essential (primary) hypertension (3) Hypotension Hypotension type: unspecified hypotension type Qualified Code(s): I95.9 - Hypotension, unspecified
[2022-07-23] MEDS ORDERED: VANCOMYCIN LEVEL ONE ×2 (04:00→05:30)
--- NOTE | 2022-07-23 08:33 | History & Physical Bridge Note ---
Date of Service July 23, 2022 History & Physical Bridge Note I have examined the patient, reviewed the History & Physical and in the interval since the performance of the History & Physical I have noted the following changes of clinical significance: no changes noted
[2022-07-23] MEDS ORDERED: fentaNYL citrate 100 MCG/2 ML VIAL ONE (08:36)
[2022-07-23] MEDS ORDERED: ATROPINE SULFATE 0.1 MG/ML 10ML SYR IV PRN (09:25)
[2022-07-23] MEDS ORDERED: ONDANSETRON INJ 2 MG/ML 2 ML VIAL IV PRN (09:25)
[2022-07-23] MEDS ORDERED: fentaNYL citrate 100 MCG/2 ML VIAL IV PRN (09:25)
[2022-07-23] MEDS ORDERED: BUPIVACAINE 0.5 % 5 MG/1 ML MPF 30ML VIAL ONE (09:36)
[2022-07-23] MEDS ORDERED: ONDANSETRON INJ 2 MG/ML 2 ML VIAL ONE (09:52)
[2022-07-23] MEDS ORDERED: LIDOCAINE 2% MPF LOCAL 5 ML VIAL INFIL ONE (09:52)
[2022-07-23] MEDS ORDERED: ROCURONIUM BROMIDE 10 MG/ML 5 ML VIAL IV ONE (09:52)
[2022-07-23] MEDS ORDERED: DEXAMETHASONE SOD INJ 4 MG/ML VIAL ONE (09:52)
[2022-07-23] MEDS ORDERED: PHENYLEPHRINE 100MCG/ML 5ML SYR ONE (09:52)
[2022-07-23] MEDS ORDERED: PROPOFOL IV EMULSION 10 MG/ML 20 ML VIAL IV ONE (09:52)
[2022-07-23] MEDS ORDERED: GLYCOPYRROLATE 0.2 MG/ML VIAL ONE (10:07)
[2022-07-23] MEDS ORDERED: NEOSTIGMINE METHYLSULFATE 1 MG/ML 10ML VIAL ONE (10:07)
--- NOTE | 2022-07-23 10:29 | Post Operative Brief Note ---
PG Immediate Post Op with CF Date of Surgery July 23, 2022 Pre & Post Diagnosis Operation Date: 07/23/22 09:30 Pre-Op Diagnosis: Sacral decubitus, osteomyelitis Post-Op Diagnosis: Sacral decubitus, osteomyelitis I identified the patient and participated in the time-out.: Yes Procedure Operation Date: 07/23/22 09:30 Actual Procedures p Incision and debridement sacral Decubitus Ulcer(Not Applicable) - Gregorio Awad MD, FACS Minor bone debridement with culture Surgeon Gregorio Awad MD, FACS [employer]ist Nurses Estimated Blood Loss 10 Findings Consistent with Post-Op Diagnosis Significant undermining of the skin but minimal necrotic tissue Very small 2 cm site of bone exposure-debrided and cultured Tissue also cultured Specimens Specimen Description: Culture #1 sacral ulcer Culture #2 sacral bone A. sacral ulcer Drains Amos Catheter
--- NOTE | 2022-07-23 11:23 | Operative Report (OR) ---
DATE OF OPERATION: 07/23/2022 NAME OF OPERATION: Incision and debridement of sacral ulcer. PREOPERATIVE DIAGNOSIS: Sacral ulcer and osteomyelitis. POSTOPERATIVE DIAGNOSIS: Sacral ulcer and osteomyelitis. STAFF SURGEON: Gregorio Awad MD. DIRECTOR COUNCIL ON AGING: Nurses. ANESTHESIA: General. DESCRIPTION OF PROCEDURE: The patient was brought in the operating room, placed on the operating tab le in the prone position. After appropriate intubation, his sacral area was prepped and draped in the usual fashion with Betadine. The patient had significant undermining of the skin at a sacral ulcer. The ulcer was approximately 5-6 cm in diameter, but the skin undermined another 3-4 cm. This site was anesthetized using 0.5% plain Marcaine and then circumferential skin, subcutaneous tissue, muscle , and some bone were taken. The tissue was cultured. The bone exposed was only approximately 2 cm. It was debrided with a rongeur and then cultured. After appropriate hemostasis, Betadine dressing a pplied. The patient was transferred back to the recovery room in stable condition. As of note, the patient did not have significant amount of necrotic tissue, but the ulcer was significantly undermini ng the skin. Job ID: [id number]
[2022-07-23] MEDS: ASPIRIN 81 MG ECTAB PO SCH (11:30)
[2022-07-23] MEDS: CEFEPIME 2,000 MG in SYRINGE 0 ML IV SCH ×2 (11:33→23:14)
[2022-07-23] MEDS: ACETAMINOPHEN 325 MG TAB PO PRN (11:33)
[2022-07-23] MEDS: DAPTOmycin 600 MG in SYRINGE 0 ML IV SCH (12:15)
[2022-07-23 13:36] LABS: Hematocrit (blood only) 33.3 % (40.1-51.0); Hemoglobin 10.1 g/dl (14.0-18.0); Mean Corpuscular Hemoglobin 24.3 pg (25.0-34.0); Mean Corpuscular Hgb Conc 30.3 g/dL (32.0-36.0); Mean Platelet Volume 9.2 fL (9.4-12.4); Platelet Count 344 K/uL (130-400); RDW Coefficient of Variation 17.5 % (11.5-14.5); RDW Standard Deviation 50.2 fL (36.4-46.3); Red Blood Count 4.16 M/uL (4.63-6.08)
[2022-07-23 14:05] LABS: BUN Creatinine Ratio 27.6 (10-20); Creatinine Clr Calc Pharmacy 73.3 ml/min; Est GFR (African American) 98.5 ml/min; Potassium 4.5 mmol/L (3.5-5.1)
[2022-07-23] MEDS: traMADol HCL 50 MG TABLET PO PRN ×2 (16:34→22:21)
--- NOTE | 2022-07-23 20:14 | Hospitalist Progress Note ---
Date of Service July 23, 2022 Assessment & Plan (1) Sepsis: Plan: This is a 72 yo male who is a C5 incomplete quadriplegic admitted on account of fever, chills Found to have sepsis WBC is elevated, elevated temp, elevated HR. 3/4 for sepsis, vashtiley source is sacral wound and osteomyelitis Patient has signs of osteomyelitis of sacrum on CT scan. Recommended transfer to tertiary center, however, ER called [facility] and transfer denied. General surgery on consult, wound debridement completed on 07/23 Plan for wound vac once blleeding has stopped ID also on consult Continue IV vancomycin and Cefepime Blood cultures positive for gram positive cocci 2 D ECHO done (2) Positive blood culture: Plan: 4 bottles growing gram positive cocci Source is likely stage 4 sacral ulcer and/osteomyelitis of sacrum 2 D ECHO done, official report pending Continue IV vancomycin and Cefepime ID on consult (3) Sacral osteomyelitis: Plan: CT showed evidence of Large sacral decubitus ulcer with erosion of the inferior sacrum and coccyx consistent with acute osteomyelitis. 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 lactic acid improved. (6) History of quadriplegia: Plan: since age of 14. able to move biceps. (7) Anemia: Plan: will continue to monitor, does not require transfusion (8) Permanent atrial fibrillation: Plan: not on anticoagulation (9) Paralysis: Plan: as noted above (10) Hypertension: Plan: holding BP meds (11) AAA (abdominal aortic aneurysm): Plan: appears stable. Currently, does not require emergent intervention Plan continue hospitalization Admission and Anticipated Discharge Date Admission Date: July 19, 2022 Subjective 72 yo male reports feeling better today. He has no new complaints. Review of Systems Review of Systems: All systems reviewed & are unremarkable except as noted in HPI & below Physical Exam Physical Exam: General: awake, alert, no apparent distress Head: Normocephalic, atraumatic ENT: PERRL, EOMI, no pharyngeal exudate, mucous membranes moist Chest: Clear to auscultation, on room air, no adventitious breath sounds Cardiac: Regular rate, irregular rhythm, no murmur, no JVD, normal peripheral pulses, good capillary refill Abdominal: NABS x 4 quadrants, soft, pain when removing gown from abdomen, however nontender to palpation, no rebound, guarding or tenderness Extremities: Normal inspection, no peripheral edema or erythema, calfs nontender to palpation Psych: Normal mood and affect Neuro: AAO x 3, with quadriplegia from chest down; no new strength intact bilaterally and rated 5/5, no motor deficits, speech is clear, no peripheral sensory deficits Results & Data Results & Data ([facility]) Vital Signs (Past 12 Hours) Vital Signs Temp Pulse Pulse Pulse Resp BP BP 07/23/22 19:30 36.4 C L 101 H 18 108/70 07/23/22 15:30 36.6 C 100 H 18 96/67 L 07/23/22 15:21 90 07/23/22 12:59 36.6 C 79 16 108/64 07/23/22 12:00 36.6 C 74 17 111/65 07/23/22 11:30 36.5 C 91 H 18 112/72 07/23/22 11:29 36.3 C L 77 16 127/72 07/23/22 11:10 67 19 98/66 L 07/23/22 11:00 36.3 C L 66 22 98/64 L 07/23/22 10:50 77 17 99/67 L 07/23/22 10:40 61 20 99/57 L 07/23/22 10:31 36.1 C L 77 20 87/62 L 07/23/22 08:55 36.6 C 84 18 113/80 07/23/22 08:24 36.5 C 92 H 17 121/80 Pulse Ox O2 Del Method O2 Flow Rate 07/23/22 19:30 97 Room Air 07/23/22 15:30 97 Room Air 07/23/22 15:21 07/23/22 12:59 99 Room Air 07/23/22 12:00 96 Room Air 07/23/22 11:30 94 Room Air 07/23/22 11:29 98 Room Air 07/23/22 11:10 97 Room Air 07/23/22 11:00 96 Room Air 07/23/22 10:50 98 Room Air 07/23/22 10:40 100 Oxymask 6 07/23/22 10:31 96 Oxymask 6 07/23/22 08:55 99 Room Air 07/23/22 08:24 96 Room Air PG Care Time/CCT Total # of Minutes Spent Total Time Spent with Patient: Total time spent is greater than 50% in coordination of care (as documented) at patient's floor/unit and/or counseling patient: Coding Level of Care Code 04003 Subseq Hosp Care Lvl 3 Diagnoses Sepsis A41.9 Sepsis acute organ dysfunction status: without acute organ dysfunction Sepsis type: sepsis due to unspecified organism Positive blood culture R78.81 Sacral osteomyelitis M46.28 Pressure injury of sacral region, stage 4 L89.154 Hypotension I95.9 Hypotension type: unspecified hypotension type History of quadriplegia Z86.69 Anemia D64.9 Permanent atrial fibrillation I48.21 Paralysis G83.9 Hypertension I10 Hypertension type: essential hypertension AAA (abdominal aortic aneurysm) I71.4 (1) Sepsis Sepsis acute organ dysfunction status: without acute organ dysfunction Sepsis type: sepsis due to unspecified organism Qualified Code(s): A41.9 - Sepsis, unspecified organism (2) Hypertension Hypertension type: essential hypertension Qualified Code(s): I10 - Essential (primary) hypertension (3) Hypotension Hypotension type: unspecified hypotension type Qualified Code(s): I95.9 - Hypotension, unspecified
[2022-07-24 06:29] LABS: Basophils # (auto) 0.07 K/uL (0-0.2); Basophils % (auto) 0.6 %; Eosinophils # (auto) 0.04 K/uL (0-0.50); Eosinophils % (auto) 0.3 %; Hematocrit (blood only) 28.1 % (40.1-51.0); Hemoglobin 8.5 g/dl (14.0-18.0); Immature Granulocytes % (auto) 0.8 %; Lymphocytes # (auto) 0.96 K/uL (1.2-3.4); Lymphocytes % (auto) 7.8 %; Mean Corpuscular Hemoglobin 23.5 pg (25.0-34.0); Mean Corpuscular Hgb Conc 30.2 g/dL (32.0-36.0); Mean Corpuscular Volume 77.8 fL (80.0-100.0); Mean Platelet Volume 9.7 fL (9.4-12.4); Monocytes # (auto) 0.63 K/uL (0.24-0.82); Monocytes % (auto) 5.1 %; Neutrophils # (auto) 10.55 K/uL (1.4-6.5); Neutrophils % (auto) 85.4 %; Platelet Count 364 K/uL (130-400); RDW Coefficient of Variation 17.5 % (11.5-14.5); RDW Standard Deviation 49.4 fL (36.4-46.3); Red Blood Count 3.61 M/uL (4.63-6.08); White Blood Count 12.35 K/ul (4.8-10.8)
--- NOTE | 2022-07-24 06:33 | Surgery Progress Note ---
Date of Service July 24, 2022 Assessment & Plan (1) Pressure injury of sacral region, stage 4: Plan: Status postdebridement of sacral decub Had some bleeding but this is expected Given some tramadol for some pain Overall stable Hopefully can place a VAC in the next 24 to 48 hours Will certainly need wound clinic follow-up Admission and Anticipated Discharge Date Admission Date: July 19, 2022 Results & Data ([facility]) Vital Signs (Past 12 Hours) Vital Signs Temp Pulse Pulse Resp BP Pulse Ox Pulse Ox 07/24/22 03:23 36.5 C 102 H 18 104/70 97 07/24/22 00:27 105 H 07/23/22 22:17 36.7 C 91 H 18 97/63 L 97 07/23/22 21:00 95 07/23/22 19:30 36.4 C L 101 H 18 108/70 97 O2 Del Method O2 Del Method 07/24/22 03:23 Room Air 07/24/22 00:27 07/23/22 22:17 Room Air 07/23/22 21:00 Room Air 07/23/22 19:30 Room Air PG Care Time/CCT Total # of Minutes Spent Total Time Spent with Patient: Total time spent is greater than 50% in coordination of care (as documented) at patient's floor/unit and/or counseling patient: Coding Level of Care Code None Diagnoses Pressure injury of sacral region, stage 4 L89.154
[2022-07-24] MEDS: ASPIRIN 81 MG ECTAB PO SCH (09:10)
--- NOTE | 2022-07-24 10:50 | Infectious Disease Progress Nt ---
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 Admission wound, blood, and urine cultures are all growing MRSA. He was initially placed on vanc and cefepime, with clinical improvement. The vancomycin was changed to daptomycin on 07/22 due to vanc NICK of 2. Surveillance blood cultures from 07/22 and 07/23 are NGTD. TTE on 07/21 was technically difficult, but no vegetations were noted. The MRSA bacteremia is likely secondary to his infected sacral wound, and the bacteremia likely seeded his urinary tract. No signs of MRSA seeding of other sites at this time. He was taken to the OR on 07/23 for debridement and was noted to have significant undermining of the skin. He is awaiting wound vac placement. For sacral osteomyelitis, cure would only be achieved through flap coverage in conjunction with 6 weeks of targeted IV antibiotics. However, if the patient is not a candidate for flap and wound closure, the wound will remain continuously open to the environment, and a prolonged course of IV antibiotics will not be effective and will lead to colonization with resistant organisms. Generally in these cases, would advocate for a short course of antibiotics to treat for a soft tissue infection, in conjunction with ongoing close wound care follow-up, and debridements as needed to help decrease the risk for systemic infection. However, his case is complicated by MRSA bacteremia, which will require a longer duration of IV antibiotics. It is unknown how long he has been bacteremic--he was feeling unwell for ~10 days prior to presentation, which raises concern for multiple days of bacteremia. He does have a wound culture from 07/03 that grew ESBL E coli, for which he was treated with TMP/SMX x 14 days as an outpatient. Unclear whether this organism is contributing to his current infection, but since he is clinically stable, will hold off on broadening from cefepime for now. Antimicrobial course: Daptomycin 07/22- Cefepime 07/19- Vanc 07/19-07/21 Zosyn 07/19 Problems: #Decubitus SSTI with sacral and coccygeal osteomyelitis: wound culture +MRSA. Prior culture from 07/03/22 with ESBL E coli #MRSA bacteremia #UCx with MRSA #Cipro allergy: thrombocytopenia Recommendations: -Follow-up 07/22 and 07/23 blood cultures for clearance -Follow-up OR cultures -Continue daptomycin 600 mg IV q24h. Anticipate 4-6 week duration from blood culture clearance -Baseline CK 101 on 07/23 -Check at least weekly CK while on daptomycin -Continue cefepime for now, pending OR cultures -Would exchange guido, if it has not already been exchanged (UCx +MRSA on admission) -Will continue to follow Admission and Anticipated Discharge Date Admission Date: July 19, 2022 Subjective This patient recommendation is based on a telemedicine consult request which was completed asynchronously through chart review and information provided by the primary physician. The patient was not seen or examined today. The evaluation is consultative in nature and all patient care and treatment decisions can either be accepted or rejected by the patient's primary hospital-based treating physician using their own independent medical judgment for their patient. Taken to OR yesterday: underwent I&D of sacral ulcer. Noted to have significant undermining of skin. Tissue was sent for culture. About 2 cm of bone was exposed, which was debrided and sent for culture. Afebrile WBC 12.35 today Blood cultures from 07/22 and 07/23 are NGTD Review of System Pt not seen Physical Exam Physical Exam: Pt not seen Results & Data ([facility]) Vital Signs (Past 12 Hours) Vital Signs Temp Pulse Pulse Resp BP BP Pulse Ox 07/24/22 07:29 36.5 C 74 18 124/79 96 07/24/22 03:23 36.5 C 102 H 18 104/70 97 07/24/22 00:27 105 H O2 Del Method 07/24/22 07:29 Room Air 07/24/22 03:23 Room Air 07/24/22 00:27 Laboratory Results Short CBC 07/23/22 07/24/22 Range/Units 13:10 05:48 WBC 10.40 12.35 H (4.8-10.8) K/ul Hgb 10.1 L 8.5 L (14.0-18.0) g/dl Hct 33.3 L 28.1 L (40.1-51.0) % Plt Count 344 364 (130-400) K/uL BMP 07/23/22 13:10 Sodium 137 Potassium 4.5 Chloride 106 Carbon Dioxide 24 BUN 24 H Creatinine 0.87 Glucose 171 H Calcium 9.0 Diagnostic Findings Microbiology 07/23/22 10:38 Sacrum Gram Stain - Final 07/23/22 10:38 Sacrum Gram Stain - Final 07/22/22 11:01 Blood Aerobic Blood Culture - Preliminary No growth in Aerobic bottle after 24 hours. 07/22/22 11:01 Blood Anaerobic Blood Culture - Preliminary No growth in Anaerobic bottle after 24 hours. 07/22/22 10:55 Blood Aerobic Blood Culture - Preliminary No growth in Aerobic bottle after 24 hours. 07/22/22 10:55 Blood Anaerobic Blood Culture - Preliminary No growth in Anaerobic bottle after 24 hours. 07/19/22 14:15 Blood Aerobic Blood Culture - Final Staph aureus MRSA Staph aureus MRSA#2 07/19/22 14:15 Blood Anaerobic Blood Culture - Final Staph aureus MRSA 07/19/22 14:34 Sacrum Gram Stain - Final 07/19/22 14:34 Sacrum Aerobic and Anaerobic Culture - Preliminary Staph aureus MRSA Staph aureus MRSA#2 07/19/22 14:15 Blood Aerobic Blood Culture - Final Staph aureus MRSA 07/19/22 14:15 Blood Anaerobic Blood Culture - Final Staph aureus MRSA 07/19/22 15:30 Urine,Straight Cath Urine Culture - Final Staph aureus MRSA Medications Administered Current Inpatient Medications Acetaminophen (Acetaminophen 325 Mg Tab) 650 mg PO Q4H PRN PRN Reason: Mild Pain or Fever Stop: 08/18/22 21:06 Last Admin: 07/23/22 11:33 Dose: 650 mg Aspirin (Aspirin 81 Mg Ectab) 81 mg PO DAILY RAMÓN Stop: 08/19/22 08:59 Last Admin: 07/24/22 09:10 Dose: 81 mg Cefepime HCl 2,000 mg/ Syringe 20 mls @ 5 mls/min IV Q12H RAMÓN; Protocol Stop: 08/31/22 00:00 Last Admin: 07/23/22 23:14 Dose: 5 mls/min Daptomycin 600 mg/ Syringe 12 mls @ 6 mls/min IV Q24H RAMÓN; Protocol Stop: 08/05/22 12:59 Last Admin: 07/23/22 12:15 Dose: 6 mls/min Miconazole Nitrate (Miconazole Nitrate Powder 43 Gm) 1 appln EXT PRN PRN PRN Reason: Affected Skin Folds Stop: 08/19/22 09:07 Last Admin: 07/20/22 09:59 Dose: 1 appln Tramadol HCl (Tramadol Hcl 50 Mg Tablet) 50 mg PO Q4H PRN PRN Reason: moderate to severe Pain Stop: 08/22/22 15:37 Last Admin: 07/23/22 22:21 Dose: 50 mg
[2022-07-24] MEDS: CEFEPIME 2,000 MG in SYRINGE 0 ML IV SCH ×2 (12:57→23:04)
[2022-07-24] MEDS: DAPTOmycin 600 MG in SYRINGE 0 ML IV SCH (12:58)
[2022-07-24 14:50] LABS: Hematocrit (blood only) 30.5 % (40.1-51.0); Hemoglobin 9.4 g/dl (14.0-18.0)
[2022-07-24] MEDS: POLYETHYLENE (MIRALAX) 17 GM PACK PO SCH (20:09)
--- NOTE | 2022-07-24 21:31 | Hospitalist Progress Note ---
Date of Service July 24, 2022 Assessment & Plan (1) Sepsis: Plan: This is a 72 yo male who is a C5 incomplete quadriplegic admitted on account of fever, chills Found to have sepsis WBC is elevated, elevated temp, elevated HR. 3/4 for sepsis, likley source is sacral wound and osteomyelitis Patient has signs of osteomyelitis of sacrum on CT scan. Recommended transfer to tertiary center, however, ER called [facility] and transfer denied. General surgery on consult, wound debridement completed on 07/23 Plan for wound vac once bleeding has stopped. Perhaps this will be placed on 09/24 ID also on consult Continue IV Daptomycin (strated on 07/22 and replaced vanco) and Cefepime (started on 07/19) Blood cultures positive for gram positive cocci 2 D ECHO done (2) Positive blood culture: Plan: 4 bottles growing gram positive cocci Source is likely stage 4 sacral ulcer and/osteomyelitis of sacrum 2 D ECHO done, Appreciate recommendations by ID: -Follow-up 07/22 and 07/23 blood cultures for clearance -Follow-up OR cultures -Continue daptomycin 600 mg IV q24h. Anticipate 4-6 week duration from blood culture clearance -Baseline CK 101 on 07/23 -Check at least weekly CK while on daptomycin -Continue cefepime for now, pending OR cultures -Would exchange guido, if it has not already been exchanged (UCx +MRSA on admission) (3) Sacral osteomyelitis: Plan: CT showed evidence of Large sacral decubitus ulcer with erosion of the inferior sacrum and coccyx consistent with acute osteomyelitis. Adjacent inflammation extending into the sacral canal Continue IV antibiotics Will need group home antibiotics ID on consult (4) Pressure injury of sacral region, stage 4: Plan: as noted above, consulted General Surgery (5) Hypotension: Plan: Blood pressure responded to IVF. lactic acid improved. (6) History of quadriplegia: Plan: since age of 14. able to move biceps. (7) Anemia: Plan: will continue to monitor, does not require transfusion. Patient did have acute blood loss anemia from debridement. will monitor hemoglobin. (8) Permanent atrial fibrillation: Plan: not on anticoagulation (9) Paralysis: Plan: as noted above (10) Hypertension: Plan: holding BP meds (11) AAA (abdominal aortic aneurysm): Plan: appears stable. Currently, does not require emergent intervention (12) UTI (urinary tract infection) due to urinary indwelling Guido catheter: Plan: As guido was exchanged prior to first dose of antibiotics, will recommend changing guido cath again anytime prior to discharge. order placed for AM of 07/25 continue antibiotics as above. Plan continue hospitalization Admission and Anticipated Discharge Date Admission Date: July 19, 2022 Subjective Patient reports feeling much better. He has no new complaints. Discussed with nursing, appears patient had to have dressing of decubitus ucer changed overnight due to bleeding. However, this appears to be improved in the AM. Review of Systems Review of Systems: All systems reviewed & are unremarkable except as noted in HPI & below Physical Exam Physical Exam: General: awake, alert, no apparent distress Head: Normocephalic, atraumatic ENT: PERRL, EOMI, no pharyngeal exudate, mucous membranes moist Chest: Clear to auscultation, on room air, no adventitious breath sounds Cardiac: Regular rate, irregular rhythm, no murmur, no JVD, normal peripheral pulses, good capillary refill Abdominal: NABS x 4 quadrants, soft, pain when removing gown from abdomen, however nontender to palpation, no rebound, guarding or tenderness Extremities: Normal inspection, no peripheral edema or erythema, calfs nontender to palpation Psych: Normal mood and affect Neuro: AAO x 3, with quadriplegia from chest down; no new strength intact bilaterally and rated 5/5, no motor deficits, speech is clear, no peripheral sensory deficits Results & Data Results & Data ([facility]) Vital Signs (Past 12 Hours) Vital Signs Temp Pulse Pulse Resp BP BP Pulse Ox 07/24/22 19:16 36.3 C L 82 18 122/76 95 07/24/22 16:16 109 H 07/24/22 15:20 36.5 C 80 16 118/77 98 07/24/22 11:54 36.5 C 99 H 20 98/55 L 97 O2 Del Method 07/24/22 19:16 Room Air 07/24/22 16:16 07/24/22 15:20 Room Air 07/24/22 11:54 Room Air PG Care Time/CCT Total # of Minutes Spent Total Time Spent with Patient: Total time spent is greater than 50% in coordination of care (as documented) at patient's floor/unit and/or counseling patient: Coding Level of Care Code 22868 Subseq Hosp Care Lvl 3 Diagnoses Sepsis A41.9 Sepsis acute organ dysfunction status: without acute organ dysfunction Sepsis type: sepsis due to unspecified organism Positive blood culture R78.81 Sacral osteomyelitis M46.28 Pressure injury of sacral region, stage 4 L89.154 Hypotension I95.9 Hypotension type: unspecified hypotension type History of quadriplegia Z86.69 Anemia D64.9 Permanent atrial fibrillation I48.21 Paralysis G83.9 Hypertension I10 Hypertension type: essential hypertension AAA (abdominal aortic aneurysm) I71.4 UTI (urinary tract infection) due to urinary indwelling Guido catheter T83.511A; N39.0 (1) Sepsis Sepsis acute organ dysfunction status: without acute organ dysfunction Sepsis type: sepsis due to unspecified organism Qualified Code(s): A41.9 - Sepsis, unspecified organism (2) Hypertension Hypertension type: essential hypertension Qualified Code(s): I10 - Essential (primary) hypertension (3) Hypotension Hypotension type: unspecified hypotension type Qualified Code(s): I95.9 - Hypotension, unspecified
[2022-07-25 07:53] LABS: Hematocrit (blood only) 29.3 % (40.1-51.0); Hemoglobin 8.9 g/dl (14.0-18.0); Mean Corpuscular Hemoglobin 24.1 pg (25.0-34.0); Mean Corpuscular Hgb Conc 30.4 g/dL (32.0-36.0); Mean Corpuscular Volume 79.2 fL (80.0-100.0); Mean Platelet Volume 9.1 fL (9.4-12.4); Platelet Count 323 K/uL (130-400); RDW Coefficient of Variation 18.1 % (11.5-14.5); RDW Standard Deviation 51.6 fL (36.4-46.3); White Blood Count 10.51 K/ul (4.8-10.8)
--- NOTE | 2022-07-25 08:02 | Surgery Progress Note ---
Date of Service July 25, 2022 Assessment & Plan (1) History of incision and drainage: Plan: Dressing change last night with serosanguineous drainage Not tang blood per nurse Hopefully can apply wound VAC soon Admission and Anticipated Discharge Date Admission Date: July 19, 2022 Results & Data ([facility]) Vital Signs (Past 12 Hours) Vital Signs Temp Pulse Pulse Resp BP Pulse Ox O2 Del Method 07/25/22 07:06 36.5 C 90 18 107/61 95 07/25/22 03:00 36.9 C 79 18 133/82 99 Room Air 07/24/22 23:24 80 07/24/22 22:08 36.3 C L 98 H 18 150/95 H 96 Room Air PG Care Time/CCT Total # of Minutes Spent Total Time Spent with Patient: Total time spent is greater than 50% in coordination of care (as documented) at patient's floor/unit and/or counseling patient: Coding Level of Care Code None Diagnoses History of incision and drainage Z98.890
[2022-07-25 08:21] LABS: Calcium 8.6 mg/dl (8.5-10.1); Creatinine Clr Calc Pharmacy 85.8 ml/min; Est GFR (African American) 103.1 ml/min; Est GFR (Non-African American) 88.9 ml/min; Potassium 4.2 mmol/L (3.5-5.1)
[2022-07-25] MEDS: ASPIRIN 81 MG ECTAB PO SCH (09:24)
[2022-07-25] MEDS: POLYETHYLENE (MIRALAX) 17 GM PACK PO SCH (09:25)
[2022-07-25] MEDS ORDERED: bisacodyL 10 MG SUPP PR STA (10:51)
--- NOTE | 2022-07-25 10:52 | Hospitalist Progress Note ---
Date of Service July 25, 2022 Assessment & Plan (1) Sepsis: Plan: 2nd to sacral decubitus ulcer, stage 4, and sacral/coccygeal osteomyelitis. with resulting MRSA bacteremia/septicemia as below in #2. daptomycin IV x 6 weeks. cefepime d/c today in julia of ertapenem to cover for recent ESBL e.coli that grew from wound on 07/03/22. infectious disease recommending 10 day course of cefepime- now ertapenem- with stop date of ertapenem 08/01. (2) Bacteremia: Plan: 2nd MRSA. Most recent blood cultures from 07/22 and 07/23 remain negative fortunately. source - sacral osteomyelitis/stage 4 pressure ulcer. appreciate ID consultation. plan is 6 week course of IV daptomycin. will get PICC consent tomorrow AM. echo without obvious valvular vegetations. (3) Pressure injury of sacral region, stage 4: Plan: stage 4 sacral decubitus ulcer s/p I/D and debridement by Dr Awad - 07/23/22 appreciate his assistance intra-op cultures thus far negative; previous cultures from this region grew both MRSA and ESBL e.coli ultimately to have wound vac - defer timing of placement to gen surg & wound care team 6-week course of IV daptomycin planned due to MRSA 10-day course of IV cefepime --> now ertapenem to cover the ESBL e.coli appreciate gen surg, wound care, and ID assistance (4) Sacral osteomyelitis: Plan: CT showed evidence of Large sacral decubitus ulcer with erosion of the inferior sacrum and coccyx consistent with acute osteomyelitis. s/p I & D with debridement 07/23/[address] Awad 6-week course of IV daptomycin planned PICC line placement - tomorrow (5) UTI (urinary tract infection) due to urinary indwelling Guido catheter: Plan: 2nd MRSA IV daptomycin exchange his chronic guido prior to hospital discharge (6) Hypotension: Plan: 2nd to #1/#2 resolved holding amlodipine holding lasix using metoprolol for a.fib (7) History of quadriplegia: Plan: incomplete quad status. since age of 14. some partial movement of upper extremities and scant movements of LEs. (8) Anemia: Plan: microcytic, chronic. check FE studies, B12, folate in am. (9) Permanent atrial fibrillation: Plan: not on anticoagulation due to severe lower GI bleeding in November 2021 from hemorrhoids. required hemorrhoidectomy due to severity of this GI bleed. off Xarelto since then. rates are uncontrolled. start metoprolol 25mg QID. if his BPs do not tolerate metoprolol then will use IV digoxin. 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 incomplete quadriplegia (11) Hypertension: Plan: holding BP meds as above (12) AAA (abdominal aortic aneurysm): Plan: now 6.5cm, previously <6cm on last imaging patient aware established with [facility] surgery who apparently has referred him to [facility] for repair has upcoming appt in August for such (13) Cardiomyopathy: Plan: previous EF 40-45% now 50-55% on this admit's echo likely due to tachyarrhythmia (permanent a.fib) can't exclude other causes continue beta frederick appears compensated on exam (14) Constipation: Plan: dulcolax suppos x 1 today cont miralax daily (15) Indwelling Guido catheter present: Plan: exchange his guido prior to discharge (16) Atrial fibrillation with RVR: Plan: change metoprolol succinate to metoprolol tartrate and use 25mg QID titrate as needed use or add digoxin if necessary not on chronic anticoagulation 2nd to previous, severe GI bleed in 2021 (17) DVT prophylaxis: Plan: will check with gen surg in am if wound is stable and without any significant bleeding then add lovenox daily Admission and Anticipated Discharge Date Admission Date: July 19, 2022 Subjective tele overnight - a.fib, most rates 100-120, with rates 130 or higher at times during the visit the patient was resting comfortably he reports having had no BM since last weekend he has used suppositories in the past typically at home he doesn't have to use suppositories - he simply goes on his own every few days has chronic guido states he has been living independently in a modified handicap one-level home in [place] 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 denies any pain in any location denies dyspnea he certainly knows about his AAA states that vascular surgery at [facility] recommended he have AAA repair at [facility] rather than [facility] Review of Systems Review of Systems: gen - no fever, some cold chills however cv - no cp pulm - no dyspnea, no cough GI - denies feeling pain, some "pressure" type feeling however Physical Exam Physical Exam: gen - very pleasant, NAD mouth - MMM neck - no JVD heart - tachy, irregular, s1 s2, no murmur lungs - CTA b/l abd - mildly distended, BS+, NT ext - trace edema, pulses 2+ b/l neuro - muscle wasting of all 4 limbs; strength of arms at least 3-4/5; strength of legs 1/5 psych - a/o x 3 Results & Data Results & Data ([facility]) Vital Signs (Past 12 Hours) Vital Signs Temp Pulse Pulse Resp BP Pulse Ox O2 Del Method 07/25/22 08:00 92 H 07/25/22 07:06 36.5 C 90 18 107/61 95 07/25/22 03:00 36.9 C 79 18 133/82 99 Room Air 07/24/22 23:24 80 Laboratory Results Laboratory Results - last 24 hr 07/25/22 07/25/22 07:35 07:35 WBC 10.51 RBC 3.70 L Hgb 8.9 L Hct 29.3 L MCV 79.2 L MCH 24.1 L MCHC 30.4 L RDW Std Deviation 51.6 H RDW Coeff of [place] 18.1 H Plt Count 323 MPV 9.1 L Sodium 138 Potassium 4.2 Chloride 108 H Carbon Dioxide 25 Anion Gap 5 BUN 32 H Creatinine 0.78 Est Cr Clr Drug Dosing 85.8 Est GFR ( Amer) 103.1 Est GFR (Non-Af Amer) 88.9 BUN/Creatinine Ratio 41.0 H Glucose 96 Calcium 8.6 PG Care Time/CCT Total # of Minutes Spent Total Time Spent with Patient: Total time spent is greater than 50% in coordination of care (as documented) at patient's floor/unit and/or counseling patient: Coding Level of Care Code 53572 Subseq Hosp Care Lvl 3 Diagnoses Sepsis A41.9 Sepsis acute organ dysfunction status: without acute organ dysfunction Sepsis type: sepsis due to unspecified organism Bacteremia R78.81 Pressure injury of sacral region, stage 4 L89.154 Sacral osteomyelitis M46.28 UTI (urinary tract infection) due to urinary indwelling Guido catheter T83.511A; N39.0 Hypotension I95.9 Hypotension type: unspecified hypotension type History of quadriplegia Z86.69 Anemia D64.9 Permanent atrial fibrillation I48.21 Paralysis G83.9 Hypertension I10 Hypertension type: essential hypertension AAA (abdominal aortic aneurysm) I71.4 Cardiomyopathy I42.9 Constipation K59.00 Indwelling Guido catheter present Z96.0 Atrial fibrillation with RVR I48.91 DVT prophylaxis Z29.9 (1) Sepsis Sepsis acute organ dysfunction status: without acute organ dysfunction Sepsis type: sepsis due to unspecified organism Qualified Code(s): A41.9 - Sepsis, unspecified organism (2) Hypertension Hypertension type: essential hypertension Qualified Code(s): I10 - Essential (primary) hypertension (3) Hypotension Hypotension type: unspecified hypotension type Qualified Code(s): I95.9 - Hypotension, unspecified
--- NOTE | 2022-07-25 11:01 | Infectious Disease Progress Nt ---
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 Admission wound, blood, and urine cultures are all growing MRSA. He was initially placed on vanc and cefepime, with clinical improvement. The vancomycin was changed to daptomycin on 07/22 due to vanc NICK of 2. Surveillance blood cultures from 07/22 and 07/23 are NGTD. TTE on 07/21 was technically difficult, but no vegetations were noted. The MRSA bacteremia is likely secondary to his infected sacral wound, and the bacteremia likely seeded his urinary tract. No signs of MRSA seeding of other sites at this time. He was taken to the OR on 07/23 for debridement and was noted to have significant undermining of the skin. He is awaiting wound vac placement. For sacral osteomyelitis, cure would only be achieved through flap coverage in conjunction with 6 weeks of targeted IV antibiotics. However, if the patient is not a candidate for flap and wound closure, the wound will remain continuously open to the environment, and a prolonged course of IV antibiotics will not be effective and will lead to colonization with resistant organisms. Generally in t hese cases, would advocate for a short course of antibiotics to treat for a soft tissue infection, in conjunction with ongoing close wound care follow-up, and debridements as needed to help decrease the risk for systemic infection. However, his case is complicated by MRSA bacteremia, which will require a longer duration of IV antibiotics. It is unknown how long he has been bacteremic--he was feeling unwell for ~10 days prior to presentation, which raises concern for multiple days of bacteremia. He had positive blood cultures on 07/19, but no repeat blood cultures were obtained until 07/22. He does have a wound culture from 07/03 that grew ESBL E coli, for which he was treated with TMP/SMX x 14 days as an outpatient. Unclear whether this organism is contributing to his current infection--has not grown thus far from 07/23 OR cultures while on cefepime. Antimicrobial course: Daptomycin 07/22- Cefepime 07/19- Vanc 07/19-07/21 Zosyn 07/19 Problems: #Decubitus SSTI with sacral and coccygeal osteomyelitis: wound culture +MRSA. Prior culture from 07/03/22 with ESBL E coli #MRSA bacteremia #UCx with MRSA #Cipro allergy: thrombocytopenia #Abdominal aneurysm Recommendations: -If 07/23 BCx remain NGTD at 48 hours this afternoon, would feel comfortable that blood cultures have cleared and place a PICC for IV antibiotics -Follow-up OR cultures and path -Continue daptomycin 600 mg IV q24h. Anticipate 4-6 week duration from blood culture clearance to treat for MRSA bacteremia -Baseline CK 101 on 07/23 -Check at least weekly CK while on daptomycin -Stop cefepime. Start ertapenem 1 g IV q24h to cover broadly for gram negatives and anaerobes that could be contributing to SSTI, and in the setting of recent wound culture which grew ESBL E coli. Complete 10 day course of antibiotics from debridement (07/23-08/01) -Will continue to follow Admission and Anticipated Discharge Date Admission Date: July 19, 2022 Subjective This patient recommendation is based on a telemedicine consult request which was completed asynchronously through chart review and information provided by the primary physician. The patient was not seen or examined today. The evaluation is consultative in nature and all patient care and treatment decisions can either be accepted or rejected by the patient's primary hospital-based treating physician using their own independent medical judgment for their patient. No acute events Afebrile without leukocytosis 07/22 and 07/23 BCx remain NGTD 07/23 OR cultures NGTD Review of System Pt not seen Physical Exam Physical Exam: Pt not seen Results & Data ([facility]) Vital Signs (Past 12 Hours) Vital Signs Temp Pulse Pulse Resp BP Pulse Ox O2 Del Method 07/25/22 07:06 36.5 C 90 18 107/61 95 07/25/22 03:00 36.9 C 79 18 133/82 99 Room Air 07/24/22 23:24 80 07/24/22 22:08 36.3 C L 98 H 18 150/95 H 96 Room Air Laboratory Results Short CBC 07/24/22 07/25/22 Range/Units 14:30 07:35 WBC 10.51 (4.8-10.8) K/ul Hgb 9.4 L 8.9 L (14.0-18.0) g/dl Hct 30.5 L 29.3 L (40.1-51.0) % Plt Count 323 (130-400) K/uL BMP 07/25/22 07:35 Sodium 138 Potassium 4.2 Chloride 108 H Carbon Dioxide 25 BUN 32 H Creatinine 0.78 Glucose 96 Calcium 8.6 Diagnostic Findings Microbiology 07/23/22 13:08 Blood Aerobic Blood Culture - Preliminary No growth in Aerobic bottle after 24 hours. 07/23/22 13:08 Blood Anaerobic Blood Culture - Preliminary No growth in Anaerobic bottle after 24 hours. 07/23/22 13:10 Blood Aerobic Blood Culture - Preliminary No growth in Aerobic bottle after 24 hours. 07/23/22 13:10 Blood Anaerobic Blood Culture - Preliminary No growth in Anaerobic bottle after 24 hours. 07/23/22 10:38 Sacrum Gram Stain - Final 07/23/22 10:38 Sacrum Aerobic and Anaerobic Culture - Preliminary No growth to date. 07/23/22 10:38 Sacrum Gram Stain - Final 07/23/22 10:38 Sacrum Aerobic and Anaerobic Culture - Preliminary No growth to date. 07/22/22 11:01 Blood Aerobic Blood Culture - Preliminary No growth in Aerobic bottle after 48 hours. 07/22/22 11:01 Blood Anaerobic Blood Culture - Preliminary No growth in Anaerobic bottle after 48 hours. 07/22/22 10:55 Blood Aerobic Blood Culture - Preliminary No growth in Aerobic bottle after 48 hours. 07/22/22 10:55 Blood Anaerobic Blood Culture - Preliminary No growth in Anaerobic bottle after 48 hours. 07/19/22 14:34 Sacrum Gram Stain - Final 07/19/22 14:34 Sacrum Aerobic and Anaerobic Culture - Final Staph aureus MRSA Staph aureus MRSA#2 07/19/22 14:15 Blood Aerobic Blood Culture - Final Staph aureus MRSA Staph aureus MRSA#2 07/19/22 14:15 Blood Anaerobic Blood Culture - Final Staph aureus MRSA 07/19/22 14:15 Blood Aerobic Blood Culture - Final Staph aureus MRSA 07/19/22 14:15 Blood Anaerobic Blood Culture - Final Staph aureus MRSA 07/19/22 15:30 Urine,Straight Cath Urine Culture - Final Staph aureus MRSA Medications Administered Current Inpatient Medications Acetaminophen (Acetaminophen 325 Mg Tab) 650 mg PO Q4H PRN PRN Reason: Mild Pain or Fever Stop: 08/18/22 21:06 Last Admin: 07/23/22 11:33 Dose: 650 mg Aspirin (Aspirin 81 Mg Ectab) 81 mg PO DAILY RMAÓN Stop: 08/19/22 08:59 Last Admin: 07/25/22 09:24 Dose: 81 mg Cefepime HCl 2,000 mg/ Syringe 20 mls @ 5 mls/min IV Q12H RAMÓN; Protocol Stop: 08/31/22 00:00 Last Admin: 07/24/22 23:04 Dose: 5 mls/min Daptomycin 600 mg/ Syringe 12 mls @ 6 mls/min IV Q24H RAMÓN; Protocol Stop: 08/05/22 12:59 Last Admin: 07/24/22 12:58 Dose: 6 mls/min Miconazole Nitrate (Miconazole Nitrate Powder 43 Gm) 1 appln EXT PRN PRN PRN Reason: Affected Skin Folds Stop: 08/19/22 09:07 Last Admin: 07/20/22 09:59 Dose: 1 appln Polyethylene Glycol (Polyethylene (Miralax) 17 Gm Pack) 17 gm PO DAILY [facility] Stop: 08/23/22 19:59 Last Admin: 07/25/22 09:25 Dose: 17 gm Tramadol HCl (Tramadol Hcl 50 Mg Tablet) 50 mg PO Q4H PRN PRN Reason: moderate to severe Pain Stop: 08/22/22 15:37 Last Admin: 07/23/22 22:21 Dose: 50 mg
[2022-07-25] MEDS: DAPTOmycin 600 MG in SYRINGE 0 ML IV SCH (12:31)
[2022-07-25] MEDS: ERTAPENEM SODIUM 1,000 MG in SYRINGE 0 ML IV SCH (13:43)
--- NOTE | 2022-07-25 14:30 | Surgery Progress Note ---
Date of Service July 25, 2022 Assessment & Plan (1) History of incision and drainage: Plan: POD#2 I&D of sacral ulcer Dressing last changed last evening; appears c/d/i Discussed with wound care, will plan on evaluating tomorrow AM for wound vac abx per ID Admission and Anticipated Discharge Date Admission Date: July 19, 2022 Subjective Patient is doing well. Only minimal pain at surgical site. Otherwise no complaints. Physical Exam Physical Exam: awake/alert, no distress Skin: buttocks dressing c/d/i without signs of drainage Results & Data ([facility]) Vital Signs (Past 12 Hours) Vital Signs Temp Pulse Pulse Resp BP Pulse Ox O2 Del Method 07/25/22 11:13 36.8 C 91 H 19 95/58 L 96 Room Air 07/25/22 08:00 92 H 07/25/22 07:06 36.5 C 90 18 107/61 95 07/25/22 03:00 36.9 C 79 18 133/82 99 Room Air PG Care Time/CCT Total # of Minutes Spent Total Time Spent with Patient: Total time spent is greater than 50% in coordination of care (as documented) at patient's floor/unit and/or counseling patient: Coding Level of Care Code None Diagnoses History of incision and drainage Z98.890
[2022-07-25] MEDS: METOPROLOL TARTRATE 25 MG TAB PO SCH (18:39)
[2022-07-26] MEDS: ACETAMINOPHEN 325 MG TAB PO PRN ×3 (00:21→22:11)
[2022-07-26] MEDS: METOPROLOL TARTRATE 25 MG TAB PO SCH ×5 (00:22→23:36)
[2022-07-26 06:14] LABS: Hematocrit (blood only) 28.4 % (40.1-51.0); Hemoglobin 8.6 g/dl (14.0-18.0); Mean Corpuscular Hemoglobin 24.2 pg (25.0-34.0); Mean Corpuscular Hgb Conc 30.3 g/dL (32.0-36.0); Mean Platelet Volume 9.3 fL (9.4-12.4); Nucleated RBC # (auto) 0.02 K/uL (0-0); Nucleated RBC % (auto) 0.2 %; Platelet Count 335 K/uL (130-400); RDW Coefficient of Variation 18.4 % (11.5-14.5); RDW Standard Deviation 52.3 fL (36.4-46.3); Red Blood Count 3.55 M/uL (4.63-6.08); White Blood Count 10.51 K/ul (4.8-10.8)
[2022-07-26 06:39] LABS: BUN Creatinine Ratio 40.9 (10-20); C Reactive Protein 3.51 mg/dl (0-0.5); Calcium 8.7 mg/dl (8.5-10.1); Est GFR (African American) 98.1 ml/min; Est GFR (Non-African American) 84.6 ml/min; Potassium 4.4 mmol/L (3.5-5.1)
[2022-07-26 06:54] LABS: Ferritin 43.7 ng/ml (8-388)
[2022-07-26] MEDS: ASPIRIN 81 MG ECTAB PO SCH (08:25)
[2022-07-26] MEDS: POLYETHYLENE (MIRALAX) 17 GM PACK PO SCH (08:26)
[2022-07-26] MEDS: CYANOCOBALAMIN (B-12) 500 MCG TABLET PO SCH (10:09)
[2022-07-26] MEDS: FOLIC ACID 1 MG TAB PO SCH (10:09)
--- NOTE | 2022-07-26 12:18 | Infectious Disease Progress Nt ---
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 Admission wound, blood, and urine cultures are all growing MRSA. He was initially placed on vanc and cefepime, with clinical improvement. The vancomycin was changed to daptomycin on 07/22 due to vanc NICK of 2. Surveillance blood cultures from 07/22 and 07/23 are NGTD. TTE on 07/21 was technically difficult, but no vegetations were noted. The MRSA bacteremia is likely secondary to his infected sacral wound, and the bacteremia likely seeded his urinary tract. No signs of MRSA seeding of other sites at this time. He was taken to the OR on 07/23 for debridement and was noted to have significant undermining of the skin. He is awaiting wound vac placement. For sacral osteomyelitis, cure would only be achieved through flap coverage in conjunction with 6 weeks of targeted IV antibiotics. However, if the patient is not a candidate for flap and wound closure, the wound will remain continuously open to the environment, and a prolonged course of IV antibiotics will not be effective and will lead to colonization with resistant organisms. Generally in t hese cases, would advocate for a short course of antibiotics to treat for a soft tissue infection, in conjunction with ongoing close wound care follow-up, and debridements as needed to help decrease the risk for systemic infection. However, his case is complicated by MRSA bacteremia, which will require a longer duration of IV antibiotics. It is unknown how long he has been bacteremic--he was feeling unwell for ~10 days prior to presentation, which raises concern for multiple days of bacteremia. He had high grade bacteremia on 07/19 (4/ vials positive), but no repeat blood cultures were obtained until 07/22. He does have a wound culture from 07/03 that grew ESBL E coli, for which he was treated with TMP/SMX x 14 days as an outpatient. Unclear whether this organism is contributing to his current infection--has not grown thus far from 07/23 OR cultures while on cefepime. Antimicrobial course: Daptomycin 07/22- Ertapenem 07/25- Cefepime 07/19-07/24 Vanc 07/19-07/21 Zosyn 07/19 Problems: #Decubitus SSTI with sacral and coccygeal osteomyelitis s/p debridement 07/23: 07/19 wound culture +MRSA. 07/23 sacral bone culture with Staph species. Prior cu lture from 07/03/22 with ESBL E coli #MRSA bacteremia #UCx with MRSA #Cipro allergy: thrombocytopenia #Abdominal aneurysm: avoid fluoroquinolones Recommendations: -Awaiting PICC placement -Follow-up OR cultures -Continue daptomycin 600 mg IV q24h. Would treat for 6 weeks duration for MRSA bacteremia (07/22-09/01) -Baseline CK 101 on 07/23 -Check at least weekly CK while on daptomycin -Continue ertapenem 1 g IV q24h to cover gram negatives and anaerobes that could be contributing to SSTI (OR cultures not growing these, but pt had already been on several days of broad spectrum antibiotics), and in the setting of recent wound culture which grew ESBL E coli. Complete 10 day course of antibiotics from debridement (07/23-08/01) -Check weekly CBC with diff, CMP, CK while on antibiotics to monitor for toxicity, and send results to primary team -Would arrange for local follow-up with infectious disease Admission and Anticipated Discharge Date Admission Date: July 19, 2022 Subjective This patient recommendation is based on a telemedicine consult request which was completed asynchronously through chart review and information provided by the primary physician. The patient was not seen or examined today. The evaluation is consultative in nature and all patient care and treatment decisions can either be accepted or rejected by the patient's primary hospital-based treating physician using their own independent medical judgment for their patient. Afebrile without leukocytosis Cefepime changed to ertapenem yesterday Continues on daptomycin Sacral bone culture growing Staph species Review of System Pt not seen Physical Exam Physical Exam: Pt not seen Results & Data ([facility]) Vital Signs (Past 12 Hours) Vital Signs Temp Pulse Pulse Resp BP BP Pulse Ox 07/26/22 11:19 36.8 C 55 L 20 86/58 L 95 07/26/22 07:23 36.6 C 77 20 113/70 96 07/26/22 06:15 105/73 07/26/22 03:01 36.8 C 71 18 111/79 97 07/26/22 00:26 76 112/77 O2 Del Method 07/26/22 11:19 Room Air 07/26/22 07:23 Room Air 07/26/22 06:15 07/26/22 03:01 Room Air 07/26/22 00:26 Laboratory Results Short CBC 07/26/22 Range/Units 05:38 WBC 10.51 (4.8-10.8) K/ul Hgb 8.6 L (14.0-18.0) g/dl Hct 28.4 L (40.1-51.0) % Plt Count 335 (130-400) K/uL BMP 07/26/22 05:38 Sodium 138 Potassium 4.4 Chloride 108 H Carbon Dioxide 26 BUN 36 H Creatinine 0.88 Glucose 95 Calcium 8.7 Diagnostic Findings Microbiology 07/23/22 10:38 Sacrum Gram Stain - Final 07/23/22 10:38 Sacrum Aerobic and Anaerobic Culture - Preliminary Staphylococcus species 07/23/22 13:08 Blood Aerobic Blood Culture - Preliminary No growth in Aerobic bottle after 48 hours. 07/23/22 13:08 Blood Anaerobic Blood Culture - Preliminary No growth in Anaerobic bottle after 48 hours. 07/23/22 13:10 Blood Aerobic Blood Culture - Preliminary No growth in Aerobic bottle after 48 hours. 07/23/22 13:10 Blood Anaerobic Blood Culture - Preliminary No growth in Anaerobic bottle after 48 hours. 07/23/22 10:38 Sacrum Gram Stain - Final 07/23/22 10:38 Sacrum Aerobic and Anaerobic Culture - Preliminary No growth to date. 07/22/22 11:01 Blood Aerobic Blood Culture - Preliminary No growth in Aerobic bottle after 48 hours. 07/22/22 11:01 Blood Anaerobic Blood Culture - Preliminary No growth in Anaerobic bottle after 48 hours. 07/22/22 10:55 Blood Aerobic Blood Culture - Preliminary No growth in Aerobic bottle after 48 hours. 07/22/22 10:55 Blood Anaerobic Blood Culture - Preliminary No growth in Anaerobic bottle after 48 hours. 07/19/22 14:34 Sacrum Gram Stain - Final 07/19/22 14:34 Sacrum Aerobic and Anaerobic Culture - Final Staph aureus MRSA Staph aureus MRSA#2 07/19/22 14:15 Blood Aerobic Blood Culture - Final Staph aureus MRSA Staph aureus MRSA#2 07/19/22 14:15 Blood Anaerobic Blood Culture - Final Staph aureus MRSA 07/19/22 14:15 Blood Aerobic Blood Culture - Final Staph aureus MRSA 07/19/22 14:15 Blood Anaerobic Blood Culture - Final Staph aureus MRSA 07/19/22 15:30 Urine,Straight Cath Urine Culture - Final Staph aureus MRSA Pathology: 07/23 FINAL DIAGNOSIS Soft tissue, sacral ulcer, debridement: - Panniculitis with focal abscess formation - Negative for malignancy Medications Administered Current Inpatient Medications Acetaminophen (Acetaminophen 325 Mg Tab) 650 mg PO Q4H PRN PRN Reason: Mild Pain or Fever Stop: 08/18/22 21:06 Last Admin: 07/26/22 00:21 Dose: 650 mg Aspirin (Aspirin 81 Mg Ectab) 81 mg PO DAILY [facility] Stop: 08/19/22 08:59 Last Admin: 07/26/22 08:25 Dose: Not Given Cyanocobalamin (Cyanocobalamin (B-12) 500 Mcg Tablet) 1,000 mcg PO QAM [facility] Stop: 08/25/22 08:59 Last Admin: 07/26/22 10:09 Dose: 1,000 mcg Folic Acid (Folic Acid 1 Mg Tab) 1 mg PO QAM [facility] Stop: 08/25/22 08:59 Last Admin: 07/26/22 10:09 Dose: 1 mg Daptomycin 600 mg/ Syringe 12 mls @ 6 mls/min IV Q24H [facility]; Protocol Stop: 08/05/22 12:59 Last Admin: 07/25/22 12:31 Dose: 6 mls/min Ertapenem 1,000 mg/ Syringe 10 mls @ 2 mls/min IV Q24H [facility] Stop: 08/02/22 12:59 Last Admin: 07/25/22 13:43 Dose: 2 mls/min Metoprolol Tartrate (Metoprolol Tartrate 25 Mg Tab) 25 mg PO Q6H [facility] Stop: 08/24/22 18:14 Last Admin: 07/26/22 11:25 Dose: Not Given Miconazole Nitrate (Miconazole Nitrate Powder 43 Gm) 1 appln EXT PRN PRN PRN Reason: Affected Skin Folds Stop: 08/19/22 09:07 Last Admin: 07/20/22 09:59 Dose: 1 appln Polyethylene Glycol (Polyethylene (Miralax) 17 Gm Pack) 17 gm PO DAILY [facility] Stop: 08/23/22 19:59 Last Admin: 07/26/22 08:26 Dose: 17 gm Tramadol HCl (Tramadol Hcl 50 Mg Tablet) 50 mg PO Q4H PRN PRN Reason: moderate to severe Pain Stop: 08/22/22 15:37 Last Admin: 07/23/22 22:21 Dose: 50 mg
[2022-07-26] MEDS: DAPTOmycin 600 MG in SYRINGE 0 ML IV SCH (12:47)
[2022-07-26] MEDS: ERTAPENEM SODIUM 1,000 MG in SYRINGE 0 ML IV SCH (12:47)
--- NOTE | 2022-07-26 15:17 | Hospitalist Progress Note ---
Date of Service July 26, 2022 Assessment & Plan (1) Sepsis: Plan: 2nd to sacral decubitus ulcer, stage 4, and sacral/coccygeal osteomyelitis. with resulting MRSA bacteremia/septicemia as below in #2. daptomycin IV x 6 weeks. cont ertapenem to cover the recent ESBL e.coli that grew from wound on 07/03/22. infectious disease recommending 10 day course of cefepime- now ertapenem- with stop date of ertapenem 08/01. (2) Bacteremia: Plan: 2nd MRSA. Most recent blood cultures from 07/22 and 07/23 remain negative. ok for PICC line at this point. consent obtained for such; order placed. source - sacral osteomyelitis/stage 4 pressure ulcer. appreciate ID consultation. plan is 6 week course of IV daptomycin. echo without obvious valvular vegetations. (3) Pressure injury of sacral region, stage 4: Plan: stage 4 sacral decubitus ulcer s/p I/D and debridement by Dr Awad - 07/23/22 appreciate his assistance current and previous cultures from this region grew both MRSA and ESBL e.coli wound vac placed on sacrum today. 6-week course of IV daptomycin planned due to MRSA 10-day course of IV cefepime --> now ertapenem to cover the ESBL e.coli (stop date 08/01) appreciate gen surg, wound care, and ID assistance (4) Sacral osteomyelitis: Plan: CT showed evidence of Large sacral decubitus ulcer with erosion of the inferior sacrum and coccyx consistent with acute osteomyelitis. s/p I & D with debridement 07/23/[address] Awad 6-week course of IV daptomycin planned PICC line placement today (5) UTI (urinary tract infection) due to urinary indwelling Guido catheter: Plan: 2nd MRSA IV daptomycin exchange his chronic guido prior to hospital discharge (6) Hypotension: Plan: 2nd to #1/#2 resolved holding amlodipine holding lasix using metoprolol for a.fib (7) History of quadriplegia: Plan: incomplete quad status. since age of 14. some partial movement of upper extremities and scant movements of LEs. (8) Anemia: Plan: 2nd to folate, B12, and Fe deficiency. replace folate - 1mg daily replace B12 - 1000mcg daily later in the stay would give IV Venofer but hold on this until we are well ahead of infection (9) Permanent atrial fibrillation: Plan: not on anticoagulation due to severe lower GI bleeding in November 2021 from hemorrhoids. required hemorrhoidectomy due to severity of this GI bleed. off Xarelto since then. rates are improved s/p metoprolol 25mg QID. he has had occasional hypotension from this -- thus, lower metoprolol to 12.5mg QID. if his BPs still do not tolerate metoprolol then will use IV digoxin. 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 incomplete quadriplegia (11) Hypertension: Plan: holding BP meds as above (12) AAA (abdominal aortic aneurysm): Plan: now 6.5cm, previously <6cm on last imaging patient aware established with [facility] who apparently has referred him to [facility] for repair has upcoming appt in August for such (13) Cardiomyopathy: Plan: previous EF 40-45% now 50-55% on this admit's echo likely due to tachyarrhythmia (permanent a.fib) can't exclude other causes continue beta frederick appears compensated on exam (14) Constipation: Plan: dulcolax suppos prn cont miralax daily (15) Indwelling Guido catheter present: Plan: exchange his guido prior to discharge (16) Atrial fibrillation with RVR: Plan: change metoprolol succinate to metoprolol tartrate and use 12.5mg QID use or add digoxin if necessary not on chronic anticoagulation 2nd to previous, severe GI bleed in 2021 (17) DVT prophylaxis: Plan: will check with gen surg in am if wound is stable and without any significant bleeding then add lovenox daily or heparin BID Plan updated pt's sister by phone today dispo - [facility] after d/c Admission and Anticipated Discharge Date Admission Date: July 19, 2022 Subjective patient feeling ok today eating fair-good had BM yesterday with dulcolax suppos no dyspnea mild "pressure" sensation in back/abdomen; he has this from time to time when he is uncomfortable from infections, etc tele overnight - a.fib, rates 70s to 90s occasional low BP from his metoprolol denies new complaints otherwise Review of Systems Review of Systems: gen - no fever; occasional cold chill cv - no cp pulm - no cough GI - no vomiting Physical Exam Physical Exam: gen - very pleasant, NAD mouth - MMM neck - no JVD heart - regular rate (<100), irregular, s1 s2, no murmur lungs - CTA b/l abd - mildly distended, BS+, NT, no HSM ext - trace edema, pulses 2+ b/l neuro - muscle wasting of all 4 limbs; strength of arms at least 3/5; strength of legs <1/5 psych - a/o x 3 Results & Data Results & Data ([facility]) Vital Signs (Past 12 Hours) Vital Signs Temp Pulse Resp BP BP Pulse Ox O2 Del Method 07/26/22 11:19 36.8 C 55 L 20 86/58 L 95 Room Air 07/26/22 07:23 36.6 C 77 20 113/70 96 Room Air 07/26/22 06:15 105/73 Diagnostic Findings blood cultures from 07/22 and 07/23 negative PG Care Time/CCT Total # of Minutes Spent Total Time Spent with Patient: Total time spent is greater than 50% in coordination of care (as documented) at patient's floor/unit and/or counseling patient: Coding Level of Care Code 57633 Subseq Hosp Care Lvl 3 Diagnoses Sepsis A41.9 Sepsis acute organ dysfunction status: without acute organ dysfunction Sepsis type: sepsis due to unspecified organism Bacteremia R78.81 Pressure injury of sacral region, stage 4 L89.154 Sacral osteomyelitis M46.28 UTI (urinary tract infection) due to urinary indwelling Guido catheter T83.511A; N39.0 Hypotension I95.9 Hypotension type: unspecified hypotension type History of quadriplegia Z86.69 Anemia D64.9 Permanent atrial fibrillation I48.21 Paralysis G83.9 Hypertension I10 Hypertension type: essential hypertension AAA (abdominal aortic aneurysm) I71.4 Cardiomyopathy I42.9 Constipation K59.00 Indwelling Guido catheter present Z96.0 Atrial fibrillation with RVR I48.91 DVT prophylaxis Z29.9 (1) Sepsis Sepsis acute organ dysfunction status: without acute organ dysfunction Sepsis type: sepsis due to unspecified organism Qualified Code(s): A41.9 - Sepsis, unspecified organism (2) Hypertension Hypertension type: essential hypertension Qualified Code(s): I10 - Essential (primary) hypertension (3) Hypotension Hypotension type: unspecified hypotension type Qualified Code(s): I95.9 - Hypotension, unspecified
--- NOTE | 2022-07-26 20:52 | XRay Report ---
XR chest 1V portable CLINICAL HISTORY: PICC tip location TECHNIQUE: Single frontal radiograph of the chest was obtained. Comparison: Comparison is made to chest radiograph 07/19/2022 FINDINGS: Anterior cervical fixation hardware is seen. A PIC catheter terminates in the mid SVC. Cardiomegaly i s noted. The lungs are clear. No evidence of pleural effusion or pneumothorax. IMPRESSION: The PICC catheter terminates in the mid SVC, satisfactory position. Stable cardiomegaly. ACT 112: Negative or not required by law. Electronically signed by: Néstor Linares M.D. 07/26/2022 8:51 PM
[2022-07-27] MEDS: METOPROLOL TARTRATE 25 MG TAB PO SCH ×4 (05:21→23:41)
[2022-07-27 05:34] LABS: Mean Corpuscular Hemoglobin 24.1 pg (25.0-34.0); Mean Corpuscular Volume 80.4 fL (80.0-100.0); Mean Platelet Volume 9.2 fL (9.4-12.4); Nucleated RBC # (auto) 0.02 K/uL (0-0); Nucleated RBC % (auto) 0.2 %; Platelet Count 303 K/uL (130-400); RDW Coefficient of Variation 18.6 % (11.5-14.5); RDW Standard Deviation 52.6 fL (36.4-46.3); Red Blood Count 3.73 M/uL (4.63-6.08); White Blood Count 11.25 K/ul (4.8-10.8)
[2022-07-27 06:17] LABS: BUN Creatinine Ratio 43.4 (10-20); Calcium 8.5 mg/dl (8.5-10.1); Est GFR (African American) 104.2 ml/min; Est GFR (Non-African American) 89.9 ml/min; Potassium 4.3 mmol/L (3.5-5.1)
[2022-07-27] MEDS: POLYETHYLENE (MIRALAX) 17 GM PACK PO SCH (09:14)
[2022-07-27] MEDS: CYANOCOBALAMIN (B-12) 500 MCG TABLET PO SCH (09:17)
[2022-07-27] MEDS: FOLIC ACID 1 MG TAB PO SCH (09:18)
[2022-07-27] MEDS: ASPIRIN 81 MG ECTAB PO SCH (09:18)
[2022-07-27] MEDS: HEPARIN SOD 5,000 UNIT/0.5 ML VIAL SQ SCH ×2 (10:39→10:40)
[2022-07-27] MEDS: ERTAPENEM SODIUM 1,000 MG in SYRINGE 0 ML IV SCH (13:12)
[2022-07-27] MEDS: DAPTOmycin 600 MG in SYRINGE 0 ML IV SCH (13:12)
[2022-07-27] MEDS: ACETAMINOPHEN 325 MG TAB PO PRN (15:32)
--- NOTE | 2022-07-27 20:08 | Hospitalist Progress Note ---
Date of Service July 27, 2022 Assessment & Plan (1) Sepsis: Plan: 2nd to sacral decubitus ulcer, stage 4, and sacral/coccygeal osteomyelitis. with resulting MRSA bacteremia/septicemia as below in #2. daptomycin IV x 6 weeks. cont ertapenem to cover the recent ESBL e.coli that grew from wound on 07/03/22. infectious disease recommending 10 day course of cefepime- now ertapenem- with stop date of ertapenem 08/01. (2) Bacteremia: Plan: 2nd MRSA. source - sacral osteomyelitis/stage 4 pressure ulcer. Most recent blood cultures from 07/22 and 07/23 remain negative. s/p PICC placement 07/26. echo without obvious valvular vegetations. plan is 6 week course of IV daptomycin. appreciate ID consultation. (3) Pressure injury of sacral region, stage 4: Plan: stage 4 sacral decubitus ulcer s/p I/D and debridement by Dr Awad - 07/23/22 appreciate his assistance current and previous cultures from this region grew both MRSA and ESBL e.coli wound vac placed on sacrum 07/26/22. 6-week course of IV daptomycin planned due to MRSA 10-day course of IV cefepime --> now ertapenem to cover the ESBL e.coli (stop date 08/01) appreciate gen surg, wound care, and ID assistance (4) Sacral osteomyelitis: Plan: CT showed evidence of Large sacral decubitus ulcer with erosion of the inferior sacrum and coccyx consistent with acute osteomyelitis. s/p I & D with debridement 07/23/[address] Awad 6-week course of IV daptomycin planned PICC line now in place LUE (5) UTI (urinary tract infection) due to urinary indwelling Guido catheter: Plan: 2nd MRSA IV daptomycin exchange his chronic guido prior to hospital discharge (6) Hypotension: Plan: 2nd to #1/#2 resolved holding amlodipine holding lasix using metoprolol for a.fib (7) History of quadriplegia: Plan: incomplete quad status. since age of 14. some partial movement of upper extremities and scant movements of LEs. (8) Anemia: Plan: 2nd to folate, B12, and Fe deficiency. replace folate - 1mg daily replace B12 - 1000mcg daily later in the stay would give IV Venofer but hold on this until we are well ahead of infection (9) Permanent atrial fibrillation: Plan: not on anticoagulation due to severe lower GI bleeding in November 2021 from hemorrhoids. required hemorrhoidectomy due to severity of this GI bleed. off Xarelto since then. rates are improved s/p metoprolol 25mg QID. he has had occasional hypotension from this -- thus, lowered metoprolol to 12.5mg QID. if his BPs remain low-normal reduce to BID dosing. 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 (15) Indwelling Guido catheter present: Plan: exchange his guido prior to discharge (16) Atrial fibrillation with RVR: Plan: cont metoprolol tartrate 12.5mg QID use or add digoxin if necessary not on chronic anticoagulation 2nd to previous, severe GI bleed in 2021 (17) DVT prophylaxis: Plan: patient very uncomfortable even taking low-dose heparin or lovenox for DVT proph we had lengthy discussion regarding risk of DVT/PE and that low-dose chemical DVT proph is very different than systemic anticoagulation such as full strength eliquis, coumadin, etc [id number] still quite hesitant thus, defer on chemical DVT proph cont strict use of SCDs to LEs Plan updated pt's sister by phone yesterday dispo - [facility] after d/c Admission and Anticipated Discharge Date Admission Date: July 19, 2022 Subjective patient hesitant to take SC heparin in 2007 he had low platelets - he thinks the heparin was the cause; I reviewed those records - the low platelets were thought to be from cipro use rather than heparin (per heme/onc at the time) he has previously taken xarelto and eliquis - had GI bleeding from hemorrhoids ultimately requiring hemorrhoidectomy he is nervous to take any blood thinner he c/o mild right elbow pain minimal stomach and back pressure eating ok tele overnight - a.fib, rates <100 watching the [employer] game on TV Review of Systems Review of Systems: gen - no fevers cv - no cp pulm - no dyspnea GI - constipation; no BM since dulcolax on 07/25/22 Physical Exam Physical Exam: gen - very pleasant, NAD mouth - MMM neck - no JVD heart - regular rate (<100), irregular, s1 s2, no murmur lungs - CTA b/l abd - mildly distended, BS+, NT, no HSM ext - trace edema, pulses 2+ b/l neuro - muscle wasting of all 4 limbs; strength of arms at least 3/5; strength of legs <1/5 psych - a/o x 3 musculo - right elbow - minimal tenderness over olecrenon bursal region; no joint effusion; no crepitus Results & Data Results & Data ([facility]) Vital Signs (Past 12 Hours) Vital Signs Temp Pulse Resp BP BP Pulse Ox O2 Del Method 07/27/22 19:44 36.8 C 81 20 105/68 96 Room Air 07/27/22 16:00 36.9 C 84 14 145/87 H 94 Room Air 07/27/22 11:29 36.6 C 71 16 110/75 98 Room Air Laboratory Results Laboratory Results - last 24 hr 07/27/22 07/27/22 05:19 05:19 WBC 11.25 H RBC 3.73 L Hgb 9.0 L Hct 30.0 L MCV 80.4 MCH 24.1 L MCHC 30.0 L RDW Std Deviation 52.6 H RDW Coeff of Refugio 18.6 H Plt Count 303 MPV 9.2 L Absolute Nucleated RBC 0.02 H Nucleated RBC % (auto) 0.2 Sodium 138 Potassium 4.3 Chloride 107 Carbon Dioxide 25 Anion Gap 6 BUN 33 H Creatinine 0.76 Est Cr Clr Drug Dosing 88.0 Est GFR ( Amer) 104.2 Est GFR (Non-Af Amer) 89.9 BUN/Creatinine Ratio 43.4 H Glucose 108 H Calcium 8.5 Diagnostic Findings blood cultures - repeat x 4 sets - all negative PG Care Time/CCT Total # of Minutes Spent Total Time Spent with Patient: Total time spent is greater than 50% in coordination of care (as documented) at patient's floor/unit and/or counseling patient: Coding Level of Care Code 03615 Subseq Hosp Care Lvl 2 Diagnoses Sepsis A41.9 Sepsis acute organ dysfunction status: without acute organ dysfunction Sepsis type: sepsis due to unspecified organism Bacteremia R78.81 Pressure injury of sacral region, stage 4 L89.154 Sacral osteomyelitis M46.28 UTI (urinary tract infection) due to urinary indwelling Guido catheter T83.511A; N39.0 Hypotension I95.9 Hypotension type: unspecified hypotension type History of quadriplegia Z86.69 Anemia D64.9 Permanent atrial fibrillation I48.21 Paralysis G83.9 Hypertension I10 Hypertension type: essential hypertension AAA (abdominal aortic aneurysm) I71.4 Cardiomyopathy I42.9 Constipation K59.00 Indwelling Guido catheter present Z96.0 Atrial fibrillation with RVR I48.91 DVT prophylaxis Z29.9 (1) Sepsis Sepsis acute organ dysfunction status: without acute organ dysfunction Sepsis type: sepsis due to unspecified organism Qualified Code(s): A41.9 - Sepsis, unspecified organism (2) Hypertension Hypertension type: essential hypertension Qualified Code(s): I10 - Essential (primary) hypertension (3) Hypotension Hypotension type: unspecified hypotension type Qualified Code(s): I95.9 - Hypotension, unspecified
[2022-07-27] MEDS: DICLOFENAC SOD 1% GEL 100 GM TUBE EXT SCH (22:14)
[2022-07-28] MEDS: ACETAMINOPHEN 325 MG TAB PO PRN (03:48)
[2022-07-28 04:52] LABS: Hematocrit (blood only) 28.2 % (40.1-51.0); Hemoglobin 8.6 g/dl (14.0-18.0); Mean Corpuscular Hemoglobin 24.7 pg (25.0-34.0); Mean Corpuscular Hgb Conc 30.5 g/dL (32.0-36.0); Platelet Count 309 K/uL (130-400); RDW Coefficient of Variation 18.8 % (11.5-14.5); RDW Standard Deviation 53.3 fL (36.4-46.3); Red Blood Count 3.48 M/uL (4.63-6.08); White Blood Count 10.86 K/ul (4.8-10.8)
[2022-07-28] MEDS: METOPROLOL TARTRATE 25 MG TAB PO SCH ×2 (05:38→20:23)
[2022-07-28 06:44] LABS: Basophils # (auto) 0.12 K/uL (0-0.2); Basophils % (auto) 1.1 %; Eosinophils # (auto) 0.56 K/uL (0-0.50); Hematocrit (blood only) 28.5 % (40.1-51.0); Hemoglobin 8.8 g/dl (14.0-18.0); Immature Granulocytes # (auto) 0.14 K/uL (0.00-0.02); Immature Granulocytes % (auto) 1.3 %; Lymphocytes # (auto) 1.38 K/uL (1.2-3.4); Lymphocytes % (auto) 12.4 %; Mean Corpuscular Hemoglobin 24.7 pg (25.0-34.0); Mean Corpuscular Hgb Conc 30.9 g/dL (32.0-36.0); Mean Corpuscular Volume 80.1 fL (80.0-100.0); Mean Platelet Volume 9.4 fL (9.4-12.4); Monocytes # (auto) 0.81 K/uL (0.24-0.82); Monocytes % (auto) 7.3 %; Neutrophils # (auto) 8.13 K/uL (1.4-6.5); Neutrophils % (auto) 72.9 %; Platelet Count 312 K/uL (130-400); RDW Coefficient of Variation 19.1 % (11.5-14.5); RDW Standard Deviation 54.1 fL (36.4-46.3); Red Blood Count 3.56 M/uL (4.63-6.08); White Blood Count 11.14 K/ul (4.8-10.8)
[2022-07-28 07:13] LABS: BUN Creatinine Ratio 49.3 (10-20); Calcium 8.3 mg/dl (8.5-10.1); Creatinine Clr Calc Pharmacy 99.9 ml/min; Est GFR (African American) 109.7 ml/min; Est GFR (Non-African American) 94.7 ml/min; Potassium 4.1 mmol/L (3.5-5.1)
[2022-07-28] MEDS ORDERED: bisacodyL 10 MG SUPP PR ONE (08:50)
[2022-07-28] MEDS: DICLOFENAC SOD 1% GEL 100 GM TUBE EXT SCH ×4 (09:06→20:23)
[2022-07-28] MEDS: POLYETHYLENE (MIRALAX) 17 GM PACK PO SCH (09:06)
[2022-07-28] MEDS: ASPIRIN 81 MG ECTAB PO SCH (10:32)
[2022-07-28] MEDS: FOLIC ACID 1 MG TAB PO SCH (10:33)
[2022-07-28] MEDS: ADVANCED PROBIOTIC 1250 MG CAPSULE PO SCH (10:33)
[2022-07-28] MEDS: SENNA 8.6 MG TAB PO SCH (11:12)
[2022-07-28] MEDS: CYANOCOBALAMIN (B-12) 500 MCG TABLET PO SCH (11:12)
[2022-07-28] MEDS: ERTAPENEM SODIUM 1,000 MG in SYRINGE 0 ML IV SCH (13:34)
[2022-07-28] MEDS: DAPTOmycin 600 MG in SYRINGE 0 ML IV SCH (13:35)
[2022-07-29] MEDS: ACETAMINOPHEN 325 MG TAB PO PRN (00:18)
[2022-07-29 06:22] LABS: Hematocrit (blood only) 29.7 % (40.1-51.0); Hemoglobin 9.1 g/dl (14.0-18.0); Mean Corpuscular Hemoglobin 24.3 pg (25.0-34.0); Mean Corpuscular Hgb Conc 30.6 g/dL (32.0-36.0); Mean Corpuscular Volume 79.2 fL (80.0-100.0); Mean Platelet Volume 9.1 fL (9.4-12.4); Platelet Count 333 K/uL (130-400); RDW Coefficient of Variation 19.2 % (11.5-14.5); RDW Standard Deviation 53.8 fL (36.4-46.3); Red Blood Count 3.75 M/uL (4.63-6.08); White Blood Count 9.72 K/ul (4.8-10.8)
[2022-07-29 06:48] LABS: BUN Creatinine Ratio 43.5 (10-20); C Reactive Protein 7.95 mg/dl (0-0.5); Calcium 8.4 mg/dl (8.5-10.1); Est GFR (African American) 108.4 ml/min; Est GFR (Non-African American) 93.5 ml/min
--- NOTE | 2022-07-29 06:52 | Surgery Progress Note ---
Date of Service July 29, 2022 Assessment & Plan (1) History of incision and drainage: Plan: Wound VAC in place Adjusting antibiotics per ID suggestion Patient will need follow-up at the wound clinic-they had been following him in the recent past for this problem Will follow patient as needed per wound clinic plan Admission and Anticipated Discharge Date Admission Date: July 19, 2022 Results & Data ([facility]) Vital Signs (Past 12 Hours) Vital Signs Temp Pulse Pulse Resp BP Pulse Ox O2 Del Method 07/29/22 03:20 36.4 C L 86 18 120/65 97 Room Air 07/29/22 00:17 96 H 07/28/22 23:38 36.7 C 95 H 18 133/84 96 Room Air 07/28/22 19:15 36.8 C 97 H 18 123/82 97 Room Air PG Care Time/CCT Total # of Minutes Spent Total Time Spent with Patient: Total time spent is greater than 50% in coordination of care (as documented) at patient's floor/unit and/or counseling patient: Coding Level of Care Code None Diagnoses History of incision and drainage Z98.890
[2022-07-29] MEDS: DICLOFENAC SOD 1% GEL 100 GM TUBE EXT SCH ×4 (10:22→20:37)
[2022-07-29] MEDS: METOPROLOL TARTRATE 25 MG TAB PO SCH ×2 (10:22→20:34)
[2022-07-29] MEDS: ASPIRIN 81 MG ECTAB PO SCH (10:23)
[2022-07-29] MEDS: CYANOCOBALAMIN (B-12) 500 MCG TABLET PO SCH (10:23)
[2022-07-29] MEDS: FOLIC ACID 1 MG TAB PO SCH (10:23)
[2022-07-29] MEDS: POLYETHYLENE (MIRALAX) 17 GM PACK PO SCH (10:23)
--- NOTE | 2022-07-29 10:26 | Hospitalist Progress Note ---
Date of Service July 28, 2022 Assessment & Plan (1) Sepsis: Plan: resolved 2nd to sacral decubitus ulcer, stage 4, and sacral/coccygeal osteomyelitis. with resulting MRSA bacteremia/septicemia as below in #2. daptomycin IV x 6 weeks. cont ertapenem to cover the recent ESBL e.coli that grew from wound on 07/03/22. infectious disease recommending 10 day course of cefepime- now ertapenem- with stop date of ertapenem 08/01. (2) Bacteremia: Plan: 2nd MRSA. source - sacral osteomyelitis/stage 4 pressure ulcer. Most recent blood cultures from 07/22 and 07/23 remain negative. s/p PICC placement 07/26. echo without obvious valvular vegetations. plan is 6 week course of IV daptomycin. appreciate ID consultation. (3) Pressure injury of sacral region, stage 4: Plan: stage 4 sacral decubitus ulcer s/p I/D and debridement by Dr Awad - 07/23/22 appreciate his assistance current and previous cultures from this region grew both MRSA and ESBL e.coli wound vac placed on sacrum 07/26/22. 6-week course of IV daptomycin planned due to MRSA 10-day course of IV cefepime --> now ertapenem to cover the ESBL e.coli (stop date 08/01) appreciate gen surg, wound care, and ID assistance (4) Sacral osteomyelitis: Plan: CT showed evidence of Large sacral decubitus ulcer with erosion of the inferior sacrum and coccyx consistent with acute osteomyelitis. s/p I & D with debridement 07/23/[address] Awad 6-week course of IV daptomycin planned PICC line now in place LUE (5) UTI (urinary tract infection) due to urinary indwelling Guido catheter: Plan: 2nd MRSA IV daptomycin exchange his chronic guido prior to hospital discharge (6) Hypotension: Plan: 2nd to #1/#2 resolved holding amlodipine holding lasix using metoprolol for a.fib (7) History of quadriplegia: Plan: incomplete quad status. since age of 14. some partial movement of upper extremities and scant movements of LEs. (8) Anemia: Plan: 2nd to folate, B12, and Fe deficiency. replace folate - 1mg daily replace B12 - 1000mcg daily later in the stay would give IV Venofer but hold on this until we are well ahead of infection H/H have remained stable (9) Permanent atrial fibrillation: Plan: not on anticoagulation due to severe lower GI bleeding in November 2021 from hemorrhoids. required hemorrhoidectomy due to severity of this GI bleed. off Xarelto since then. rates are improved s/p metoprolol 25mg QID. he has had occasional hypotension from this -- thus, lowered metoprolol to 12.5mg QID then 12.5mg BID and rates acceptable with this. 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 incomplete quadriplegia (11) Hypertension: Plan: holding BP meds as above (12) AAA (abdominal aortic aneurysm): Plan: now 6.5cm, previously <6cm on last imaging patient aware established with [facility] who apparently has referred him to [facility] for repair has upcoming appt in August for such cont metoprolol (13) Cardiomyopathy: Plan: previous EF 40-45% now 50-55% on this admit's echo likely due to tachyarrhythmia (permanent a.fib) can't exclude other causes continue beta frederick appears compensated on exam (14) Constipation: Plan: dulcolax suppos prn cont miralax daily cont senna 2 tabs daily (15) Indwelling Guido catheter present: Plan: exchange his guido prior to discharge (16) Atrial fibrillation with RVR: Plan: cont metoprolol tartrate 12.5mg QID use or add digoxin if necessary not on chronic anticoagulation 2nd to previous, severe GI bleed in 2021 (17) DVT prophylaxis: Plan: patient very uncomfortable even taking low-dose heparin or lovenox for DVT proph we had lengthy discussion regarding risk of DVT/PE and that low-dose chemical DVT proph is very different than systemic anticoagulation such as full strength eliquis, coumadin, etc (discussed such on 07/27) [id number] still quite hesitant thus, defer on chemical DVT proph cont strict use of SCDs to LEs Plan updated pt's sister by phone today dispo - [facility] after d/c Admission and Anticipated Discharge Date Admission Date: July 19, 2022 Subjective no issues overnight a.fib on monitor - mainly <100, sometimes 100-110 asymptomatic he is eating all meals had BM today w/ dulcolax suppos right elbow pain better w/ voltaren gel he feels good otherwise sister visited him today Review of Systems Review of Systems: gen - no fevers, eating well cv - no orthopnea pulm - no dyspnea GI - no pressure sensation today skin - pt states there is a blister on back? Physical Exam Physical Exam: gen - very pleasant, NAD, looks good mouth - MMM neck - no JVD heart - regular rate (<100), irregular, s1 s2, no murmur lungs - CTA b/l abd - soft, BS+, NT, no HSM ext - trace edema, pulses 2+ b/l neuro - muscle wasting of all 4 limbs; strength of arms at least 3/5 psych - a/o x 3 musculo - right elbow - minimal tenderness over olecrenon bursal region; no joint effusion; no crepitus skin - woundvac in place over sacral region; I cannot appreciate any other wound or blister; mild erythema at top of gluteal cleft but no ulcer there Results & Data Results & Data ([facility]) Vital Signs (Past 12 Hours) Vital Signs Temp Pulse Pulse Resp BP BP Pulse Ox 07/29/22 08:00 36.6 C 73 16 121/83 98 07/29/22 03:20 36.4 C L 86 18 120/65 97 07/29/22 00:17 96 H 07/28/22 23:38 36.7 C 95 H 18 133/84 96 O2 Del Method 07/29/22 08:00 Room Air 07/29/22 03:20 Room Air 07/29/22 00:17 07/28/22 23:38 Room Air Laboratory Results BMP wnl recent blood cultures (4 sets) remain negative PG Care Time/CCT Total # of Minutes Spent Total Time Spent with Patient: Total time spent is greater than 50% in coordination of care (as documented) at patient's floor/unit and/or counseling patient: Coding Level of Care Code 22286 Subseq Hosp Care Lvl 2 Diagnoses Sepsis A41.9 Sepsis acute organ dysfunction status: without acute organ dysfunction Sepsis type: sepsis due to unspecified organism Bacteremia R78.81 Pressure injury of sacral region, stage 4 L89.154 Sacral osteomyelitis M46.28 UTI (urinary tract infection) due to urinary indwelling Guido catheter T83.511A; N39.0 Hypotension I95.9 Hypotension type: unspecified hypotension type History of quadriplegia Z86.69 Anemia D64.9 Permanent atrial fibrillation I48.21 Paralysis G83.9 Hypertension I10 Hypertension type: essential hypertension AAA (abdominal aortic aneurysm) I71.4 Cardiomyopathy I42.9 Constipation K59.00 Indwelling Guido catheter present Z96.0 Atrial fibrillation with RVR I48.91 DVT prophylaxis Z29.9 (1) Sepsis Sepsis acute organ dysfunction status: without acute organ dysfunction Sepsis type: sepsis due to unspecified organism Qualified Code(s): A41.9 - Sepsis, unspecified organism (2) Hypotension Hypotension type: unspecified hypotension type Qualified Code(s): I95.9 - Hypotension, unspecified (3) Hypertension Hypertension type: essential hypertension Qualified Code(s): I10 - Essential (primary) hypertension
[2022-07-29] MEDS: ADVANCED PROBIOTIC 1250 MG CAPSULE PO SCH (10:32)
[2022-07-29] MEDS: SENNA 8.6 MG TAB PO SCH (10:32)
[2022-07-29] MEDS: DAPTOmycin 600 MG in SYRINGE 0 ML IV SCH (13:27)
[2022-07-29] MEDS: ERTAPENEM SODIUM 1,000 MG in SYRINGE 0 ML IV SCH (13:27)
[2022-07-29] MEDS ORDERED: predniSONE 10 MG TABLET PO ONE (15:48)
--- NOTE | 2022-07-29 19:41 | Hospitalist Progress Note ---
Date of Service July 29, 2022 Assessment & Plan (1) Sepsis: Plan: resolved 2nd to sacral decubitus ulcer, stage 4, and sacral/coccygeal osteomyelitis. with resulting MRSA bacteremia/septicemia as below in #2. daptomycin IV x 6 weeks. cont ertapenem to cover the recent ESBL e.coli that grew from wound on 07/03/22. infectious disease recommending 10 day course of cefepime- now ertapenem- with stop date of ertapenem 08/01. cont lactinex (2) Bacteremia: Plan: 2nd MRSA. source - sacral osteomyelitis/stage 4 pressure ulcer. Most recent blood cultures from 07/22 and 07/23 remain negative. s/p PICC placement 07/26. echo without obvious valvular vegetations. plan is 6 week course of IV daptomycin. appreciate ID consultation. (3) Pressure injury of sacral region, stage 4: Plan: stage 4 sacral decubitus ulcer s/p I/D and debridement by Dr Awad - 07/23/22 appreciate his assistance current and previous cultures from this region grew both MRSA and ESBL e.coli wound vac placed on sacrum 07/26/22. 6-week course of IV daptomycin planned due to MRSA 10-day course of IV cefepime --> now ertapenem - to cover the ESBL e.coli (stop date 08/01) appreciate gen surg, wound care, and ID assistance (4) Sacral osteomyelitis: Plan: CT showed evidence of Large sacral decubitus ulcer with erosion of the inferior sacrum and coccyx consistent with acute osteomyelitis. s/p I & D with debridement 07/23/[address] Awad 6-week course of IV daptomycin planned PICC line now in place LUE (5) UTI (urinary tract infection) due to urinary indwelling Guido catheter: Plan: 2nd MRSA IV daptomycin will need to exchange his chronic guido prior to hospital discharge (6) Hypotension: Plan: 2nd to #1/#2 resolved holding amlodipine holding lasix using metoprolol for a.fib - tolerating low-dose metoprolol (7) History of quadriplegia: Plan: incomplete quad status. since age of 14. some partial movement of upper extremities and scant movements of LEs. (8) Anemia: Plan: 2nd to folate, B12, and Fe deficiency. replace folate - 1mg daily replace B12 - 1000mcg daily later in the stay would give IV Venofer but hold on this until we are well ahead of infection H/H have remained stable (9) Permanent atrial fibrillation: Plan: not on anticoagulation due to severe lower GI bleeding in November 2021 from hemorrhoids. required hemorrhoidectomy due to severity of this GI bleed. off Xarelto since then. rates are improved s/p metoprolol 25mg QID. he has had occasional hypotension from this -- thus, lowered metoprolol to 12.5mg QID then 12.5mg BID and rates acceptable with this. 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 incomplete quadriplegia (11) Hypertension: Plan: holding BP meds as above (12) AAA (abdominal aortic aneurysm): Plan: now 6.5cm, previously <6cm on last imaging patient well aware of diagnosis established with [facility] surgery in [place] who apparently has referred him to [facility] for repair has upcoming appt in August 2022 for such cont metoprolol BID (13) Cardiomyopathy: Plan: previous EF 40-45% now 50-55% on this admit's echo likely due to tachyarrhythmia (permanent a.fib) can't exclude other causes continue beta frederick appears compensated on exam (14) Constipation: Plan: dulcolax suppos every 3 days or so cont miralax daily cont senna 2 tabs daily (15) Indwelling Guido catheter present: Plan: exchange his guido prior to discharge (16) Atrial fibrillation with RVR: Plan: cont metoprolol tartrate 12.5mg BID add digoxin if necessary for additional rate control not on chronic anticoagulation 2nd to previous, severe GI bleed in 2021 (17) DVT prophylaxis: Plan: patient very uncomfortable even taking low-dose heparin or lovenox for DVT proph we had lengthy discussion regarding risk of DVT/PE and that low-dose chemical DVT proph is very different than systemic anticoagulation such as full strength eliquis, coumadin, etc (discussed such on 07/27) [id number] still quite hesitant thus, defer on chemical DVT proph cont strict use of SCDs to LEs (18) Right elbow pain: Plan: gouty bursitis? very sensitive to light touch mild swelling over bursa uric acid 6.1 voltaren gel has helped but not resolved give prednisone 10mg po x 1 today and re-eval tomorrow if improved with prednisone consider additional 4 days or so of low-dose prednisone Plan updated pt's sister by phone yesterday dispo - [facility] after d/c social work asked for PT/OT evals - orders placed Admission and Anticipated Discharge Date Admission Date: July 19, 2022 Subjective tele overnight -- a.fib, most rates <100 BPM no specific complaints except right elbow pain - voltaren gel is helping, but pain still present wound care team arrived during my visit - I inspected his sacral wound with them patient eating 100% of meals feels good Review of Systems Review of Systems: gen - no fevers or chills musculo - chronic low back pain (pressure sensation) Cv - no cp pulm - no dyspnea or orthopnea GI - no vomiting Physical Exam Physical Exam: gen - very pleasant, NAD, looks good mouth - MMM neck - no JVD heart - regular rate, irregular, s1 s2, no murmur lungs - CTA b/l abd - soft, BS+, NT, no HSM ext - trace edema, pulses 2+ b/l neuro - muscle wasting of all 4 limbs; strength of arms at least 3/5 psych - a/o x 3 musculo - right elbow - again mild tenderness over olecrenon bursal region; no joint effusion; no crepitus skin - woundvac in place over sacral region; this was removed by wound care nurse; extensive sacral decubitus ulcer with clean woundbed, roughly 2cm deep, 5-6cm across, 5-6cm height; at base of back above sacral decub is 3-4cm area of spongy skin, cyst? Results & Data Results & Data ([facility]) Vital Signs (Past 12 Hours) Vital Signs Temp Pulse Pulse Resp BP BP Pulse Ox 07/29/22 19:35 36.8 C 95 H 20 135/84 96 07/29/22 15:39 36.7 C 83 17 127/84 96 07/29/22 12:38 36.7 C 70 17 104/71 96 07/29/22 08:00 88 07/29/22 08:00 36.6 C 73 16 121/83 98 O2 Del Method 07/29/22 19:35 Room Air 07/29/22 15:39 Room Air 07/29/22 12:38 Room Air 07/29/22 08:00 07/29/22 08:00 Room Air Laboratory Results Laboratory Results - last 24 hr 07/29/22 06:05 WBC RBC Hgb Hct MCV MCH MCHC RDW Std Deviation RDW Coeff of Refugio Plt Count MPV Sodium Potassium Chloride Carbon Dioxide Anion Gap BUN Creatinine Est Cr Clr Drug Dosing Est GFR ( Amer) Est GFR (Non-Af Amer) BUN/Creatinine Ratio Glucose Uric Acid 6.1 Calcium Total Creatine Kinase PG Care Time/CCT Total # of Minutes Spent Total Time Spent with Patient: Total time spent is greater than 50% in coordination of care (as documented) at patient's floor/unit and/or counseling patient: Coding Level of Care Code 31907 Subseq Hosp Care Lvl 2 Diagnoses Sepsis A41.9 Sepsis acute organ dysfunction status: without acute organ dysfunction Sepsis type: sepsis due to unspecified organism Bacteremia R78.81 Pressure injury of sacral region, stage 4 L89.154 Sacral osteomyelitis M46.28 UTI (urinary tract infection) due to urinary indwelling Guido catheter T83.511A; N39.0 Hypotension I95.9 Hypotension type: unspecified hypotension type History of quadriplegia Z86.69 Anemia D64.9 Permanent atrial fibrillation I48.21 Paralysis G83.9 Hypertension I10 Hypertension type: essential hypertension AAA (abdominal aortic aneurysm) I71.4 Cardiomyopathy I42.9 Constipation K59.00 Indwelling Guido catheter present Z96.0 Atrial fibrillation with RVR I48.91 DVT prophylaxis Z29.9 Right elbow pain M25.521 (1) Sepsis Sepsis acute organ dysfunction status: without acute organ dysfunction Sepsis type: sepsis due to unspecified organism Qualified Code(s): A41.9 - Sepsis, unspecified organism (2) Hypertension Hypertension type: essential hypertension Qualified Code(s): I10 - Essential (primary) hypertension (3) Hypotension Hypotension type: unspecified hypotension type Qualified Code(s): I95.9 - Hypotension, unspecified
[2022-07-30 06:04] LABS: Hematocrit (blood only) 29.7 % (40.1-51.0); Mean Corpuscular Hemoglobin 24.5 pg (25.0-34.0); Mean Corpuscular Hgb Conc 30.3 g/dL (32.0-36.0); Mean Corpuscular Volume 80.9 fL (80.0-100.0); Mean Platelet Volume 9.8 fL (9.4-12.4); Platelet Count 338 K/uL (130-400); RDW Coefficient of Variation 18.8 % (11.5-14.5); RDW Standard Deviation 54.6 fL (36.4-46.3); Red Blood Count 3.67 M/uL (4.63-6.08); White Blood Count 12.04 K/ul (4.8-10.8)
[2022-07-30 06:33] LABS: BUN Creatinine Ratio 36.4 (10-20); Calcium 8.5 mg/dl (8.5-10.1); Creatinine Clr Calc Pharmacy 82.6 ml/min; Est GFR (African American) 103.6 ml/min; Est GFR (Non-African American) 89.4 ml/min; Potassium 4.3 mmol/L (3.5-5.1)
[2022-07-30] MEDS: SENNA 8.6 MG TAB PO SCH (08:16)
[2022-07-30] MEDS: CYANOCOBALAMIN (B-12) 500 MCG TABLET PO SCH (08:16)
[2022-07-30] MEDS: ADVANCED PROBIOTIC 1250 MG CAPSULE PO SCH (08:16)
[2022-07-30] MEDS: ASPIRIN 81 MG ECTAB PO SCH (08:16)
[2022-07-30] MEDS: METOPROLOL TARTRATE 25 MG TAB PO SCH ×2 (08:17→20:19)
[2022-07-30] MEDS: POLYETHYLENE (MIRALAX) 17 GM PACK PO SCH (08:17)
[2022-07-30] MEDS: FOLIC ACID 1 MG TAB PO SCH (08:17)
[2022-07-30] MEDS: DICLOFENAC SOD 1% GEL 100 GM TUBE EXT SCH ×4 (08:17→20:19)
[2022-07-30] MEDS ORDERED: IRON SUCROSE 300 MG in SODIUM CHLORIDE 0.9% 250 ML IV ONE (10:25)
[2022-07-30] MEDS: ERTAPENEM SODIUM 1,000 MG in SYRINGE 0 ML IV SCH (14:10)
[2022-07-30] MEDS: DAPTOmycin 600 MG in SYRINGE 0 ML IV SCH (14:10)
--- NOTE | 2022-07-30 15:00 | Hospitalist Progress Note ---
Date of Service July 30, 2022 Assessment & Plan (1) Sepsis: Plan: resolved 2nd to sacral decubitus ulcer, stage 4, and sacral/coccygeal osteomyelitis. with resulting MRSA bacteremia/septicemia as below in #2. WBC count back up on 07/30 due to dose of prednisone given the day prior for gout Continue daptomycin 600 mg IV q24h. Would treat for 6 weeks duration for MRSA bacteremia (07/22-09/01) -Baseline CK 101 on 07/23 -Check at least weekly CK while on daptomycin -Continue ertapenem 1 g IV q24h to cover gram negatives and anaerobes that could be contributing to SSTI (OR cultures not growing these, but pt had already been on several days of broad spectrum antibiotics), and in the setting of recent wound culture which grew ESBL E coli. Complete 10 day course of antibiotics from debridement (07/23-08/01) -Check weekly CBC with diff, CMP, CK while on antibiotics to monitor for toxicity, and send results to primary team -Would arrange for local follow-up with infectious disease -cont lactinex (2) Bacteremia: Plan: 2nd MRSA. source - sacral osteomyelitis/stage 4 pressure ulcer. Most recent blood cultures from 07/22 and 07/23 remain negative. s/p PICC placement 07/26. echo without obvious valvular vegetations. plan is 6 week course of IV daptomycin. appreciate ID consultation. (3) Pressure injury of sacral region, stage 4: Plan: stage 4 sacral decubitus ulcer s/p I/D and debridement by Dr Awad - 07/23/22 appreciate his assistance current and previous cultures from this region grew both MRSA and ESBL e.coli wound vac placed on sacrum 07/26/22. abx as above appreciate gen surg, wound care, and ID assistance (4) Sacral osteomyelitis: Plan: CT showed evidence of Large sacral decubitus ulcer with erosion of the inferior sacrum and coccyx consistent with acute osteomyelitis. s/p I & D with debridement 07/23/[address] Awad abx as above (5) UTI (urinary tract infection) due to urinary indwelling Guido catheter: Plan: 2nd MRSA IV daptomycin -exchanged his chronic guido on 07/30 (6) Hypotension: Plan: 2nd to #1/#2 resolved holding amlodipine holding lasix using metoprolol for a.fib - tolerating low-dose metoprolol (7) History of quadriplegia: Plan: 2nd to C5 injury as teenager incomplete quadriplegia since age of 14. some partial movement of upper extremities and scant movements of LEs. (8) Anemia: Plan: 2nd to folate, B12, and Fe deficiency. replace folate - 1mg daily replace B12 - 1000mcg daily -will now give IV Venofer as bacteremia resolved H/H have remained stable (9) Permanent atrial fibrillation: Plan: not on anticoagulation due to severe lower GI bleeding in November 2021 from hemorrhoids. required hemorrhoidectomy due to severity of this GI bleed. off Xarelto since then. rates are improved s/p metoprolol 25mg QID. he has had occasional hypotension from this -- thus, lowered metoprolol to 12.5mg QID then 12.5mg BID and rates acceptable with this. (10) Hypertension: Plan: holding BP meds as above (11) AAA (abdominal aortic aneurysm): Plan: now 6.5cm, previously <6cm on last imaging patient well aware of diagnosis established with [facility] in [place] who apparently has referred him to [facility] for repair has upcoming appt in August 2022 for such cont metoprolol BID (12) Cardiomyopathy: Plan: previous EF 40-45% now 50-55% on this admit's echo likely due to tachyarrhythmia (permanent a.fib) can't exclude other causes continue beta frederick appears compensated on exam holding home lasix (13) Constipation: Plan: dulcolax suppos every 3 days or so cont miralax daily cont senna 2 tabs daily (14) Indwelling Guido catheter present: Plan: exchange his guido 07/30 (15) Atrial fibrillation with RVR: Plan: cont metoprolol tartrate 12.5mg BID rate controlled add digoxin if necessary for additional rate control not on chronic anticoagulation 2nd to previous, severe GI bleed in 2021 (16) DVT prophylaxis: Plan: patient very uncomfortable even taking low-dose heparin or lovenox for DVT proph we had lengthy discussion regarding risk of DVT/PE and that low-dose chemical DVT proph is very different than systemic anticoagulation such as full strength eliquis, coumadin, etc (discussed such on 07/27) [id number] still quite hesitant thus, defer on chemical DVT proph cont strict use of SCDs to LEs (17) Right elbow pain: Plan: gouty bursitis? very sensitive to light touch mild swelling over bursa uric acid 6.1 voltaren gel has helped but not resolved gave prednisone 10mg po x 1 and improved-none further given bacteremia Plan dispo - [facility] when bed available-not today, hopeful for discharge tomorrow Admission and Anticipated Discharge Date Admission Date: July 19, 2022 Subjective Feeling fine, no pain except occasionally in lower back.No CP, SOB. Tele with Aflutter, rates 90s and briefly to 150s Review of Systems Review of Systems: All systems reviewed & are unremarkable except as noted in HPI & below Physical Exam Physical Exam: gen - very pleasant, NAD, looks good heart - regular rate, irregular, s1 s2, no murmur lungs - CTA b/l abd - soft, BS+, NT, no HSM ext - trace edema, pulses 2+ b/l neuro - muscle wasting of all 4 limbs; strength of arms at least 3/5 psych - a/o x 3 skin - wound vac in place over sacral region Results & Data Results & Data ([facility]) Vital Signs (Past 12 Hours) Vital Signs Temp Pulse Resp BP BP Pulse Ox O2 Del Method 07/30/22 11:24 36.4 C L 84 14 102/67 98 07/30/22 10:49 36.4 C L 78 14 117/75 97 Room Air 07/30/22 06:58 36.5 C 101 H 19 121/72 95 Room Air 07/30/22 04:09 36.6 C 93 H 20 132/81 93 Laboratory Results 07/30/22 07/30/22 Range/Units 05:20 05:20 WBC 12.04 H (4.8-10.8) K/ul RBC 3.67 L (4.63-6.08) M/uL Hgb 9.0 L (14.0-18.0) g/dl Hct 29.7 L (40.1-51.0) % MCV 80.9 (80.0-100.0) fL MCH 24.5 L (25.0-34.0) pg MCHC 30.3 L (32.0-36.0) g/dL RDW Std Deviation 54.6 H (36.4-46.3) fL RDW Coeff of [place] 18.8 H (11.5-14.5) % Plt Count 338 (130-400) K/uL MPV 9.8 (9.4-12.4) fL Sodium 138 (136-145) mmol/L Potassium 4.3 (3.5-5.1) mmol/L Chloride 108 H (98-107) mmol/L Carbon Dioxide 25 (21-32) mmol/L Anion Gap 5 (3-11) BUN 28 H (6-23) mg/dl Creatinine 0.77 (0.6-1.4) mg/dl Est Cr Clr Drug Dosing 82.6 ml/min Est GFR ( Amer) 103.6 ml/min Est GFR (Non-Af Amer) 89.4 ml/min BUN/Creatinine Ratio 36.4 H (10-20) Glucose 127 H (70-99(Fasting)) mg/dl Calcium 8.5 (8.5-10.1) mg/dl Total Creatine Kinase 85 (30-223) U/L PG Care Time/CCT Total # of Minutes Spent Total Time Spent with Patient: Total time spent is greater than 50% in coordination of care (as documented) at patient's floor/unit and/or counseling patient: Coding Level of Care Code 11169 Subseq Hosp Care Lvl 2 Diagnoses Sepsis A41.9 Sepsis acute organ dysfunction status: without acute organ dysfunction Sepsis type: sepsis due to unspecified organism Bacteremia R78.81 Pressure injury of sacral region, stage 4 L89.154 Sacral osteomyelitis M46.28 UTI (urinary tract infection) due to urinary indwelling Guido catheter T83.511A; N39.0 Hypotension I95.9 Hypotension type: unspecified hypotension type History of quadriplegia Z86.69 Anemia D64.9 Permanent atrial fibrillation I48.21 Hypertension I10 Hypertension type: essential hypertension AAA (abdominal aortic aneurysm) I71.4 Cardiomyopathy I42.9 Constipation K59.00 Indwelling Guido catheter present Z96.0 Atrial fibrillation with RVR I48.91 DVT prophylaxis Z29.9 Right elbow pain M25.521 (1) Sepsis Sepsis acute organ dysfunction status: without acute organ dysfunction Sepsis type: sepsis due to unspecified organism Qualified Code(s): A41.9 - Sepsis, unspecified organism (2) Hypertension Hypertension type: essential hypertension Qualified Code(s): I10 - Essential (primary) hypertension (3) Hypotension Hypotension type: unspecified hypotension type Qualified Code(s): I95.9 - Hypotension, unspecified
[2022-07-31] MEDS: POLYETHYLENE (MIRALAX) 17 GM PACK PO SCH (08:08)
[2022-07-31] MEDS: ADVANCED PROBIOTIC 1250 MG CAPSULE PO SCH (08:09)
[2022-07-31] MEDS: SENNA 8.6 MG TAB PO SCH (08:09)
[2022-07-31] MEDS: ASPIRIN 81 MG ECTAB PO SCH (08:09)
[2022-07-31] MEDS: METOPROLOL TARTRATE 25 MG TAB PO SCH (08:09)
[2022-07-31] MEDS: CYANOCOBALAMIN (B-12) 500 MCG TABLET PO SCH (08:09)
[2022-07-31] MEDS: DICLOFENAC SOD 1% GEL 100 GM TUBE EXT SCH ×2 (08:10→13:13)
[2022-07-31] MEDS: FOLIC ACID 1 MG TAB PO SCH (08:10)
[2022-07-31] MEDS: ERTAPENEM SODIUM 1,000 MG in SYRINGE 0 ML IV SCH (13:13)
[2022-07-31] MEDS: DAPTOmycin 600 MG in SYRINGE 0 ML IV SCH (13:13)
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
== END 2022-07-31 16:07 | DRG 853 ==
LOC: ED 13:11 → 4W 21:07 → SUATTDRO 21:07 → 4W 22:26